=== PATIENT | male | born 1940 | race Caucasian/White ===

== ENCOUNTER → 2017-06-05 | Outpatient (CLI) | payer MEDICARE, BC ==
--- NOTE | 2017-06-05 08:18 | CT ---
EXAMINATION TYPE: CT brain wo con DATE OF EXAM: 06/05/2017 COMPARISON: 07/24/2010 INDICATION: Headache DLP: 1058 mGycm, Automated exposure control for dose reduction was used. CONTRAST: None CT of the brain is performed utilizing 3 mm thick sections through the posterior fossa and 3 mm thick sections through the remaining calvarium. Study is performed within 24 hours of arrival to the hosp ital. No abnormal hyperdensity is present to suggest an acute intracranial hemorrhage. No mass lesion is evident. No acute infarcts are evident. 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 This was present 2010. Ventricles and sulci are appropriate for the patient age. Paranasal sinuses and mastoid air cells within the [id number] are clear. IMPRESSIONS: 1. Old left occipital lobe infarct. 2. No acute intracranial process.
--- NOTE | 2017-06-05 10:16 | US ---
EXAMINATION TYPE: US carotid duplex BILAT DATE OF EXAM: 06/05/2017 COMPARISON: NONE CLINICAL HISTORY: I65.29 Occlusion And Stenosis, R51 Headache. EXAM MEASUREMENTS: RIGHT: Peak Systolic Velocity (PSV) cm/sec ----- Right CCA: 105.6 ----- Right ICA: 79.1 ----- Right ECA: 158.2 ICA/CCA ratio: 0.7 RIGHT: End Diastole cm/sec ----- Right CCA: 13.4 ----- Right ICA: 17.2 ----- Right ECA: 0.0 LEFT: Peak Systolic Velocity (PSV) cm/sec ----- Left CCA: 139.2 ----- Left BULB: 160.3 ----- Left ICA: 119.0 ----- Left ECA: 205.9 ICA/CCA ratio: 1.2 LEFT: End Diastole cm/sec ----- Left CCA: 17.0 ----- Left BULB: 13.1 ----- Left ICA: 23.6 ----- Left ECA: 0.0 VERTEBRALS (direction of flow): Right Vertebral: antegrade Left Vertebral: antegrade Rhythm: Arrhythmia Moderate plaque, bilateral ICA's show no velocity elevations, ECA's have mild velocity elevations and left Bulb shows mild velocity elevation. Right-sided Doppler waveforms appear normal. Atheromatous plaquing is present to the left carotid bul b and bifurcation. The Doppler waveforms appear normal. Only mild filling of the acoustic window is e vident suggestive for some mild turbulent flow. IMPRESSION: 1. Elevated velocity within the left carotid system on the left internal carotid artery is not suspic iously elevated to suggest stenosis. Due to the complex picture, consider CTA if additional workup is warranted. 2. Atheromatous plaquing without flow-limiting stenosis by velocity measurements. Criteria for Assigning % of Stenosis / Diameter reduction (Estimation based on the indirect measurements of the internal carotid artery velocities (ICA PSV). 1. Normal (no stenosis)=ICA PSV < 125 cm/s: ratio < 2.0: ICA EDV<40 cm/s. 2. Less than 50% stenosis=ICA PSV < 125 cm/s: ratio < 2.0: ICA EDV<40 cm/s. 3. 50 to 69% stenosis=ICA PSV of 125 to 230 cm/s: ration 2.0 ? 4.0: ICA EDV 40-100 cm/s. 4. Greater than 70% stenosis to near occlusion= ICA PSV > 230 cm/s: ratio > 4.0: ICA EDV > 100 cm/s. 5. Near occlusion= ICA PSV velocities may be low or undetectable: variable ratio and ICA EDV. 6. Total occlusion=unable to detect flow.
== END | disposition home or self-care (01) ==
LOC: RADCTMAIN 07:30
PROVIDERS: ATTEND Family Medicine
DX: I65.23 Occlusion and stenosis of bilateral carotid arteries (principal); R51 Headache; Z86.79 Personal history of other diseases of the circulatory system
CPT/HCPCS: 70450; 93880

== ENCOUNTER → 2017-12-14 | Outpatient (CLI) | payer MEDICARE, BC ==
--- NOTE | 2017-12-14 12:07 | US ---
EXAMINATION TYPE: US duplex aorta DATE OF EXAM: 12/14/2017 COMPARISON: NONE CLINICAL HISTORY: Z13.9 Encounter for screening, unspecified. Screening EXAM MEASUREMENTS: Abdominal Aorta: Proximal: 1.7 x 1.8cm Mid: 1.9 x 2.1cm Distal: 1.6 x 1.7cm Bifurcation: obscured by overlying bowel content Technical limitations due to patient's body habitus and large amount of overlying bowel content. Vi sualized portions show no evidence of AAA at this time. Bifurcation obscured by overlying bowel laureano nt Grayscale, color Doppler, spectral Doppler imaging performed of the abdominal aorta IMPRESSION: Limited exam. No evident abdominal aortic aneurysm.
== END | disposition home or self-care (01) ==
LOC: RADUSWWP 08:54
PROVIDERS: ATTEND Family Medicine
DX: Z13.6 Encounter for screening for cardiovascular disorders (principal)
CPT/HCPCS: 93979

== ENCOUNTER 2018-06-09 23:34 | Inpatient (IN) | payer MEDICARE, BC ==
--- NOTE | 2018-06-10 00:06 | XR ---
EXAMINATION TYPE: XR knee limited LT DATE OF EXAM: 06/09/2018 COMPARISON: NONE HISTORY: Knee pain TECHNIQUE: 2 views FINDINGS: There is oblique fracture of the proximal shaft of the tibia at the level of the tibial tub ercle. There is no displacement. The knee joint is anatomic. The proximal fibula appears intact. IMPRESSION: Nondisplaced fracture of the proximal tibial metaphysis.
--- NOTE | 2018-06-10 01:05 | CT ---
EXAMINATION TYPE: CT knee LT wo con DATE OF EXAM: 06/10/2018 COMPARISON: None HISTORY: left knee pain after fall CT DLP: 134.9 mGycm Automated exposure control for dose reduction was used. FINDINGS: Multiple axial sections were obtained from the distal femur into the mid shaft of the tibia with no c ontrast. There is oblique fracture of the proximal shaft of the tibia which extends anteriorly to the tibial t ubercle. There is no joint effusion. No fracture line appears to extend to the knee joint. The knee j oint spaces are fairly normal. The distal femur is intact. The proximal fibula appears intact. There is no evidence of a soft tissue mass. I see no focal bone destruction. IMPRESSION: NONDISPLACED OBLIQUE FRACTURE PROXIMAL SHAFT OF THE TIBIA AT THE TIBIAL TUBERCLE. NO DISLOCATION. NO KNEE JOINT SPACE INVOLVEMENT.
[2018-06-10] MEDS ORDERED: MORPHINE SULFATE 4 MG/ML SYRINGE IVP STA ×2 (01:10→02:22)
--- NOTE | 2018-06-10 03:10 | ED ---
Fall HPI - General Chief Complaint: Fall Stated Complaint: Knee pain Time Seen by Provider: 06/09/18 23:39 Source: patient, EMS Mode of arrival: EMS - History of Present Illness Initial Comments: Lang is a pleasant 78-year-old gentleman who is brought to the ED today via EMS for evaluation of left-sided knee pain. 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 Patient reports he was standing in his home when his legs gave out from under him he fell forward landing onto didn't knees. Patient's. Instead immediate pain in his left leg and was unable to stand. EMS was contacted. Patient was given 100 g of intranasal fentanyl with significant improvement in his pain and transported to the ED with his left leg in a knee immobilizer. Upon arrival patient complains only of pain in left knee. He denies any associated injuries. Patient is on aspirin daily but no other antiplatelet or anticoagulant medications. Patient reports when he fell he did not strike his head or neck, he had no loss of consciousness. He describes the fall as being resulted of muscle weakness in his legs, there is no mechanical trip and fall, there was no syncope or loss of consciousness. - Related Data Home Medications Medication Instructions Recorded Confirmed ALPRAZolam [Xanax] 0.25 mg PO HS PRN 12/10/13 05/13/18 Aspirin 81 mg PO BID 12/10/13 05/13/18 Atenolol [Tenormin] 25 mg PO HS 12/10/13 05/13/18 Atorvastatin [Lipitor] 20 mg PO HS 12/10/13 05/13/18 Quinapril HCl [Accupril] 10 mg PO HS 12/10/13 05/13/18 Sertraline [Zoloft] 50 mg PO HS 12/10/13 05/13/18 Multivitamin [Men's Multi-Vitamin] 1 each PO HS 12/31/13 05/13/18 Orencia (Unknown Dose) 1 dose IV. QMONTH 12/17/14 05/13/18 ALPRAZolam [Xanax] 0.25 mg PO BID PRN 06/01/15 05/13/18 Cholecalciferol (Vitamin D3) 5,000 unit PO DAILY 10/29/15 05/13/18 [Vitamin D3] Human Growth Hormone 5 mg PO BID 02/04/16 05/13/18 Previous Rx's Medication Instructions Recorded Cyclobenzaprine [Flexeril] 10 mg PO TID #14 tab 01/16/15 Ibuprofen [Motrin] 800 mg PO Q6HR PRN #20 tab 01/16/15 Allergies Allergy/AdvReac Type Severity Reaction Status Date / Time No Known Allergies Allergy Verified 06/09/18 23:40 Review of Systems ROS Statement: Those systems with pertinent positive or pertinent negative responses have been documented in the HPI. ROS Other: All systems not noted in ROS Statement are negative. Past Medical History Past Medical History: Coronary Artery Disease (CAD), Chest Pain / Angina, CVA/ TIA, Myocardial Infarction ([place]), Rheumatoid Arthritis ([place]) Additional Past Medical History / Comment(s): DIARRHEA,KIDNEYSTONE, CVA OCCIPITAL LOBE (AFFECTED EYES 2010),MEDIPORT FOR IV ORENCIA THERAPY Q 4 WEEKS . 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 Last Myocardial Infarction Date:: 2007 History of Any Multi-Drug Resistant Organisms: MRSA Date of last positivie culture/infection: 2009/IN LEFT ARM PICC MDRO Source:: LEFT ARM PICC Past Surgical History: Adenoidectomy, Appendectomy, Heart Catheterization With Stent, Orthopedic Surgery, Tonsillectomy Additional Past Surgical History / Comment(s): HX caratid ENDARTERECTOMY-2009, MEDIPORT PLACED IN 2009. R FEMUR FX WITH REPAIR. Past Anesthesia/Blood Transfusion Reactions: No Reported Reaction Date of Last Stent Placement:: 2007 Past Psychological History: Depression Smoking Status: Former smoker - Past Family History Father Family Medical History: Hyperlipidemia Additional Family Medical History / Comment(s): FATHER AT AGE 55 YRS IN MVA. Mother Family Medical History: Cancer, Diabetes Mellitus Additional Family Medical History / Comment(s): MOTHER AT AGE 72 OF [place] General Exam - General Exam Comments Initial Comments: Physical Exam GENERAL: Patient is well-developed and well-nourished. Patient is nontoxic and well- hydrated and is in no distress. HENT: Normocephalic, Atraumatic. EYES: PERRL, EOMI PULMONARY: Unlabored respirations. No audible rales rhonchi or wheezing was noted. CARDIOVASCULAR: There is a regular rate and rhythm without any murmurs gallops or rubs. ABDOMEN: Soft and nontender with normal bowel sounds. SKIN: Skin is clear with no lesions or rashes and otherwise unremarkable. : Deferred NEUROLOGIC: Patient is alert and oriented x3. Moving all extremities spontaneously MUSCULOSKELETAL: Decreased range of motion of left knee secondary to pain There is swelling over the left proximal tibia PSYCHIATRIC: Normal psychiatric evaluation. Limitations: no limitations Limitations: no limitations Course Vital Signs 06/09/18 23:37 Temperature 97.7 F Pulse Rate 82 Respiratory 18 Rate Blood Pressure 183/99 O2 Sat by Pulse 97 Oximetry Medical Decision Making - Medical Decision Making The patient was seen and evaluated history was obtained from the patient, patient with a mechanical fall onto his left knee with isolated left knee pain. Physical exam is concerning for acute left proximal tibial pain except x-ray was ordered next line x-ray reveals a nondisplaced tibial fracture however it does abut the joint line therefore computed tomography scan was ordered CT confirms a proximal tibial fracture at the joint Patient care was [facility] with [facility] on-call due to patient request as the patient has a history of orthopedic surgery by Dr. Brar in the past. On Dr. Zhou is unavailable this week and she recommended patient be evaluated by orthopedics complex care nurse practitioner. Patient care was discussed with Avins[facility]. Given the patient's medical history and concern that he will not be safe on crutches decision was made to admit him for possible tibial fracture. Next Patient was reevaluated and updated on findings. Patient with some pain in the proximal tibia, compartments are soft, extremity is warm and well-perfused. There is no signs of compartment syndrome. Admission orders were placed Disposition Clinical Impression: Fall, Inclusion body myositis, Generalized weakness, Closed left tibial fracture Disposition: ADMITTED IP TO THIS HOSP Referrals: Loi Ayala MD [Primary Care Provider] - 1-2 days
[2018-06-10] MEDS ORDERED: NALOXONE 0.4 MG/ML 1 ML VIAL IV PRN (03:11)
[2018-06-10] MEDS: MORPHINE SULFATE 4 MG/ML SYRINGE IV PRN ×3 (05:26→14:09)
[2018-06-10] MEDS: CYCLOBENZAPRINE 10 MG TAB PO SCH ×3 (08:54→20:49)
[2018-06-10] MEDS: ALPRAZolam 0.25 MG TAB PO PRN (08:54)
[2018-06-10] MEDS: HEPARIN SODIUM,PORCINE 5,000 UNIT/ML 1 ML VIAL SQ SCH ×2 (08:56→16:41)
[2018-06-10] MEDS ORDERED: ASPIRIN 81 MG PO SCH (09:00)
[2018-06-10] MEDS ORDERED: IBUPROFEN 400 MG TAB PO PRN (09:18)
[2018-06-10] MEDS ORDERED: HYDROcodone/APAP 7.5-325MG 1 EACH TAB PO PRN (09:18)
--- NOTE | 2018-06-10 09:18 | P.HPOR ---
History of Present Illness H&P Date: 06/10/18 Chief Complaint: Left tibia fracture Patient is a 78-year-old male who presented to [facility] on . Patient had a fall at his home, he landed on his left knee. Patient is a history of inclusion body myositis which causes frequent falls due to lower extremity weakness. Patient states that he had an episode of this tonight when he fell. Upon arrival to the emergency room, imaging lab tests were done. Images demonstrated a nondisplaced left proximal tibial fracture. I was contacted by the emergency room staff early this morning, patient was admitted under our care plan for further evaluation and management. Internal medicine was consulte for medical management. Patient is evaluated today in the emergency room. He is resting comfortably. There is a knee immobilizer present on the left lower extremity. Minimal discomfort in the left knee is noted, mainly with movement. Patient denies any severe pain involving the right lower extremity, bilateral upper extremities, new onset cervical, thoracic or lumbar pain. Patient is a history of a right femur fracture required a surgical procedure, this was done by Dr. Zhou from [facility] back in 2005. Review of Systems Constitutional: Reports as per HPI Past Medical History Past Medical History: Coronary Artery Disease (CAD), Chest Pain / Angina, CVA/ TIA, Myocardial Infarction ([place]), Rheumatoid Arthritis ([place]) Additional Past Medical History / Comment(s): DIARRHEA,KIDNEYSTONE, CVA OCCIPITAL LOBE (AFFECTED EYES 2010),MEDIPORT FOR IV ORENCIA THERAPY Q 4 WEEKS . 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 Last Myocardial Infarction Date:: 2007 History of Any Multi-Drug Resistant Organisms: MRSA Date of last positivie culture/infection: 2009/IN LEFT ARM PICC MDRO Source:: LEFT ARM PICC Past Surgical History: Adenoidectomy, Appendectomy, Heart Catheterization With Stent, Orthopedic Surgery, Tonsillectomy Additional Past Surgical History / Comment(s): HX caratid ENDARTERECTOMY-2009, MEDIPORT PLACED IN 2009. R FEMUR FX WITH REPAIR. Past Anesthesia/Blood Transfusion Reactions: No Reported Reaction Date of Last Stent Placement:: 2007 Past Psychological History: Depression Smoking Status: Former smoker - Past Family History Father Family Medical History: Hyperlipidemia Additional Family Medical History / Comment(s): FATHER AT AGE 55 YRS IN MVA. Mother Family Medical History: Cancer, Diabetes Mellitus Additional Family Medical History / Comment(s): MOTHER AT AGE 72 OF [place] Medications and Allergies Home Medications Medication Instructions Recorded Confirmed Type ALPRAZolam [Xanax] 0.25 mg PO HS PRN 12/10/13 06/10/18 History Aspirin 81 mg PO BID 12/10/13 06/10/18 History Atenolol [Tenormin] 25 mg PO HS 12/10/13 06/10/18 History Quinapril HCl [Accupril] 10 mg PO HS 12/10/13 06/10/18 History Sertraline [Zoloft] 50 mg PO HS 12/10/13 06/10/18 History Multivitamin [Men's Multi-Vitamin] 1 each PO HS 12/31/13 06/10/18 History Cholecalciferol (Vitamin D3) 5,000 unit PO HS 10/29/15 06/10/18 History [Vitamin D3] Allergies Allergy/AdvReac Type Severity Reaction Status Date / Time No Known Allergies Allergy Verified 06/09/18 23:40 Physical Examination Left lower extremity: Knee immobilizer is in good position and condition. Skin is warm to touch proximal distal to the splint, sensation to light touch. Proximal and distal to the immobilizer is intact. Plantar flexion, dorsiflexion, EHL, FHL are intact. Dorsal pedis pulses 2+. Logroll maneuver of the hip reproduces no pain. Range of motion of the lower extremity is limited due to immobilizer. Results - Diagnostic results Hip CT: report reviewed, image reviewed Knee x-ray: report reviewed, image reviewed Assessment and Plan Plan: Imaging: Multiple images were taken of the left knee, this including x-rays and CT. Images demonstrate a nondisplaced left proximal tibial fracture. No articular involvement of the left knee noted. Assessment: 1. Nondisplaced left proximal tibia fracture 2. Status post fall from standing 3. Inclusion body myositis 4. Other medical comorbidities Plan: I was able to discuss the case, including with physical exam findings and imaging studies my attending Dr. Rubalcava. We would like to proceed with conservative management at this time. Plan will be for closed reduction with long-leg cast, this will be performed in the operating room underlie fluoroscopy. We are planning to do this afternoon of 06/10/2018. Patient is remain nothing by mouth at this time Nonweightbearing left lower extremity, continue use knee immobilizer at this time Pain control GI and DVT prophylaxis Medical recommendations Further recommendations to follow Time with Patient: Less than 30
--- NOTE | 2018-06-10 12:52 | XR ---
EXAMINATION TYPE: XR chest 1V portable DATE OF EXAM: 06/10/2018 COMPARISON: 03/19/2010 INDICATION: Preop TECHNIQUE: Single frontal view of the chest is obtained. FINDINGS: The heart size is upper limits of normal. The pulmonary vasculature is normal. The lungs are clear. Port is present on the right with the tip in the distal superior vena cava region. IMPRESSION: 1. No acute pulmonary process.
[2018-06-10 13:04] LABS: Basophils # (A) 0.1 k/uL (0-0.2); Basophils % (A) 1 %; Eosinophils # (A) 0.3 k/uL (0-0.7); Eosinophils % (A) 4 %; HCT 43.8 % (39.0-53.0); HGB 13.9 gm/dL (13.0-17.5); Lymphocytes # (A) 2.4 k/uL (1.0-4.8); Lymphocytes % (A) 30 %; MCH 28.4 pg (25.0-35.0); MCHC 31.7 g/dL (31.0-37.0); MCV 89.3 fL (80.0-100.0); Monocytes # (A) 0.4 k/uL (0-1.0); Monocytes % (A) 5 %; Neutrophils # (A) 4.6 k/uL (1.3-7.7); Neutrophils % (A) 57 %; Platelet Count 229 k/uL (150-450); RDW 13.4 % (11.5-15.5)
[2018-06-10 13:08] LABS: INR 0.9 (<1.2); Prothrombin Time 10.1 sec (9.0-12.0)
[2018-06-10 13:20] LABS: ALT 61 U/L (21-72); AST 49 U/L (17-59); Albumin 3.8 g/dL (3.5-5.0); Alkaline Phosphatase 73 U/L (38-126); Anion Gap 7 mmol/L; Blood Urea Nitrogen 14 mg/dL (9-20); Calcium 9.7 mg/dL (8.4-10.2); Carbon Dioxide 26 mmol/L (22-30); Chloride 106 mmol/L (98-107); Glucose 100 mg/dL (74-99); Potassium 4.5 mmol/L (3.5-5.1); Sodium 139 mmol/L (137-145); Total Bilirubin 0.6 mg/dL (0.2-1.3)
[2018-06-10 13:45] LABS: Creatine Kinase MB 10.2 ng/mL (0.0-2.4); Troponin I 0.019 ng/mL (0.000-0.034)
[2018-06-10 13:57] LABS: Appearance,Urine Clear (Clear); Bilirubin,Urine Negative (Negative); Blood,Urine Negative (Negative); Color,Urine Yellow; Glucose,Urine (UA) Negative (Negative); Ketones,Urine Negative (Negative); Leukocyte Esterase,Urine Small (Negative); Mucus,Urine Rare /hpf; Nitrite,Urine Negative (Negative); Protein,Urine Negative (Negative); RBC,Urine 1 /hpf (0-5); Specific Gravity,Urine 1.013 (1.001-1.035); Urobilinogen,Urine <2.0 mg/dL (<2.0); WBC,Urine 4 /hpf (0-5)
[2018-06-10] MEDS ORDERED: LACTATED RINGERS 1,000 ML IV ONE (16:20)
[2018-06-10] MEDS ORDERED: ONDANSETRON 4 MG/2 ML VIAL IVP ONE (16:36)
[2018-06-10] MEDS ORDERED: DEXAMETHASONE SOD PHOSPHATE 10 MG/ML 1 ML VIAL IV ONE (16:37)
[2018-06-10] MEDS ORDERED: MIDAZOLAM 2 MG/2 ML VIAL ONE (17:01)
[2018-06-10] MEDS ORDERED: fentaNYL (PF) 50 MCG/ML 2 ML AMP ONE (17:01)
[2018-06-10] MEDS ORDERED: PROPOFOL 10 MG/ML 20 ML VIAL IV ONE (17:01)
--- NOTE | 2018-06-10 17:26 | P.OP ---
Date of Procedure: 06/10/18 Preoperative Diagnosis: Mildly displaced left proximal tibia fracture Postoperative Diagnosis: Same Procedure(s) Performed: Closed reduction and long-leg casting left proximal tibia fracture with fluoroscopy Anesthesia: MAC Surgeon: Anderson Rubalcava Estimated Blood Loss (ml): 0 Pathology: none sent Condition: stable Disposition: PACU Indications for Procedure: The patient's a 78-year-old male who presents after falling injuring his left leg. He was noted to close fracture involving the left proximal tibia in the metaphyseal region. A discussion of the risks and benefits of closed reduction and casting was made with the patient. He opted to proceed. Risks to include possible need for subsequent procedures was discussed. Operative Findings: As below Description of Procedure: The patient was brought to the operating room, and after induction of IV sedation a long leg cast was applied to the left leg. The knee was flexed 30. Gentle reduction was performed. The cast was molded appropriately. Fluoroscopy to include AP and lateral views of the left proximal tibia/knee showed adequate reduction of the fracture. The patient was awoken from sedation and transferred to recovery room in good condition. Blood loss was 0. No complications were incurred.
[2018-06-10] MEDS ORDERED: LABETALOL SYRINGE 5 MG/ML IVP ONE (18:03)
--- NOTE | 2018-06-10 18:24 | XR ---
EXAMINATION TYPE: XR tibia fibula LT, [place] guidance operating room DATE OF EXAM: 06/10/2018 COMPARISON: NONE HISTORY: 78-year-old male with left tibial fracture casting FINDINGS: Fluoroscopic images during intraoperative casting of the patient's proximal tibial fractures. FLUOROSCOPY Fluoroscopy time of 1 seconds was used during casting of left tibial fracture. 2 image/s document/s the procedure. IMPRESSION: Intraoperative fluoroscopy during tibial fracture casting as above.
--- NOTE | 2018-06-10 19:37 | CONS ---
CONSULTATION REASON FOR CONSULTATION: Advice regarding myositis and other medical issues requested by Dr. Rubalcava. HISTORY OF PRESENT ILLNESS: This 78-year-old gentleman with a past medical history of multiple medical problems including CAD, rheumatoid arthritis, CVA, TIA, myocardial infarction, history of kidney stones, history of severe occipital lobe, history of MRSA, history of Orencia treatment, history of CAD stent, history of inclusion body myositis being followed by Dr. Ayala in the outpatient setting also following up with [facility] neurologist. The patient also receiving Orencia infusion thru a port on the right chest. The patient has become slightly progressively weak according to him because of the myositis for which there is not much treatment at this time. The patient apparently fell because of weakness and suffered a nondisplaced left proximal tibial fracture. The patient admitted for further evaluation and treatment. Surgery is being planned at this time. There is no history of fever, rigors or chills. No history of headache, loss of consciousness, seizures. No chest pain, palpitations, hematochezia or melena. The previously the exercise tolerance appears to be excellent also at this time. PAST MEDICAL HISTORY: History of CAD, history of myocardial infarction, rheumatoid arthritis, history of kidney stones, history of CVI, history of MRSA, history of CAD stent. MEDICATIONS: Prior to admission include home medications are: 1. Pamelor 10 mg p.o. b.i.d. 2. Vitamin D3 5000 q.h.s. 3. Zoloft 50 mg q.h.s. 4. Accupril 10 mg q.h.s. 5. Multivitamins 1 p.o. daily. 6. Tenormin 25 mg q.h.s. 7. Aspirin 81 mg b.i.d. 8. Xanax 0.5 q.h.s. p.r.n. ALLERGIES: None. FAMILY HISTORY: History of hyperlipidemia. History of motor vehicle accident. SOCIAL HISTORY: History of alcohol on a daily basis, history of nicotine dependence. REVIEW OF SYSTEMS: ENT: No diminished hearing. No diminished vision. CARDIOVASCULAR: No angina or palpitations. RESPIRATORY: No cough or hemoptysis. GI: No nausea or vomiting. : No dysuria. NERVOUS SYSTEM: As mentioned earlier. ALLERGY/IMMUNOLOGY: No asthma or hayfever. MUSCULOSKELETAL: As mentioned earlier. HEMATOLOGY/ONCOLOGY: No history of anemia. ENDOCRINE: No history of diabetes or hypothyroidism. CONSTITUTIONAL: As mentioned earlier. Dermatology: Negative. Rheumatology: Negative. Psychiatry: As mentioned earlier. PHYSICAL EXAMINATION: GENERAL: The patient is alert and oriented times three. Pulse is 77, blood pressure 179/82, respiration 20, temperature 97.6, pulse ox 98% on 2 L. HEENT is conjunctivae normal. Oral mucosa moist. NECK: No jugular venous distention. No carotid bruit. No lymph node enlargement. CARDIOVASCULAR SYSTEM: S1, S2 muffled. RESPIRATORY: Breath sounds diminished in the bases. A few scattered rhonchi. No crackles. ABDOMEN: Soft, nontender. No mass palpable. LEGS: Status post left tibial fracture. NERVOUS SYSTEM: Higher functions as mentioned earlier. Moves all four extremities. No focal motor or sensory deficits. Lymphatics: No lymph nodes palpable in the neck, axillae or groin. SKIN: No ulcer, rashes or bleeding. JOINTS: No active deforming arthropathy. LABS: CBC within normal limits. Sodium 139, potassium 4.5. ASSESSMENT: 1. Nondisplaced left proximal tibial fracture. 2. Inclusion body myositis. 3. Rheumatoid arthritis on Orencia infusion. 4. Right chest Port-A-Cath. 5. History of coronary artery disease, myocardial infarction/ stent. 6. History of cerebrovascular accident, transient ischemic attack, occipital infarct. 7. History of nephrolithiasis. 8. History of Orencia infusion. 9. History of MRSA. 10.History of tonsillectomy. 11.History of degenerative joint disease. 12.History of depression. RECOMMENDATIONS AND DISCUSSION: This 78-year-old gentleman who presented with multiple medical issues, at this time, I recommend to continue current medications, management and symptomatic treatment. Otherwise, at this time I recommend to continue with antiplatelet agents and as well as beta blockers. The patient is medically stable for surgery. I would recommend DVT prophylaxis and continue with antiplatelet agents and closely follow up with the primary physician after discharge. We will follow the patient closely with you. Thank you Dr. Rubalcava for letting us take part in the care of this patient. Recommend close follow up with Dr. Ayala after discharge. Repeat labs also will be recommended. MMODL / IJN: [id number] /
[2018-06-10] MEDS: MULTIVITAMINS, THERA 1 EACH TAB PO SCH (20:48)
[2018-06-10] MEDS: NORTRIPTYLINE 10 MG CAP PO SCH (20:49)
[2018-06-10] MEDS: LISINOPRIL 10 MG TAB PO SCH (20:49)
[2018-06-10] MEDS: ATORVASTATIN 20 MG TAB PO SCH (20:49)
[2018-06-10] MEDS: ATENOLOL 25 MG TAB PO SCH (20:49)
[2018-06-10] MEDS: CHOLECALCIFEROL 1,000 UNIT TAB PO SCH (20:49)
[2018-06-10] MEDS: SERTRALINE 50 MG TAB PO SCH (21:13)
[2018-06-11 07:32] LABS: Basophils % (A) 0 %; Eosinophils % (A) 0 %; HGB 13.3 gm/dL (13.0-17.5); Lymphocytes # (A) 0.6 k/uL (1.0-4.8); Lymphocytes % (A) 9 %; MCH 29.2 pg (25.0-35.0); MCHC 32.4 g/dL (31.0-37.0); MCV 90.2 fL (80.0-100.0); Mean Platelet Volume 7.5; Monocytes # (A) 0.2 k/uL (0-1.0); Monocytes % (A) 3 %; Neutrophils # (A) 5.9 k/uL (1.3-7.7); Neutrophils % (A) 86 %; Platelet Count 232 k/uL (150-450); RBC 4.55 m/uL (4.30-5.90); RDW 13.2 % (11.5-15.5); WBC 6.8 k/uL (3.8-10.6)
[2018-06-11 08:02] LABS: Anion Gap 5 mmol/L; Blood Urea Nitrogen 15 mg/dL (9-20); Calcium 9.6 mg/dL (8.4-10.2); Carbon Dioxide 29 mmol/L (22-30); Chloride 103 mmol/L (98-107); Glucose 138 mg/dL (74-99); Sodium 137 mmol/L (137-145)
[2018-06-11] MEDS: ASPIRIN 325 MG TAB PO SCH (09:11)
[2018-06-11] MEDS: PANTOPRAZOLE 40 MG TABLET PO SCH (09:12)
[2018-06-11] MEDS: CYCLOBENZAPRINE 10 MG TAB PO SCH ×3 (09:13→20:36)
[2018-06-11] MEDS: NORTRIPTYLINE 10 MG CAP PO SCH ×2 (09:18→20:36)
[2018-06-11] MEDS: LISINOPRIL 10 MG TAB PO SCH ×2 (12:31→20:36)
[2018-06-11] MEDS: ATENOLOL 25 MG TAB PO SCH (12:31)
--- NOTE | 2018-06-11 13:31 | P.PN ---
Subjective Progress Note Date: 06/11/18 Principal diagnosis: Status post closed reduction with long-leg cast left proximal tibia fracture Patient is seen today resting in his hospital bed, he is comfortable. Pain is well-controlled at this time. He remains nonweightbearing. Objective - Vital Signs Vital signs: Vital Signs Temp 97.9 F 06/11/18 13:26 Pulse 79 06/11/18 13:26 Resp 20 06/11/18 13:26 BP 177/79 06/11/18 13:26 Pulse Ox 98 06/11/18 13:26 Intake & Output 06/10/18 06/11/18 06/11/18 18:59 06:59 18:59 Intake Total 550 1680 Output Total 420 Balance 550 1260 Intake: IV 550 Intake, IV Titration 240 Amount Lactated Ringers 1,000 ml 240 @ 0 mls/hr IV .[facility] Rx#:[id number] Oral 1440 Output: Urine 420 Other: Voiding Method Urinal Urinal Urinal # Voids 1 1 - Exam Left lower extremity: Long leg cast is in good position and condition. He is able to wiggle the toes no difficulty. The skin is warm to touch but distal and proximal to the splint. - Labs CBC & Chem 7: 06/11/18 06:55 06/11/18 06:55 Labs: Abnormal Lab Results - Last 24 Hours (Table) 06/10/18 06/10/18 06/11/18 Range/Units 12:50 13:30 06:55 Lymphocytes # 0.6 L (1.0-4.8) k/uL Creatinine (0.66-1.25) mg/dL Glucose (74-99) mg/dL CK-MB (CK-2) 10.2 H (0.0-2.4) ng/mL Ur Leukocyte Esterase Small H (Negative) Urine Mucus Rare H (None) /hpf 06/11/18 Range/Units 06:55 Lymphocytes # (1.0-4.8) k/uL Creatinine 0.56 L (0.66-1.25) mg/dL Glucose 138 H (74-99) mg/dL CK-MB (CK-2) (0.0-2.4) ng/mL Ur Leukocyte Esterase (Negative) Urine Mucus (None) /hpf Assessment and Plan Plan: Assessment: Status post closed reduction with long-leg casting left proximal tibia fracture Plan: Continue nonweightbearing left lower extremity Pain control GI and DVT prophylaxis Medical recommendations Likely discharge to rehab in the next day or 2 Time with Patient: Less than 30
[2018-06-11] MEDS: MORPHINE SULFATE 4 MG/ML SYRINGE IV PRN ×2 (14:25→23:19)
[2018-06-11] MEDS: ATORVASTATIN 20 MG TAB PO SCH (20:36)
[2018-06-11] MEDS: MULTIVITAMINS, THERA 1 EACH TAB PO SCH (20:36)
[2018-06-11] MEDS: CHOLECALCIFEROL 1,000 UNIT TAB PO SCH (20:36)
[2018-06-11] MEDS: SERTRALINE 50 MG TAB PO SCH (20:37)
[2018-06-11] MEDS: ALPRAZolam 0.25 MG TAB PO PRN (20:41)
[2018-06-12] MEDS: hydrALAZINE HCL 20 MG/ML 1 ML VIAL IVP PRN ×2 (06:05→22:22)
--- NOTE | 2018-06-12 07:29 | PN ---
PROGRESS NOTE DATE OF SERVICE: 06/11/2018 This 78-year-old gentleman admitted after nondisplaced left proximal tibial fracture, underwent closed reduction and long-leg casting of the left proximal tibial fracture with fluoroscopy. The patient also inclusion-body myositis. No chest pain or palpitation. No fever. PHYSICAL EXAMINATION: On exam, alert and oriented x3. Pulse is 75, blood pressure 175/74, respiration 20, temperature 97.5, pulse ox 95% on room air. HEENT: Conjunctivae normal. Neck: No jugular venous distention. CARDIOVASCULAR: S1, S2 muffled. RESPIRATORY: Breath sounds diminished at the bases. LEGS: Status post surgery. NERVOUS SYSTEM: No focal deficits. LABS: Labs are at this time shows CBC is WBC 6.8. Sodium is 137. ASSESSMENT: 1. Acute nondisplaced left proximal tibial fracture, status post closed reduction and long-leg casting. 2. Hypertension. 3. Inclusion-body myositis. 4. Rheumatoid arthritis on Orencia infusion. 5. Right chest Port-A-Cath. 6. History of coronary artery disease, myocardial infarction, stent. 7. History of cerebrovascular accident, transient ischemic attack, occipital infarct history. 8. History of nephrolithiasis. 9. History of Orencia infusion. 10.History of methicillin-resistant Staphylococcus aureus. 11.History of tonsillectomy. 12.History of degenerative joint disease. 13.History of depression. RECOMMENDATIONS AND DISCUSSION: Recommend to continue current medications. Recommend increase the dose of lisinopril, use p.r.n. hydralazine. Continue the rest of medications. DVT prophylaxis. Closely follow with Orthopedic Surgery. Pain medications per Orthopedic Surgery. Further recommendations to follow. MMODL / IJN: [id number] / [facility]
[2018-06-12] MEDS: LISINOPRIL 10 MG TAB PO SCH ×2 (08:38→21:47)
[2018-06-12] MEDS: CYCLOBENZAPRINE 10 MG TAB PO SCH ×3 (08:38→21:47)
[2018-06-12] MEDS: PANTOPRAZOLE 40 MG TABLET PO SCH (08:38)
[2018-06-12] MEDS: ASPIRIN 325 MG TAB PO SCH (08:39)
[2018-06-12] MEDS: NORTRIPTYLINE 10 MG CAP PO SCH ×2 (08:39→21:47)
--- NOTE | 2018-06-12 13:31 | P.PN ---
Subjective Progress Note Date: 06/12/18 Principal diagnosis: Status post closed reduction with long-leg cast left proximal tibia fracture Patient is seen today resting in his hospital bed, he is comfortable. Pain is well-controlled at this time. He remains nonweightbearing. Objective - Vital Signs Vital signs: Vital Signs Temp 97.5 F L 06/12/18 12:43 Pulse 75 06/12/18 12:43 Resp 16 06/12/18 12:43 BP 142/64 06/12/18 12:43 Pulse Ox 96 06/12/18 12:43 Intake & Output 06/11/18 06/12/18 06/12/18 18:59 06:59 18:59 Intake Total 320 Output Total 800 750 Balance -800 -430 Intake: Oral 320 Output: Urine 800 750 Other: Voiding Method Urinal Urinal - Exam Left lower extremity: Long leg cast is in good position and condition. He is able to wiggle the toes no difficulty. The skin is warm to touch but distal and proximal to the splint. - Labs CBC & Chem 7: 06/11/18 06:55 06/11/18 06:55 Assessment and Plan Plan: Assessment: Status post closed reduction with long-leg casting left proximal tibia fracture Plan: Continue nonweightbearing left lower extremity Pain control GI and DVT prophylaxis Medical recommendations Plan for discharge to rehab tomorrow Time with Patient: Less than 30
--- NOTE | 2018-06-12 20:45 | PN ---
PROGRESS NOTE DATE OF SERVICE: 06/12/2018 This 78-year-old gentleman who was admitted with acute nondisplaced left proximal tibia fracture had closed reduction and long-leg casting. The patient is still complaining of some pain. Patient has significant myopathy in the form of inclusion body myositis also. The patient being closely monitored. No chest pain. No palpitations. No shortness of breath. PHYSICAL EXAM: Alert and oriented x3. Pulse is 75. Blood pressure 124/60, respiratory rate 16, temperature 97.4, pulse ox 97% on room air. HEENT conjunctivae normal. NECK: No jugular venous distention. CARDIOVASCULAR: S1, S2 muffled. RESPIRATORY: Breath sound diminished in the bases. No rhonchi. No crackles. ABDOMEN: Soft, nontender. Legs status post surgery. Otherwise, nervous system : Mild diffuse weakness present. SKIN: No ulcer, rash, or bleeding. JOINTS: No active deforming arthropathy. LAB STUDIES: CBC within normal limits. Sodium 139, potassium 5. UA noted. ASSESSMENT: 1. Acute nondisplaced left proximal tibial fracture, status post fall and status post closed reduction and long-leg casting. 2. Hypertension. 3. Inclusion body myositis. 4. Rheumatoid arthritis 5. Right chest Port-A-Cath. 6. Coronary artery disease, myocardial infarction, stent history. 7. History of cerebrovascular accident, transient ischemic attack, occipital infarct history. 8. History of nephrolithiasis. 9. History of Orencia fusion. 10.History of Methicillin-resistant Staphylococcus aureus. 11.History of tonsillectomy. 12.History of degenerative joint disease. 13.History of depression. RECOMMENDATIONS AND DISCUSSION: Recommend to continue current medications, monitoring and symptomatic treatment, management and recommend PT/OT evaluation, possible ECF rehab because of the multiple complex medical issues including inclusion body myositis, for which there is not really any active treatment and which is likely to be progressive. We will follow the patient closely with Orthopedic surgery. Further recommendations to follow. DVT prophylaxis. Incentive spirometry. MMODL / IJN: [id number] / [facility]
[2018-06-12] MEDS: CHOLECALCIFEROL 1,000 UNIT TAB PO SCH (21:46)
[2018-06-12] MEDS: MULTIVITAMINS, THERA 1 EACH TAB PO SCH (21:47)
[2018-06-12] MEDS: ATORVASTATIN 20 MG TAB PO SCH (21:47)
[2018-06-12] MEDS: SERTRALINE 50 MG TAB PO SCH (21:47)
[2018-06-12] MEDS: ATENOLOL 25 MG TAB PO SCH (21:47)
[2018-06-12] MEDS: MORPHINE SULFATE 4 MG/ML SYRINGE IV PRN (22:22)
[2018-06-13] MEDS: CYCLOBENZAPRINE 10 MG TAB PO SCH ×2 (08:56→18:36)
[2018-06-13] MEDS: PANTOPRAZOLE 40 MG TABLET PO SCH (08:56)
[2018-06-13] MEDS: ASPIRIN 325 MG TAB PO SCH (08:56)
[2018-06-13] MEDS: LISINOPRIL 10 MG TAB PO SCH (08:56)
[2018-06-13] MEDS: NORTRIPTYLINE 10 MG CAP PO SCH (08:56)
[2018-06-13 11:59] VITALS: BP 106/67; RESP 15; TEMP 98
--- NOTE | 2018-06-13 12:58 | XR ---
EXAMINATION TYPE: XR chest 1V portable DATE OF EXAM: 06/13/2018 COMPARISON: 06/10/2018 HISTORY: Abnormal x-ray TECHNIQUE: Single frontal view of the chest is obtained. FINDINGS: Mediport catheter is seen and there are subsegmental changes at the right lung base with e levated hemidiaphragm. Heart is mildly enlarged. No pneumothorax. Calcification overlying the left lo wer chest is stable. IMPRESSION: 1. Right basilar atelectasis or infiltrate.
--- NOTE | 2018-06-13 13:13 | P.PN ---
Subjective Progress Note Date: 06/13/18 Principal diagnosis: Status post closed reduction with long-leg cast left proximal tibia fracture Patient is seen today resting in his hospital bed, he is comfortable. Pain is well-controlled at this time. He remains nonweightbearing. Objective - Vital Signs Vital signs: Vital Signs Temp 98 F 06/13/18 11:58 Pulse 75 06/13/18 11:58 Resp 15 06/13/18 11:58 BP 106/67 06/13/18 11:58 Pulse Ox 97 06/13/18 11:58 Intake & Output 06/12/18 06/13/18 06/13/18 18:59 06:59 18:59 Intake Total 1300 400 Output Total 1100 600 600 Balance -1100 700 -200 Intake: Oral 1300 400 Output: Urine 1100 600 600 Other: Voiding Method Urinal Urinal - Exam Left lower extremity: Long leg cast is in good position and condition. He is able to wiggle the toes no difficulty. The skin is warm to touch but distal and proximal to the splint. - Labs CBC & Chem 7: 06/11/18 06:55 06/11/18 06:55 Assessment and Plan Plan: Assessment: Status post closed reduction with long-leg casting left proximal tibia fracture Plan: Continue nonweightbearing left lower extremity Pain control, we'll discharge on [place] 5 mg/325 mg GI and DVT prophylaxis, utilizing aspirin 325 mg daily Medical recommendations Plan for discharge to rehab today Time with Patient: Less than 30
--- NOTE | 2018-06-13 13:21 | P.DS ---
Providers Date of admission: 06/10/18 03:11 Expected date of discharge: 06/13/18 Attending physician: Anderson Rubalcava Consults: 06/10/18 03:12 Consult Physician Routine Consulting Provider: Ashok Kc Consult Reason/Comments: medical management of trauma patient Do you want consulting provider notified?: Yes Primary care physician: [facility] Hospital Course: Date of admission: 06/10/2018 Date of discharge: 06/13/2018 Admission diagnosis: Nondisplaced left proximal tibia fracture Discharge diagnosis: Status post closed reduction with long-leg cast left proximal tibia fracture Attending physician: Dr. Rubalcava Surgical procedures: Closed reduction with long-leg cast left proximal tibia fracture Brief history: Patient is a 78-year-old male who presented to [facility] on 06/10/2018 after sustaining a fall at home. Patient has a history of inclusion body myositis which causes and frequent falls. Patient states he was walking through his home in his legs gave out and he fell on his left side. He was unable to weight-bear, EMS was contacted and brought patient to Hospital. Upon arrival, imaging test demonstrated a nondisplaced left proximal tibia fracture. I was contacted by the emergency room staff regarding the patient, I was able to review the images. Patient was admitted under our orthopedic care for further management, internal medicine was placed on consult for medical management. Hospital course: Details of patient's surgery can be found in operative report. Patient tolerated the procedure well and was subsequently transported to orthopedic floor. Patient's orthopeidc and medical care was provided daily. Patient had daily laboratory tests performed for evaluation of overall blood counts. Patient had daily physical therapy to include strengthening range of motion as well as education with walker ambulation. Patient was treated with aspirin for their postoperative DVT prophylaxis during their inpatient stay. Patient was noted to have a relatively uneventful postoperative course. Patient reported satisfactory pain control with oral pain medications by postoperative day 0. Patient showed satisfactory progress with physical therapy. Patient moved steadily through the program and had no difficulty meeting the goals by postoperative day 3. Given patient's otherwise satisfactory course and having met physical therapy goals, plan is to discharge patient rehab on postoperative day 3. Discharge condition/disposition: Patient will be discharged to rehab in stable condition. Discharge medications: Instructions are given on resumption of patient's normal daily medications per primary care recommendation, in addition patient will be prescribed aspirin 325 mg, [place] 5 mg/325 mg. Discharge instructions: 1. Keep cast clean and dry, keep covered while showering. Do not get wet 2. Nonweightbearing left lower extremity 3. Elevate the extremity often 4. Pain meds and anticoagulants per prescription. 5. Pain medication has potential to cause constipation. Increase oral fluid and fiber intake. Contact primary care provider if you have not had a bowel movement within 48 hours after discharge 6. Follow up in office at 2 weeks postop with Avinash Todd PA-C 7. Follow up with your primary care doctor 7-10 days after discharge. 8. Contact [facility] with any questions, . Procedures: Closed reduction with long-arm cast left proximal tibia fracture Patient Condition at Discharge: Good Plan - Discharge Summary Discharge Rx Participant: No New Discharge Prescriptions: New ALPRAZolam [Xanax] 0.25 mg PO HS PRN #30 tab PRN Reason: Anxiety Aspirin 325 mg PO DAILY #30 tab Hydrocodone/Acetaminophen [G[place]ner 5-325] 1 each PO Q6HR PRN #28 tab PRN Reason: Pain No Action Sertraline [Zoloft] 50 mg PO HS Quinapril HCl [Accupril] 10 mg PO HS Atenolol [Tenormin] 25 mg PO HS Multivitamin [Men's Multi-Vitamin] 1 each PO HS Cholecalciferol (Vitamin D3) [Vitamin D3] 5,000 unit PO HS Nortriptyline [Pamelor] 20 mg PO HS Discharge Medication List Atenolol [Tenormin] 25 mg PO HS 12/10/13 [History] Quinapril HCl [Accupril] 10 mg PO HS 12/10/13 [History] Sertraline [Zoloft] 50 mg PO HS 12/10/13 [History] Multivitamin [Men's Multi-Vitamin] 1 each PO HS 12/31/13 [History] Cholecalciferol (Vitamin D3) [Vitamin D3] 5,000 unit PO HS 10/29/15 [History] Nortriptyline [Pamelor] 20 mg PO HS 06/10/18 [History] ALPRAZolam [Xanax] 0.25 mg PO HS PRN #30 tab 06/13/18 [Rx] Aspirin 325 mg PO DAILY #30 tab 06/13/18 [Rx] Hydrocodone/Acetaminophen [Gardner 5-325] 1 each PO Q6HR PRN #28 tab 06/13/18 [Rx] Follow up Appointment(s)/Referral(s): Loi Ayala MD [Primary Care Provider] - 1-2 days Anderson Rubalcava MD [STAFF PHYSICIAN] - 2 Weeks Activity/Diet/Wound Care/Special Instructions: Orthopedic Discharge Instructions: 1. Resume home medications after discharge 2. Non weightbearing left lower extremity 3. Keep cast clean and dry 4. Elevate extremity often 5. Follow up at [facility] in 2 weeks Discharge Disposition: TRANSFER TO SNF/ECF
--- NOTE | 2018-06-13 17:15 | PN ---
PROGRESS NOTE DATE OF SERVICE: 06/13/2018 This 78-year-old gentleman who was admitted after nondisplaced proximal tibial fracture had underwent closed reduction and long-leg casting by Orthopedic surgery. The patient also inclusion body myositis which is being treated elsewhere. The patient complained of generalized weakness and rehab in [facility] is planned. No chest pain. No palpitations. No fever. EXAM: Alert and oriented x3. Pulse 90. Blood pressure 137/60, respirations 16, temperature 98 degrees, pulse ox 97% on room air. HEENT: Conjunctivae normal. NECK: No jugular venous distention. CARDIOVASCULAR: S1, S2 muffled. RESPIRATORY: Breath sounds diminished in the bases. A few rhonchi. No crackles. Abdomen is soft, nontender. Legs status post left leg fracture. NERVOUS SYSTEM: No focal deficits. LABS: CBC/BMP within normal limits. ASSESSMENT: 1. Status post acute nondisplaced left proximal tibial fracture, status post fall and closed reduction and long-leg casting. 2. Hypertension. 3. Inclusion body myositis. 4. Rheumatoid arthritis on Orencia infusion. 5. Right chest Port-A-Cath. 6. Coronary artery disease myocardial infarction stent history. 7. History of cerebrovascular accident/transient ischemic attack occipital infarct history. 8. History of nephrolithiasis. 9. History of Orencia infusion. 10.History of MRSA. 11.History of tonsillectomy. 12.History of degenerative joint disease. 13.History of depression. RECOMMENDATIONS AND DISCUSSION: Recommend to continue medications, current management and symptomatic treatment. Resume the home medications. DVT prophylaxis. The rest of the medications per Orthopedic Surgery. Follow closely with Dr. Vásquez in the outpatient setting and follow up with the primary physician after discharge. MMODL / IJN: [id number] /
[2018-06-13] MEDS ORDERED: HEPARIN SODIUM,PORCINE 5,000 UNIT/ML 1 ML VIAL IV STA (17:58)
[2018-06-13 19:27] VITALS: PULSE 90
== END 2018-06-13 20:00 | DRG 563 ==
LOC: EC 23:34 → 4SSUR 06-10 03:11 → 3NMEDONC 06-10 11:14
PROVIDERS: ADMIT Orthopaedic Surgery; ATTEND Orthopaedic Surgery
PROC: 0QSHXZZ Reposition Left Tibia, External Approach (ICD-10-PCS; principal; 2018-06-10 16:30)
DX: S82.102A Unspecified fracture of upper end of left tibia, initial encounter for closed fracture (principal); G72.41 Inclusion body myositis [IBM]; M06.9 Rheumatoid arthritis, unspecified; I10 Essential (primary) hypertension; F32.9 Major depressive disorder, single episode, unspecified; I25.10 Atherosclerotic heart disease of native coronary artery without angina pectoris; I25.2 Old myocardial infarction; M19.90 Unspecified osteoarthritis, unspecified site; R29.6 Repeated falls; Z79.82 Long term (current) use of aspirin; Z79.890 Hormone replacement therapy; Z79.899 Other long term (current) drug therapy; Z91.81 History of falling; Z87.891 Personal history of nicotine dependence; Z86.14 Personal history of Methicillin resistant Staphylococcus aureus infection; Z95.5 Presence of coronary angioplasty implant and graft; Z86.73 Personal history of transient ischemic attack (TIA), and cerebral infarction without residual deficits; Z87.442 Personal history of urinary calculi; Z86.79 Personal history of other diseases of the circulatory system; Z87.81 Personal history of (healed) traumatic fracture; W19.XXXA Unspecified fall, initial encounter; Y92.009 Unspecified place in unspecified non-institutional (private) residence as the place of occurrence of the external cause; Y93.01 Activity, walking, marching and hiking; Z83.3 Family history of diabetes mellitus; Z80.6 Family history of leukemia; Z83.49 Family history of other endocrine, nutritional and metabolic diseases
CPT/HCPCS: 71045; 80048; 80053; 81001; 82553; 84484; 85025; 85610; 93005; 96372; 96374; 96376; 99285

== ENCOUNTER → 2018-11-18 | Outpatient (CLI) | payer MEDICARE, BC ==
--- NOTE | 2018-11-18 10:30 | MR ---
EXAMINATION TYPE: MR cervical spine wo con DATE OF EXAM: 11/18/2018 COMPARISON: CT brain 06/05/2017 HISTORY: Cervical disc disorder with myelopathy TECHNIQUE: Multiplanar, multisequence images of the cervical spine were acquired. C2-C3: Degenerative disc disease and uncovertebral joint hypertrophy. No foraminal encroachment or ca nal stenosis. Mild facet arthropathy. C3-C4: Degenerative disc disease very mild central disc bulging. Facet arthropathy noted. Mild left f oraminal encroachment. C4-C5: Degenerative disc disease with posterior spondylosis. There is endplate spurring uncovertebral joint hypertrophy with facet arthropathy. Mild right-sided foraminal encroachment. No Canal stenosis . C5-C6: Severe degenerative disc disease with broad-based disc bulging. There is marked left-sided unc overtebral joint hypertrophy. There is moderate bilateral foraminal encroachment greater on the left. There is mild effacement of thecal sac and findings suggestive of borderline to mild canal stenosis. C6-C7: Severe degenerative disc disease. There is endplate spurring and uncovertebral joint hypertrop hy with facet arthropathy. There is mild bilateral foraminal encroachment greater on the left and the re is broad-based disc bulging with effacement of thecal sac and mild central stenosis. C7-T1: No evidence for degenerative disc disease. No disc bulge/herniation or protrusion. No Canal stenosis. Foramina are patent bilaterally. Cervical segments are intact. There is normal alignment. Cervical spinal cord is of normal signal. Craniovertebral junction relationships are within normal limits. There is a stable area of encephal omalacia involving the left occipital lobe compatible with previous fracture. IMPRESSION: 1. Multilevel significant degenerative disc disease and hypertrophic changes. Disc bulging in combina tion with hypertrophic changes at C5-C6 and C6-C7 resulting canal stenosis and foraminal encroachment . 2. Multilevel foraminal encroachment. 3. Remote infarction left occipital lobe stable from previous CT of the brain.
== END | disposition home or self-care (01) ==
LOC: RADMRIMAIN 09:35
PROVIDERS: ATTEND Psychiatry & Neurology Neurology
DX: M48.02 Spinal stenosis, cervical region (principal); M50.222 Other cervical disc displacement at C5-C6 level; M50.223 Other cervical disc displacement at C6-C7 level; M50.31 Other cervical disc degeneration, high cervical region; I63.89 Other cerebral infarction; R53.1 Weakness; R27.0 Ataxia, unspecified
CPT/HCPCS: 72141

== ENCOUNTER → 2019-02-17 | Outpatient (CLI) | payer MEDICARE, BC ==
--- NOTE | 2019-02-17 13:24 | US ---
EXAMINATION TYPE: US thyroid st tissue head/neck DATE OF EXAM: 02/17/2019 COMPARISON: NONE CLINICAL HISTORY: R59.0 ENLARGED LYMPH NODES. Left neck swelling. Scanned left neck. No abnormalities seen. IMPRESSION: Targeted ultrasound left neck shows no worrisome mass or fluid collection on images 8. No suspicious adenopathy noted.
== END | disposition home or self-care (01) ==
LOC: RADUSWWP 11:56
PROVIDERS: ATTEND Family Medicine
DX: R59.0 Localized enlarged lymph nodes (principal)
CPT/HCPCS: 76536

== ENCOUNTER 2019-04-05 14:04 | Emergency (ER) | payer MEDICARE, BC ==
[2019-04-05 14:16] VITALS: PULSE 56; RESP 18; TEMP 97.1
--- NOTE | 2019-04-05 14:39 | ED ---
Upper Extremity HPI - General Chief Complaint: Extremity Injury, Upper Stated Complaint: Fall Time Seen by Provider: 04/05/19 14:14 Source: patient, EMS Mode of arrival: EMS Limitations: no limitations - History of Present Illness Initial Comments: Patient is a 78-year-old male presenting to the emergency department via EMS after falling. 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 Patient states he landed mostly on his right shoulder however did hit the right side of his head. Patient is denying headache or neck pain at this time. Patient's only complaint is his right shoulder. Patient is unable to move his right shoulder secondary to pain. Patient denies being on blood thinners. Patient denies any other injuries from the fall. There are no other complaints at this time. Upon arrival to ER, vital signs are stable. - Related Data Home Medications Medication Instructions Recorded Confirmed Atenolol [Tenormin] 25 mg PO HS 12/10/13 03/28/19 Quinapril HCl [Accupril] 20 mg PO HS 12/10/13 03/28/19 Sertraline [Zoloft] 50 mg PO HS 12/10/13 03/28/19 Multivitamin [Men's Multi-Vitamin] 1 each PO HS 12/31/13 03/28/19 Cholecalciferol (Vitamin D3) 5,000 unit PO HS 10/29/15 03/28/19 [Vitamin D3] Nortriptyline [Pamelor] 20 mg PO HS 06/10/18 03/28/19 Previous Rx's Medication Instructions Recorded ALPRAZolam [Xanax] 0.25 mg PO HS PRN #30 tab 06/13/18 Aspirin 325 mg PO DAILY #30 tab 06/13/18 Atorvastatin [Lipitor] 20 mg PO HS tab 06/13/18 Cefuroxime Axetil [Ceftin] 500 mg PO BID 3 Days #6 tab 06/13/18 Hydrocodone/Acetaminophen [[place] 1 each PO Q6HR PRN #28 tab 06/13/18 5-325] Ipratropium-Albuterol Nebulize 3 ml INHALATION TID #3 neb 06/13/18 [Duoneb 0.5 mg-3 mg/3 ml Soln] Pantoprazole [Protonix] 40 mg PO AC-BRKFST tablet. 06/13/18 Allergies Allergy/AdvReac Type Severity Reaction Status Date / Time No Known Allergies Allergy Verified 04/05/19 14:09 Review of Systems ROS Statement: Those systems with pertinent positive or pertinent negative responses have been documented in the HPI. ROS Other: All systems not noted in ROS Statement are negative. Past Medical History Past Medical History: Coronary Artery Disease (CAD), Chest Pain / Angina, CVA/TIA, Myocardial Infarction ([place]), Rheumatoid Arthritis ([place]) Additional Past Medical History / Comment(s): DIARRHEA,KIDNEYSTONE, CVA OCCIPITAL LOBE (AFFECTED EYES 2010),MEDIPORT FOR IV ORENCIA THERAPY Q 4 WEEKS . 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 Last Myocardial Infarction Date:: 2007 History of Any Multi-Drug Resistant Organisms: MRSA Date of last positivie culture/infection: 2009/IN LEFT ARM PICC MDRO Source:: LEFT ARM PICC Past Surgical History: Adenoidectomy, Appendectomy, Heart Catheterization With Stent, Orthopedic Surgery, Tonsillectomy Additional Past Surgical History / Comment(s): HX caratid ENDARTERECTOMY-2009, MEDIPORT PLACED IN 2009. R FEMUR FX WITH REPAIR. Past Anesthesia/Blood Transfusion Reactions: No Reported Reaction Date of Last Stent Placement:: 2007 Past Psychological History: Depression Smoking Status: Former smoker Past Alcohol Use History: Daily Past Drug Use History: None Reported - Past Family History Father Family Medical History: Hyperlipidemia Additional Family Medical History / Comment(s): FATHER AT AGE 55 YRS IN MVA. Mother Family Medical History: Cancer, Diabetes Mellitus Additional Family Medical History / Comment(s): MOTHER AT AGE 72 OF [place]EM[place] General Exam - General Exam Comments Initial Comments: GENERAL: Well-appearing, well-nourished and in no acute distress. HEAD: Atraumatic, normocephalic. No hematomas present, no pain with palpation. EYES: Pupils equal round and reactive to light, extraocular movements intact, sclera anicteric, conjunctiva are normal. ENT: TMs normal, nares patent, oropharynx clear without exudates. Moist mucous membranes. NECK: Normal range of motion, supple without lymphadenopathy or JVD. LUNGS: Breath sounds clear to auscultation bilaterally and equal. No wheezes rales or rhonchi. HEART: Regular rate and rhythm without murmurs, rubs or gallops. ABDOMEN: Soft, nontender, normoactive bowel sounds. No guarding, no rebound. No masses appreciated. EXTREMITIES: Pain with palpation of the anterior and lateral aspect of the right shoulder. Patient is unable to move the right shoulder. Patient has no pain with palpation of the right lower humerus, right elbow, right forearm. Patient is neurovascular intact. NEUROLOGICAL: Cranial nerves II through XII grossly intact. Normal speech, normal gait. PSYCH: Normal mood, normal affect. SKIN: Warm, Dry, normal turgor, no rashes. There is a mild abrasion to the left anterior knee and left lower leg. Limitations: no limitations Course Vital Signs 04/05/19 04/05/19 14:09 16:14 Temperature 97.1 F L Pulse Rate 56 L 56 L Respiratory 18 18 Rate Blood Pressure 153/76 187/76 O2 Sat by Pulse 96 98 Oximetry Medical Decision Making - Medical Decision Making Patient is a 78-year-old male presenting after falling out of his wheelchair off of his ramp approximately 2-3 feet. Patient denies being on blood thinners. Patient's main complaint is right shoulder pain. Patient didn't hit his the right side of his head. No complaints of a headache, LOC, nausea, vomiting. X- rays of the right shoulder revealed no acute abnormalities. CT of the brain and C-spine showed no acute abnormalities. Patient does have an abrasion to the left anterior knee that was cleaned, topical antibiotic and bandage was applied. Patient will follow up with his PCP regarding his right shoulder pain. Patient was placed in a sling for comfort. Patient is stable for discharge at this time. Return parameters were discussed with the patient he verbalizes understanding. Case discussed with Dr. Kidd. Disposition Clinical Impression: Right shoulder pain, Fall, Abrasion, left knee, initial encounter Disposition: HOME SELF-CARE Condition: Stable Instructions (If sedation given, give patient instructions): Shoulder Sprain (ED) Additional Instructions: Please return to the Emergency Department if symptoms worsen or any other concerns. Take Tylenol or Motrin for pain relief. Use sling for comfort as needed. Follow-up with PCP if symptoms persist 1 to 2 weeks for repeat x-rays. Is patient prescribed a controlled substance at d/c from ED?: No Referrals: Loi Ayala MD [Primary Care Provider] - 1-2 days
[2019-04-05] MEDS ORDERED: KETOROLAC 30 MG/ML 1 ML VIAL IM STA (14:45)
--- NOTE | 2019-04-05 15:38 | CT ---
EXAMINATION TYPE: CT brain apurva wo con DATE OF EXAM: 04/05/2019 COMPARISON: 06/05/2017 HISTORY: Fall. CT DLP: 2003.5. mGycm, Automated exposure control for dose reduction was used. CONTRAST: None CT of the brain is performed utilizing 3 mm thick sections through the posterior fossa and 3 mm thick sections through the remaining calvarium. Study is performed within 24 hours of arrival to the hospital. No abnormal hyperdensity is present to suggest an acute intracranial hemorrhage. No mass lesion is evident. No acute infarcts are evident. Occipital lobe hypodensity extending through the medial portion is ag ain evident compatible with prior infarct. Ventricles and sulci are appropriate for the patient age. Paranasal sinuses within the [id number] are clear. Right mastoid air cells are clear. There may b e some fluid within the left mastoid air cells. Correlate for mild inferior left mastoiditis. IMPRESSIONS: 1. No acute intracranial process. 2. Old left occipital lobe infarct. 2. Minimal left mastoiditis may be present inferiorly CT cervical spine. COMPARISON: None CT of the cervical spine is performed in the axial plane at 2 mm thick sections. Reconstructed image s in the coronal, and sagittal plane are reviewed on the computer. No acute fractures are evident. Vertebral body alignment is normal. There is diffuse loss of disc height throughout the cervical spine Vertebral body heights are preserved. Some posterior endplate spurring is present C5-6 C6-7. No spinal canal stenosis is evident. No neural foraminal stenosis is evident. IMPRESSIONS: 1. Degenerative changes cervical spine. 2. No acute osseous abnormality.
--- NOTE | 2019-04-05 15:54 | XR ---
EXAMINATION TYPE: XR shoulder complete RT DATE OF EXAM: 04/05/2019 COMPARISON: NONE HISTORY: Pain TECHNIQUE: Shoulder examined in 3 views FINDINGS: The humeral head articulates with the glenoid. The acromio-clavicular junction is normal. No acute fractures or dislocations are evident. A follow up study can be performed 7-10 days from acute trauma for continued pain. IMPRESSION: 1. Normal Shoulder
[2019-04-05 16:15] VITALS: BP 187/76
== END 2019-04-05 16:14 | disposition home or self-care (01) ==
LOC: EC 14:04
DX: S80.212A Abrasion, left knee, initial encounter (principal); M25.511 Pain in right shoulder; S09.90XA Unspecified injury of head, initial encounter; F32.9 Major depressive disorder, single episode, unspecified; G72.41 Inclusion body myositis [IBM]; I25.119 Atherosclerotic heart disease of native coronary artery with unspecified angina pectoris; I25.2 Old myocardial infarction; M06.9 Rheumatoid arthritis, unspecified; Z79.899 Other long term (current) drug therapy; Z86.73 Personal history of transient ischemic attack (TIA), and cerebral infarction without residual deficits; Z95.5 Presence of coronary angioplasty implant and graft; Z86.14 Personal history of Methicillin resistant Staphylococcus aureus infection; Z87.891 Personal history of nicotine dependence; W05.0XXA Fall from non-moving wheelchair, initial encounter; Y93.89 Activity, other specified
CPT/HCPCS: 73030; 72125; 70450; 96372; 99284; 29105; J1885

== ENCOUNTER → 2019-06-20 | Outpatient (CLI) | payer MEDICARE, BC ==
[~2019-06-20] MED LIST: ABATACEPT IVPB NR; MALTOSE IVPB NR; SODIUM CHLORIDE 0.9% 500 ML 500 ML in EMPTY BAG 1 BAG IV PRN; SODIUM CHLORIDE 0.9% IVPB NR
[2019-06-20 13:43] VITALS: BP 165/61; PULSE 61; RESP 18; TEMP 98.3
[2019-06-20 14:05] LABS: Basophils # (A) 0.1 k/uL (0-0.2); Basophils % (A) 1 %; Eosinophils # (A) 0.2 k/uL (0-0.7); Eosinophils % (A) 3 %; HCT 44.4 % (39.0-53.0); HGB 14.3 gm/dL (13.0-17.5); Lymphocytes # (A) 2.3 k/uL (1.0-4.8); Lymphocytes % (A) 29 %; MCH 28.9 pg (25.0-35.0); MCHC 32.3 g/dL (31.0-37.0); MCV 89.5 fL (80.0-100.0); Mean Platelet Volume 8.3; Monocytes # (A) 0.4 k/uL (0-1.0); Monocytes % (A) 5 %; Neutrophils # (A) 4.7 k/uL (1.3-7.7); Neutrophils % (A) 60 %; Platelet Count 239 k/uL (150-450); RBC 4.96 m/uL (4.30-5.90); WBC 7.8 k/uL (3.8-10.6)
== END | disposition home or self-care (01) ==
LOC: PROCWHC3 12:14
PROVIDERS: ATTEND Family Medicine
DX: M06.89 Other specified rheumatoid arthritis, multiple sites (principal)
CPT/HCPCS: 85025; 96365; 36591; J1642; J0129

== ENCOUNTER → 2019-06-20 | Outpatient (CLI) | payer MEDICARE, BC ==
--- NOTE | 2019-06-20 17:56 | MR ---
EXAMINATION TYPE: MR shoulder RT wo con DATE OF EXAM: 06/20/2019 COMPARISON: X-ray 04/05/2019 HISTORY: R shoulder pain TECHNIQUE: Multiplanar, multisequence imaging of the right shoulder is performed without contrast. FINDINGS: There is diffuse atrophy of the visualized musculature. Exam is severely limited due to mot ion artifact. Suspect complete tears of the supraspinatus and infraspinatus tendons. Due to limitatio n exam degree of retraction is difficult to determine. Assessment of bony labrum markedly limited. Small joint effusion is seen. Glenohumeral ligament is gr ossly intact. No marrow edema or contusion. Arthropathy of the AC joint with spurring likely result in impingement. There is marked thickening along the distal margin subscapularis tendon with poor definition of its i nsertion tear is suspected. Bicipital tendon is situated within the bicipital groove. Intracapsular portion of the tendon and bic eps anchor believed to be intact. IMPRESSION: 1. Markedly Limited exam due to motion artifact demonstrates diffuse muscular atrophy. Findings are h ighly suspicious for complete through thickness tears of the supraspinatus and infraspinatus muscles and partial tear with tendinosis at the insertion of the subscapularis tendon.
== END | disposition home or self-care (01) ==
LOC: RADMRIMAIN 14:23
PROVIDERS: ATTEND Orthopaedic Surgery
DX: M62.511 Muscle wasting and atrophy, not elsewhere classified, right shoulder (principal)

== ENCOUNTER → 2019-07-08 | Outpatient (CLI) | payer MEDICARE, BC ==
[2019-07-08 13:14] VITALS: BP 156/71; PULSE 58; RESP 16; TEMP 98
[2019-07-08 14:48] LABS: ALT 35 U/L (4-49); AST 38 U/L (17-59); African American GFR (CKD) >90 (>60 ml/min/1.73 sqM); Basophils # (A) 0.1 k/uL (0-0.2); Basophils % (A) 1 %; Eosinophils # (A) 0.2 k/uL (0-0.7); Eosinophils % (A) 2 %; HCT 42.9 % (39.0-53.0); HGB 13.6 gm/dL (13.0-17.5); Lymphocytes % (A) 24 %; MCH 28.1 pg (25.0-35.0); MCHC 31.7 g/dL (31.0-37.0); MCV 88.7 fL (80.0-100.0); Monocytes # (A) 0.4 k/uL (0-1.0); Monocytes % (A) 5 %; Neutrophils # (A) 5.5 k/uL (1.3-7.7); Neutrophils % (A) 65 %; Non-African American GFR(CKD) >90 (>60 ml/min/1.73 sqM); Platelet Count 234 k/uL (150-450); RBC 4.84 m/uL (4.30-5.90); RDW 12.9 % (11.5-15.5); WBC 8.3 k/uL (3.8-10.6)
[2019-07-08 19:34] LABS: Hepatitis B Surface AB- Quant 3.5 mIU/mL; Hepatitis B Surface Antibody Non-Reactive (Non-Reactive); Hepatitis B Surface Antigen Non-Reactive (Non-Reactive)
== END ==
LOC: PROCWHC3 12:59
PROVIDERS: ATTEND Dermatology Procedural Dermatology
DX: L40.8 Other psoriasis (principal); M06.9 Rheumatoid arthritis, unspecified
CPT/HCPCS: 82565; 84450; 84460; 85025; 86706; 87340; 86704; 86480; 36591; J1642

== ENCOUNTER → 2020-12-10 | Outpatient (CLI) | payer MEDICARE, BC ==
--- NOTE | 2020-12-10 09:29 | US ---
EXAMINATION TYPE: US abdomen limited DATE OF EXAM: 12/10/2020 COMPARISON: CT & US 2013 CLINICAL HISTORY: N50.819 Testicular pain. Left flank pain EXAM MEASUREMENTS: Spleen: 10.2cm Left Kidney: 9.8 x 4.5 x 4.9cm left renal cortex is 1.475 cm. Left renal volume is 114.4 mL. 1. Spleen: wnl 2. Left Kidney: wnl IMPRESSION: 1. The spleen and left kidney appear unremarkable. No left renal calculi or hydronephrosis. The renal volume is 114 mL, at the lower limits of normal.
--- NOTE | 2020-12-10 10:30 | US ---
EXAMINATION TYPE: US scrotum with doppler. Grayscale and color Doppler Duplex imaging performed of lonny romano scrotum. DATE OF EXAM: 12/10/2020 COMPARISON: US 2010 CLINICAL HISTORY: N50.819 Testicular pain. Bilateral groin pain, palpable lump left testicle COMPARISON: 03/07/2010 EXAM MEASUREMENTS: TESTICLES: Right Testicle: 3.2 x 2.2 x 3.1cm, heterogeneous Left Testicle: 3.5 x 2.9 x 2.7cm, heterogeneous EPIDIDYMIS HEAD: Right Epididymis: 1.4cm Left Epididymis: 1.4cm Doppler performed to assess for testicular vascularity; good bilateral arterial waveforms are seen, u nable to obtain venous flow within bilateral testicles. Presence of hydroceles: right 3.0cm, left 4.6cm Presence of varicoceles: left prominent vessels that increase with valsalva seen superior to left te sticle Left: 0.9cm echogenic focus. This was also seen on prior exam. Right: multiple epididymal cysts or spermatoceles with largest measuring 0.8cm Left: 1.9cm non vascular complex area superior to left testicle Bilateral groin: appears wnl IMPRESSION: 1. No definite evidence of testicular torsion, orchitis, or epididymitis. 2. Moderate right and large left hydroceles. 3. Left varicocele. 4. 0.9 cm echogenic focus within the scrotal sac may represent a torsed testicular appendage. This wa s also seen on prior exam 03/07/2010. 5. 1.9 cm complex cystic area superior to the left testicle was also seen on prior exam 03/07/2010 6. Multiple right epididymal head cysts or spermatoceles measuring up to 6 mm.
== END | disposition home or self-care (01) ==
LOC: RADUSWWP 07:25
PROVIDERS: ATTEND Family Medicine
DX: N43.3 Hydrocele, unspecified (principal); I86.1 Scrotal varices; N50.3 Cyst of epididymis
CPT/HCPCS: 76705; 76870; 93975

== ENCOUNTER 2021-05-09 13:55 | Emergency (ER) | payer MEDICARE, BC ==
[2021-05-09 14:02] VITALS: RESP 18
[2021-05-09 14:04] VITALS: TEMP 97.7
[2021-05-09] MEDS ORDERED: DIAZEPAM 5 MG/ML 2 ML INJ IVP STA (14:19)
[2021-05-09] MEDS ORDERED: SODIUM CHLORIDE 0.9% 500 ML 500 ML IV STA (14:19)
[2021-05-09] MEDS ORDERED: ONDANSETRON 4 MG/2 ML VIAL IVP STA (14:20)
--- NOTE | 2021-05-09 14:22 | ED ---
Dizziness HPI - General Chief Complaint: Dizziness Stated Complaint: DIZZY Source: patient, EMS Mode of arrival: EMS Limitations: physical limitation - History of Present Illness Initial Comments: 81-year-old male with past nuchal history of SIBM, chronic ear infections, vertigo presents to the emergency department with reported vertiginous symptoms. He states the past 2 days he has been unable to sit up and move his head [id number] due to the room spinning sensation. It has made him feel so sick that he has thrown up. He is not taking any medications for her symptoms. Reports a history of similar in the past. States that he has had chronic ear infections which have sent him into vertiginous spells. Patient has had some fullness to the left ear. Denies decreased hearing. Eyes any headaches or visual changes. No fevers or chills. No recent head trauma. No other alleviating, precipitating or modifying factors - Related Data Home Medications Medication Instructions Recorded Confirmed Sertraline [Zoloft] 50 mg PO DAILY 12/10/13 05/09/21 atenoloL [Tenormin] 25 mg PO DAILY 12/10/13 05/09/21 Multivitamin [Men's Multi-Vitamin] 1 tab PO DAILY 12/31/13 05/09/21 amLODIPine [Norvasc] 5 mg PO DAILY 09/26/19 05/09/21 Aspirin EC [Ecotrin Low Dose] 81 mg PO DAILY 05/09/21 05/09/21 Atorvastatin [Lipitor] 20 mg PO DAILY 05/09/21 05/09/21 Cholecalciferol [Vitamin D3 (125 125 mcg PO DAILY 05/09/21 05/09/21 Mcg = 5000 Iu)] Finasteride [Proscar] 5 mg PO DAILY 05/09/21 05/09/21 Loratadine [Claritin] 10 mg PO DAILY 05/09/21 05/09/21 Quinapril HCl [Accupril] 20 mg PO HS 05/09/21 05/09/21 Previous Rx's Medication Instructions Recorded Amoxicillin/Potassium Clav 1 tab PO Q12HR #20 tab 05/09/21 [Augmentin 875-125 Tablet] Meclizine [Antivert] 25 mg PO TID #30 tab 05/09/21 Allergies Allergy/AdvReac Type Severity Reaction Status Date / Time No Known Allergies Allergy Verified 05/09/21 16:25 Review of Systems ROS Statement: Those systems with pertinent positive or pertinent negative responses have been documented in the HPI. ROS Other: All systems not noted in ROS Statement are negative. Past Medical History Past Medical History: Coronary Artery Disease (CAD), Chest Pain / Angina, CVA/TIA, Myocardial Infarction ([place]), Rheumatoid Arthritis ([place]) Additional Past Medical History / Comment(s): DIARRHEA,KIDNEYSTONE, CVA OCCIPITAL LOBE (AFFECTED EYES 2010),MEDIPORT FOR IV ORENCIA THERAPY Q 4 WEEKS . 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 R FEMUR FX WITH REPAIR. Past Anesthesia/Blood Transfusion Reactions: No Reported Reaction Date of Last Stent Placement:: 2007 Past Psychological History: Depression Smoking Status: Former smoker - Past Family History Father Family Medical History: Hyperlipidemia Additional Family Medical History / Comment(s): FATHER AT AGE 55 YRS IN MVA. Mother Family Medical History: Cancer, Diabetes Mellitus Additional Family Medical History / Comment(s): MOTHER AT AGE 72 OF [place] General Exam Limitations: physical limitation Course Vital Signs 05/09/21 05/09/21 05/09/21 13:57 14:02 15:00 Temperature 97.7 F Pulse Rate 52 L 54 L Respiratory 18 18 Rate Blood Pressure 176/71 154/72 O2 Sat by Pulse 96 96 Oximetry 05/09/21 05/09/21 05/09/21 16:00 17:00 18:00 Temperature Pulse Rate 52 L 54 L 56 L Respiratory 18 18 18 Rate Blood Pressure 165/72 156/68 152/72 O2 Sat by Pulse 96 97 97 Oximetry Medical Decision Making - Medical Decision Making On arrival patient is placed into trauma 3. His port is accessed. Patient given a 500 bolus of normal saline and 5 mg of Valium. Laboratory studies are conducted. I did discuss performing a CT the patient's brain however he reports that he has had multiple episodes similar in the past and is requesting to attempt medications to start. Patient is reevaluated after medication admi nistration to include 4 mg of Zofran he does have improvement in his symptoms. Patient states he feels comfortable going home at this time. I did provide the patient with a dose of Augmentin for his left ear infection. Additional prescription sent to the pharmacy. Patient is also given a prescription for meclizine to take if his vertiginous symptoms return. He is to return to the emergency room for any new or worsening symptoms. Follow up with primary care doctor in 2-4 days. Patient agreed to the treatment plan and was discharged home in stable condition - Lab Data Result diagrams: 05/09/21 15:35 05/09/21 15:35 Lab Results 05/09/21 05/09/21 05/09/21 Range/Units 15:35 15:35 15:35 WBC 9.1 (3.8-10.6) k/uL RBC 4.81 (4.30-5.90) m/uL Hgb 14.5 (13.0-17.5) gm/dL Hct 42.1 (39.0-53.0) % MCV 87.6 (80.0-100.0) fL MCH 30.2 (25.0-35.0) pg MCHC 34.5 (31.0-37.0) g/dL RDW 14.4 (11.5-15.5) % Plt Count 223 (150-450) k/uL MPV 8.0 Neutrophils % 81 % Lymphocytes % 13 % Monocytes % 4 % Eosinophils % 1 % Basophils % 0 % Neutrophils # 7.3 (1.3-7.7) k/uL Lymphocytes # 1.2 (1.0-4.8) k/uL Monocytes # 0.3 (0-1.0) k/uL Eosinophils # 0.1 (0-0.7) k/uL Basophils # 0.0 (0-0.2) k/uL Sodium 136 L (137-145) mmol/L Potassium 4.7 (3.5-5.1) mmol/L Chloride 104 (98-107) mmol/L Carbon Dioxide 24 (22-30) mmol/L Anion Gap 8 mmol/L BUN 18 (9-20) mg/dL Creatinine 0.47 L (0.66-1.25) mg/dL Est GFR (CKD-EPI)AfAm >90 (>60 ml/min/1.73 sqM) Est GFR (CKD-EPI)NonAf >90 (>60 ml/min/1.73 sqM) Glucose 112 H (74-99) mg/dL Calcium 9.4 (8.4-10.2) mg/dL Total Bilirubin 0.6 (0.2-1.3) mg/dL AST 53 (17-59) U/L ALT 50 H (4-49) U/L Alkaline Phosphatase 95 (38-126) U/L Troponin I 0.014 (0.000-0.034) ng/mL Total Protein 7.6 (6.3-8.2) g/dL Albumin 3.7 (3.5-5.0) g/dL Disposition Clinical Impression: Vertigo, Left otitis media Disposition: HOME SELF-CARE Condition: Stable Instructions (If sedation given, give patient instructions): Dizziness (ED) Additional Instructions: Please take the antibiotic as directed for your ear infection. Take the meclizine as needed for dizziness. Return to the emergency room for any new or worsening symptoms. Follow-up with your doctor in 2-4 days Prescriptions: Meclizine [Antivert] 25 mg PO TID #30 tab Amoxicillin/Potassium Clav [Augmentin 875-125 Tablet] 1 tab PO Q12HR #20 tab Is patient prescribed a controlled substance at d/c from ED?: No Referrals: None,Stated [Primary Care Provider] - 1-2 days Time of Disposition: 17:04
[2021-05-09 15:49] LABS: Basophils % (A) 0 %; Eosinophils # (A) 0.1 k/uL (0-0.7); Eosinophils % (A) 1 %; HCT 42.1 % (39.0-53.0); HGB 14.5 gm/dL (13.0-17.5); Lymphocytes # (A) 1.2 k/uL (1.0-4.8); Lymphocytes % (A) 13 %; MCH 30.2 pg (25.0-35.0); MCHC 34.5 g/dL (31.0-37.0); MCV 87.6 fL (80.0-100.0); Monocytes # (A) 0.3 k/uL (0-1.0); Monocytes % (A) 4 %; Neutrophils # (A) 7.3 k/uL (1.3-7.7); Neutrophils % (A) 81 %; Platelet Count 223 k/uL (150-450); RBC 4.81 m/uL (4.30-5.90); RDW 14.4 % (11.5-15.5); WBC 9.1 k/uL (3.8-10.6)
[2021-05-09 16:12] LABS: ALT 50 U/L (4-49); AST 53 U/L (17-59); African American GFR (CKD) >90 (>60 ml/min/1.73 sqM); Albumin 3.7 g/dL (3.5-5.0); Alkaline Phosphatase 95 U/L (38-126); Anion Gap 8 mmol/L; Blood Urea Nitrogen 18 mg/dL (9-20); Calcium 9.4 mg/dL (8.4-10.2); Carbon Dioxide 24 mmol/L (22-30); Chloride 104 mmol/L (98-107); Glucose 112 mg/dL (74-99); Non-African American GFR(CKD) >90 (>60 ml/min/1.73 sqM); Potassium 4.7 mmol/L (3.5-5.1); Sodium 136 mmol/L (137-145); Total Bilirubin 0.6 mg/dL (0.2-1.3); Total Protein 7.6 g/dL (6.3-8.2)
[2021-05-09] MEDS ORDERED: AMOXIC-POT CLAV 875-125MG 1 EACH TAB PO STA (17:02)
[2021-05-09 18:16] VITALS: BP 152/72; PULSE 56
== END 2021-05-09 18:45 | disposition home or self-care (01) ==
LOC: EC 13:55
DX: R42 Dizziness and giddiness (principal); H66.92 Otitis media, unspecified, left ear; I25.10 Atherosclerotic heart disease of native coronary artery without angina pectoris; Z86.73 Personal history of transient ischemic attack (TIA), and cerebral infarction without residual deficits; I25.2 Old myocardial infarction; M06.9 Rheumatoid arthritis, unspecified; F32.A Depression, unspecified; Z87.891 Personal history of nicotine dependence
CPT/HCPCS: 36415; 80053; 84484; 85025; 99283; 96374; 96375; J3360; J2405; J1642

== ENCOUNTER 2021-12-16 23:53 | Inpatient (IN) | payer MEDICARE, BC ==
[2021-12-17] MEDS ORDERED: SODIUM CHLORIDE 0.9% 1,000 ML IV STA (00:10)
[2021-12-17] MEDS ORDERED: SODIUM CHLORIDE 0.9% 500 ML 500 ML IV STA (00:10)
[2021-12-17] MEDS ORDERED: MORPHINE SULFATE 4 MG/ML SYRINGE IV STA (00:10)
--- NOTE | 2021-12-17 00:12 | ED ---
Fall HPI - General Chief Complaint: Fall Stated Complaint: Fall, right leg injury Time Seen by Provider: 12/16/21 23:57 Source: patient, EMS, RN notes reviewed, old records reviewed Mode of arrival: wheelchair Limitations: no limitations - History of Present Illness Initial Comments: This is an 81-year-old male to the emergency department for evaluation. Patient Dese for evaluation of fall with right knee pain patient presents today for knee pain, fall out of wheelchair with contracted or dislocation or pain in his right knee. History of knee surgery. Patient has no other pain aside from right knee pain. 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 Fall Witnessed: no Place Fall Occurred: home Loss of Consciousness: none Prolonged Down Time?: no Symptoms Prior to Fall: none Location - Extremities: Right: Knee Severity: severe Severity scale (1-10): 10 Quality: sharp Context: tripped/slipped Associated Symptoms: denies - Related Data Home Medications Medication Instructions Recorded Confirmed Sertraline [Zoloft] 50 mg PO DAILY 12/10/13 11/25/21 atenoloL [Tenormin] 25 mg PO DAILY 12/10/13 11/25/21 Multivitamin [Men's Multi-Vitamin] 1 tab PO DAILY 12/31/13 11/25/21 amLODIPine [Norvasc] 5 mg PO DAILY 09/26/19 11/25/21 Aspirin EC [Ecotrin Low Dose] 81 mg PO DAILY 05/09/21 11/25/21 Atorvastatin [Lipitor] 20 mg PO DAILY 05/09/21 11/25/21 Cholecalciferol [Vitamin D3 (125 125 mcg PO DAILY 05/09/21 11/25/21 Mcg = 5000 Iu)] Finasteride [Proscar] 5 mg PO DAILY 05/09/21 11/25/21 Loratadine [Claritin] 10 mg PO DAILY 05/09/21 11/25/21 Quinapril HCl [Accupril] 20 mg PO HS 05/09/21 11/25/21 ALPRAZolam [Xanax] 2 mg PO DIRECTED PRN 11/25/21 11/25/21 Previous Rx's Medication Instructions Recorded Meclizine [Antivert] 25 mg PO TID #30 tab 05/09/21 Allergies Allergy/AdvReac Type Severity Reaction Status Date / Time No Known Allergies Allergy Verified 12/16/21 23:57 Review of Systems ROS Statement: Those systems with pertinent positive or pertinent negative responses have been documented in the HPI. ROS Other: All systems not noted in ROS Statement are negative. Past Medical History Past Medical History: Coronary Artery Disease (CAD), Chest Pain / Angina, CVA/TIA, Myocardial Infarction ([place]), Rheumatoid Arthritis ([place]) Additional Past Medical History / Comment(s): DIARRHEA,KIDNEYSTONE, CVA OCCIPITAL LOBE (AFFECTED EYES 2010),MEDIPORT FOR IV ORENCIA THERAPY Q 4 WEEKS . 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 R FEMUR FX WITH REPAIR. Past Anesthesia/Blood Transfusion Reactions: No Reported Reaction Date of Last Stent Placement:: 2007 Past Psychological History: Depression Smoking Status: Former smoker - Past Family History Father Family Medical History: Hyperlipidemia Additional Family Medical History / Comment(s): FATHER AT AGE 55 YRS IN [place]. Mother Family Medical History: Cancer, Diabetes Mellitus Additional Family Medical History / Comment(s): MOTHER AT AGE 72 OF [place] General Exam Limitations: physical limitation General appearance: alert, in no apparent distress Head exam: Present: atraumatic, normocephalic, normal inspection Eye exam: Present: normal appearance, PERRL, EOMI. Absent: scleral icterus, conjunctival injection, periorbital swelling ENT exam: Present: normal exam, mucous membranes moist Neck exam: Present: normal inspection. Absent: tenderness, meningismus, lymphadenopathy Respiratory exam: Present: normal lung sounds bilaterally. Absent: respiratory distress, wheezes, rales, rhonchi, stridor Cardiovascular Exam: Present: regular rate, normal rhythm, normal heart sounds. Absent: systolic murmur, diastolic murmur, rubs, gallop, clicks GI/Abdominal exam: Present: soft, normal bowel sounds. Absent: distended, tenderness, guarding, rebound, rigid Extremities exam: Present: normal inspection, full ROM, normal capillary refill, other (Right knee does have deformity). Absent: tenderness, pedal edema, joint swelling, calf tenderness Back exam: Present: normal inspection Neurological exam: Present: alert, oriented X3, CN II-XII intact Psychiatric exam: Present: normal affect, normal mood Skin exam: Present: warm, dry, intact, normal color. Absent: rash Course Vital Signs 12/16/21 12/17/21 12/17/21 23:57 01:23 01:47 Temperature 98.1 F Pulse Rate 70 61 65 Respiratory 132 H 18 14 Rate Blood Pressure 107/49 101/48 O2 Sat by Pulse 93 L 95 93 L Oximetry 12/17/21 12/17/21 12/17/21 01:50 01:52 01:55 Temperature Pulse Rate 68 66 67 Respiratory 12 7 L 8 L Rate Blood Pressure 96/49 84/40 116/68 O2 Sat by Pulse 97 100 99 Oximetry 12/17/21 12/17/21 01:57 02:15 Temperature Pulse Rate 68 64 Respiratory 8 L 10 L Rate Blood Pressure 113/54 100/64 O2 Sat by Pulse 99 99 Oximetry - Reevaluation(s) Reevaluation #1: 12/17/21 00:12 Medical record is reviewed 12/17/21 00:12 Reevaluation #2: 12/17/21 00:12 Patient has pain control from EMS Reevaluation #3: 12/17/21 02:24 Patient has pain control currently - Consultations Consultation #1: Spoke with Dr. Le who is okay to take patient Medical Decision Making - Medical Decision Making 81 male to the emergency room for evaluation patient presents today regarding fall, follow with proximal tibia and fibular fracture. Patient is sedated placed in knee immobilizer and patient will be admitted for pain control surgical evaluation and likely placement - Lab Data Result diagrams: 12/17/21 00:57 12/17/21 00:57 Lab Results 12/17/21 12/17/21 12/17/21 Range/Units 00:57 00:57 00:57 WBC 11.8 H (3.8-10.6) k/uL RBC 4.28 L (4.30-5.90) m/uL Hgb 12.7 L (13.0-17.5) gm/dL Hct 38.4 L (39.0-53.0) % MCV 89.7 (80.0-100.0) fL MCH 29.8 (25.0-35.0) pg MCHC 33.2 (31.0-37.0) g/dL RDW 13.7 (11.5-15.5) % Plt Count 251 (150-450) k/uL MPV 8.2 Neutrophils % 75 % Lymphocytes % 13 % Monocytes % 5 % Eosinophils % 3 % Basophils % 1 % Neutrophils # 8.9 H (1.3-7.7) k/uL Lymphocytes # 1.6 (1.0-4.8) k/uL Monocytes # 0.6 (0-1.0) k/uL Eosinophils # 0.4 (0-0.7) k/uL Basophils # 0.1 (0-0.2) k/uL PT 11.2 (9.0-12.0) sec INR 1.0 (<1.2) APTT >200.0 H* (22.0-30.0) sec Sodium 140 (137-145) mmol/L Potassium 4.0 (3.5-5.1) mmol/L Chloride 107 (98-107) mmol/L Carbon Dioxide 26 (22-30) mmol/L Anion Gap 7 mmol/L BUN 32 H (9-20) mg/dL Creatinine 0.51 L (0.66-1.25) mg/dL Est GFR (CKD-EPI)AfAm >90 (>60 ml/min/1.73 sqM) Est GFR (CKD-EPI)NonAf >90 (>60 ml/min/1.73 sqM) Glucose 116 H (74-99) mg/dL Calcium 8.5 (8.4-10.2) mg/dL Phosphorus 4.0 (2.5-4.5) mg/dL Magnesium 2.1 (1.6-2.3) mg/dL Total Bilirubin 0.3 (0.2-1.3) mg/dL AST 38 (17-59) U/L ALT 34 (4-49) U/L Alkaline Phosphatase 95 (38-126) U/L Troponin I (0.000-0.034) ng/mL Total Protein 7.3 (6.3-8.2) g/dL Albumin 3.8 (3.5-5.0) g/dL 12/17/21 Range/Units 00:57 WBC (3.8-10.6) k/uL RBC (4.30-5.90) m/uL Hgb (13.0-17.5) gm/dL Hct (39.0-53.0) % MCV (80.0-100.0) fL MCH (25.0-35.0) pg MCHC (31.0-37.0) g/dL RDW (11.5-15.5) % Plt Count (150-450) k/uL MPV Neutrophils % % Lymphocytes % % Monocytes % % Eosinophils % % Basophils % % Neutrophils # (1.3-7.7) k/uL Lymphocytes # (1.0-4.8) k/uL Monocytes # (0-1.0) k/uL Eosinophils # (0-0.7) k/uL Basophils # (0-0.2) k/uL PT (9.0-12.0) sec INR (<1.2) APTT (22.0-30.0) sec Sodium (137-145) mmol/L Potassium (3.5-5.1) mmol/L Chloride (98-107) mmol/L Carbon Dioxide (22-30) mmol/L Anion Gap mmol/L BUN (9-20) mg/dL Creatinine (0.66-1.25) mg/dL Est GFR (CKD-EPI)AfAm (>60 ml/min/1.73 sqM) Est GFR (CKD-EPI)NonAf (>60 ml/min/1.73 sqM) Glucose (74-99) mg/dL Calcium (8.4-10.2) mg/dL Phosphorus (2.5-4.5) mg/dL Magnesium (1.6-2.3) mg/dL Total Bilirubin (0.2-1.3) mg/dL AST (17-59) U/L ALT (4-49) U/L Alkaline Phosphatase (38-126) U/L Troponin I 0.013 (0.000-0.034) ng/mL Total Protein (6.3-8.2) g/dL Albumin (3.5-5.0) g/dL - EKG Data -: EKG Interpreted by Me (EKG is sinus rhythm 66 CO 274 QRS 145 QTc 465) - Radiology Data Radiology results: report reviewed, image reviewed Disposition Clinical Impression: Fall, Generalized weakness, Closed fracture of right proximal tibia, Fracture of right proximal fibula, Right patella fracture Disposition: ADMITTED IP TO THIS HOSP Condition: Fair Is patient prescribed a controlled substance at d/c from ED?: No Time of Disposition: 02:30
[2021-12-17] MEDS ORDERED: PROPOFOL 10 MG/ML 20 ML VIAL IV ONE (00:43)
--- NOTE | 2021-12-17 01:09 | XR ---
EXAM: XR Right Knee, 3 Views CLINICAL HISTORY: Fall. TECHNIQUE: Three views of the right knee. COMPARISON: No previous studies. FINDINGS: Osteopenia. Acute/subacute transverse fracture of the proximal tibia and fibular head and neck region are noted. Acute/subacute comminuted fracture of the patella is also suggested. Valgus angulation of the right knee joint. Orthopedic screws noted in place of the distal femur. No significant joint effusion. IMPRESSION: 1. Acute/subacute comminuted nondisplaced fracture of the patella suggested. 2. Acute/subacute fractures of the proximal tibia and fibular head and neck region. 3. Valgus angulation of the right knee joint. 4. Postsurgical changes distal right femur.
[2021-12-17 01:18] LABS: Basophils # (A) 0.1 k/uL (0-0.2); Basophils % (A) 1 %; Eosinophils # (A) 0.4 k/uL (0-0.7); Eosinophils % (A) 3 %; HCT 38.4 % (39.0-53.0); HGB 12.7 gm/dL (13.0-17.5); Lymphocytes # (A) 1.6 k/uL (1.0-4.8); Lymphocytes % (A) 13 %; MCH 29.8 pg (25.0-35.0); MCHC 33.2 g/dL (31.0-37.0); MCV 89.7 fL (80.0-100.0); Mean Platelet Volume 8.2; Monocytes # (A) 0.6 k/uL (0-1.0); Monocytes % (A) 5 %; Neutrophils # (A) 8.9 k/uL (1.3-7.7); Neutrophils % (A) 75 %; Platelet Count 251 k/uL (150-450); RBC 4.28 m/uL (4.30-5.90); RDW 13.7 % (11.5-15.5); WBC 11.8 k/uL (3.8-10.6)
--- NOTE | 2021-12-17 01:34 | XR ---
EXAM: XR Chest, 1 View CLINICAL HISTORY: ITS.REASON XR Reason: fall TECHNIQUE: Frontal view of the chest. COMPARISON: 06/13/2018. FINDINGS: Lungs: Minimal subsegmental atelectasis at the left lung base. Pleural space: Unremarkable. No pneumothorax. Heart: Cardiomegaly. Mediastinum: Unremarkable. Bones/joints: Osteopenia. Tubes, lines and devices: Right subclavian Port-A-Cath is noted in place with its tip at the distal superior vena cava. Other findings: Mild hypoaeration. IMPRESSION: 1. Hypoaeration. 2. Cardiomegaly. 3. Subsegmental atelectasis at the left lung base. 4. No pneumothorax. 5. No pleural effusions.
[2021-12-17 01:36] LABS: Prothrombin Time 11.2 sec (9.0-12.0)
--- NOTE | 2021-12-17 01:36 | XR ---
EXAM: XR Right Hip With Pelvis When Performed, 2 or 3 Views CLINICAL HISTORY: ITS.REASON XR Reason: fall TECHNIQUE: Two or three views of the right hip with pelvis when performed. COMPARISON: 01/16/2015. FINDINGS: Bones/joints: No acute fracture or dislocation about the right hip joint. Bony pelvis is tilted right of midline. 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 Soft tissues: Soft tissues are unremarkable. IMPRESSION: 1. No acute fracture or dislocation about the right hip joint. 2. 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
[2021-12-17] MEDS ORDERED: fentaNYL (PF) 50 MCG/ML 2 ML AMP IVP STA (01:40)
[2021-12-17 01:42] LABS: Partial Thromboplastin Time >200.0 sec (22.0-30.0)
[2021-12-17] MEDS ORDERED: ONDANSETRON 4 MG/2 ML VIAL IVP PRN (02:21)
[2021-12-17] MEDS ORDERED: NALOXONE 0.4 MG/ML 1 ML VIAL IV PRN (02:21)
[2021-12-17 02:28] LABS: ALT 34 U/L (4-49); AST 38 U/L (17-59); African American GFR (CKD) >90 (>60 ml/min/1.73 sqM); Albumin 3.8 g/dL (3.5-5.0); Alkaline Phosphatase 95 U/L (38-126); Anion Gap 7 mmol/L; Blood Urea Nitrogen 32 mg/dL (9-20); Calcium 8.5 mg/dL (8.4-10.2); Carbon Dioxide 26 mmol/L (22-30); Chloride 107 mmol/L (98-107); Glucose 116 mg/dL (74-99); Magnesium 2.1 mg/dL (1.6-2.3); Non-African American GFR(CKD) >90 (>60 ml/min/1.73 sqM); Sodium 140 mmol/L (137-145); Total Bilirubin 0.3 mg/dL (0.2-1.3); Total Protein 7.3 g/dL (6.3-8.2)
--- NOTE | 2021-12-17 02:49 | XR ---
EXAM: XR Right Knee, 3 Views CLINICAL HISTORY: ITS.REASON XR Reason: fracture TECHNIQUE: Three views of the right knee. COMPARISON: Earlier plain film evaluation of the right knee joint. FINDINGS: Bones/joints: Orthopedic screws are noted in place at the distal femur. Comminuted nondisplaced acute/subacute fracture of the patella. Transverse acute/subacute fractures of the proximal tibia-fibula noted. Angulation of the right knee joint is improved. Small suprapatellar joint effusion. No dislocation. Soft tissues: Soft tissues are unremarkable. IMPRESSION: 1. Fractures of the patella and proximal tibia fibular are again noted, unchanged. 2. Angulation of the right knee joint has improved. 3. Small suprapatellar joint effusion.
[2021-12-17] MEDS: SODIUM CHLORIDE 0.9% 1,000 ML IV SCH ×3 (04:38→12:07)
[2021-12-17] MEDS: MORPHINE SULFATE 4 MG/ML SYRINGE IV PRN ×5 (04:49→20:03)
[2021-12-17 11:15] LABS: Basophils # (A) 0.1 k/uL (0-0.2); Basophils % (A) 1 %; Eosinophils # (A) 0.4 k/uL (0-0.7); Eosinophils % (A) 4 %; HCT 35.6 % (39.0-53.0); HGB 11.8 gm/dL (13.0-17.5); Lymphocytes # (A) 1.4 k/uL (1.0-4.8); Lymphocytes % (A) 16 %; MCH 29.8 pg (25.0-35.0); MCHC 33.1 g/dL (31.0-37.0); MCV 90.1 fL (80.0-100.0); Mean Platelet Volume 8.7; Monocytes # (A) 0.6 k/uL (0-1.0); Monocytes % (A) 6 %; Neutrophils # (A) 6.3 k/uL (1.3-7.7); Neutrophils % (A) 71 %; Platelet Count 230 k/uL (150-450); RBC 3.95 m/uL (4.30-5.90); RDW 13.8 % (11.5-15.5); WBC 8.9 k/uL (3.8-10.6)
[2021-12-17 11:26] LABS: African American GFR (CKD) >90 (>60 ml/min/1.73 sqM); Anion Gap 4 mmol/L; Blood Urea Nitrogen 28 mg/dL (9-20); Calcium 8.2 mg/dL (8.4-10.2); Carbon Dioxide 26 mmol/L (22-30); Chloride 110 mmol/L (98-107); Glucose 95 mg/dL (74-99); Non-African American GFR(CKD) >90 (>60 ml/min/1.73 sqM); Sodium 140 mmol/L (137-145)
[2021-12-17] MEDS ORDERED: CYCLOBENZAPRINE 10 MG TAB PO PRN (11:39)
[2021-12-17] MEDS ORDERED: bisacodyL 10 MG SUPP RECTAL PRN (11:52)
[2021-12-17] MEDS ORDERED: MAGNESIUM HYDROXIDE 2,400 MG/10 ML CUP PO PRN (11:52)
[2021-12-17] MEDS ORDERED: HYDROcodone/APAP 5-325MG 1 EACH TAB PO PRN (11:52)
[2021-12-17] MEDS ORDERED: NA PHOS,M-B/NA PHOS,DI-BA 133 ML ENEMA RECTAL PRN (11:52)
[2021-12-17] MEDS ORDERED: traMADol 50 MG TAB PO PRN (11:52)
[2021-12-17] MEDS ORDERED: ACETAMINOPHEN TAB 325 MG TAB PO PRN (11:52)
[2021-12-17] MEDS: atenoloL 25 MG TAB PO SCH (12:07)
--- NOTE | 2021-12-17 14:03 | P.CONS ---
History of Present Illness - Reason for Consult Consult date: 12/17/21 Medical Management - History of Present Illness This is an 81-year-old male who presents to the hospital after his right knee buckling at home. He did not fall or hit his head. He was found to have a right patella fracture and proximal tibial fracture on the right side. He is in a knee immobilizer. He is pending surgical evaluation. 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 Patient is a former smoker and reports daily alcohol use one drink daily. We are asked to see patient in medical consultation and for medical management. Chest x-ray showing no acute process, Hip/pelvis x- ray showing no acute fracture. EKG completed on admission showing sinus rhythm with first-degree AV block heart rate of 66, QT interval 465. He sees Dr EMIL Dan and states he was seen recently with no acute issues. Labs completed [place] a white count of 11.8, hemoglobin 12.7, PTT is greater than 200, BUN 32, creatinine 0.51, glucose 116. Troponin is 0.013, liver enzymes are negative. We will repeat a PTT, and resume appropriate home medications. REVIEW OF SYSTEMS: CONSTITUTIONAL: No fever, no malaise, no fatigue. HEENT: No recent visual problems or hearing problems. Denied any sore throat. CARDIOVASCULAR: No chest pain, orthopnea, PND, no palpitations, no syncope. PULMONARY: No shortness of breath, no cough, no hemoptysis. GASTROINTESTINAL: No diarrhea, no nausea, no vomiting, no abdominal pain. NEUROLOGICAL: No headaches, no weakness, no numbness. HEMATOLOGICAL: Denies any bleeding or petechiae. GENITOURINARY: Denies any burning micturition, frequency, or urgency. MUSCULOSKELETAL/RHEUMATOLOGICAL: Reports right knee pain 5/10 ENDOCRINE: Denies any polyuria or polydipsia. The rest of the 14-point review of systems is negative. PHYSICAL EXAMINATION: GENERAL: The patient is alert and oriented x3, not in any acute distress. Well developed, well nourished. HEENT: Pupils are round and equally reacting to light. EOMI. No scleral icterus. No conjunctival pallor. Normocephalic, atraumatic. No pharyngeal erythema. No thyromegaly. CARDIOVASCULAR: S1 and S2 present. No murmurs, rubs, or gallops. PULMONARY: Chest is clear to auscultation, no wheezing or crackles. ABDOMEN: Soft, nontender, nondistended, normoactive bowel sounds. No palpable organomegaly. MUSCULOSKELETAL: No joint swelling or deformity. Right knee immobilizer in place. EXTREMITIES: No cyanosis, clubbing, or pedal edema. +2 bilateral dorsalis pedis pulses NEUROLOGICAL: Gross neurological examination did not reveal any focal deficits. SKIN: No rashes. Assessment and plan Assessment Right patella and proximal tibial fracture Leukocytosis possibly reactive Anemia, normocytic, ongoing work up Mild hyperglycemia Coronary artery disease status post cardiac stenting History of carotid endarterectomy History stroke in 2010 with residual vision deficits History of rheumatoid arthritis History of psoriasis history of SIBM GI Prophylaxis DVT Prophylaxis as per primary Obesity Full Code Plan Pending orthopedic evaluation Decrease IV fluids Continue with knee immobilizer Resume appropriate home medications PT consultation The impression and plan of care has been dictated by Hayley Tovar Nurse Practitioner as directed. Dr. Desirae MD I have performed a history and physical examination and medical decision making of this patient, discussed the same with the dictator, and agree with the dictators assessment and plan as written, documented as a scribe. Based on total visit time, I have performed more than 50% of this visit. Past Medical History Past Medical History: Coronary Artery Disease (CAD), Chest Pain / Angina, CVA/TIA, Myocardial Infarction ([place]), Rheumatoid Arthritis ([place]) Additional Past Medical History / Comment(s): DIARRHEA,KIDNEYSTONE, CVA OCCIPITAL LOBE (AFFECTED EYES 2010[facility] W[facility] . 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 R FEMUR FX WITH REPAIR. Past Anesthesia/Blood Transfusion Reactions: No Reported Reaction Date of Last Stent Placement:: 2007 Past Psychological History: Depression Additional Psychological History / Comment(s): PT LIVES WITH "[employer]" FOR PAST 16 YRS. PT RETIRED IN 1992. 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 Smoking Status: Former smoker Past Alcohol Use History: Daily Past Drug Use History: None Reported - Past Family History Father Family Medical History: Hyperlipidemia Additional Family Medical History / Comment(s): FATHER AT AGE 55 YRS IN [facility]. Mother Family Medical History: Cancer, Diabetes Mellitus Additional Family Medical History / Comment(s): MOTHER AT AGE 72 OF [place] Medications and Allergies Home Medications Medication Instructions Recorded Confirmed Type Sertraline [Zoloft] 50 mg PO DAILY 12/10/13 12/17/21 History atenoloL [Tenormin] 25 mg PO DAILY 12/10/13 12/17/21 History amLODIPine [Norvasc] 5 mg PO DAILY 09/26/19 12/17/21 History Atorvastatin [Lipitor] 20 mg PO DAILY 05/09/21 12/17/21 History Finasteride [Proscar] 5 mg PO DAILY 05/09/21 12/17/21 History Quinapril HCl [Accupril] 20 mg PO HS 05/09/21 12/17/21 History Adalimumab [Humira(Cf) Pen] 40 mg SQ Q14D 12/17/21 12/17/21 History Cyclobenzaprine [Flexeril] 10 mg PO HS PRN 12/17/21 12/17/21 History Tamsulosin [Flomax] 0.4 mg PO DAILY 12/17/21 12/17/21 History diazePAM [Valium] 1 - 2 mg PO BID PRN 12/17/21 12/17/21 History Allergies Allergy/AdvReac Type Severity Reaction Status Date / Time No Known Allergies Allergy Verified 12/17/21 11:28 Physical Exam Vitals: Vital Signs Temp Pulse Pulse Resp BP BP Pulse Ox 12/17/21 08:00 97.9 F 61 17 138/71 99 12/17/21 04:54 97.7 F 16 116/72 95 12/17/21 04:00 97.9 F 68 14 114/61 98 12/17/21 03:42 97.6 F 68 14 114/61 98 12/17/21 03:00 74 14 101/51 98 12/17/21 02:45 72 12 102/66 97 12/17/21 02:30 70 10 L 111/53 96 12/17/21 02:15 64 10 L 100/64 99 12/17/21 01:57 68 8 L 113/54 99 12/17/21 01:55 67 8 L 116/68 99 12/17/21 01:52 66 7 L 84/40 100 12/17/21 01:50 68 12 96/49 97 12/17/21 01:47 65 14 101/48 93 L 12/17/21 01:23 61 18 107/49 95 12/16/21 23:57 98.1 F 70 132 H 93 L Intake and Output 12/16/21 12/17/21 12/17/21 22:59 06:59 14:59 Intake Total 260 Balance 260 Intake: Intake, IV Titration 260 Amount Sodium Chloride 0.9% 1, 260 000 ml @ 130 mls/hr IV . Q7H42M [facility] Rx#:[id number] Other: Weight 88.451 kg Results CBC & Chem 7: 12/17/21 09:47 12/17/21 10:15 Labs: Abnormal Lab Results - Last 24 Hours (Table) 12/17/21 12/17/21 12/17/21 Range/Units 00:57 00:57 00:57 WBC 11.8 H (3.8-10.6) k/uL RBC 4.28 L (4.30-5.90) m/uL Hgb 12.7 L (13.0-17.5) gm/dL Hct 38.4 L (39.0-53.0) % Neutrophils # 8.9 H (1.3-7.7) k/uL APTT >200.0 H* (22.0-30.0) sec BUN 32 H (9-20) mg/dL Creatinine 0.51 L (0.66-1.25) mg/dL Glucose 116 H (74-99) mg/dL
--- NOTE | 2021-12-17 17:06 | P.HPOR ---
History of Present Illness H&P Date: 12/17/21 Chief Complaint: Right knee pain status post fall Patient is an 81-year-old male seen at bedside this am. He presented to the ED last evening after his right knee buckled at home. He did not fall or hit his head. He was found to have a right patella fracture and proximal tibial fracture on the right side. He does not ambulate at home. He is in a knee immobilizer. He is pending surgical evaluation. 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 Patient is a former smoker and reports daily alcohol use one drink daily. We are asked to see patient in medical consultation and for medical management. He is known to Dr. Zhou who treated him in 2005 for distal femur fracture. He also had left proximal tibia fracture in [address] Rubalcava Review of Systems All systems: negative Constitutional: Denies chills, Denies fever Eyes: denies blurred vision, denies pain Ears, nose, mouth and throat: Denies headache, Denies sore throat Cardiovascular: Denies chest pain, Denies shortness of breath Respiratory: Denies cough Gastrointestinal: Denies abdominal pain, Denies diarrhea, Denies nausea, Denies vomiting Musculoskeletal: Denies myalgias Integumentary: Denies pruritus, Denies rash Neurological: Denies numbness, Denies weakness Psychiatric: Denies anxiety, Denies depression Endocrine: Denies fatigue, Denies weight change Past Medical History Past Medical History: Coronary Artery Disease (CAD), Chest Pain / Angina, CVA/TIA, Myocardial Infarction ([place]), Rheumatoid Arthritis (RA) Additional Past Medical History / Comment(s): DIARRHEA,KIDNEYSTONE, CVA OCCIPITAL LOBE (AFFECTED EYES 2010),MEDIPORT FOR IV ORENCIA THERAPY Q 4 WEEKS . 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 R FEMUR FX WITH REPAIR. Past Anesthesia/Blood Transfusion Reactions: No Reported Reaction Date of Last Stent Placement:: 2007 Past Psychological History: Depression Additional Psychological History / Comment(s): PT LIVES WITH "[facility]" FOR PAST 16 YRS. PT RETIRED IN 1992. HE RAN AN [employer]. Smoking Status: Former smoker Past Alcohol Use History: Daily Past Drug Use History: None Reported - Past Family History Father Family Medical History: Hyperlipidemia Additional Family Medical History / Comment(s): FATHER AT AGE 55 YRS IN MVA. Mother Family Medical History: Cancer, Diabetes Mellitus Additional Family Medical History / Comment(s): MOTHER AT AGE 72 OF LEUKEMIA Medications and Allergies Home Medications Medication Instructions Recorded Confirmed Type Sertraline [Zoloft] 50 mg PO DAILY 12/10/13 12/17/21 History atenoloL [Tenormin] 25 mg PO DAILY 12/10/13 12/17/21 History amLODIPine [Norvasc] 5 mg PO DAILY 09/26/19 12/17/21 History Atorvastatin [Lipitor] 20 mg PO DAILY 05/09/21 12/17/21 History Finasteride [Proscar] 5 mg PO DAILY 05/09/21 12/17/21 History Quinapril HCl [Accupril] 20 mg PO HS 05/09/21 12/17/21 History Cyclobenzaprine [Flexeril] 10 mg PO HS PRN 12/17/21 12/17/21 History Tamsulosin [Flomax] 0.4 mg PO DAILY 12/17/21 12/17/21 History Acetaminophen Tab [Tylenol] 650 mg PO Q4HR PRN tab 12/20/21 Rx Aspirin 81 mg PO BID tab 12/20/21 Rx HYDROcodone/APAP 10-325MG [Sanford 1 - 2 tab PO Q4-6H PRN #32 tab 12/20/21 Rx 10-325] Ipratropium-Albuterol Nebulize 3 ml INHALATION RT-QID PRN #20 each 12/20/21 Rx [Duoneb 0.5 mg-3 mg/3 ml Soln] Multivitamins, Thera [Multivitamin 1 each PO DAILY@1200 tab 12/20/21 Rx (formulary)] Nystatin 100,000 Unit/ml Susp 500,000 unit PO QID 5 Days #200 ml 12/20/21 Rx [Mycostatin Oral Susp] Sennosides-Docusate Sodium 2 each PO HS tab 12/20/21 Rx [Senokot-S] diazePAM [Valium] 1 - 2 mg PO BID PRN #4 tab 12/20/21 Rx cefUROXime axetiL [Ceftin] 500 mg PO BID 7 Days #14 tab 12/22/21 Rx Allergies Allergy/AdvReac Type Severity Reaction Status Date / Time No Known Allergies Allergy Verified 12/17/21 11:28 Physical Examination Osteopathic Statement: *. No significant issues noted on an osteopathic structural exam other than those noted in the History and Physical/Consult. Inspection reveals benign old surgical wounds. There are no new wounds, erythema, effusion or echymoses. Neurovascular status is intact throughout the lower extremity with motor and sensation fully intact. ROm not tested due to fracture. Calf is soft and nontender. 2+ dorsalis pedis pulse and less than 2 second cap refill is present. Results - Labs Labs: Abnormal Lab Results - Last 24 Hours (Table) 12/17/21 12/17/21 12/17/21 Range/Units 00:57 00:57 00:57 WBC 11.8 H (3.8-10.6) k/uL RBC 4.28 L (4.30-5.90) m/uL Hgb 12.7 L (13.0-17.5) gm/dL Hct 38.4 L (39.0-53.0) % Neutrophils # 8.9 H (1.3-7.7) k/uL APTT >200.0 H* (22.0-30.0) sec Chloride (98-107) mmol/L BUN 32 H (9-20) mg/dL Creatinine 0.51 L (0.66-1.25) mg/dL Glucose 116 H (74-99) mg/dL Calcium (8.4-10.2) mg/dL 12/17/21 12/17/21 Range/Units 09:47 10:15 WBC (3.8-10.6) k/uL RBC 3.95 L (4.30-5.90) m/uL Hgb 11.8 L (13.0-17.5) gm/dL Hct 35.6 L (39.0-53.0) % Neutrophils # (1.3-7.7) k/uL APTT (22.0-30.0) sec Chloride 110 H (98-107) mmol/L BUN 28 H (9-20) mg/dL Creatinine 0.46 L (0.66-1.25) mg/dL Glucose (74-99) mg/dL Calcium 8.2 L (8.4-10.2) mg/dL H & H 12/17/21 12/17/21 Range/Units 00:57 09:47 Hgb 12.7 L 11.8 L (13.0-17.5) gm/dL Hct 38.4 L 35.6 L (39.0-53.0) % Coagulation 12/17/21 Range/Units 00:57 INR 1.0 (<1.2) Result Diagrams: 12/23/21 06:37 12/23/21 06:37 - Diagnostic results Knee x-ray: report reviewed, image reviewed Assessment and Plan (1) Closed fracture of right proximal tibia Narrative/Plan: There are no plans for immediate surgical intervention. Recommend continued conservative care including immobilizer or locked hinged knee brace, Pain management, DVT prophylaxis, medical management. He may be TDWB as tolerated for balance and transfer. He may benefit from ECF placement Current Visit: Yes Status: Acute Priority: Medium Code(s): S82.101A - UNSP FRACTURE OF UPPER END OF RIGHT TIBIA, INIT FOR CLOS FX SNOMED Code(s): 73258545 Time with Patient: Greater than 30 (Patient seen and examine. Agree with above. The patient is nonambulatory and we will treat this nonoperatively by splinting in a position of comfort. Nonweightbearing.)
[2021-12-17] MEDS: SENNOSIDES-DOCUSATE SODIUM 1 EACH TAB PO SCH (22:02)
[2021-12-17] MEDS: ASPIRIN 81 MG PO SCH (22:02)
[2021-12-17] MEDS: lisinopriL 20 MG TAB PO SCH (22:03)
[2021-12-17] MEDS: diazePAM 5 MG TAB PO PRN (22:16)
[2021-12-18] MEDS: MORPHINE SULFATE 4 MG/ML SYRINGE IV PRN ×3 (00:23→08:56)
[2021-12-18] MEDS: SODIUM CHLORIDE 0.9% 1,000 ML IV SCH ×2 (02:37→11:34)
[2021-12-18] MEDS ORDERED: HYDROmorphone 1 MG/ML 1 ML SYRINGE IVP STA (05:07)
--- NOTE | 2021-12-18 06:20 | XR ---
EXAMINATION TYPE: XR foot limited RT DATE OF EXAM: 12/18/2021 CLINICAL HISTORY: Pain and swelling. TECHNIQUE: Frontal and lateral images of the right foot are obtained. COMPARISON: None FINDINGS: The osseous structures are demineralized which is noted to lower radiographic sensitivity. Hallux valgus positioning first metatarsophalangeal joint. No acute displaced fracture. No suspicious bony destruction. Mild to moderate narrowing talonavicular joint. The overlying soft tissue appears unremarkable. IMPRESSION: As above.
[2021-12-18] MEDS: ASPIRIN 81 MG PO SCH ×2 (08:56→20:40)
[2021-12-18] MEDS: MULTIVITAMINS, THERA 1 EACH TAB PO SCH (08:56)
[2021-12-18] MEDS: atenoloL 25 MG TAB PO SCH (08:56)
[2021-12-18] MEDS: SERTRALINE 50 MG TAB PO SCH (08:56)
[2021-12-18] MEDS: ATORVASTATIN 20 MG TAB PO SCH (08:56)
[2021-12-18] MEDS: FINASTERIDE 5 MG TAB PO SCH (08:56)
[2021-12-18] MEDS: TAMSULOSIN 0.4 MG CAP.ER.24H PO SCH (08:56)
[2021-12-18] MEDS ORDERED: HYDROmorphone 0.5 MG/0.5 ML SYRINGE IVP PRN ×2 (10:02)
--- NOTE | 2021-12-18 10:38 | P.PN ---
Subjective Progress Note Date: 12/18/21 Principal diagnosis: proximal right tibia and fibula fractures Patient is a 81-year-old male seen at bedside this morning. We are following him for proximal tibia and fibula fractures. He has been in a knee immobilizer. He's also complained of right foot pain. X-rays of the foot has been done. He has no new calf pain, numbness, fever, chills, chest pain or other. Objective - Vital Signs Vital signs: Vital Signs Temp 98.3 F 12/18/21 04:27 Pulse 64 12/18/21 04:27 Resp 18 12/18/21 04:27 BP 162/65 12/18/21 04:27 Pulse Ox 87 L 12/18/21 09:02 FiO2 Intake & Output 12/17/21 12/18/21 12/18/21 18:59 06:59 18:59 Intake Total 600 1325 Output Total 200 600 Balance 400 725 Intake: Intake, IV Titration 600 825 Amount Sodium Chloride 0.9% 1, 600 825 000 ml @ 75 mls/hr IV . [id number] [facility] Rx#:[id number] Oral 500 Output: Urine 200 600 Other: Voiding Method External Catheter External Catheter - Exam there is edema about the right foot. He is tender at the plantar surface of the foot. There is no deformity. Motor sensation is intact at the ankle and foot. Less than 2 second capillary refill is present. Calf is soft nontender. Range of motion of the knee is not tested due to the fractures. - Constitutional General appearance: Present: no acute distress - Labs CBC & Chem 7: 12/17/21 09:47 12/17/21 10:15 Labs: Abnormal Lab Results - Last 24 Hours (Table) 12/17/21 12/17/21 12/17/21 Range/Units 09:47 10:15 12:24 RBC 3.95 L (4.30-5.90) m/uL Hgb 11.8 L (13.0-17.5) gm/dL Hct 35.6 L (39.0-53.0) % APTT 21.5 L (22.0-30.0) sec Chloride 110 H (98-107) mmol/L BUN 28 H (9-20) mg/dL Creatinine 0.46 L (0.66-1.25) mg/dL Calcium 8.2 L (8.4-10.2) mg/dL Assessment and Plan (1) Closed fracture of right proximal tibia Narrative/Plan: There are no plans for immediate surgical intervention. Recommend continued conservative care including immobilizer or locked hinged knee brace, Pain management, DVT prophylaxis, medical management. recommended ice to the right lower extremity. We have also added Toradol and adjusted pain medication for b rome pain control. We'll continue to follow make further recommendations as appropriate. He may benefit from ECF placement Current Visit: Yes Status: Acute Priority: Medium Code(s): S82.101A - UNSP FRACTURE OF UPPER END OF RIGHT TIBIA, INIT FOR CLOS FX SNOMED Code(s): 06258180 Time with Patient: Less than 30
[2021-12-18] MEDS: HYDROcodone/APAP 10-325MG 1 EACH TAB PO PRN (10:47)
[2021-12-18 10:51] LABS: Basophils # (A) 0.07 X 10*3/uL (0.00-0.10); Basophils % (A) 0.6 %; Eosinophils # (A) 0.68 X 10*3/uL (0.04-0.35); Eosinophils % (A) 6.1 %; HCT 34.6 % (39.6-50.0); HGB 11.1 g/dL (13.0-17.0); Immature Grans, Automated 0.3 %; Lymphocytes # (A) 1.83 X 10*3/uL (0.90-5.00); Lymphocytes % (A) 16.4 %; MCH 28.5 pg (27.0-32.0); MCHC 32.1 g/dL (32.0-37.0); MCV 88.7 fL (80.0-97.0); Mean Platelet Volume 11.2 fL (9.5-12.2); Monocytes # (A) 1.17 X 10*3/uL (0.20-1.00); Monocytes % (A) 10.5 %; NRBC Per 100 WBC 0 /100 WBCS (0.0-0.0); Neutrophils # (A) 7.37 X 10*3/uL (1.80-7.70); Neutrophils % (A) 66.1 %; Platelet Count 217 X 10*3/uL (140-440); RDW 13.2 % (11.5-14.5); WBC 11.15 X 10*3/uL (4.50-10.00)
[2021-12-18] MEDS: KETOROLAC 15 MG/ML 1 ML VIAL IVP SCH ×3 (11:32→23:58)
--- NOTE | 2021-12-18 12:11 | P.GSCN ---
History of Present Illness Consult date: 12/18/21 History of present illness: Pleasant 81-year-old gentleman the hospital for tibial fracture area and we're asked to see for chronic dysuria. The patient has a history of spontaneous inclusion body myositis diagnosed at the [facility] in 2011. This leaves him immobilized now for the last 3 years. 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 The patient has had some urinary tract problems. He is been placed on tamsulosin and finasteride to help his voiding which he states it does but he has chronic discomfort. He has both testicle discomfort when he sits as well as voiding discomfort. He has been evaluated by urologist in the past but he does not remember exactly what was done. He states that he has been placed on antibiotics for the discomfort but no obvious infection was identified. The antibiotics did not help. Review of Systems All systems: negative Past Medical History Past Medical History: Coronary Artery Disease (CAD), Chest Pain / Angina, CVA/TIA, Myocardial Infarction ([place]), Rheumatoid Arthritis (RA) Additional Past Medical History / Comment(s): DIARRHEA,KIDNEYSTONE, CVA OCCIPITAL LOBE (AFFECTED EYES 2010),MEDIPORT FOR IV ORENCIA THERAPY Q 4 WEEKS . 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 R FEMUR FX WITH REPAIR. Past Anesthesia/Blood Transfusion Reactions: No Reported Reaction Date of Last Stent Placement:: 2007 Past Psychological History: Depression Additional Psychological History / Comment(s): PT LIVES WITH "[facility]" FOR PAST 16 YRS. 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 Smoking Status: Former smoker Past Alcohol Use History: Daily Past Drug Use History: None Reported - Past Family History Father Family Medical History: Hyperlipidemia Additional Family Medical History / Comment(s): FATHER AT AGE 55 YRS IN MVA. Mother Family Medical History: Cancer, Diabetes Mellitus Additional Family Medical History / Comment(s): MOTHER AT AGE 72 OF [place]UKEM[place] Medications and Allergies Home Medications Medication Instructions Recorded Confirmed Type Sertraline [Zoloft] 50 mg PO DAILY 12/10/13 12/17/21 History atenoloL [Tenormin] 25 mg PO DAILY 12/10/13 12/17/21 History amLODIPine [Norvasc] 5 mg PO DAILY 09/26/19 12/17/21 History Atorvastatin [Lipitor] 20 mg PO DAILY 05/09/21 12/17/21 History Finasteride [Proscar] 5 mg PO DAILY 05/09/21 12/17/21 History Quinapril HCl [Accupril] 20 mg PO HS 05/09/21 12/17/21 History Adalimumab [Humira(Cf) Pen] 40 mg SQ Q14D 12/17/21 12/17/21 History Cyclobenzaprine [Flexeril] 10 mg PO HS PRN 12/17/21 12/17/21 History Tamsulosin [Flomax] 0.4 mg PO DAILY 12/17/21 12/17/21 History diazePAM [Valium] 1 - 2 mg PO BID PRN 12/17/21 12/17/21 History Allergies Allergy/AdvReac Type Severity Reaction Status Date / Time No Known Allergies Allergy Verified 12/17/21 11:28 Surgical - Exam Vital Signs Temp Pulse Resp Pulse Ox 98.1 F 70 132 H 93 L 12/16/21 23:57 12/16/21 23:57 12/16/21 23:57 12/16/21 23:57 - General well developed, well nourished, no distress - Eyes PERRL - ENT no hearing loss - Respiratory normal expansion - Cardiovascular Rhythm: regular - Abdomen Abdomen: soft, non tender - Genitourinary Uncircumcised phallus with an external condom catheter. Descended and unremarkable. Rectal deferred at this point in time. PSA at 0.9. - Integumentary no growths - Neurologic Decrease muscular function. Wheelchair bound - Psychiatric oriented to time, oriented to person, oriented to place, speech is normal, memory intact Results - Labs 12/18/21 07:00 12/17/21 10:15 Abnormal Lab Results - Last 24 Hours (Table) 12/17/21 12/18/21 Range/Units 12:24 07:00 WBC 11.15 H (4.50-10.00) X 10*3/uL RBC 3.90 L (4.40-5.60) X 10*6/uL Hgb 11.1 L (13.0-17.0) g/dL Hct 34.6 L (39.6-50.0) % Monocytes # 1.17 H (0.20-1.00) X 10*3/uL Eosinophils # 0.68 H (0.04-0.35) X 10*3/uL APTT 21.5 L (22.0-30.0) sec Assessment and Plan Assessment: Impression: Tib-fib fracture. Chronic dysuria. Urinary outlet obstruction. Recommendation: Patient does have a known history of stones so the possibility of the stone causing the dysuria needs to be evaluated. I will obtain a KUB to see if there is any obvious stones. If there are none that he probably should have cystoscopy as an outpatient. It is possible that the smooth muscle disease contributing to the chronic discomfort when he voids. We will follow with you.
--- NOTE | 2021-12-18 12:46 | P.PN ---
Subjective Progress Note Date: 12/18/21 This is an 81-year-old male who presents to the hospital after his right knee buckling at home. He did not fall or hit his head. He was found to have a right patella fracture and proximal tibial fracture on the right side. He is in a knee immobilizer. He is pending surgical evaluation. 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 Patient is a former smoker and reports daily alcohol use one drink daily. We are asked to see patient in medical consultation and for medical management. Chest x-ray showing no acute process, Hip/pelvis x- ray showing no acute fracture. EKG completed on admission showing sinus rhythm with first-degree AV block heart rate of 66, QT interval 465. He sees Dr EMIL Dan and states he was seen recently with no acute issues. Labs completed showing a white count of 11.8, hemoglobin 12.7, PTT is greater than 200, BUN 32, creatinine 0.51, glucose 116. Troponin is 0.013, liver enzymes are negative. We will repeat a PTT, and resume appropriate home medications. 12/18/2021 Patient was evaluated by orthopedics with no plan for surgical intervention of the right knee at this time. Patient will continue in a right knee immobilizer recommended for locked hinged knee brace as an alternative. He will undergo PT OT evaluation will most likely need ECF placement. Patient is recommended for touchdown weightbearing as tolerated for balance and transfer. His main complaint is pain to the right foot mostly on the top of the foot and also along the pantar fascia he states he has had plantar fasciitis and this feels similar to that. He is frustrated that there is no surgical intervention planned. Steroids are contraindicated due to his underlying muscle disorder. He was also evaluated by urology for dysuria and will undrego KUB to evaluated for kidney stones. A urinalysis will also be ordered as well as bladder scan q6, post void residual. This morning patient's oxygen saturation is 87% on 3 L nasal cannula we will order a chest x-ray for evaluation, he has decreased aeration. He is able to achieve 1000 up to 6 times in a row, due to this chronic weakness he is unable to use the IS by himself and will require assistance. Repeat pulse ox is 97% although he does not use oxygen at home. He is non ambulatory at baseline and only stands to transfer. Consider conservative management for narcotics. Pending PT OT evaluation for discharge planning. PHYSICAL EXAMINATION: GENERAL: The patient is alert and oriented x3, not in any acute distress. Well developed, well nourished. HEENT: Pupils are round and equally reacting to light. EOMI. No scleral icterus. No conjunctival pallor. Normocephalic, atraumatic. No pharyngeal erythema. No thyromegaly. CARDIOVASCULAR: S1 and S2 present. No murmurs, rubs, or gallops. PULMONARY: Chest is clear to auscultation, no wheezing or crackles. There is decreased airflow as compared to yesterday. ABDOMEN: Soft, nontender, nondistended, normoactive bowel sounds. No palpable organomegaly. MUSCULOSKELETAL: No joint swelling or deformity. Right knee immobilizer in place. Right foot has increased edema from yesterday. EXTREMITIES: No cyanosis, clubbing, or pedal edema. +2 bilateral dorsalis pedis pulses NEUROLOGICAL: Gross neurological examination did not reveal any focal deficits. SKIN: No rashes. He has some bruising noted on top of foot. Assessment and plan Assessment Right patella and proximal tibial fracture no plans for surgical intervention at this time Right foot pain and swelling, tenderness along the plantar fascia. Leukocytosis possibly reactive Anemia, normocytic, ongoing work up History of spontaneous inclusion body myositis causing severe generalized weakness Dysuria Mild hyperglycemia Coronary artery disease status post cardiac stenting History of carotid endarterectomy History stroke in 2010 with residual vision deficits History of rheumatoid arthritis History of psoriasis History of Reynauds GI Prophylaxis DVT Prophylaxis as per primary Obesity Full Code Plan Chest xray ordered Wean oxygen as tolerated Decrease IV fluids Continue with knee immobilizer KUB pending, bladder scan and post void residuals Check urinalysis Resume appropriate home medications PT/OT consulation The impression and plan of care has been dictated by Hayley Tovar, Nurse Practitioner as directed. Dr. Desirae MD I have performed a history and physical examination and medical decision making of this patient, discussed the same with the dictator, and agree with the dictators assessment and plan as written, documented as a scribe. Based on total visit time, I have performed more than 50% of this visit. Objective - Vital Signs Vital signs: Vital Signs Temp 98.3 F 12/18/21 04:27 Pulse 64 12/18/21 04:27 Resp 18 12/18/21 04:27 BP 162/65 12/18/21 04:27 Pulse Ox 87 L 12/18/21 09:02 FiO2 Intake & Output 12/17/21 12/18/21 12/18/21 18:59 06:59 18:59 Intake Total 600 1325 Output Total 200 600 Balance 400 725 Intake: Intake, IV Titration 600 825 Amount Sodium Chloride 0.9% 1, 600 825 000 ml @ 75 mls/hr IV . [id number] [facility] Rx#:[id number] Oral 500 Output: Urine 200 600 Other: Voiding Method External Catheter External Catheter - Labs CBC & Chem 7: 12/18/21 07:00 12/17/21 10:15 Labs: Abnormal Lab Results - Last 24 Hours (Table) 12/17/21 12/17/21 12/17/21 Range/Units 09:47 10:15 12:24 RBC 3.95 L (4.30-5.90) m/uL Hgb 11.8 L (13.0-17.5) gm/dL Hct 35.6 L (39.0-53.0) % APTT 21.5 L (22.0-30.0) sec Chloride 110 H (98-107) mmol/L BUN 28 H (9-20) mg/dL Creatinine 0.46 L (0.66-1.25) mg/dL Calcium 8.2 L (8.4-10.2) mg/dL Assessment and Plan Time with Patient: Less than 30
--- NOTE | 2021-12-18 13:40 | XR ---
EXAMINATION TYPE: XR chest 1V portable DATE OF EXAM: 12/18/2021 1:08 PM COMPARISON: Chest radiographs from 12/17/2021 TECHNIQUE: XR chest 1V portable Portable AP radiograph of the chest. CLINICAL INDICATION:Male, 81 years old with history of hypoxia; FINDINGS: Lungs/Pleura: Low lung volumes are present. There is no evidence of pleural effusion, focal consolida tion, or pneumothorax. Pulmonary vascularity: Pulmonary vascular congestion. Heart/mediastinum: Cardiomediastinal silhouette is enlarged and stable. Musculoskeletal: No acute osseous pathology. Other findings: None Lines/Tubes:[id number] projecting over the right hemithorax with distal tip at the cavoatrial junc tion. IMPRESSION: Cardiomegaly and mild pulmonary vascular congestion suggested. Correlate with BNP for congestive hear t failure.
--- NOTE | 2021-12-18 13:43 | XR ---
EXAMINATION TYPE: XR KUB portable DATE OF EXAM: 12/18/2021 1:13 PM INDICATION: Patient age:Male; 81 years old; Reason for study: kidney or bladder stone, chronic dysuria; . COMPARISON: None. TECHNIQUE: One radiographic view of the abdomen was obtained. FINDINGS: The bowel gas pattern is nonspecific without dilated loops of small or large bowel. There i s no evidence for organomegaly or pneumoperitoneum. The osseous structures are intact. No abnormal calcifications are present. Fecal material and gas are demonstrated throughout the colon and rectum. Multilevel disc degeneration changes throughout the spine. Calcific density projecting over the left lower lung. IMPRESSION: 1. No definitive evidence for renal calculus. 2. Nonspecific bowel gas pattern without radiographic evidence for acute process.
[2021-12-18] MEDS: lisinopriL 20 MG TAB PO SCH (20:40)
[2021-12-18] MEDS: SENNOSIDES-DOCUSATE SODIUM 1 EACH TAB PO SCH (20:40)
[2021-12-18] MEDS: HYDROmorphone 0.5 MG/0.5 ML SYRINGE IVP PRN (21:35)
[2021-12-19] MEDS: HYDROmorphone 0.5 MG/0.5 ML SYRINGE IVP PRN ×3 (01:41→20:57)
[2021-12-19] MEDS: diazePAM 5 MG TAB PO PRN (03:24)
[2021-12-19] MEDS: SODIUM CHLORIDE 0.9% 1,000 ML IV SCH (05:00)
[2021-12-19] MEDS: ASPIRIN 81 MG PO SCH ×2 (07:33→20:40)
[2021-12-19] MEDS: TAMSULOSIN 0.4 MG CAP.ER.24H PO SCH (07:33)
[2021-12-19] MEDS: ATORVASTATIN 20 MG TAB PO SCH (07:33)
[2021-12-19] MEDS: FINASTERIDE 5 MG TAB PO SCH (07:34)
[2021-12-19] MEDS: atenoloL 25 MG TAB PO SCH (07:34)
[2021-12-19] MEDS: SERTRALINE 50 MG TAB PO SCH (07:34)
[2021-12-19] MEDS: MULTIVITAMINS, THERA 1 EACH TAB PO SCH (07:34)
[2021-12-19] MEDS ORDERED: FUROSEMIDE 10 MG/ML 4 ML VIAL IV STA (09:26)
[2021-12-19] MEDS: NYSTATIN 100,000 UNIT/ML SUSP 500,000 UNIT/5 ML CUP PO SCH ×3 (11:38→20:40)
--- NOTE | 2021-12-19 11:39 | P.PN ---
Subjective Progress Note Date: 12/19/21 The patient was seen for dysuria. A kub didnt identify a definite stone in either the kidneys or bladder. He will need to be seen as an op for a cystoscopy. Objective - Vital Signs Vital signs: Vital Signs Temp 98.4 F 12/19/21 08:00 Pulse 78 12/19/21 08:00 Resp 17 12/19/21 08:00 BP 142/78 12/19/21 08:00 Pulse Ox 92 L 12/19/21 08:00 FiO2 Intake & Output 12/18/21 12/19/21 12/19/21 18:59 06:59 18:59 Intake Total 600 1400 600 Output Total 800 Balance -200 1400 600 Intake: Intake, IV Titration 600 900 600 Amount Sodium Chloride 0.9% 1, 600 900 600 000 ml @ 75 mls/hr IV . [id number] [facility] Rx#:[id number] Oral 500 Output: Urine 800 Other: Voiding Method External Catheter External Catheter - Labs CBC & Chem 7: 12/18/21 07:00 12/17/21 10:15
--- NOTE | 2021-12-19 13:13 | P.PN ---
Subjective Progress Note Date: 12/19/21 Principal diagnosis: Right patella and proximal tib/fib fractures The patient is an 81 y/o male who we have been following for right patella and tib/fib fractures after his knee buckled. He states the leg is feeling ok this morning. The knee immobilizer is open and the ankle is resting on the metal bar, which is causing some discomfort. No new complaints today. Adele kellogg has been ordered to meet with the patient. Objective - Vital Signs Vital signs: Vital Signs Temp 98.4 F 12/19/21 08:00 Pulse 78 12/19/21 08:00 Resp 17 12/19/21 08:00 BP 142/78 12/19/21 08:00 Pulse Ox 92 L 12/19/21 08:00 FiO2 Intake & Output 12/18/21 12/19/21 12/19/21 18:59 06:59 18:59 Intake Total 600 1400 600 Output Total 800 Balance -200 1400 600 Intake: Intake, IV Titration 600 900 600 Amount Sodium Chloride 0.9% 1, 600 900 600 000 ml @ 75 mls/hr IV . [id number] [facility] Rx#:[id number] Oral 500 Output: Urine 800 Other: Voiding Method External Catheter External Catheter - Exam The patient is an 81 y/o male in no acute distress. He is alert and oriented x3. There is edema about the right foot. He is tender at the plantar surface of the foot. There is no deformity. Motor sensation is intact at the ankle and foot. Less than 2 second capillary refill is present. Calf is soft nontender. Range of motion of the knee is not tested due to the fractures. Knee immobilizer is open at this time. - Labs CBC & Chem 7: 12/18/21 07:00 12/17/21 10:15 Assessment and Plan (1) Closed fracture of right proximal tibia Current Visit: Yes Status: Acute Priority: Medium Code(s): S82.101A - UNSP FRACTURE OF UPPER END OF RIGHT TIBIA, INIT FOR CLOS FX SNOMED Code(s): 82679288 (2) Fall Current Visit: Yes Status: Acute Code(s): W19.XXXA - UNSPECIFIED FALL, INITIAL ENCOUNTER SNOMED Code(s): 3853376 (3) Fracture of right proximal fibula Current Visit: Yes Status: Acute Code(s): S82.831A - OTH FRACTURE OF UPPER AND LOWER END OF RIGHT FIBULA, INIT SNOMED Code(s): 58595307 (4) Right patella fracture Current Visit: Yes Status: Acute Code(s): S82.001A - UNSP FRACTURE OF RIGHT PATELLA, INIT FOR CLOS FX SNOMED Code(s): 19183900 Plan: 1. Continue pain control. 2. Obtain hinged knee brace, locked at full extension. Script in chart. 3. Toe touch weightbearing with a walker. 4. Continue input from internal medicine and urology. 5. Discharge home with hospice vs. skilled rehab.
--- NOTE | 2021-12-19 15:43 | P.PN ---
Subjective Progress Note Date: 12/19/21 This is an 81-year-old male who presents to the hospital after his right knee buckling at home. He did not fall or hit his head. He was found to have a right patella fracture and proximal tibial fracture on the right side. He is in a knee immobilizer. He is pending surgical evaluation. 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 Patient is a former smoker and reports daily alcohol use one drink daily. We are asked to see patient in medical consultation and for medical management. Chest x-ray showing no acute process, Hip/pelvis x- ray showing no acute fracture. EKG completed on admission showing sinus rhythm with first-degree AV block heart rate of 66, QT interval 465. He sees Dr EMIL Dan and states he was seen recently with no acute issues. Labs completed showing a white count of 11.8, hemoglobin 12.7, PTT is greater than 200, BUN 32, creatinine 0.51, glucose 116. Troponin is 0.013, liver enzymes are negative. We will repeat a PTT, and resume appropriate home medications. 12/18/2021 Patient was evaluated by orthopedics with no plan for surgical intervention of the right knee at this time. Patient will continue in a right knee immobilizer recommended for locked hinged knee brace as an alternative. He will undergo PT OT evaluation will most likely need ECF placement. Patient is recommended for touchdown weightbearing as tolerated for balance and transfer. His main complaint is pain to the right foot mostly on the top of the foot and also along the pantar fascia he states he has had plantar fasciitis and this feels similar to that. He is frustrated that there is no surgical intervention planned. Steroids are contraindicated due to his underlying muscle disorder. He was also evaluated by urology for dysuria and will undrego KUB to evaluated for kidney stones. A urinalysis will also be ordered as well as bladder scan q6, post void residual. This morning patient's oxygen saturation is 87% on 3 L nasal cannula we will order a chest x-ray for evaluation, he has decreased aeration. He is able to achieve 1000 up to 6 times in a row, due to this chronic weakness he is unable to use the IS by himself and will require assistance. Repeat pulse ox is 97% although he does not use oxygen at home. He is non ambulatory at baseline and only stands to transfer. Consider conservative management for narcotics. Pending PT OT evaluation for discharge planning. 12/19/2021 Patient evaluated today with his significant other at the bedside. Chest xray yesterday shows some vascular congestion. Labs unable to be drawn off port today and patient refused peripheral lab draw, unable to check BNP. We did give patient a dose of IV lasix and fluids are now KVO. He does have some issues with chronic dysphagia and speech therapy was requested for diet evaluation. We did also start patient on nystatin as he does have a coating on his tongue. Patient was evaluated by PT and patient is not felt to be a good candidate for rehab. He and his signficant are understanding, however patients goal is to be able to return to his baseline function prior to his fracture in order to assist with transfering. He had met with [facility] outpatient and has plans to open with hospice. Hospice has been consulted for discharge planning while inpatient at request of patient and hospice will meet with family tomorrow morning. Code status was discussed and he would like to remain full code at this time. PHYSICAL EXAMINATION: GENERAL: The patient is alert and oriented x3, not in any acute distress. Well developed, well nourished. HEENT: Pupils are round and equally reacting to light. EOMI. No scleral icterus. No conjunctival pallor. Normocephalic, atraumatic. No pharyngeal erythema. No thyromegaly. CARDIOVASCULAR: S1 and S2 present. No murmurs, rubs, or gallops. PULMONARY: Chest is clear to auscultation, no wheezing or crackles. There is decreased airflow as compared to yesterday. ABDOMEN: Soft, nontender, nondistended, normoactive bowel sounds. No palpable organomegaly. MUSCULOSKELETAL: No joint swelling or deformity. Right knee immobilizer in place. EXTREMITIES: No cyanosis, clubbing, or pedal edema. +2 bilateral dorsalis pedis pulses NEUROLOGICAL: Gross neurological examination did not reveal any focal deficits. SKIN: No rashes. He has some bruising noted on top of foot. Assessment and plan Assessment Right patella and proximal tibial fracture no plans for surgical intervention at this time Right foot pain and swelling, tenderness along the plantar fascia. 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 [facility] Thank you kindly for this consultation we will continue to follow along with patient this hospitalization. The impression and plan of care has been dictated by Hayley Tovar, Nurse Practitioner as directed. Dr. Desirae MD I have performed a history and physical examination and medical decision making of this patient, discussed the same with the dictator, and agree with the dictators assessment and plan as written, documented as a scribe. Based on total visit time, I have performed more than 50% of this visit. Objective - Vital Signs Vital signs: Vital Signs Temp 98.4 F 12/19/21 08:00 Pulse 78 12/19/21 08:00 Resp 17 12/19/21 08:00 BP 142/78 12/19/21 08:00 Pulse Ox 92 L 12/19/21 08:00 FiO2 Intake & Output 12/18/21 12/19/21 12/19/21 18:59 06:59 18:59 Intake Total 600 1400 600 Output Total 800 Balance -200 1400 600 Intake: Intake, IV Titration 600 900 600 Amount Sodium Chloride 0.9% 1, 600 900 600 000 ml @ 75 mls/hr IV . [id number] [facility] Rx#:[id number] Oral 500 Output: Urine 800 Other: Voiding Method External Catheter External Catheter - Labs CBC & Chem 7: 12/18/21 07:00 12/17/21 10:15 Assessment and Plan Time with Patient: Greater than 30
[2021-12-19] MEDS: lisinopriL 20 MG TAB PO SCH (20:40)
[2021-12-19] MEDS: SENNOSIDES-DOCUSATE SODIUM 1 EACH TAB PO SCH (20:40)
[2021-12-20] MEDS ORDERED: FUROSEMIDE 10 MG/ML 4 ML VIAL IV STA (00:08)
[2021-12-20] MEDS ORDERED: methylPREDNISolone SOD SUCCI 125 MG/2 ML VIAL IV STA (00:09)
[2021-12-20] MEDS: IPRATROPIUM-ALBUTEROL 3 ML NEB INHALATION SCH ×5 (01:38→20:42)
[2021-12-20 08:40] LABS: Basophils % (A) 0 %; Eosinophils % (A) 0 %; HGB 12.3 gm/dL (13.0-17.5); Lymphocytes # (A) 0.6 k/uL (1.0-4.8); Lymphocytes % (A) 6 %; MCH 30.4 pg (25.0-35.0); MCV 86.8 fL (80.0-100.0); Mean Platelet Volume 10.8; Monocytes # (A) 0.3 k/uL (0-1.0); Monocytes % (A) 3 %; Neutrophils # (A) 8.5 k/uL (1.3-7.7); Neutrophils % (A) 90 %; Platelet Count 201 k/uL (150-450); RBC 4.04 m/uL (4.30-5.90); RDW 13.2 % (11.5-15.5); WBC 9.5 k/uL (3.8-10.6)
[2021-12-20] MEDS: TAMSULOSIN 0.4 MG CAP.ER.24H PO SCH (09:23)
[2021-12-20] MEDS: SERTRALINE 50 MG TAB PO SCH (09:24)
[2021-12-20] MEDS: FINASTERIDE 5 MG TAB PO SCH (09:24)
[2021-12-20] MEDS: ATORVASTATIN 20 MG TAB PO SCH (09:24)
[2021-12-20] MEDS: atenoloL 25 MG TAB PO SCH (09:24)
[2021-12-20] MEDS: ASPIRIN 81 MG PO SCH ×2 (09:33→21:22)
[2021-12-20] MEDS: NYSTATIN 100,000 UNIT/ML SUSP 500,000 UNIT/5 ML CUP PO SCH ×4 (09:37→21:23)
--- NOTE | 2021-12-20 10:53 | P.PN ---
Subjective Progress Note Date: 12/20/21 Principal diagnosis: Right patella and proximal tib/fib fractures The patient is an 81 y/o male who we have been following for right patella and tib/fib fractures after his knee buckled. He states the leg is feeling ok this morning. He states they tried to fit him for the hinged knee brace yesterday but it is not currently in the room this morning. No new complaints today. [facility] has met with the patient this morning. Objective - Vital Signs Vital signs: Vital Signs Temp 97.8 F 12/20/21 07:30 Pulse 90 12/20/21 08:50 Resp 18 12/20/21 08:50 BP 148/69 12/20/21 07:30 Pulse Ox 95 12/20/21 08:37 FiO2 Intake & Output 12/19/21 12/20/21 12/20/21 18:59 06:59 18:59 Intake Total 600 Output Total 1350 Balance 600 -1350 Intake: Intake, IV Titration 600 Amount Sodium Chloride 0.9% 1, 600 000 ml @ 75 mls/hr IV . [id number] [facility] Rx#:[id number] Output: Urine 1350 Other: Voiding Method External Catheter External Catheter - Exam The patient is an 81 y/o male in no acute distress. He is alert and oriented x3. There is edema about the right foot. He is tender at the plantar surface of the foot. There is no deformity. Motor sensation is intact at the ankle and foot. Less than 2 second capillary refill is present. Calf is soft nontender. Range of motion of the knee is not tested due to the fractures. Knee immobilizer is in place. - Labs CBC & Chem 7: 12/20/21 06:14 12/17/21 10:15 Labs: Abnormal Lab Results - Last 24 Hours (Table) 12/20/21 Range/Units 06:14 RBC 4.04 L (4.30-5.90) m/uL Hgb 12.3 L (13.0-17.5) gm/dL Hct 35.0 L (39.0-53.0) % Neutrophils # 8.5 H (1.3-7.7) k/uL Lymphocytes # 0.6 L (1.0-4.8) k/uL Assessment and Plan (1) Closed fracture of right proximal tibia Current Visit: Yes Status: Acute Priority: Medium Code(s): S82.101A - UNSP FRACTURE OF UPPER END OF RIGHT TIBIA, INIT FOR CLOS FX SNOMED Code(s): 68594904 (2) Fall Current Visit: Yes Status: Acute Code(s): W19.XXXA - UNSPECIFIED FALL, INITIAL ENCOUNTER SNOMED Code(s): 1876583 (3) Fracture of right proximal fibula Current Visit: Yes Status: Acute Code(s): S82.831A - OTH FRACTURE OF UPPER AND LOWER END OF RIGHT FIBULA, INIT SNOMED Code(s): 52157887 (4) Right patella fracture Current Visit: Yes Status: Acute Code(s): S82.001A - UNSP FRACTURE OF RIGHT PATELLA, INIT FOR CLOS FX SNOMED Code(s): 38760470 Plan: 1. Continue pain control. 2. Obtain hinged knee brace, locked at full extension or knee immobilizer. 3. Toe touch weightbearing with a walker. 4. Continue input from internal medicine and urology. 5. Discharge home with hospice vs. skilled rehab.
[2021-12-20] MEDS: HYDROmorphone 0.5 MG/0.5 ML SYRINGE IVP PRN (12:10)
[2021-12-20] MEDS: MULTIVITAMINS, THERA 1 EACH TAB PO SCH (13:03)
--- NOTE | 2021-12-20 14:41 | P.DS ---
Providers Date of admission: 12/19/21 10:53 Attending physician: Ashok Kc Consults: 12/17/21 02:21 Consult Physician Routine Consulting Provider: Terri Le Consult Reason/Comments: TIB FIB FX Do you want consulting provider notified?: Yes 12/17/21 15:39 Consult Physician Routine Consulting Provider: Davon Car Consult Reason/Comments: chronic dysuria Do you want consulting provider notified?: Yes Primary care physician: Gilmer Leal Hospital Course: Diagnosis Right patella and proximal tibial fracture no plans for surgical intervention at this time Right foot pain and swelling, tenderness along the plantar fascia. 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 He is toe touch weightbearing with brace and walker. Hospital course This is a pleasant 81-year-old male with medical history significant for spontaneous inclusion body myositis, dysphasia, coronary artery disease status post stenting, carotid endarterectomy, stroke, rheumatoid arthritis, psoriasis, regards. He presents to the hospital with concern for right knee buckling during transfer attempts. He was admitted to orthopedics and imaging on admission reveals right patella fracture and proximal tibial fracture on the right side. He is in a knee immobilizer. After evaluation by orthopedics no surgical intervention is planned at this time and patient will continue with knee immobilizer and also has a locked knee hinged brace but has been provided. He is toe touch weightbearing with brace and walker. 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 He has been able to stay at home with his significant other who does provide most of his care. He was able to assist with transferring. Initial Diagnostics show; Chest x-ray showing no acute process, Hip/pelvis x-ray showing no acute fracture. EKG showing sinus rhythm with first-degree AV block heart rate of 66, QT interval 465. Labs showing a white count of 11.8, hemoglobin 12.7, PTT is greater than 200, BUN 32, creatinine 0.51, glucose 116. Troponin is 0.013, liver enzymes are negative. Patient was given IV hydration while inpatient as he was nothing by mouth for possible surgery patient did present with possible fluid overload and IV fluids were discontinued. He did receive a dose of IV Lasix. All home medications have been resumed. He was seen in consult by speech services who did recommend pureed Diet with thin liquids sitting upright 90 with small bites and sips the medication can be administered: Applesauce yogurt. He was evaluated physical therapy. Recommend physical therapy and discharge to allow patient to regain some function and assistance with healing. He hopes to return home eventually with the ultimate goal of hospice services in the future but needs to be able to assist his significant other with transferring as he was prior to his knee buckling. 12/20/2021 Patient is evaluated today with his significant other the bedside. He is breathing better today no shortness of breath. He is using oxygen via nasal cannula at 2-3 L. White count today is 9.5, hemoglobin 12.3. Most recent, chemistry panel showing sodium 140, potassium 4.0, chloride 110, BUN 20, creatinine 0.46, calcium 8.2. He is afebrile, heart rate 92, blood pressure 117/65, 95% oxygen saturation. His lungs are clear but diminished. S1 and S2 is auscultated. Abdomen is soft nontender he did have bowel movement. He is urinating without difficulty. He is alert and oriented focal neurological exam is negative. He does present with generalized weakness. Bruising to the right foot is improving as well as pain. Patient does report no pain at rest. He is discharged on [place] as prescribed orthopedics. He will also discharge on bowel regimine. Medically patient is stable for discharge to subacute rehab. Please see medication reconciliation for a list of current medication. Thank you for allowing us to participate in the care of this patient. The impression and plan of care has been dictated by Hayley Tovar, Nurse Practitioner as directed. Dr. Desirae MD I have performed a history and physical examination and medical decision making of this patient, discussed the same with the dictator, and agree with the dictators assessment and plan as written, documented as a scribe. Based on total visit time, I have performed more than 50% of this visit. Patient Condition at Discharge: Fair Plan - Discharge Summary Discharge Rx Participant: Yes New Discharge Prescriptions: New Ipratropium-Albuterol Nebulize [Duoneb 0.5 mg-3 mg/3 ml Soln] 3 ml INHALATION RT-QID PRN #20 each PRN Reason: Shortness Of Breath Or Wheezing Nystatin 100,000 Unit/ml Susp [Mycostatin Oral Susp] 500,000 unit PO QID 5 Days #200 ml Sennosides-Docusate Sodium [Senokot-S] 2 each PO HS tab HYDROcodone/APAP 10-325MG [[place] 10-325] 1 - 2 tab PO Q4-6H PRN #32 tab PRN Reason: Pain Aspirin 81 mg PO BID tab Multivitamins, Thera [Multivitamin (formulary)] 1 each PO DAILY@1200 tab Acetaminophen Tab [Tylenol] 650 mg PO Q4HR PRN tab PRN Reason: Pain Scale 1 To 5 Continue Sertraline [Zoloft] 50 mg PO DAILY atenoloL [Tenormin] 25 mg PO DAILY amLODIPine [Norvasc] 5 mg PO DAILY Finasteride [Proscar] 5 mg PO DAILY Tamsulosin [Flomax] 0.4 mg PO DAILY Cyclobenzaprine [Flexeril] 10 mg PO HS PRN PRN Reason: Muscle Spasm Quinapril HCl [Accupril] 20 mg PO HS Atorvastatin [Lipitor] 20 mg PO DAILY diazePAM [Valium] 1 - 2 mg PO BID PRN PRN Reason: Anxiety Adalimumab [Humira(Cf) Pen] 40 mg SQ Q14D Discharge Medication List Sertraline [Zoloft] 50 mg PO DAILY 12/10/13 [History] atenoloL [Tenormin] 25 mg PO DAILY 12/10/13 [History] amLODIPine [Norvasc] 5 mg PO DAILY 09/26/19 [History] Atorvastatin [Lipitor] 20 mg PO DAILY 05/09/21 [History] Finasteride [Proscar] 5 mg PO DAILY 05/09/21 [History] Quinapril HCl [Accupril] 20 mg PO HS 05/09/21 [History] Adalimumab [Humira(Cf) Pen] 40 mg SQ Q14D 12/17/21 [History] Cyclobenzaprine [Flexeril] 10 mg PO HS PRN 12/17/21 [History] Tamsulosin [Flomax] 0.4 mg PO DAILY 12/17/21 [History] diazePAM [Valium] 1 - 2 mg PO BID PRN 12/17/21 [History] Acetaminophen Tab [Tylenol] 650 mg PO Q4HR PRN tab 12/20/21 [Rx] Aspirin 81 mg PO BID tab 12/20/21 [Rx] HYDROcodone/APAP 10-325MG [[place] 10-325] 1 - 2 tab PO Q4-6H PRN #32 tab 12/20/21 [Rx] Ipratropium-Albuterol Nebulize [Duoneb 0.5 mg-3 mg/3 ml Soln] 3 ml INHALATION RT-QID PRN #20 each 12/20/21 [Rx] Multivitamins, Thera [Multivitamin (formulary)] 1 each PO DAILY@1200 tab 12/20/21 [Rx] Nystatin 100,000 Unit/ml Susp [Mycostatin Oral Susp] 500,000 unit PO QID 5 Days #200 ml 12/20/21 [Rx] Sennosides-Docusate Sodium [Senokot-S] 2 each PO HS tab 12/20/21 [Rx] Follow up Appointment(s)/Referral(s): Terri Le DO [Doctor of Osteopathic Medicine] - 2 Weeks Gilmer Leal III, MD [Primary Care Provider] - 1-2 days Chase Campos MD [STAFF PHYSICIAN] - 2 Weeks (cystoscopy) Activity/Diet/Wound Care/Special Instructions: Toe touch weightbearing with brace and walker Hinged knee brace locked in extension when out of bed. May loosen while in bed. Discharge to subacute rehab versus hospice Discharge Disposition: TRANSFER TO SNF/ECF
[2021-12-20 19:26] LABS: Appearance,Urine Cloudy (Clear); Bacteria,Urine Rare /hpf; Bilirubin,Urine Negative (Negative); Blood,Urine Moderate (Negative); Color,Urine Yellow; Glucose,Urine (UA) Negative (Negative); Hyaline Casts,Urine 1 /lpf (0-2); Ketones,Urine Negative (Negative); Leukocyte Esterase,Urine Large (Negative); Mucus,Urine Rare /hpf; Nitrite,Urine Negative (Negative); Protein,Urine Trace (Negative); RBC,Urine 24 /hpf (0-5); Specific Gravity,Urine 1.016 (1.001-1.035); Urobilinogen,Urine <2.0 mg/dL (<2.0); WBC,Urine 76 /hpf (0-5)
[2021-12-20] MEDS: lisinopriL 20 MG TAB PO SCH (21:22)
[2021-12-20] MEDS: SENNOSIDES-DOCUSATE SODIUM 1 EACH TAB PO SCH (21:22)
[2021-12-21] MEDS: IPRATROPIUM-ALBUTEROL 3 ML NEB INHALATION SCH ×4 (08:17→20:31)
[2021-12-21] MEDS: HYDROmorphone 0.5 MG/0.5 ML SYRINGE IVP PRN (09:33)
[2021-12-21] MEDS: ASPIRIN 81 MG PO SCH ×2 (09:58→21:30)
[2021-12-21] MEDS: NYSTATIN 100,000 UNIT/ML SUSP 500,000 UNIT/5 ML CUP PO SCH ×4 (09:58→21:29)
[2021-12-21] MEDS: SERTRALINE 50 MG TAB PO SCH (09:59)
[2021-12-21] MEDS: FINASTERIDE 5 MG TAB PO SCH (09:59)
[2021-12-21] MEDS: TAMSULOSIN 0.4 MG CAP.ER.24H PO SCH (09:59)
[2021-12-21] MEDS: ATORVASTATIN 20 MG TAB PO SCH (09:59)
[2021-12-21] MEDS: atenoloL 25 MG TAB PO SCH (09:59)
[2021-12-21] MEDS: HYDROcodone/APAP 10-325MG 1 EACH TAB PO PRN (10:02)
--- NOTE | 2021-12-21 12:20 | XR ---
EXAMINATION TYPE: XR chest 1V portable DATE OF EXAM: 12/21/2021 HISTORY: Shortness of breath. COMPARISON: 12/18/2021 TECHNIQUE: Single view of the chest is submitted. FINDINGS: Demonstrated are scattered senescent parenchymal change. Pulmonary venous congestion has resolved. Basilar linear atelectasis. No evidence for overt failure. The heart is stable. Hilar and mediastinal structures are within normal limits. Degenerative changes are seen of the dorsal spine. IMPRESSION: 1. Pulmonary venous congestion has resolved. Basilar linear atelectasis. No evidence for overt failu re.
[2021-12-21] MEDS: MULTIVITAMINS, THERA 1 EACH TAB PO SCH (12:30)
[2021-12-21] MEDS ORDERED: amLODIPine 5 MG TAB PO STA (13:39)
--- NOTE | 2021-12-21 15:30 | P.PN ---
Subjective Progress Note Date: 12/21/21 This is an 81-year-old male who presents to the hospital after his right knee buckling at home. He did not fall or hit his head. He was found to have a right patella fracture and proximal tibial fracture on the right side. He is in a knee immobilizer. He is pending surgical evaluation. 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 Patient is a former smoker and reports daily alcohol use one drink daily. We are asked to see patient in medical consultation and for medical management. Chest x-ray showing no acute process, Hip/pelvis x- ray showing no acute fracture. EKG completed on admission showing sinus rhythm with first-degree AV block heart rate of 66, QT interval 465. He sees Dr EMIL Dan and states he was seen recently with no acute issues. Labs completed showing a white count of 11.8, hemoglobin 12.7, PTT is greater than 200, BUN 32, creatinine 0.51, glucose 116. Troponin is 0.013, liver enzymes are negative. We will repeat a PTT, and resume appropriate home medications. 12/18/2021 Patient was evaluated by orthopedics with no plan for surgical intervention of the right knee at this time. Patient will continue in a right knee immobilizer recommended for locked hinged knee brace as an alternative. He will undergo PT OT evaluation will most likely need ECF placement. Patient is recommended for touchdown weightbearing as tolerated for balance and transfer. His main complaint is pain to the right foot mostly on the top of the foot and also along the pantar fascia he states he has had plantar fasciitis and this feels similar to that. He is frustrated that there is no surgical intervention planned. Steroids are contraindicated due to his underlying muscle disorder. He was also evaluated by urology for dysuria and will undrego KUB to evaluated for kidney stones. A urinalysis will also be ordered as well as bladder scan q6, post void residual. This morning patient's oxygen saturation is 87% on 3 L nasal cannula we will order a chest x-ray for evaluation, he has decreased aeration. He is able to achieve 1000 up to 6 times in a row, due to this chronic weakness he is unable to use the IS by himself and will require assistance. Repeat pulse ox is 97% although he does not use oxygen at home. He is non ambulatory at baseline and only stands to transfer. Consider conservative management for narcotics. Pending PT OT evaluation for discharge planning. 12/19/2021 Patient evaluated today with his significant other at the bedside. Chest xray yesterday shows some vascular congestion. Labs unable to be drawn off port today and patient refused peripheral lab draw, unable to check BNP. We did give patient a dose of IV lasix and fluids are now KVO. He does have some issues with chronic dysphagia and speech therapy was requested for diet evaluation. We did also start patient on nystatin as he does have a coating on his tongue. Patient was evaluated by PT and patient is not felt to be a good candidate for rehab. He and his signficant are understanding, however patients goal is to be able to return to his baseline function prior to his fracture in order to assist with transfering. He had met with [facility] outpatient and has plans to open with hospice. Hospice has been consulted for discharge planning while inpatient at request of patient and hospice will meet with family tomorrow morning. Code status was discussed and he would like to remain full code at this time. 12/21/2021 Patient repeat chest xray today shows clearing of vascular congestion. He is 97% on room air. Needs assistance with incentive spirometer and turning Q2hour. Plan is for discharge to [facility] tomorrow. Orthopedics continuing to follow patient, he continues with brace to right knee, reports pain improving. He is afebrile, blood pressure 97/56. Bowels are moving, urinating without difficulty. Review of Systems Constitutional: Denied any fatigue denied any fever. Cardio vascular: denied any chest pain, palpitations Gastrointestinal: denied any nausea, vomiting, diarrhea Pulmonary: Denied any shortness of breath cough Neurologic denied any new focal deficits All inpatient medications were reviewed and appropriate changes in these medications as dictated in the interval history and assessment and plan. PHYSICAL EXAMINATION: GENERAL: The patient is alert and oriented x3, not in any acute distress. Well developed, well nourished. HEENT: Pupils are round and equally reacting to light. EOMI. No scleral icterus. No conjunctival pallor. Normocephalic, atraumatic. No pharyngeal erythema. No thyromegaly. CARDIOVASCULAR: S1 and S2 present. No murmurs, rubs, or gallops. PULMONARY: Chest is clear to auscultation, no wheezing or crackles. There is decreased airflow as compared to yesterday. ABDOMEN: Soft, nontender, nondistended, normoactive bowel sounds. No palpable organomegaly. MUSCULOSKELETAL: No joint swelling or deformity. Right knee immobilizer in place. EXTREMITIES: No cyanosis, clubbing, or pedal edema. +2 bilateral dorsalis pedis pulses NEUROLOGICAL: Gross neurological examination did not reveal any focal deficits. SKIN: No rashes. He has some bruising noted on top of foot. 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 Discharge planning in place and he was not a candidate for subacute rehab. Patient and significant other agree that patient has needs greater than what can be provided at home even with home care and home PT. Patient has pursued hospice consultation outpatient prior to admission. Due to his multiple chronic comorbidities and progressive SIBM, patient has decided to discharge to [facility]. He has been accepted and facility will be able to accommodate discharge to [facility] tomorrow. The impression and plan of care has been dictated by Hayley Tovar, Nurse Practitioner as directed. Dr. Desirae MD I have performed a history and physical examination and medical decision making of this patient, discussed the same with the dictator, and agree with the dictators assessment and plan as written, documented as a scribe. Based on total visit time, I have performed more than 50% of this visit. Objective - Vital Signs Vital signs: Vital Signs Temp 97.5 F L 12/21/21 14:00 Pulse 57 L 12/21/21 14:00 Resp 16 12/21/21 14:00 BP 97/56 12/21/21 14:00 Pulse Ox 93 L 12/21/21 14:00 FiO2 Intake & Output 12/20/21 12/21/21 12/21/21 18:59 06:59 18:59 Intake Total 1080 480 Output Total 1200 600 400 Balance -120 -120 -400 Intake: Oral 1080 480 Output: Urine 1200 600 400 Other: Voiding Method External Catheter External Catheter - Labs CBC & Chem 7: 12/20/21 06:14 12/17/21 10:15 Labs: Abnormal Lab Results - Last 24 Hours (Table) 12/20/21 Range/Units 18:19 Urine Protein Trace H (Negative) Urine Blood Moderate H (Negative) Ur Leukocyte Esterase Large H (Negative) Urine RBC 24 H (0-5) /hpf Urine WBC 76 H (0-5) /hpf Urine Bacteria Rare H (None) /hpf Urine Mucus Rare H (None) /hpf Microbiology - Last 24 Hours (Table) 12/20/21 18:19 Urine Culture - Preliminary Urine,Voided Assessment and Plan Time with Patient: Less than 30
[2021-12-21] MEDS: lisinopriL 20 MG TAB PO SCH (21:29)
[2021-12-21] MEDS: HEPARIN SODIUM,PORCINE/PF 5,000 UNIT/0.5 ML SYRINGE SQ SCH (21:29)
[2021-12-21] MEDS: SENNOSIDES-DOCUSATE SODIUM 1 EACH TAB PO SCH (21:30)
[2021-12-21] MEDS: diazePAM 5 MG TAB PO PRN (21:30)
[2021-12-22] MEDS: ATORVASTATIN 20 MG TAB PO SCH (07:58)
[2021-12-22] MEDS: amLODIPine 5 MG TAB PO SCH (07:58)
[2021-12-22] MEDS: SERTRALINE 50 MG TAB PO SCH (07:58)
[2021-12-22] MEDS: atenoloL 25 MG TAB PO SCH (07:58)
[2021-12-22] MEDS: TAMSULOSIN 0.4 MG CAP.ER.24H PO SCH (07:59)
[2021-12-22] MEDS: HEPARIN SODIUM,PORCINE/PF 5,000 UNIT/0.5 ML SYRINGE SQ SCH ×2 (07:59→21:37)
[2021-12-22] MEDS: MULTIVITAMINS, THERA 1 EACH TAB PO SCH (07:59)
[2021-12-22] MEDS: NYSTATIN 100,000 UNIT/ML SUSP 500,000 UNIT/5 ML CUP PO SCH ×4 (07:59→21:38)
[2021-12-22] MEDS: FINASTERIDE 5 MG TAB PO SCH (07:59)
[2021-12-22] MEDS: ASPIRIN 81 MG PO SCH ×2 (07:59→21:37)
[2021-12-22] MEDS: IPRATROPIUM-ALBUTEROL 3 ML NEB INHALATION SCH ×5 (08:51→22:10)
[2021-12-22] MEDS: diazePAM 5 MG TAB PO PRN (10:25)
[2021-12-22] MEDS: HYDROcodone/APAP 10-325MG 1 EACH TAB PO PRN ×2 (13:26→21:37)
[2021-12-22] MEDS: CYCLOBENZAPRINE 10 MG TAB PO PRN ×2 (13:30→21:43)
--- NOTE | 2021-12-22 15:22 | P.DS ---
Providers Date of admission: 12/19/21 10:53 Attending physician: Ashok Kc Consults: 12/17/21 02:21 Consult Physician Routine Consulting Provider: Terri Le Consult Reason/Comments: TIB FIB FX Do you want consulting provider notified?: Yes 12/17/21 15:39 Consult Physician Routine Consulting Provider: Davon Car Consult Reason/Comments: chronic dysuria Do you want consulting provider notified?: Yes Primary care physician: Gilmer Leal Hospital Course: Diagnosis Right patella and proximal tibial fracture no plans for surgical intervention at this time Right foot pain and swelling, improved, xray showing no acute fracture Leukocytosis possibly reactive, normalized Anemia, normocytic, ongoing work up 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 He is toe touch weightbearing with brace and walker. Patient will require subacute rehab while his right knee heels and he is able to increase his mobility. Prior to acute injury patient was able to assist significant other with transfers in home setting. He has been educated that while undergoing rehab he will be unable to receive humira injections. He does follow with Dr Carlisle with dermatology and would recommend patient follow up outpatient. Patient also sees Dr EMIL Dan outpatient and can follow up as needed. Recommend follow up with primary care in 2 to 3 days. Patient will also follow up with orthopedics in 2 weeks. He is given scripts for labs in 2 to 3 days. Hospital course This is a pleasant 81-year-old male with medical history significant for spontaneous inclusion body myositis, dysphasia, coronary artery disease status post stenting, carotid endarterectomy, stroke, rheumatoid arthritis, psoriasis, reynauds. He presents to the hospital with concern for right knee buckling during transfer attempts. He was admitted to orthopedics and imaging on admission reveals right patella fracture and proximal tibial fracture on the right side. He is in a knee immobilizer. After evaluation by orthopedics no surgical intervention is planned at this time and patient will continue with knee immobilizer and also has a locked knee hinged brace but has been provided. He is toe touch weightbearing with brace and walker. 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 He has been able to stay at home with his significant other who does provide most of his care. He was able to assist with transferring. Initial Diagnostics show; Chest x-ray showing no acute process, Hip/pelvis x-ray showing no acute fracture. EKG showing sinus rhythm with first-degree AV block heart rate of 66, QT interval 465. Labs showing a white count of 11.8, hemoglobin 12.7, PTT is greater than 200, BUN 32, creatinine 0.51, glucose 116. Troponin is 0.013, liver enzymes are negative. Patient was given IV hydration while inpatient as he was nothing by mouth for possible surgery patient did present with possible fluid overload and IV fluids were discontinued. He did receive a dose of IV Lasix. Repeat ches xray does show clearing of vascular congestion and he is now on room air with oxygen saturation 97%. Patient was also evaluated by urology for chronic dysuria which he sates has been ongoing for the last year while outpatient. A urinalysis was ordered and shows trace protein, moderate blood, large leukocyte esterase, 76 WBC, 24 RBC, rare bacteria and rare mucus. Urine culture prelim is showing gram negative and patient is receiving IV rocephen while inpatient. Urology follow up outpatient. He was seen in consult by speech services who did recommend pureed Diet with thin liquids sitting upright 90 with small bites and sips the medication can be administered: Applesauce yogurt. He was evaluated physical therapy. Recommend physical therapy and discharge to allow patient to regain some function and assistance with healing. He hopes to return home eventually with the ultimate goal of hospice services in the future but needs to be able to assist his significant other with transferring as he was prior to his knee buckling. 12/22/2021 Patient is evaluated today. He does have a spasm in his right upper thigh which he does get at home he is on flexeril which was resumed for this. And he also received valium. He is breathing better today no shortness of breath. He is using oxygen via nasal cannula at 2-3 L. White count today is 9.5, hemoglobin 12.3. Most recent, chemistry panel showing sodium 140, potassium 4.0, chloride 110, BUN 20, creatinine 0.46, calcium 8.2. He is afebrile, heart rate 66, blood pressure 122/62, 95% oxygen saturation. His lungs are clear, he has improved aeration. S1 and S2 is auscultated. Abdomen is soft nontender he did have bowel movement. He is urinating without difficulty but does report some chronic burning with urination. He will see urology outpatient for this. He is alert and oriented focal neurological exam is negative. He does present with generalized weakness, which is at baseline, he does need assistance with eating. Bruising to the right foot is improving as well as pain. Patient does report no pain at rest. He is discharged on Tok as prescribed orthopedics. He will also discharge on bowel regimine. Medically patient is stable for discharge to subacute rehab. Please see medication reconciliation for a list of current medication. Thank you for allowing us to participate in the care of this patient. The impression and plan of care has been dictated by Hayley Tovar, Nurse Practitioner as directed. Dr. Desirae MD I have performed a history and physical examination and medical decision making of this patient, discussed the same with the dictator, and agree with the dictators assessment and plan as written, documented as a scribe. Based on total visit time, I have performed more than 50% of this visit. Patient Condition at Discharge: Fair Plan - Discharge Summary Discharge Rx Participant: Yes New Discharge Prescriptions: New Ipratropium-Albuterol Nebulize [Duoneb 0.5 mg-3 mg/3 ml Soln] 3 ml INHALATION RT-QID PRN #20 each PRN Reason: Shortness Of Breath Or Wheezing Nystatin 100,000 Unit/ml Susp [Mycostatin Oral Susp] 500,000 unit PO QID 5 Days #200 ml Sennosides-Docusate Sodium [Senokot-S] 2 each PO HS tab HYDROcodone/APAP 10-325MG [Tok 10-325] 1 - 2 tab PO Q4-6H PRN #32 tab PRN Reason: Pain Aspirin 81 mg PO BID tab Multivitamins, Thera [Multivitamin (formulary)] 1 each PO DAILY@1200 tab Acetaminophen Tab [Tylenol] 650 mg PO Q4HR PRN tab PRN Reason: Pain Scale 1 To 5 Continue Sertraline [Zoloft] 50 mg PO DAILY atenoloL [Tenormin] 25 mg PO DAILY amLODIPine [Norvasc] 5 mg PO DAILY Finasteride [Proscar] 5 mg PO DAILY Tamsulosin [Flomax] 0.4 mg PO DAILY Cyclobenzaprine [Flexeril] 10 mg PO HS PRN PRN Reason: Muscle Spasm Quinapril HCl [Accupril] 20 mg PO HS Atorvastatin [Lipitor] 20 mg PO DAILY diazePAM [Valium] 1 - 2 mg PO BID PRN #4 tab PRN Reason: Anxiety Discontinued Adalimumab [Humira(Cf) Pen] 40 mg SQ Q14D Discharge Medication List Sertraline [Zoloft] 50 mg PO DAILY 12/10/13 [History] atenoloL [Tenormin] 25 mg PO DAILY 12/10/13 [History] amLODIPine [Norvasc] 5 mg PO DAILY 09/26/19 [History] Atorvastatin [Lipitor] 20 mg PO DAILY 05/09/21 [History] Finasteride [Proscar] 5 mg PO DAILY 05/09/21 [History] Quinapril HCl [Accupril] 20 mg PO HS 05/09/21 [History] Cyclobenzaprine [Flexeril] 10 mg PO HS PRN 12/17/21 [History] Tamsulosin [Flomax] 0.4 mg PO DAILY 12/17/21 [History] Acetaminophen Tab [Tylenol] 650 mg PO Q4HR PRN tab 12/20/21 [Rx] Aspirin 81 mg PO BID tab 12/20/21 [Rx] HYDROcodone/APAP 10-325MG [Tok 10-325] 1 - 2 tab PO Q4-6H PRN #32 tab 12/20/21 [Rx] Ipratropium-Albuterol Nebulize [Duoneb 0.5 mg-3 mg/3 ml Soln] 3 ml INHALATION RT-QID PRN #20 each 12/20/21 [Rx] Multivitamins, Thera [Multivitamin (formulary)] 1 each PO DAILY@1200 tab 12/20/21 [Rx] Nystatin 100,000 Unit/ml Susp [Mycostatin Oral Susp] 500,000 unit PO QID 5 Days #200 ml 12/20/21 [Rx] Sennosides-Docusate Sodium [Senokot-S] 2 each PO HS tab 12/20/21 [Rx] diazePAM [Valium] 1 - 2 mg PO BID PRN #4 tab 12/20/21 [Rx] Follow up Appointment(s)/Referral(s): Terri Le DO [Doctor of Osteopathic Medicine] - 2 Weeks Gilmer Leal III, MD [Primary Care Provider] - 1-2 days Chase Campos MD [STAFF PHYSICIAN] - 2 Weeks (cystoscopy) Leobardo Carlisle MD [STAFF PHYSICIAN] - 1 Week Patient Instructions/Handouts: Ankle Fracture (DC) Activity/Diet/Wound Care/Special Instructions: Toe touch weightbearing with brace and walker Hinged knee brace locked in extension when out of bed. May loosen while in bed. Patient updated that while on subacute rehab he will not be covered for humira injection, he does follow with Dr Carlisle for his psoriasis Discharge Disposition: OTHER INSTITUTION NOT DEFINED
[2021-12-22] MEDS: SENNOSIDES-DOCUSATE SODIUM 1 EACH TAB PO SCH (21:37)
[2021-12-22] MEDS: lisinopriL 20 MG TAB PO SCH (21:37)
[2021-12-22] MEDS: FAMOTIDINE 20 MG/2 ML VIAL IV SCH (21:37)
[2021-12-22 22:23] LABS: Glucose,Whole Blood 126 mg/dL (70-110)
[2021-12-22] MEDS: BENZOCAINE/MENTHOL LOZENG 1 EACH LOZENGE MUCOUS MEM PRN (22:59)
--- NOTE | 2021-12-23 00:33 | XR ---
EXAMINATION TYPE: XR chest 1V portable DATE OF EXAM: 12/22/2021 COMPARISON: 12/21/2021 HISTORY: Short of breath TECHNIQUE: Single view FINDINGS: There is mild subsegmental atelectasis at the lung bases. No heart failure. There is right central ve nous catheter with tip in the right atrium. Thoracic aorta shows mild atheromatous change. Heart size is normal. IMPRESSION: Minimal subsegmental atelectasis at the lung bases without much change compared to yester day. No obvious heart failure.
[2021-12-23] MEDS: IPRATROPIUM-ALBUTEROL 3 ML NEB INHALATION SCH ×4 (07:23→19:10)
[2021-12-23 08:33] LABS: Basophils # (A) 0.07 X 10*3/uL (0.00-0.10); Basophils % (A) 0.9 %; Eosinophils # (A) 0.74 X 10*3/uL (0.04-0.35); Eosinophils % (A) 9.2 %; HCT 34.2 % (39.6-50.0); HGB 10.9 g/dL (13.0-17.0); Immature Grans, Automated 0.2 %; Lymphocytes # (A) 1.62 X 10*3/uL (0.90-5.00); MCH 28.2 pg (27.0-32.0); MCHC 31.9 g/dL (32.0-37.0); MCV 88.6 fL (80.0-97.0); Mean Platelet Volume 10.9 fL (9.5-12.2); Monocytes # (A) 0.79 X 10*3/uL (0.20-1.00); Monocytes % (A) 9.8 %; NRBC Per 100 WBC 0 /100 WBCS (0.0-0.0); Neutrophils # (A) 4.84 X 10*3/uL (1.80-7.70); Neutrophils % (A) 59.9 %; Platelet Count 285 X 10*3/uL (140-440); RBC 3.86 X 10*6/uL (4.40-5.60); RDW 13.2 % (11.5-14.5); WBC 8.08 X 10*3/uL (4.50-10.00)
[2021-12-23 09:06] LABS: Anion Gap 9.4 mmol/L (10.00-18.00); BUN/Creat Ratio 47.5 Ratio (12.00-20.00); Calcium 8.9 mg/dL (8.7-10.3); Carbon Dioxide 25.6 mmol/L (20.0-27.5); Non-African American GFR(CKD) 112.2 (60.0-200.0); Potassium 4.7 mmol/L (3.5-5.5)
[2021-12-23] MEDS: FAMOTIDINE 20 MG/2 ML VIAL IV SCH ×2 (10:30→20:40)
[2021-12-23] MEDS: HEPARIN SODIUM,PORCINE/PF 5,000 UNIT/0.5 ML SYRINGE SQ SCH ×2 (10:30→20:40)
[2021-12-23] MEDS: amLODIPine 5 MG TAB PO SCH (11:33)
[2021-12-23] MEDS: atenoloL 25 MG TAB PO SCH (11:33)
[2021-12-23] MEDS: ASPIRIN 81 MG PO SCH ×2 (11:33→20:40)
[2021-12-23] MEDS: FINASTERIDE 5 MG TAB PO SCH (11:33)
[2021-12-23] MEDS: ATORVASTATIN 20 MG TAB PO SCH (11:33)
[2021-12-23] MEDS: TAMSULOSIN 0.4 MG CAP.ER.24H PO SCH (11:33)
[2021-12-23] MEDS: SERTRALINE 50 MG TAB PO SCH (11:33)
[2021-12-23] MEDS: NYSTATIN 100,000 UNIT/ML SUSP 500,000 UNIT/5 ML CUP PO SCH ×4 (11:33→22:05)
[2021-12-23] MEDS: MORPHINE SULFATE 4 MG/ML SYRINGE IVP PRN ×2 (11:43→19:23)
[2021-12-23] MEDS: MULTIVITAMINS, THERA 1 EACH TAB PO SCH (12:22)
--- NOTE | 2021-12-23 13:52 | FL ---
EXAMINATION TYPE: FL barium swallow w video DATE OF EXAM: 12/23/2021 MODIFIED SWALLOW / DEGLUTITION STUDY CLINICAL HISTORY: Dysphagia. History of chronic muscular progressive disorder with symptoms for years diagnosed roughly 10 years ago. TECHNIQUE: Deglutition study is performed utilizing thin liquid barium, along with barium thick appl esauce, and wet barium coated cracker. One minute 52 seconds of fluoro time and 0 images obtained. COMPARISON: None. FINDINGS: The oral and pharyngeal phases show satisfactory initiation with poor epiglottis inversion and poor muscle contractility in the hypopharynx. Several episodes of penetration and aspiration whic h rapidly clears with thin liquid barium. Moderate to severe pharyngeal residue was appreciated. IMPRESSION: As above. Please refer to speech therapist notes for further details if necessary.
--- NOTE | 2021-12-23 20:29 | P.PN ---
Subjective This is an 81-year-old male who presents to the hospital after his right knee buckling at home. He did not fall or hit his head. He was found to have a right patella fracture and proximal tibial fracture on the right side. He is in a knee immobilizer. He is pending surgical evaluation. 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 Patient is a former smoker and reports daily alcohol use one drink daily. We are asked to see patient in medical consultation and for medical management. Chest x-ray showing no acute process, Hip/pelvis x- ray showing no acute fracture. EKG completed on admission showing sinus rhythm with first-degree AV block heart rate of 66, QT interval 465. He sees Dr EMIL Dan and states he was seen recently with no acute issues. Labs completed showing a white count of 11.8, hemoglobin 12.7, PTT is greater than 200, BUN 32, creatinine 0.51, glucose 116. Troponin is 0.013, liver enzymes are negative. We will repeat a PTT, and resume appropriate home medications. 12/18/2021 Patient was evaluated by orthopedics with no plan for surgical intervention of the right knee at this time. Patient will continue in a right knee immobilizer recommended for locked hinged knee brace as an alternative. He will undergo PT OT evaluation will most likely need ECF placement. Patient is recommended for touchdown weightbearing as tolerated for balance and transfer. His main complaint is pain to the right foot mostly on the top of the foot and also along the pantar fascia he states he has had plantar fasciitis and this feels similar to that. He is frustrated that there is no surgical intervention planned. Steroids are contraindicated due to his underlying muscle disorder. He was also evaluated by urology for dysuria and will undrego KUB to evaluated for kidney stones. A urinalysis will also be ordered as well as bladder scan q6, post void residual. This morning patient's oxygen saturation is 87% on 3 L nasal cannula we will order a chest x-ray for evaluation, he has decreased aeration. He is able to achieve 1000 up to 6 times in a row, due to this chronic weakness he is unable to use the IS by himself and will require assistance. Repeat pulse ox is 97% although he does not use oxygen at home. He is non ambulatory at baseline and only stands to transfer. Consider conservative management for narcotics. Pending PT OT evaluation for discharge planning. 12/19/2021 Patient evaluated today with his significant other at the bedside. Chest xray yesterday shows some vascular congestion. Labs unable to be drawn off port today and patient refused peripheral lab draw, unable to check BNP. We did give patient a dose of IV lasix and fluids are now KVO. He does have some issues with chronic dysphagia and speech therapy was requested for diet evaluation. We did also start patient on nystatin as he does have a coating on his tongue. Patient was evaluated by PT and patient is not felt to be a good candidate for rehab. He and his signficant are understanding, however patients goal is to be able to return to his baseline function prior to his fracture in order to assist with transfering. He had met with [facility] outpatient and has plans to open with hospice. Hospice has been consulted for discharge planning while inpatient at request of patient and hospice will meet with family tomorrow morning. Code status was discussed and he would like to remain full code at this time. 12/21/2021 Patient repeat chest xray today shows clearing of vascular congestion. He is 97% on room air. Needs assistance with incentive spirometer and turning Q2hour. Plan is for discharge to [facility] hospice tomorrow. Orthopedics continuing to follow patient, he continues with brace to right knee, reports pain improving. He is afebrile, blood pressure 97/56. Bowels are moving, urinating without difficulty. 12/23/2021, this is the first day I am taking care of the patient This is a pleasant 81 years old male who presents with a fall and right patellar and proximal tibial and fibula fracture evaluated by orthopedic team and recommended no surgical intervention but to continue with pain control, however patient today was still complaining of from significant pain in his right leg. 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 Patient is unable to swallow his pills this morning and swallow evaluation is ordered. Also patient with evidence of generalized weakness requiring rehab, his urine analysis is positive for sensitive Proteus, patient complaining of from dysuria and he was started on ceftriaxone, he has episodic hyperthermia. WBC 8.0, hemoglobin 10.9. Morphine is admitted today for better pain control also he is on Valium when necessary. Objective - Vital Signs Vital signs: Vital Signs Temp 97.6 F 12/23/21 08:00 Pulse 77 12/23/21 08:00 Resp 17 12/23/21 08:00 BP 134/57 12/23/21 08:00 Pulse Ox 92 L 12/23/21 08:00 FiO2 21 12/21/21 20:32 Intake & Output 12/22/21 12/23/21 12/23/21 18:59 06:59 18:59 Intake Total 50 400 Output Total 800 Balance 50 -400 Intake: Intake, IV Titration 50 Amount cefTRIAXone 2 gm In 50 Sodium Chloride 0.9% 50 ml @ 100 mls/hr IVPB ONCE STA Rx#:[id number] Oral 400 Output: Urine 800 Other: Voiding Method External Catheter - Exam -GENERAL: The patient is alert and oriented x3, not in any acute distress. Obese. Generalized weakness HEENT: Pupils are round and equally reacting to light. EOMI. No scleral icterus. No conjunctival pallor. Normocephalic, atraumatic. No pharyngeal erythema. No thyromegaly. CARDIOVASCULAR: S1 and S2 present. No murmurs, rubs, or gallops. PULMONARY: Chest is clear to auscultation, no wheezing or crackles. ABDOMEN: Soft, nontender, nondistended, normoactive bowel sounds. No palpable organomegaly. MUSCULOSKELETAL: No joint swelling or deformity. -EXTREMITIES: No cyanosis, clubbing, or pedal edema. Right lower extremity on immobilizer (S/p fracture of tibia and fibula) NEUROLOGICAL: Gross neurological examination did not reveal any focal deficits. SKIN: No rashes. no petechiae. - Labs CBC & Chem 7: 12/23/21 06:37 12/23/21 06:37 Labs: Abnormal Lab Results - Last 24 Hours (Table) 12/22/21 12/23/21 12/23/21 Range/Units 22:21 06:37 06:37 RBC 3.86 L (4.40-5.60) X 10*6/uL Hgb 10.9 L (13.0-17.0) g/dL Hct 34.2 L (39.6-50.0) % MCHC 31.9 L (32.0-37.0) g/dL Eosinophils # 0.74 H (0.04-0.35) X 10*3/uL Anion Gap 9.40 L (10.00-18.00) mmol/L Creatinine 0.4 L (0.6-1.5) mg/dL BUN/Creatinine Ratio 47.50 H (12.00-20.00) Ratio POC Glucose (mg/dL) 126 H (70-110) mg/dL Microbiology - Last 24 Hours (Table) 12/20/21 18:19 Urine Culture - Final Urine,Voided Proteus mirabilis Assessment and Plan Assessment: Right patella and proximal tibial fracture no plans for surgical intervention at this time Right foot pain and swelling, tenderness along the plantar fascia, improved Leukocytosis possibly reactive, resolved Anemia, normocytic, ongoing work up History of spontaneous inclusion body myositis causing severe generalized weakness Dysphagia secondary to above Dysuria Mild hyperglycemia Coronary artery disease status post cardiac stenting History of carotid endarterectomy History stroke in 2010 with residual vision deficits History of rheumatoid arthritis History of psoriasis History of Reynauds Plan: This is a pleasant 81 years old male who presents with right tibia and fibula fracture requiring conservative treatment, and UTI Orthopedic team on the case recommended no surgical intervention With the patient on IV morphine for better pain control Resume ceftriaxone for UTI, 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 Continue same treatment. Continue with symptomatic treatment. Resume home medication. Monitor lytes and vitals. DVT and GI prophylaxis. Further recommendations as per clinical course of the patient DVT prophylaxis: Subcutaneous heparin GI Prophylaxis: Pepcid PT/OT: JIGNESH Prognosis is guarded
[2021-12-23] MEDS: SENNOSIDES-DOCUSATE SODIUM 1 EACH TAB PO SCH (20:39)
[2021-12-23] MEDS: HYDROcodone/APAP 10-325MG 1 EACH TAB PO PRN (20:40)
[2021-12-23] MEDS: lisinopriL 20 MG TAB PO SCH (20:40)
[2021-12-23] MEDS: CYCLOBENZAPRINE 10 MG TAB PO PRN (23:34)
[2021-12-23] MEDS: diazePAM 5 MG TAB PO PRN (23:34)
[2021-12-24] MEDS: IPRATROPIUM-ALBUTEROL 3 ML NEB INHALATION SCH ×4 (08:08→19:22)
[2021-12-24] MEDS: atenoloL 25 MG TAB PO SCH (08:44)
[2021-12-24] MEDS: FAMOTIDINE 20 MG/2 ML VIAL IV SCH ×2 (08:44→19:45)
[2021-12-24] MEDS: NYSTATIN 100,000 UNIT/ML SUSP 500,000 UNIT/5 ML CUP PO SCH ×4 (08:44→23:14)
[2021-12-24] MEDS: ASPIRIN 81 MG PO SCH ×2 (08:44→19:46)
[2021-12-24] MEDS: TAMSULOSIN 0.4 MG CAP.ER.24H PO SCH (08:44)
[2021-12-24] MEDS: MULTIVITAMINS, THERA 1 EACH TAB PO SCH (08:44)
[2021-12-24] MEDS: amLODIPine 5 MG TAB PO SCH (08:44)
[2021-12-24] MEDS: ATORVASTATIN 20 MG TAB PO SCH (08:44)
[2021-12-24] MEDS: FINASTERIDE 5 MG TAB PO SCH (08:44)
[2021-12-24] MEDS: SERTRALINE 50 MG TAB PO SCH (08:44)
[2021-12-24] MEDS: HEPARIN SODIUM,PORCINE/PF 5,000 UNIT/0.5 ML SYRINGE SQ SCH ×2 (08:45→19:47)
[2021-12-24] MEDS: HYDROcodone/APAP 10-325MG 1 EACH TAB PO PRN ×2 (13:18→19:45)
--- NOTE | 2021-12-24 17:49 | P.PN ---
Subjective This is an 81-year-old male who presents to the hospital after his right knee buckling at home. He did not fall or hit his head. He was found to have a right patella fracture and proximal tibial fracture on the right side. He is in a knee immobilizer. He is pending surgical evaluation. 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 Patient is a former smoker and reports daily alcohol use one drink daily. We are asked to see patient in medical consultation and for medical management. Chest x-ray showing no acute process, Hip/pelvis x- ray showing no acute fracture. EKG completed on admission showing sinus rhythm with first-degree AV block heart rate of 66, QT interval 465. He sees Dr EMIL Dan and states he was seen recently with no acute issues. Labs completed showing a white count of 11.8, hemoglobin 12.7, PTT is greater than 200, BUN 32, creatinine 0.51, glucose 116. Troponin is 0.013, liver enzymes are negative. We will repeat a PTT, and resume appropriate home medications. 12/18/2021 Patient was evaluated by orthopedics with no plan for surgical intervention of the right knee at this time. Patient will continue in a right knee immobilizer recommended for locked hinged knee brace as an alternative. He will undergo PT OT evaluation will most likely need ECF placement. Patient is recommended for touchdown weightbearing as tolerated for balance and transfer. His main complaint is pain to the right foot mostly on the top of the foot and also along the pantar fascia he states he has had plantar fasciitis and this feels similar to that. He is frustrated that there is no surgical intervention planned. Steroids are contraindicated due to his underlying muscle disorder. He was also evaluated by urology for dysuria and will undrego KUB to evaluated for kidney stones. A urinalysis will also be ordered as well as bladder scan q6, post void residual. This morning patient's oxygen saturation is 87% on 3 L nasal cannula we will order a chest x-ray for evaluation, he has decreased aeration. He is able to achieve 1000 up to 6 times in a row, due to this chronic weakness he is unable to use the IS by himself and will require assistance. Repeat pulse ox is 97% although he does not use oxygen at home. He is non ambulatory at baseline and only stands to transfer. Consider conservative management for narcotics. Pending PT OT evaluation for discharge planning. 12/19/2021 Patient evaluated today with his significant other at the bedside. Chest xray yesterday shows some vascular congestion. Labs unable to be drawn off port today and patient refused peripheral lab draw, unable to check BNP. We did give patient a dose of IV lasix and fluids are now KVO. He does have some issues with chronic dysphagia and speech therapy was requested for diet evaluation. We did also start patient on nystatin as he does have a coating on his tongue. Patient was evaluated by PT and patient is not felt to be a good candidate for rehab. He and his signficant are understanding, however patients goal is to be able to return to his baseline function prior to his fracture in order to assist with transfering. He had met with [facility] outpatient and has plans to open with hospice. Hospice has been consulted for discharge planning while inpatient at request of patient and hospice will meet with family tomorrow morning. Code status was discussed and he would like to remain full code at this time. 12/21/2021 Patient repeat chest xray today shows clearing of vascular congestion. He is 97% on room air. Needs assistance with incentive spirometer and turning Q2hour. Plan is for discharge to [facility] hospice tomorrow. Orthopedics continuing to follow patient, he continues with brace to right knee, reports pain improving. He is afebrile, blood pressure 97/56. Bowels are moving, urinating without difficulty. 12/23/2021, this is the first day I am taking care of the patient This is a pleasant 81 years old male who presents with a fall and right patellar and proximal tibial and fibula fracture evaluated by orthopedic team and recommended no surgical intervention but to continue with pain control, however patient today was still complaining of from significant pain in his right leg. 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 Patient is unable to swallow his pills this morning and swallow evaluation is ordered. Also patient with evidence of generalized weakness requiring rehab, his urine analysis is positive for sensitive Proteus, patient complaining of from dysuria and he was started on ceftriaxone, he has episodic hyperthermia. WBC 8.0, hemoglobin 10.9. Morphine is admitted today for better pain control also he is on Valium when necessary. 12/24/2021 Patient states that clinically looks the same as yesterday, he feels very weak and tired. No specific symptoms. He has bilateral thigh muscle spasm which she thinks that Valium and Flexeril are helping him. Also he has some pain on his right leg from his fracture. He is able to tolerate his pills today. Swallow x-ray showing several episodes of aspiration and penetration however just x-ray showing minimal atelectasis with no CHF. Patient currently with no pneumonia and his breathing is quiet. These on ceftriaxone for Proteus UTI. Check labs in the morning Objective - Vital Signs Vital signs: Vital Signs Temp 97.9 F 12/24/21 07:52 Pulse 79 12/24/21 07:52 Resp 17 12/24/21 07:52 BP 150/75 12/24/21 07:52 Pulse Ox 97 12/24/21 07:52 FiO2 21 12/21/21 20:32 Intake & Output 12/23/21 12/24/21 12/24/21 18:59 06:59 18:59 Output Total 1000 900 Balance -1000 -900 Output: Urine 1000 900 Other: Voiding Method External Catheter External Catheter External Catheter - Exam -GENERAL: The patient is alert and oriented x3, not in any acute distress. Obese. Generalized weakness HEENT: Pupils are round and equally reacting to light. EOMI. No scleral icterus. No conjunctival pallor. Normocephalic, atraumatic. No pharyngeal erythema. No thyromegaly. CARDIOVASCULAR: S1 and S2 present. No murmurs, rubs, or gallops. PULMONARY: Chest is clear to auscultation, no wheezing or crackles. ABDOMEN: Soft, nontender, nondistended, normoactive bowel sounds. No palpable organomegaly. MUSCULOSKELETAL: No joint swelling or deformity. -EXTREMITIES: No cyanosis, clubbing, or pedal edema. Right lower extremity on immobilizer (S/p fracture of tibia and fibula) NEUROLOGICAL: Gross neurological examination did not reveal any focal deficits. SKIN: No rashes. no petechiae. 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 Dysphagia secondary to above Dysuria Mild hyperglycemia Coronary artery disease status post cardiac stenting History of carotid endarterectomy History stroke in 2010 with residual vision deficits History of rheumatoid arthritis History of psoriasis History of Reynauds Plan: This is a pleasant 81 years old male who presents with right tibia and fibula fracture requiring conservative treatment, and UTI Orthopedic team on the case recommended no surgical intervention With the patient on IV morphine for better pain control Resume ceftriaxone for UTI, 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 Continue same treatment. Continue with symptomatic treatment. Resume home medication. Monitor lytes and vitals. DVT and GI prophylaxis. Further recommendations as per clinical course of the patient DVT prophylaxis: Subcutaneous heparin GI Prophylaxis: Pepcid PT/OT: JIGNESH Prognosis is guarded
[2021-12-24] MEDS: SENNOSIDES-DOCUSATE SODIUM 1 EACH TAB PO SCH (19:44)
[2021-12-24] MEDS: BENZOCAINE/MENTHOL LOZENG 1 EACH LOZENGE MUCOUS MEM PRN (19:45)
[2021-12-24] MEDS: CYCLOBENZAPRINE 10 MG TAB PO PRN (19:45)
[2021-12-24] MEDS: diazePAM 5 MG TAB PO PRN (19:45)
[2021-12-24] MEDS: lisinopriL 20 MG TAB PO SCH (19:46)
[2021-12-25] MEDS: CYCLOBENZAPRINE 10 MG TAB PO PRN ×2 (04:24→20:46)
[2021-12-25] MEDS: IPRATROPIUM-ALBUTEROL 3 ML NEB INHALATION SCH ×4 (07:44→19:43)
[2021-12-25] MEDS: FAMOTIDINE 20 MG/2 ML VIAL IV SCH (08:27)
[2021-12-25] MEDS: atenoloL 25 MG TAB PO SCH (08:27)
[2021-12-25] MEDS: HEPARIN SODIUM,PORCINE/PF 5,000 UNIT/0.5 ML SYRINGE SQ SCH ×2 (08:27→20:45)
[2021-12-25] MEDS: amLODIPine 5 MG TAB PO SCH (08:27)
[2021-12-25] MEDS: ATORVASTATIN 20 MG TAB PO SCH (08:28)
[2021-12-25] MEDS: MULTIVITAMINS, THERA 1 EACH TAB PO SCH (08:28)
[2021-12-25] MEDS: NYSTATIN 100,000 UNIT/ML SUSP 500,000 UNIT/5 ML CUP PO SCH ×4 (08:28→20:48)
[2021-12-25] MEDS: SERTRALINE 50 MG TAB PO SCH (08:28)
[2021-12-25] MEDS: TAMSULOSIN 0.4 MG CAP.ER.24H PO SCH (08:28)
[2021-12-25] MEDS: FINASTERIDE 5 MG TAB PO SCH (08:28)
[2021-12-25] MEDS: ASPIRIN 81 MG PO SCH ×2 (08:28→20:46)
[2021-12-25 09:26] LABS: African American GFR (CKD) 118.6 (60.0-200.0); Anion Gap 9.5 mmol/L (10.00-18.00); Calcium 8.5 mg/dL (8.7-10.3); Carbon Dioxide 26.5 mmol/L (20.0-27.5); Magnesium 1.9 mg/dL (1.5-2.4); Non-African American GFR(CKD) 102.3 (60.0-200.0); Potassium 4.5 mmol/L (3.5-5.5)
[2021-12-25 10:30] LABS: Basophils # (A) 0.05 X 10*3/uL (0.00-0.10); Basophils % (A) 0.5 %; Eosinophils # (A) 0.73 X 10*3/uL (0.04-0.35); Eosinophils % (A) 7.9 %; HCT 31.5 % (39.6-50.0); Immature Grans, Automated 0.3 %; Lymphocytes # (A) 1.72 X 10*3/uL (0.90-5.00); Lymphocytes % (A) 18.7 %; MCH 28.1 pg (27.0-32.0); MCHC 31.7 g/dL (32.0-37.0); MCV 88.5 fL (80.0-97.0); Mean Platelet Volume 10.8 fL (9.5-12.2); Monocytes # (A) 0.81 X 10*3/uL (0.20-1.00); Monocytes % (A) 8.8 %; NRBC Per 100 WBC 0 /100 WBCS (0.0-0.0); Neutrophils # (A) 5.87 X 10*3/uL (1.80-7.70); Neutrophils % (A) 63.8 %; Platelet Count 264 X 10*3/uL (140-440); RBC 3.56 X 10*6/uL (4.40-5.60); RDW 13.2 % (11.5-14.5); WBC 9.21 X 10*3/uL (4.50-10.00)
[2021-12-25] MEDS: HYDROcodone/APAP 10-325MG 1 EACH TAB PO PRN ×2 (13:15→20:46)
--- NOTE | 2021-12-25 17:47 | P.PN ---
Subjective This is an 81-year-old male who presents to the hospital after his right knee buckling at home. He did not fall or hit his head. He was found to have a right patella fracture and proximal tibial fracture on the right side. He is in a knee immobilizer. He is pending surgical evaluation. 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 Patient is a former smoker and reports daily alcohol use one drink daily. We are asked to see patient in medical consultation and for medical management. Chest x-ray showing no acute process, Hip/pelvis x- ray showing no acute fracture. EKG completed on admission showing sinus rhythm with first-degree AV block heart rate of 66, QT interval 465. He sees Dr EMIL Dan and states he was seen recently with no acute issues. Labs completed showing a white count of 11.8, hemoglobin 12.7, PTT is greater than 200, BUN 32, creatinine 0.51, glucose 116. Troponin is 0.013, liver enzymes are negative. We will repeat a PTT, and resume appropriate home medications. 12/18/2021 Patient was evaluated by orthopedics with no plan for surgical intervention of the right knee at this time. Patient will continue in a right knee immobilizer recommended for locked hinged knee brace as an alternative. He will undergo PT OT evaluation will most likely need ECF placement. Patient is recommended for touchdown weightbearing as tolerated for balance and transfer. His main complaint is pain to the right foot mostly on the top of the foot and also along the pantar fascia he states he has had plantar fasciitis and this feels similar to that. He is frustrated that there is no surgical intervention planned. Steroids are contraindicated due to his underlying muscle disorder. He was also evaluated by urology for dysuria and will undrego KUB to evaluated for kidney stones. A urinalysis will also be ordered as well as bladder scan q6, post void residual. This morning patient's oxygen saturation is 87% on 3 L nasal cannula we will order a chest x-ray for evaluation, he has decreased aeration. He is able to achieve 1000 up to 6 times in a row, due to this chronic weakness he is unable to use the IS by himself and will require assistance. Repeat pulse ox is 97% although he does not use oxygen at home. He is non ambulatory at baseline and only stands to transfer. Consider conservative management for narcotics. Pending PT OT evaluation for discharge planning. 12/19/2021 Patient evaluated today with his significant other at the bedside. Chest xray yesterday shows some vascular congestion. Labs unable to be drawn off port today and patient refused peripheral lab draw, unable to check BNP. We did give patient a dose of IV lasix and fluids are now KVO. He does have some issues with chronic dysphagia and speech therapy was requested for diet evaluation. We did also start patient on nystatin as he does have a coating on his tongue. Patient was evaluated by PT and patient is not felt to be a good candidate for rehab. He and his signficant are understanding, however patients goal is to be able to return to his baseline function prior to his fracture in order to assist with transfering. He had met with [facility] outpatient and has plans to open with hospice. Hospice has been consulted for discharge planning while inpatient at request of patient and hospice will meet with family tomorrow morning. Code status was discussed and he would like to remain full code at this time. 12/21/2021 Patient repeat chest xray today shows clearing of vascular congestion. He is 97% on room air. Needs assistance with incentive spirometer and turning Q2hour. [facility] Orthopedics continuing to follow patient, he continues with brace to right knee, reports pain improving. He is afebrile, blood pressure 97/56. Bowels are moving, urinating without difficulty. 12/23/2021, this is the first day I am taking care of the patient This is a pleasant 81 years old male who presents with a fall and right patellar and proximal tibial and fibula fracture evaluated by orthopedic team and recommended no surgical intervention but to continue with pain control, however patient today was still complaining of from significant pain in his right leg. He is supposed to be discharged yesterday however as per staff 18 was called compensation expert although there was no clear documentation, chest x-ray was ordered at that time was unremarkable. Patient is unable to swallow his pills this morning and swallow evaluation is ordered. Also patient with evidence of generalized weakness requiring rehab, his urine analysis is positive for sensitive Proteus, patient complaining of from dysuria and he was started on ceftriaxone, he has episodic hyperthermia. WBC 8.0, hemoglobin 10.9. Morphine is admitted today for better pain control also he is on Valium when necessary. 12/24/2021 Patient states that clinically looks the same as yesterday, he feels very weak and tired. No specific symptoms. He has bilateral thigh muscle spasm which she thinks that Valium and Flexeril are helping him. Also he has some pain on his right leg from his fracture. He is able to tolerate his pills today. Swallow x-ray showing several episodes of aspiration and penetration however just x-ray showing minimal atelectasis with no CHF. Patient currently with no pneumonia and his breathing is quiet. These on ceftriaxone for Proteus UTI. Check labs in the morning 12/25/2021 Patient clinically the same or slightly improving on the gradually. He is managed to eat his dysphagia diet. Patient states he's does not remember if he has been evaluated by GI service before or had EGD before therefore he might benefit from GI referral inpatient or outpatient, we'll consult them for tomorrow morning. Also patient still have dysuria, he is on ceftriaxone 2 sensitive Proteus UTI. The risk and show no retention when checked earlier. His bilateral thigh cramps terrible last night but controlled now. Physical given pain medication for his right lower extremity fracture with orthopedic team. For discharge. Objective - Vital Signs Vital signs: Vital Signs Temp 98.2 F 12/25/21 08:00 Pulse 68 12/25/21 08:00 Resp 16 12/25/21 08:00 BP 144/64 12/25/21 08:00 Pulse Ox 92 L 12/25/21 08:00 FiO2 21 12/21/21 20:32 Intake & Output 12/24/21 12/25/21 12/25/21 18:59 06:59 18:59 Intake Total 1080 Output Total 900 400 Balance 180 -400 Intake: Oral 1080 Output: Urine 900 400 Other: Voiding Method External Catheter External Catheter External Catheter - Exam -GENERAL: The patient is alert and oriented x3, not in any acute distress. Obese. Generalized weakness HEENT: Pupils are round and equally reacting to light. EOMI. No scleral icterus. No conjunctival pallor. Normocephalic, atraumatic. No pharyngeal erythema. No thyromegaly. CARDIOVASCULAR: S1 and S2 present. No murmurs, rubs, or gallops. PULMONARY: Chest is clear to auscultation, no wheezing or crackles. ABDOMEN: Soft, nontender, nondistended, normoactive bowel sounds. No palpable organomegaly. MUSCULOSKELETAL: No joint swelling or deformity. -EXTREMITIES: No cyanosis, clubbing, or pedal edema. Right lower extremity on immobilizer (S/p fracture of tibia and fibula) NEUROLOGICAL: Gross neurological examination did not reveal any focal deficits. SKIN: No rashes. no petechiae. - Labs CBC & Chem 7: 12/25/21 05:51 12/25/21 05:56 Labs: Abnormal Lab Results - Last 24 Hours (Table) 12/25/21 12/25/21 Range/Units 05:51 05:56 RBC 3.56 L (4.40-5.60) X 10*6/uL Hgb 10.0 L (13.0-17.0) g/dL Hct 31.5 L (39.6-50.0) % MCHC 31.7 L (32.0-37.0) g/dL Eosinophils # 0.73 H (0.04-0.35) X 10*3/uL Anion Gap 9.50 L (10.00-18.00) mmol/L Creatinine 0.5 L (0.6-1.5) mg/dL BUN/Creatinine Ratio 32.00 H (12.00-20.00) Ratio Calcium 8.5 L (8.7-10.3) mg/dL Assessment and Plan Assessment: Right patella and proximal tibial fracture no plans for surgical intervention at this time Right foot pain and swelling, tenderness along the plantar fascia, improved Leukocytosis possibly reactive, resolved Anemia, normocytic, ongoing work up History of spontaneous inclusion body myositis causing severe generalized weakness Dysphagia secondary to above Dysuria Mild hyperglycemia Coronary artery disease status post cardiac stenting History of carotid endarterectomy History stroke in 2010 with residual vision deficits History of rheumatoid arthritis History of psoriasis History of Reynauds Plan: This is a pleasant 81 years old male who presents with right tibia and fibula fracture requiring conservative treatment, and UTI Orthopedic team on the case recommended no surgical intervention With the patient on IV morphine for better pain control Resume ceftriaxone for UTI, patient has symptoms Consults GI tomorrow morning this is a chronic problem and can be done as an outpatient as well quarry worker on the case for 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 Continue same treatment. Continue with symptomatic treatment. Resume home medication. Monitor lytes and vitals. DVT and GI prophylaxis. Further recommendations as per clinical course of the patient DVT prophylaxis: Subcutaneous heparin GI Prophylaxis: Pepcid PT/OT: JIGNESH Prognosis is guarded
[2021-12-25] MEDS: SENNOSIDES-DOCUSATE SODIUM 1 EACH TAB PO SCH (20:46)
[2021-12-25] MEDS: diazePAM 5 MG TAB PO PRN (20:46)
[2021-12-25] MEDS: lisinopriL 20 MG TAB PO SCH (20:46)
[2021-12-25] MEDS ORDERED: FAMOTIDINE 20 MG TAB PO SCH (21:00)
[2021-12-26] MEDS: IPRATROPIUM-ALBUTEROL 3 ML NEB INHALATION SCH ×4 (08:34→20:29)
[2021-12-26] MEDS: HEPARIN SODIUM,PORCINE/PF 5,000 UNIT/0.5 ML SYRINGE SQ SCH ×2 (08:53→20:42)
[2021-12-26] MEDS: HYDROcodone/APAP 10-325MG 1 EACH TAB PO PRN (08:53)
[2021-12-26] MEDS: atenoloL 25 MG TAB PO SCH (08:54)
[2021-12-26] MEDS: SERTRALINE 50 MG TAB PO SCH (08:54)
[2021-12-26] MEDS: TAMSULOSIN 0.4 MG CAP.ER.24H PO SCH (08:54)
[2021-12-26] MEDS: ASPIRIN 81 MG PO SCH ×2 (08:54→20:42)
[2021-12-26] MEDS: ATORVASTATIN 20 MG TAB PO SCH (08:55)
[2021-12-26] MEDS: amLODIPine 5 MG TAB PO SCH (08:55)
[2021-12-26] MEDS: NYSTATIN 100,000 UNIT/ML SUSP 500,000 UNIT/5 ML CUP PO SCH ×5 (08:55→20:44)
[2021-12-26] MEDS: FINASTERIDE 5 MG TAB PO SCH (08:55)
[2021-12-26] MEDS: CYCLOBENZAPRINE 10 MG TAB PO PRN ×2 (09:03→20:42)
[2021-12-26] MEDS: MORPHINE SULFATE 4 MG/ML SYRINGE IVP PRN (10:10)
[2021-12-26] MEDS: MULTIVITAMINS, THERA 1 EACH TAB PO SCH (12:43)
--- NOTE | 2021-12-26 12:56 | P.CONS ---
History of Present Illness - Reason for Consult Consult date: 12/26/21 Dysphagia Requesting physician: Rey E Sheet - Chief Complaint Fall, right leg injury - History of Present Illness This is a pleasant 63-year-old male with a history of coronary artery disease, TIA, [place], and sporadic inclusion body myositis who presented to the emergency department after sustaining a fall and a right leg injury. He has a right tibial-fibular fracture with a knee immobilizer in place. 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 He states that at home he is able to eat much more than while he is in the hospital as he is able to sit up straight in his chair in order to swallow. He states he eats most foods other than dry meat such as chicken and turkey. He denies feeling as though she is choking, he denies choking on his food. He drinks unsure daily. He denies any significant weight loss recently. States he has had a 30 pound weight loss over the last 1 year's duration since his last lower extremity fracture of his left leg. He is immobile and uses a wheelchair for moving around. He has both bilateral upper and lower extremity weakness. He did undergo a modified barium and evaluation by speech therapy that showed oral and pharyngeal phase was satisfactory initiation with poor epiglottis inversion and poor muscle contractility in the hypopharynx. Moderate to severe pharyngeal residue appreciated. Speech therapy recommended dysphasia 3 chopped diet with thin liquids. The patient seems somewhat aggravated and states that he has not been asking to be seen for his swallowing. States this is a long-term that has been going on for some time. He states he has not had an EGD done. He has seen Dr. Vaughn in the past. He feels that he is getting an adequate nutrition. He denies any abdominal pain, nausea or vomiting. Review of Systems REVIEW OF SYSTEMS: CARDIOPULMONARY: No chest pain or shortness of breath. Gastrointestinal: No abdominal pain. No epigastric pain. Denies any pain with swallowing, states he does have some difficulty with swallowing solid foods however sticks to more of a soft diet. States he he is able to eat much more at home due to being able to sit upright versus being in a bed trying to eat. No nausea or vomiting. No hematemesis, coffee-ground emesis. No rectal bleeding, or melena. GENITOURINARY: No dysuria or hematuria. MUSCULOSKELETAL: Reports normal range of motion.right tib-fib fracture, knee immobilizer in place. Muscle weakness and atrophy SKIN: No rashes. No jaundice. ENDOCRINE: No chills, fevers. No excessive weight gain or loss. No polydipsia or polyuria. PSYCHIATRIC: Unremarkable. NEUROLOGY: No change in mental status. Denies dizziness, headache. ENT: Vision unremarkable. CONSTITUTIONAL: No recent weight loss. No fever, chills, night sweats. Past Medical History Past Medical History: Coronary Artery Disease (CAD), Chest Pain / Angina, CVA/TIA, Myocardial Infarction ([place]), Rheumatoid Arthritis (RA) Additional Past Medical History / Comment(s): DIARRHEA,KIDNEYSTONE, CVA OCCIPITAL LOBE (AFFECTED EYES 2010),MEDIPORT FOR IV ORENCIA THERAPY Q 4 WEEKS . 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 R FEMUR FX WITH REPAIR. Past Anesthesia/Blood Transfusion Reactions: No Reported Reaction Date of Last Stent Placement:: 2007 Past Psychological History: Depression Additional Psychological History / Comment(s): PT LIVES WITH [facility]" FOR PAST 16 YRS. 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 Smoking Status: Former smoker Past Alcohol Use History: Daily Past Drug Use History: None Reported - Past Family History Father Family Medical History: Hyperlipidemia Additional Family Medical History / Comment(s): FATHER AT AGE 55 YRS IN MVA. Mother Family Medical History: Cancer, Diabetes Mellitus Additional Family Medical History / Comment(s): MOTHER AT AGE 72 OF LEUKEMIA Medications and Allergies Home Medications Medication Instructions Recorded Confirmed Type Sertraline [Zoloft] 50 mg PO DAILY 12/10/13 12/17/21 History atenoloL [Tenormin] 25 mg PO DAILY 12/10/13 12/17/21 History amLODIPine [Norvasc] 5 mg PO DAILY 09/26/19 12/17/21 History Atorvastatin [Lipitor] 20 mg PO DAILY 05/09/21 12/17/21 History Finasteride [Proscar] 5 mg PO DAILY 05/09/21 12/17/21 History Quinapril HCl [Accupril] 20 mg PO HS 05/09/21 12/17/21 History Cyclobenzaprine [Flexeril] 10 mg PO HS PRN 12/17/21 12/17/21 History Tamsulosin [Flomax] 0.4 mg PO DAILY 12/17/21 12/17/21 History Acetaminophen Tab [Tylenol] 650 mg PO Q4HR PRN tab 12/20/21 Rx Aspirin 81 mg PO BID tab 12/20/21 Rx HYDROcodone/APAP 10-325MG [Jessie 1 - 2 tab PO Q4-6H PRN #32 tab 12/20/21 Rx 10-325] Ipratropium-Albuterol Nebulize 3 ml INHALATION RT-QID PRN #20 each 12/20/21 Rx [Duoneb 0.5 mg-3 mg/3 ml Soln] Multivitamins, Thera [Multivitamin 1 each PO DAILY@1200 tab 12/20/21 Rx (formulary)] Nystatin 100,000 Unit/ml Susp 500,000 unit PO QID 5 Days #200 ml 12/20/21 Rx [Mycostatin Oral Susp] Sennosides-Docusate Sodium 2 each PO HS tab 12/20/21 Rx [Senokot-S] diazePAM [Valium] 1 - 2 mg PO BID PRN #4 tab 12/20/21 Rx cefUROXime axetiL [Ceftin] 500 mg PO BID 7 Days #14 tab 12/22/21 Rx Allergies Allergy/AdvReac Type Severity Reaction Status Date / Time No Known Allergies Allergy Verified 12/17/21 11:28 Physical Exam Vitals: Vital Signs Temp Pulse Pulse Resp BP Pulse Ox FiO2 12/26/21 08:47 70 12/26/21 08:34 74 91 L 21 12/26/21 07:22 98.2 F 76 16 153/71 92 L 12/26/21 02:05 98.0 F 71 17 128/66 90 L 12/25/21 19:52 68 12/25/21 19:43 66 12/25/21 18:11 98.5 F 66 16 103/57 93 L 12/25/21 14:00 97.9 F 63 14 101/55 96 12/25/21 11:51 72 12/25/21 11:39 70 Intake and Output 12/25/21 12/26/21 12/26/21 22:59 06:59 14:59 Intake Total 500 590 Output Total 1600 1200 Balance -1100 -610 Intake: Oral 500 590 Output: Urine 1600 1200 General appearance: The patient is alert, oriented, appears in no acute distress. HET: Head is normocephalic and atraumatic. Conjunctiva pink. Sclera anicteric. Neck: Supple without lymphadenopathy. Trachea midline. Heart: S1 S2. Regular rate and rhythm. Lungs: Clear to auscultation. Abdomen: Soft, nontender, nondistended with bowel sounds. No guarding or rigidity. Skin: No rashes. No jaundice. Extremities: Normal skin color and turgor. No pedal edema. Neurological: No focal deficits. Alert and oriented x3. Results CBC & Chem 7: 12/25/21 05:51 12/25/21 05:56 Labs: Abnormal Lab Results - Last 24 Hours (Table) 12/25/21 12/25/21 Range/Units 05:51 05:56 RBC 3.56 L (4.40-5.60) X 10*6/uL Hgb 10.0 L (13.0-17.0) g/dL Hct 31.5 L (39.6-50.0) % MCHC 31.7 L (32.0-37.0) g/dL Eosinophils # 0.73 H (0.04-0.35) X 10*3/uL Anion Gap 9.50 L (10.00-18.00) mmol/L Creatinine 0.5 L (0.6-1.5) mg/dL BUN/Creatinine Ratio 32.00 H (12.00-20.00) Ratio Calcium 8.5 L (8.7-10.3) mg/dL Comments: Barium swallow reviewed as stated in HPI Assessment and Plan (1) Dysphagia Narrative/Plan: 81-year-old male who presented to emergency department after sustaining a fall with a tib-fib fracture with a knee immobilizer in place. Patient has a history of sporadic inclusion myositis which was diagnosed in 2011. He has had progressive dysphasia related to his disease. He states he is mostly on a soft diet. He has no new complaints. He states feels that he has good caloric intake. He is able to eat foods such as spaghetti, salads, chopped beef, does drink ensure daily. Underwent a barium swallow with recommendations for dysphagia 3 chopped diet. Denies any previous history of EGD, denies any acid reflux. Continue with recommendations from speech therapy, ensure daily. No plans on EGD at this time as symptoms all likely related to sporadic inclusion myositis. If swallowing becomes worse in the future he may need to follow up outpatient to consider possible PEG tube placement for tube feedings. Apparently they are also looking at possible hospice care for the patient.. Current Visit: Yes Status: Acute Code(s): R13.10 - DYSPHAGIA, UNSPECIFIED SNOMED Code(s): 64025505 (2) Closed fracture of right proximal tibia Current Visit: Yes Status: Acute Priority: Medium Code(s): S82.101A - UNSP FRACTURE OF UPPER END OF RIGHT TIBIA, INIT FOR CLOS FX SNOMED Code(s): 88117120 (3) Fall Current Visit: Yes Status: Acute Code(s): W19.XXXA - UNSPECIFIED FALL, INITIAL ENCOUNTER SNOMED Code(s): 5346567 (4) Fracture of right proximal fibula Current Visit: Yes Status: Acute Code(s): S82.831A - OTH FRACTURE OF UPPER AND LOWER END OF RIGHT FIBULA, INIT SNOMED Code(s): 71943471 (5) Right patella fracture Current Visit: Yes Status: Acute Code(s): S82.001A - UNSP FRACTURE OF RIGHT PATELLA, INIT FOR CLOS FX SNOMED Code(s): 19215834 (6) Inclusion body myositis Current Visit: No Status: Acute Code(s): G72.41 - INCLUSION BODY MYOSITIS [IBM] SNOMED Code(s): 67759467 Plan: 1. Continue symptomatic and supportive care 2. Continue with dysphasia 3 chopped diet 3. No plans on endoscopic evaluation at this time 4. Recommend outpatient follow-up to continue to monitor for dysphagia, need for possible PEG tube placement in the future Thank you for this consultation, we will continue to follow. Dr. K Tumma I agree with the dictator's note, documented as a scribe by Candy King.
[2021-12-26] MEDS ORDERED: bisacodyL 10 MG SUPP RECTAL STA (13:18)
--- NOTE | 2021-12-26 13:23 | P.DS ---
Providers Date of admission: 12/19/21 10:53 Attending physician: Ashok Kc Consults: 12/17/21 02:21 Consult Physician Routine Consulting Provider: Terri Le Consult Reason/Comments: TIB FIB FX Do you want consulting provider notified?: Yes 12/17/21 15:39 Consult Physician Routine Consulting Provider: Davon Car Consult Reason/Comments: chronic dysuria Do you want consulting provider notified?: Yes 12/25/21 17:42 Consult Physician Urgent Consulting Provider: Audrey Vaughn Consult Reason/Comments: dysphagia Do you want consulting provider notified?: Yes, Notify in am Primary care physician: Gilmer Gold [facility] Course: Diagnosis Right patella and proximal tibial fracture no plans for surgical intervention at this time Right foot pain and swelling, improved, xray showing no acute fracture Leukocytosis possibly reactive, normalized Anemia, normocytic, ongoing work up 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 He is toe touch weightbearing with brace and walker. Patient will require subacute rehab while his right knee heels and he is able to increase his mobility. Prior to acute injury patient was able to assist significant other with transfers in home setting. He has been educated that while undergoing rehab he will be unable to receive humira injections. He does follow with Dr Carlisle with dermatology and would recommend patient follow up outpatient. Patient also sees Dr EMIL Dan outpatient and can follow up as needed. Recommend follow up with primary care in 2 to 3 days. Patient will also follow up with orthopedics in 2 weeks. He is given scripts for labs in 2 to 3 days. Hospital course This is a pleasant 81-year-old male with medical history significant for spontaneous inclusion body myositis, dysphasia, coronary artery disease status post stenting, carotid endarterectomy, stroke, rheumatoid arthritis, psoriasis, reynauds. He presents to the hospital with concern for right knee buckling during transfer attempts. He was admitted to orthopedics and imaging on admission reveals right patella fracture and proximal tibial fracture on the right side. He is in a knee immobilizer. After evaluation by orthopedics no surgical intervention is planned at this time and patient will continue with knee immobilizer and also has a locked knee hinged brace but has been provided. He is toe touch weightbearing with brace and walker. 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 He has been able to stay at home with his significant other who does provide most of his care. He was able to assist with transferring. Initial Diagnostics show; Chest x-ray showing no acute process, Hip/pelvis x-ray showing no acute fracture. EKG showing sinus rhythm with first-degree AV block heart rate of 66, QT interval 465. Labs showing a white count of 11.8, hemoglobin 12.7, PTT is greater than 200, BUN 32, creatinine 0.51, glucose 116. Troponin is 0.013, liver enzymes are negative. Patient was given IV hydration while inpatient as he was nothing by mouth for possible surgery patient did present with possible fluid overload and IV fluids were discontinued. He did receive a dose of IV Lasix. Repeat ches xray does show clearing of vascular congestion and he is now on room air with oxygen saturation 97%. Patient was also evaluated by urology for chronic dysuria which he sates has been ongoing for the last year while outpatient. A urinalysis was ordered and shows trace protein, moderate blood, large leukocyte esterase, 76 WBC, 24 RBC, rare bacteria and rare mucus. Urine culture prelim is showing gram negative and patient is receiving IV rocephen while inpatient. Urine culture was positive for Proteus mirabilis patient will complete a course of antibiotic therapy for 2 more days outpatient. He was seen in consult by speech services who did recommend pureed Diet with thin liquids sitting upright 90 with small bites and sips the medication can be administered: Applesauce yogurt. He was evaluated physical therapy. Recommend physical therapy and discharge to allow patient to regain some function and assistance with healing. He hopes to return home eventually with the ultimate goal of hospice services in the future but needs to be able to assist his significant other with transferring as he was prior to his knee buckling. Patient underwent modified barium which shows severe episodes of penetration and aspiration which rapidly clear with thin liquid barium with moderate to severe pharyngeal residue. Patient was evaluated by GI services who does recommend following up outpatient patient can continue with his current dysphagia 3 Diet. 12/26/2021 Patient is evaluated today resting in bed. Main complaint is upper thigh cramping which is being treated with pain medication as well as muscle relaxers. He will follow-up with orthopedics outpatient. Continues with knee brace. Otherwise he is not short of breath no chest pain reported. No nausea no vomiting or diarrhea. He had small bowel movement yesterday. We will give a suppository today as he states his stool was hard. Continue on bowel regimen daily. Otherwise his lungs are clear, S1-S2 auscultated, abdomen is soft and nontender, normoactive bowel sounds. Denies suprapubic tenderness, he does have some chronic dysuria and pain with urination which is improving per patient. He will see neurology outpatient. Patient was also evaluated by GI services and after reviewing speech therapy and modified barium swallow reports they're recommending to see patient outpatient. Continue with dysphagia level 3 chopped diet aspiration precautions and 1:1 supervision. Most recent labs showing white count 9.21, hgb 10.0, sodium 135, potassium 4.5, magnesium 1.9. Vital signs patient is afebrile, heart rate 76 blood pressure 128/66, 92% room air. He does have incentive spirometry at bedside but he does require assistance to utilize. Patient will be discharged to subacute rehab, psychologist social and case management following the patient closely. Please see medication reconciliation for a list of current medication. Thank you for allowing us to participate in the care of this patient. The impression and plan of care has been dictated by Hayley Tovar, Nurse Practitioner as directed. Dr. Desirae MD I have performed a history and physical examination and medical decision making of this patient, discussed the same with the dictator, and agree with the dictators assessment and plan as written, documented as a scribe. Based on total visit time, I have performed more than 50% of this visit. Patient Condition at Discharge: Fair Plan - Discharge Summary Discharge Rx Participant: Yes New Discharge Prescriptions: New Ipratropium-Albuterol Nebulize [Duoneb 0.5 mg-3 mg/3 ml Soln] 3 ml INHALATION RT-QID PRN #20 each PRN Reason: Shortness Of Breath Or Wheezing Sennosides-Docusate Sodium [Senokot-S] 2 each PO HS tab HYDROcodone/APAP 10-325MG [Liberty 10-325] 1 - 2 tab PO Q4-6H PRN #32 tab PRN Reason: Pain Aspirin 81 mg PO BID tab Multivitamins, Thera [Multivitamin (formulary)] 1 each PO DAILY@1200 tab Acetaminophen Tab [Tylenol] 650 mg PO Q4HR PRN tab PRN Reason: Pain Scale 1 To 5 cefUROXime axetiL [Ceftin] 500 mg PO BID 2 Days #4 tab Continue Sertraline [Zoloft] 50 mg PO DAILY atenoloL [Tenormin] 25 mg PO DAILY amLODIPine [Norvasc] 5 mg PO DAILY Finasteride [Proscar] 5 mg PO DAILY Tamsulosin [Flomax] 0.4 mg PO DAILY Cyclobenzaprine [Flexeril] 10 mg PO HS PRN PRN Reason: Muscle Spasm Quinapril HCl [Accupril] 20 mg PO HS Atorvastatin [Lipitor] 20 mg PO DAILY diazePAM [Valium] 1 - 2 mg PO BID PRN #4 tab PRN Reason: Anxiety Discontinued Adalimumab [Humira(Cf) Pen] 40 mg SQ Q14D Discharge Medication List Sertraline [Zoloft] 50 mg PO DAILY 12/10/13 [History] atenoloL [Tenormin] 25 mg PO DAILY 12/10/13 [History] amLODIPine [Norvasc] 5 mg PO DAILY 09/26/19 [History] Atorvastatin [Lipitor] 20 mg PO DAILY 05/09/21 [History] Finasteride [Proscar] 5 mg PO DAILY 05/09/21 [History] Quinapril HCl [Accupril] 20 mg PO HS 05/09/21 [History] Cyclobenzaprine [Flexeril] 10 mg PO HS PRN 12/17/21 [History] Tamsulosin [Flomax] 0.4 mg PO DAILY 12/17/21 [History] Acetaminophen Tab [Tylenol] 650 mg PO Q4HR PRN tab 12/20/21 [Rx] Aspirin 81 mg PO BID tab 12/20/21 [Rx] HYDROcodone/APAP 10-325MG [Liberty 10-325] 1 - 2 tab PO Q4-6H PRN #32 tab 12/20/21 [Rx] Ipratropium-Albuterol Nebulize [Duoneb 0.5 mg-3 mg/3 ml Soln] 3 ml INHALATION RT-QID PRN #20 each 12/20/21 [Rx] Multivitamins, Thera [Multivitamin (formulary)] 1 each PO DAILY@1200 tab 12/20/21 [Rx] Sennosides-Docusate Sodium [Senokot-S] 2 each PO HS tab 12/20/21 [Rx] diazePAM [Valium] 1 - 2 mg PO BID PRN #4 tab 12/20/21 [Rx] cefUROXime axetiL [Ceftin] 500 mg PO BID 2 Days #4 tab 12/26/21 [Rx] Follow up Appointment(s)/Referral(s): Alma Dan MD [STAFF PHYSICIAN] - As Needed Terri Le DO [Doctor of Osteopathic Medicine] - 2 Weeks Gilmer Leal III, MD [Primary Care Provider] - 1-2 days Leobardo Carlisle MD [STAFF PHYSICIAN] - 1 Week Audrey Vaughn MD [STAFF PHYSICIAN] - 2 Weeks Chase Campos MD [STAFF PHYSICIAN] - 2 Weeks (cystoscopy) Patient Instructions/Handouts: Ankle Fracture (DC) Activity/Diet/Wound Care/Special Instructions: Toe touch weightbearing with brace and walker Hinged knee brace locked in extension when out of bed. May loosen while in bed. Patient updated that while on subacute rehab he will not be covered for humira injection, he does follow with Dr Carlisle for his psoriasis Continue dysphagia level 3 chopped diet with aspiration precautions and 1:1 Supervision Patient can continue with oral protein supplementation drinks with Ensure compact three times a day Possible discharge to [facility] for Subacute rehab Patient is medically cleared for discharge Repeat CBC outpatient in 2-3 days. Discharge Disposition: OTHER INSTITUTION NOT DEFINED
[2021-12-26 13:32] VITALS: BMI 30.5
[2021-12-26] MEDS: PANTOPRAZOLE 40 MG TABLET PO SCH (17:05)
[2021-12-26] MEDS: SENNOSIDES-DOCUSATE SODIUM 1 EACH TAB PO SCH (20:42)
[2021-12-26] MEDS: lisinopriL 20 MG TAB PO SCH (20:43)
[2021-12-27] MEDS: HYDROcodone/APAP 10-325MG 1 EACH TAB PO PRN ×4 (02:30→22:33)
[2021-12-27] MEDS: CYCLOBENZAPRINE 10 MG TAB PO PRN ×3 (03:44→16:31)
[2021-12-27] MEDS: diazePAM 5 MG TAB PO PRN ×2 (03:44→13:11)
[2021-12-27] MEDS: IPRATROPIUM-ALBUTEROL 3 ML NEB INHALATION SCH ×4 (08:37→21:08)
[2021-12-27] MEDS: amLODIPine 5 MG TAB PO SCH (09:37)
[2021-12-27] MEDS: PANTOPRAZOLE 40 MG TABLET PO SCH ×2 (09:37→16:31)
[2021-12-27] MEDS: HEPARIN SODIUM,PORCINE/PF 5,000 UNIT/0.5 ML SYRINGE SQ SCH ×2 (09:37→20:43)
[2021-12-27] MEDS: ASPIRIN 81 MG PO SCH ×2 (09:38→20:43)
[2021-12-27] MEDS: NYSTATIN 100,000 UNIT/ML SUSP 500,000 UNIT/5 ML CUP PO SCH ×4 (09:38→20:39)
[2021-12-27] MEDS: ATORVASTATIN 20 MG TAB PO SCH (09:38)
[2021-12-27] MEDS: FINASTERIDE 5 MG TAB PO SCH (09:38)
[2021-12-27] MEDS: TAMSULOSIN 0.4 MG CAP.ER.24H PO SCH (09:38)
[2021-12-27] MEDS: SERTRALINE 50 MG TAB PO SCH (09:38)
[2021-12-27] MEDS: atenoloL 25 MG TAB PO SCH (09:38)
[2021-12-27] MEDS: MULTIVITAMINS, THERA 1 EACH TAB PO SCH (12:52)
--- NOTE | 2021-12-27 13:10 | P.PN ---
Subjective Progress Note Date: 12/27/21 Principal diagnosis: Dysphagia This is a pleasant 63-year-old male with a history of coronary artery disease, TIA, AR, and sporadic inclusion body myositis who presented to the emergency department after sustaining a fall and a right leg injury. He has a right tibial-fibular fracture with a knee immobilizer in place. 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 He states that at home he is able to eat much more than while he is in the hospital as he is able to sit up straight in his chair in order to swallow. He states he eats most foods other than dry meat such as chicken and turkey. He denies feeling as though she is choking, he denies choking on his food. He drinks unsure daily. He denies any significant weight loss recently. States he has had a 30 pound weight loss over the last 1 year's duration since his last lower extremity fracture of his left leg. He is immobile and uses a wheelchair for moving around. He has both bilateral upper and lower extremity weakness. He did undergo a modified barium and evaluation by speech therapy that showed oral and pharyngeal phase was satisfactory initiation with poor epiglottis inversion and poor muscle contractility in the hypopharynx. Moderate to severe pharyngeal residue appreciated. Speech therapy recommended dysphasia 3 chopped diet with thin liquids. The patient seems somewhat aggravated and states that he has not been asking to be seen for his swallowing. States this is a long-term that has been going on for some time. He states he has not had an EGD done. He has seen Dr. Vaughn in the past. He feels that he is getting an adequate nutrition. He denies any abdominal pain, nausea or vomiting. 12/27/2021: Patient is seen and examined is a follow-up for dysphagia. He states no change he is able to swallow and eat as long as he is sitting upright. He denies any overt choking or food getting stuck at this time. Objective - Vital Signs Vital signs: Vital Signs Temp 97.4 F L 12/27/21 07:41 Pulse 74 12/27/21 12:16 Resp 20 12/27/21 07:41 BP 133/69 12/27/21 07:41 Pulse Ox 98 12/27/21 07:41 FiO2 21 12/26/21 08:34 Intake & Output 12/26/21 12/27/21 12/27/21 18:59 06:59 18:59 Intake Total 480 50 Output Total 1000 750 Balance -1000 -270 50 Weight 88.451 kg Intake: Intake, IV Titration 50 Amount cefTRIAXone 2 gm In 50 Sodium Chloride 0.9% 50 ml @ 100 mls/hr IVPB Q24HR [facility] Rx#:[id number] Oral 480 Output: Urine 1000 750 Other: Voiding Method External Catheter - Exam General appearance: The patient is alert, oriented, appears in no acute distress. HET: Head is normocephalic and atraumatic. Conjunctiva pink. Sclera anicteric. Neck: Supple without lymphadenopathy. Abdomen: Soft, nontender, nondistended with bowel sounds. No guarding or rigidity. Extremities: Normal skin color and turgor. No pedal edema Skin: No rashes, no jaundice Neurological: No focal deficits. Alert and oriented -3. - Labs CBC & Chem 7: 12/25/21 05:51 12/25/21 05:56 Assessment and Plan (1) Dysphagia Narrative/Plan: 81-year-old male who presented to emergency department after sustaining a fall with a tib-fib fracture with a knee immobilizer in place. Patient has a history of sporadic inclusion myositis which was diagnosed in 2011. He has had progressive dysphasia related to his disease. He states he is mostly on a soft diet. He has no new complaints. He states feels that he has good caloric intake. He is able to eat foods such as spaghetti, salads, chopped beef, does drink ensure daily. Underwent a barium swallow with recommendations for dysphagia 3 chopped diet. Denies any previous history of EGD, denies any acid reflux. Continue with recommendations from speech therapy, ensure daily. No plans on EGD at this time as symptoms all likely related to sporadic inclusion myositis. If swallowing becomes worse in the future he may need to follow up outpatient to consider possible PEG tube placement for tube feedings. Apparently they are also looking at possible hospice care for the patient.. Current Visit: Yes Status: Acute Code(s): R13.10 - DYSPHAGIA, UNSPECIFIED SNOMED Code(s): 35616973 (2) Closed fracture of right proximal tibia Current Visit: Yes Status: Acute Priority: Medium Code(s): S82.101A - UNSP FRACTURE OF UPPER END OF RIGHT TIBIA, INIT FOR CLOS FX SNOMED Code(s): 85748558 (3) Fall Current Visit: Yes Status: Acute Code(s): W19.XXXA - UNSPECIFIED FALL, INITIAL ENCOUNTER SNOMED Code(s): 5680491 (4) Fracture of right proximal fibula Current Visit: Yes Status: Acute Code(s): S82.831A - OTH FRACTURE OF UPPER AND LOWER END OF RIGHT FIBULA, INIT SNOMED Code(s): 87965396 (5) Right patella fracture Current Visit: Yes Status: Acute Code(s): S82.001A - UNSP FRACTURE OF RIGHT PATELLA, INIT FOR CLOS FX SNOMED Code(s): 11461009 (6) Inclusion body myositis Current Visit: No Status: Acute Code(s): G72.41 - INCLUSION BODY MYOSITIS [IBM] SNOMED Code(s): 19399359 Plan: 1. Continue symptomatic and supportive care 2. Continue with dysphasia 3 chopped diet 3. No plans on endoscopic evaluation at this time 4. Recommend outpatient follow-up to continue to monitor for dysphagia, need for possible PEG tube placement in the future Thank you for this consultation, we will continue to follow. Dr. Alina Vaughn I agree with the dictator's note, documented as a scribe by Candy King.
--- NOTE | 2021-12-27 14:17 | P.PN ---
Subjective Progress Note Date: 12/27/21 This is an 81 year old male admitted to the hospital for acute right knee buckling with patellar fracture. Orthopedics recommended knee brace with TTWB. Patient has history of Inclusion body myositis leading to progressive muscle weakness and functional decline. He also was found to have chronic dysuria with proteus URI and treated with antibiotics, he will see urology outpatient, orthopedics outpatient. Patient is pending retirement placement at [facility], social work is following placement. Blood pressure today 133/69, heart rate 74, afebrile, 92% room air. He does have history of psoriasis and reynauds. No acute events overnight. Review of Systems Constitutional: Denied any fatigue denied any fever. Cardio vascular: denied any chest pain, palpitations Gastrointestinal: denied any nausea, vomiting, diarrhea Pulmonary: Denied any shortness of breath cough Neurologic denied any new focal deficits All inpatient medications were reviewed and appropriate changes in these medications as dictated in the interval history and assessment and plan. PHYSICAL EXAMINATION: GENERAL: The patient is alert and oriented x3, not in any acute distress. Well developed, well nourished. HEENT: Pupils are round and equally reacting to light. EOMI. No scleral icterus. No conjunctival pallor. Normocephalic, atraumatic. No pharyngeal erythema. No thyromegaly. CARDIOVASCULAR: S1 and S2 present. No murmurs, rubs, or gallops. PULMONARY: Chest is clear to auscultation, no wheezing or crackles. There is de creased airflow as compared to yesterday. ABDOMEN: Soft, nontender, nondistended, normoactive bowel sounds. No palpable organomegaly. MUSCULOSKELETAL: No joint swelling or deformity. Right knee immobilizer in place. EXTREMITIES: No cyanosis, clubbing, or pedal edema. +2 bilateral dorsalis pedis pulses NEUROLOGICAL: Gross neurological examination did not reveal any focal deficits. SKIN: No rashes. He has some bruising noted on top of foot. Assessment and plan Assessment Right patella and proximal tibial fracture no plans for surgical intervention at this time Right foot pain and swelling, tenderness along the plantar fascia, improved Leukocytosis possibly reactive, resolved Anemia, normocytic, ongoing work up History of spontaneous inclusion body myositis causing severe generalized weak ness Dysphagia secondary to above Dysuria with proteus UTI, POA, on antibiotics Mild hyperglycemia Coronary artery disease status post cardiac stenting History of carotid endarterectomy History stroke in 2011 with residual vision deficits History of rheumatoid arthritis History of psoriasis History of Reynauds GI Prophylaxis DVT Prophylaxis Obesity Full Code Plan Continue with knee immobilizer Orthopedics, urology, speech therapy consultations Patient has been weaned to room air, breathing better. Discharge planning in place and he was not a candidate for subacute rehab. Patient and significant other agree that patient has needs greater than what can be provided at home even with home care and home PT. Patient has pursued hospice consultation outpatient prior to admission, but felt too stable for admission to hospice house at this time. Due to his multiple chronic comorbidities and progressive SIBM, patient will need placement on discharge. Medicaid application is pending which is a condition of discharge to [facility]. Pending updates from social work. Continue current supportive care. He is on dysphagia level 3 chopped diet with aspiration precautions and 1:1 assistance. Also needs assistance with IS. The impression and plan of care has been dictated by Hayley Tovar, Nurse Practitioner as directed. Dr. Desirae MD I have performed a history and physical examination and medical decision making of this patient, discussed the same with the dictator, and agree with the dictators assessment and plan as written, documented as a scribe. Based on total visit time, I have performed more than 50% of this visit. Objective - Vital Signs Vital signs: Vital Signs Temp 97.6 F 12/27/21 13:57 Pulse 63 12/27/21 13:57 Resp 18 12/27/21 13:57 BP 96/55 12/27/21 13:57 Pulse Ox 91 L 12/27/21 13:57 FiO2 21 12/26/21 08:34 Intake & Output 12/26/21 12/27/21 12/27/21 18:59 06:59 18:59 Intake Total 480 50 Output Total 1000 750 Balance -1000 -270 50 Weight 88.451 kg Intake: Intake, IV Titration 50 Amount cefTRIAXone 2 gm In 50 Sodium Chloride 0.9% 50 ml @ 100 mls/hr IVPB Q24HR [facility] Rx#:[id number] Oral 480 Output: Urine 1000 750 Other: Voiding Method External Catheter - Labs CBC & Chem 7: 12/25/21 05:51 12/25/21 05:56 Assessment and Plan Time with Patient: Less than 30
[2021-12-27] MEDS: SENNOSIDES-DOCUSATE SODIUM 1 EACH TAB PO SCH (20:43)
[2021-12-27] MEDS: lisinopriL 20 MG TAB PO SCH (20:43)
[2021-12-28] MEDS: NYSTATIN 100,000 UNIT/ML SUSP 500,000 UNIT/5 ML CUP PO SCH (07:39)
[2021-12-28] MEDS: ATORVASTATIN 20 MG TAB PO SCH (07:44)
[2021-12-28] MEDS: FINASTERIDE 5 MG TAB PO SCH (07:44)
[2021-12-28] MEDS: MULTIVITAMINS, THERA 1 EACH TAB PO SCH (07:44)
[2021-12-28] MEDS: atenoloL 25 MG TAB PO SCH (07:44)
[2021-12-28] MEDS: HEPARIN SODIUM,PORCINE/PF 5,000 UNIT/0.5 ML SYRINGE SQ SCH (07:44)
[2021-12-28] MEDS: amLODIPine 5 MG TAB PO SCH (07:44)
[2021-12-28] MEDS: TAMSULOSIN 0.4 MG CAP.ER.24H PO SCH (07:44)
[2021-12-28] MEDS: PANTOPRAZOLE 40 MG TABLET PO SCH ×2 (07:44→15:51)
[2021-12-28] MEDS: ASPIRIN 81 MG PO SCH (07:44)
[2021-12-28] MEDS: SERTRALINE 50 MG TAB PO SCH (07:45)
[2021-12-28] MEDS: IPRATROPIUM-ALBUTEROL 3 ML NEB INHALATION SCH ×3 (08:14→15:15)
[2021-12-28] MEDS: CYCLOBENZAPRINE 10 MG TAB PO PRN ×2 (08:48→15:47)
[2021-12-28] MEDS ORDERED: DOCUSATE 100 MG CAP PO SCH (09:00)
[2021-12-28] MEDS: HYDROcodone/APAP 10-325MG 1 EACH TAB PO PRN ×2 (09:51→15:47)
[2021-12-28] MEDS: TRIAMCINOLONE ACET 0.1% OINTMENT 15 GM TUBE TOPICAL SCH ×2 (12:51→15:48)
[2021-12-28 14:45] VITALS: BP 115/61; PULSE 79; RESP 20; TEMP 97.6
--- NOTE | 2021-12-28 14:48 | P.DS ---
Providers Date of admission: 12/19/21 10:53 Expected date of discharge: 12/28/21 Attending physician: Ashok Kc Consults: 12/17/21 02:21 Consult Physician Routine Consulting Provider: Terri Le Consult Reason/Comments: TIB FIB FX Do you want consulting provider notified?: Yes 12/17/21 15:39 Consult Physician Routine Consulting Provider: Davon Car Consult Reason/Comments: chronic dysuria Do you want consulting provider notified?: Yes Primary care physician: Gilmer Gold Mel Hospital Course: Final diagnosis Right patella and proximal tibial fracture no plans for surgical intervention at this time Right foot pain and swelling, improved, xray showing no acute fracture Leukocytosis possibly reactive, normalized Anemia, normocytic, ongoing work up 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 Patient stable for discharge from a medical standpoint he has also been cleared by orthopedics for discharge with no surgical intervention planned at this time and will follow-up with patient in the office. He is toe touch weightbearing with brace and walker. Patient will require subacute rehab while his right knee heels and he is able to increase his mobility. Prior to acute injury patient was able to assist significant other with transfers in home setting. He has been educated that while undergoing rehab he will be unable to receive humira injections. He does follow with Dr Carlisle with dermatology and would recommend patient follow up outpatient. Patient also sees Dr EMIL Dan outpatient and can follow up as needed. Recommend follow up with primary care in 2 to 3 days. Patient will also follow up with orthopedics in 2 weeks. He is given scripts for labs in 2 to 3 days. Hospital course This is a pleasant 81-year-old male with medical history significant for spontaneous inclusion body myositis, dysphasia, coronary artery disease status post stenting, carotid endarterectomy, stroke, rheumatoid arthritis, psoriasis, reynauds. He presents to the hospital with concern for right knee buckling during transfer attempts. He was admitted to orthopedics and imaging on admission reveals right patella fracture and proximal tibial fracture on the right side. He is in a knee immobilizer. After evaluation by orthopedics no surgical intervention is planned at this time and patient will continue with knee immobilizer and also has a locked knee hinged brace but has been provided. He is toe touch weightbearing with brace and walker. 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 He has been able to stay at home with his significant other who does provide most of his care. He was able to assist with transferring. Initial Diagnostics show; Chest x-ray showing no acute process, Hip/pelvis x-ray showing no acute fracture. EKG showing sinus rhythm with first-degree AV block heart rate of 66, QT interval 465. Labs showing a white count of 11.8, hemoglobin 12.7, PTT is greater than 200, BUN 32, creatinine 0.51, glucose 116. Troponin is 0.013, liver enzymes are neg ative. Patient was given IV hydration while inpatient as he was nothing by mouth for possible surgery patient did present with possible fluid overload and IV fluids were discontinued. He did receive a dose of IV Lasix. Repeat ches xray does show clearing of vascular congestion and he is now on room air with oxygen saturation 97%. Patient was also evaluated by urology for chronic dysuria which he sates has been ongoing for the last year while outpatient. A urinalysis was ordered and shows trace protein, moderate blood, large leukocyte esterase, 76 WBC, 24 RBC, rare bacteria and rare mucus. Urine culture prelim is showing gram negative and patient is receiving IV rocephen while inpatient. Urine culture was positive for Proteus mirabilis patient will complete a course of antibiotic therapy for 2 more days outpatient. He was seen in consult by speech services who did recommend pureed Diet with thin liquids sitting upright 90 with small bites and sips the medication can be administered: Applesauce yogurt. He was evaluated physical therapy. Recommend physical therapy and discharge to allow patient to regain some function and assistance with healing. He hopes to return home eventually with the ultimate goal of hospice services in the future but needs to be able to assist his significant other with transferring as he was prior to his knee buckling. Patient underwent modified barium which shows severe episodes of penetration and aspiration which rapidly clear with thin liquid barium with moderate to severe pharyngeal residue. Patient was evaluated by GI services who does recommend following up outpatient patient can continue with his current dysphagia 3 Diet. Recommend continue with aspiration precautions and head of the bed elevated 30- 45 at all times. Physical exam: Gen: This is a 81-year-old male who is awake alert and oriented 3, well- developed, well-nourished obese. HEENT: Head is atraumatic, normocephalic. Pupils equal, round. Sclerae is anicteric. NECK: Supple. No JVD. No lymphadenopathy. No thyromegaly. LUNGS: Clear to auscultation. No wheezes or rhonchi. No intercostal retractions. HEART: Regular rate and rhythm. No murmur. ABDOMEN: Soft. Obese. Bowel sounds are present. No masses. No tenderness. EXTREMITIES: No pedal edema. No calf tenderness. NEUROLOGICAL: Patient is awake, alert and oriented x3. Cranial nerves 2 through 12 are grossly intact. Diffusely weak Please refer to medication reconciliation sheet for a list of medications. The impression and plan of care has been dictated by Amira Pacheco Nurse Pract itioner as directed. Dr. Yadiel MD I have performed a history and examination and MDM of this patient, discussed the same with the dictator, and agree with the dictator's assessment and plan as written ,documented as a scribe. Based on total visit time, I have performed more than 50% of the visit. Patient Condition at Discharge: Fair Plan - Discharge Summary Discharge Rx Participant: Yes New Discharge Prescriptions: New Ipratropium-Albuterol Nebulize [Duoneb 0.5 mg-3 mg/3 ml Soln] 3 ml INHALATION RT-QID PRN #20 each PRN Reason: Shortness Of Breath Or Wheezing Sennosides-Docusate Sodium [Senokot-S] 2 each PO HS tab Na Phos,M-B/Na Phos,Di-Ba [Fleet Adult] 133 ml RECTAL DAILY PRN each PRN Reason: Constipation Heparin Sodium,Porcine [Heparin Sodium] 5,000 unit SQ Q12HR 30 Days #60 each Triamcinolone 0.1% Ointment [Kenalog 0.1% Ointment] 1 applic TOPICAL TID each HYDROcodone/APAP 10-325MG [[place] 10-325] 1 - 2 tab PO Q4-6H PRN #32 tab PRN Reason: Pain Aspirin 81 mg PO BID tab Multivitamins, Thera [Multivitamin (formulary)] 1 each PO DAILY@1200 tab Acetaminophen Tab [Tylenol] 650 mg PO Q4HR PRN tab PRN Reason: Pain Scale 1 To 5 cefUROXime axetiL [Ceftin] 500 mg PO BID 2 Days #4 tab Benzocaine/Menthol Lozeng [Cepacol lozenge] 1 each MUCOUS MEM Q6HR PRN lozenge PRN Reason: Sore Throat Docusate [Colace] 100 mg PO BID cap Magnesium Hydroxide [Milk of Magnesia Concentrate] 2,400 mg PO DAILY PRN ml PRN Reason: Constipation Pantoprazole [Protonix] 40 mg PO AC-BID tab Continue Sertraline [Zoloft] 50 mg PO DAILY atenoloL [Tenormin] 25 mg PO DAILY amLODIPine [Norvasc] 5 mg PO DAILY Finasteride [Proscar] 5 mg PO DAILY Tamsulosin [Flomax] 0.4 mg PO DAILY Cyclobenzaprine [Flexeril] 10 mg PO HS PRN PRN Reason: Muscle Spasm Quinapril HCl [Accupril] 20 mg PO HS Atorvastatin [Lipitor] 20 mg PO DAILY diazePAM [Valium] 1 - 2 mg PO BID PRN #4 tab PRN Reason: Anxiety Discontinued Adalimumab [Humira(Cf) Pen] 40 mg SQ Q14D Discharge Medication List Sertraline [Zoloft] 50 mg PO DAILY 12/10/13 [History] atenoloL [Tenormin] 25 mg PO DAILY 12/10/13 [History] amLODIPine [Norvasc] 5 mg PO DAILY 09/26/19 [History] Atorvastatin [Lipitor] 20 mg PO DAILY 05/09/21 [History] Finasteride [Proscar] 5 mg PO DAILY 05/09/21 [History] Quinapril HCl [Accupril] 20 mg PO HS 05/09/21 [History] Cyclobenzaprine [Flexeril] 10 mg PO HS PRN 12/17/21 [History] Tamsulosin [Flomax] 0.4 mg PO DAILY 12/17/21 [History] Acetaminophen Tab [Tylenol] 650 mg PO Q4HR PRN tab 12/20/21 [Rx] Aspirin 81 mg PO BID tab 12/20/21 [Rx] HYDROcodone/APAP 10-325MG [[place] 10-325] 1 - 2 tab PO Q4-6H PRN #32 tab 12/20/21 [Rx] Ipratropium-Albuterol Nebulize [Duoneb 0.5 mg-3 mg/3 ml Soln] 3 ml INHALATION RT-QID PRN #20 each 12/20/21 [Rx] Multivitamins, Thera [Multivitamin (formulary)] 1 each PO DAILY@1200 tab 12/20/21 [Rx] Sennosides-Docusate Sodium [Senokot-S] 2 each PO HS tab 12/20/21 [Rx] diazePAM [Valium] 1 - 2 mg PO BID PRN #4 tab 12/20/21 [Rx] cefUROXime axetiL [Ceftin] 500 mg PO BID 2 Days #4 tab 12/26/21 [Rx] Benzocaine/Menthol Lozeng [Cepacol lozenge] 1 each MUCOUS MEM Q6HR PRN lozenge 12/28/21 [Rx] Docusate [Colace] 100 mg PO BID cap 12/28/21 [Rx] Heparin Sodium,Porcine [Heparin Sodium] 5,000 unit SQ Q12HR 30 Days #60 each 12/28/21 [Rx] Magnesium Hydroxide [Milk of Magnesia Concentrate] 2,400 mg PO DAILY PRN ml 12/28/21 [Rx] Na Phos,M-B/Na Phos,Di-Ba [Fleet Adult] 133 ml RECTAL DAILY PRN each 12/28/21 [Rx] Pantoprazole [Protonix] 40 mg PO AC-BID tab 12/28/21 [Rx] Triamcinolone 0.1% Ointment [Kenalog 0.1% Ointment] 1 applic TOPICAL TID each 12/28/21 [Rx] Follow up Appointment(s)/Referral(s): Alma Dan MD [STAFF PHYSICIAN] - As Needed Terri Le DO [Doctor of Osteopathic Medicine] - 2 Weeks Gilmer Leal III, MD [Primary Care Provider] - 1-2 days Leobardo Carlisle MD [STAFF PHYSICIAN] - 1 Week Audrey Vaughn MD [STAFF PHYSICIAN] - 2 Weeks Emily Everett, [NON-STAFF] - As Needed Chase Campos MD [STAFF PHYSICIAN] - 2 Weeks (cystoscopy) Patient Instructions/Handouts: Ankle Fracture (DC) Activity/Diet/Wound Care/Special Instructions: Toe touch weightbearing with brace and walker Hinged knee brace locked in extension when out of bed. May loosen while in bed. Patient updated that while on subacute rehab he will not be covered for humira injection, he does follow with Dr Carlisle for his psoriasis Continue dysphagia level 3 chopped diet with aspiration precautions and 1:1 Supervision Patient can continue with oral protein supplementation drinks with Ensure compact three times a day Patient is going to [facility] Activity as tolerated with restrictions per orthopedics Patient is medically cleared for discharge Repeat CBC outpatient in 2-3 days. Discharge Disposition: TRANSFER TO SNF/ECF
== END 2021-12-28 18:10 | DRG 563 ==
LOC: EC 23:53 → 4SSUR 12-17 02:21 → OBSVTOIN 12-19 10:53
PROVIDERS: ADMIT Hospitalist; ATTEND Hospitalist
DX: S82.101A Unspecified fracture of upper end of right tibia, initial encounter for closed fracture (principal); S82.001A Unspecified fracture of right patella, initial encounter for closed fracture; N39.0 Urinary tract infection, site not specified; S82.831A Other fracture of upper and lower end of right fibula, initial encounter for closed fracture; Z87.81 Personal history of (healed) traumatic fracture; R13.10 Dysphagia, unspecified; R63.4 Abnormal weight loss; B96.4 Proteus (mirabilis) (morganii) as the cause of diseases classified elsewhere; N13.9 Obstructive and reflux uropathy, unspecified; M06.9 Rheumatoid arthritis, unspecified; E66.9 Obesity, unspecified; Z68.30 Body mass index [BMI] 30.0-30.9, adult; I69.398 Other sequelae of cerebral infarction; G72.41 Inclusion body myositis [IBM]; F32.A Depression, unspecified; H53.8 Other visual disturbances; R73.9 Hyperglycemia, unspecified; I44.0 Atrioventricular block, first degree; I25.2 Old myocardial infarction; I73.00 Raynaud's syndrome without gangrene; I25.10 Atherosclerotic heart disease of native coronary artery without angina pectoris; Z20.822 Contact with and (suspected) exposure to COVID-19; D64.9 Anemia, unspecified; W05.0XXA Fall from non-moving wheelchair, initial encounter; Z79.82 Long term (current) use of aspirin; Z79.899 Other long term (current) drug therapy; Z80.6 Family history of leukemia; Z83.3 Family history of diabetes mellitus; Z87.891 Personal history of nicotine dependence; Z95.5 Presence of coronary angioplasty implant and graft; Z86.14 Personal history of Methicillin resistant Staphylococcus aureus infection
CPT/HCPCS: 36415; 71045; 73502; 74018; 74230; 80048; 80053; 81001; 83735; 84100; 84484; 85025; 85610; 85730; 87077; 87086; 87186; 87635; 93005; 94640; 94760; 96361; 96374; 96375; 99285

== ENCOUNTER 2022-03-04 08:04 | Emergency (ER) | payer MEDICARE, OTHER ==
[2022-03-04 08:22] VITALS: RESP 18
[2022-03-04] MEDS ORDERED: KETOROLAC 15 MG/ML 1 ML VIAL IVP STA (08:32)
--- NOTE | 2022-03-04 08:36 | ED ---
General Adult HPI - General Chief complaint: Abdominal Pain Stated complaint: Side pain,pancreatitis Time Seen by Provider: 03/04/22 08:25 Source: patient, RN notes reviewed, old records reviewed Mode of arrival: wheelchair Limitations: no limitations - History of Present Illness Initial comments: This is an 81-year-old male who presents emergency department with past medical history significant for a progressive muscle wasting disease. Patient also has a history of pancreatitis. Patient states starting on he started experiencing some left-sided abdominal pain and he believes the left side of his abdomen is somewhat swollen as well. Patient states she's lost his appetite and isn't drinking or eating as much. Patient denies any vomiting but was nauseous last night but currently is not nauseous. Patient denies any diarrhea. Patient denies any fever chills. Patient denies any back pain. Patient denies any chest pain or difficulty breathing. - Related Data Home Medications Medication Instructions Recorded Confirmed Sertraline [Zoloft] 50 mg PO DAILY 12/10/13 12/17/21 atenoloL [Tenormin] 25 mg PO DAILY 12/10/13 12/17/21 amLODIPine [Norvasc] 5 mg PO DAILY 09/26/19 12/17/21 Atorvastatin [Lipitor] 20 mg PO DAILY 05/09/21 12/17/21 Finasteride [Proscar] 5 mg PO DAILY 05/09/21 12/17/21 Quinapril HCl [Accupril] 20 mg PO HS 05/09/21 12/17/21 Cyclobenzaprine [Flexeril] 10 mg PO HS PRN 12/17/21 12/17/21 Tamsulosin [Flomax] 0.4 mg PO DAILY 12/17/21 12/17/21 Previous Rx's Medication Instructions Recorded Acetaminophen Tab [Tylenol] 650 mg PO Q4HR PRN tab 12/20/21 Aspirin 81 mg PO BID tab 12/20/21 HYDROcodone/APAP 10-325MG [[place] 1 - 2 tab PO Q4-6H PRN #32 tab 12/20/21 10-325] Ipratropium-Albuterol Nebulize 3 ml INHALATION RT-QID PRN #20 each 12/20/21 [Duoneb 0.5 mg-3 mg/3 ml Soln] Multivitamins, Thera [Multivitamin 1 each PO DAILY@1200 tab 12/20/21 (formulary)] Sennosides-Docusate Sodium 2 each PO HS tab 12/20/21 [Senokot-S] diazePAM [Valium] 1 - 2 mg PO BID PRN #4 tab 12/20/21 cefUROXime axetiL [Ceftin] 500 mg PO BID 2 Days #4 tab 12/26/21 Benzocaine/Menthol Lozeng [Cepacol 1 each MUCOUS MEM Q6HR PRN lozenge 12/28/21 lozenge] Docusate [Colace] 100 mg PO BID cap 12/28/21 Heparin Sodium,Porcine [Heparin 5,000 unit SQ Q12HR 30 Days #60 12/28/21 Sodium] each Magnesium Hydroxide [Milk of 2,400 mg PO DAILY PRN ml 12/28/21 Magnesia Concentrate] Na Phos,M-B/Na Phos,Di-Ba [Fleet 133 ml RECTAL DAILY PRN each 12/28/21 Adult] Pantoprazole [Protonix] 40 mg PO AC-BID tab 12/28/21 Triamcinolone 0.1% Ointment 1 applic TOPICAL TID each 12/28/21 [Kenalog 0.1% Ointment] Ketorolac [Toradol] 10 mg PO Q6HR #15 tab 03/04/22 Sulfamethox-Tmp 800-160Mg [Bactrim 1 each PO Q12HR #14 tab 03/04/22 DS 800-160 mg] Tamsulosin [Flomax] 0.4 mg PO DAILY #10 cap 03/04/22 Allergies Allergy/AdvReac Type Severity Reaction Status Date / Time No Known Allergies Allergy Verified 03/04/22 08:22 Review of Systems ROS Statement: Those systems with pertinent positive or pertinent negative responses have been documented in the HPI. ROS Other: All systems not noted in ROS Statement are negative. Past Medical History Past Medical History: Coronary Artery Disease (CAD), Chest Pain / Angina, CVA/TIA, Myocardial Infarction (CO), Rheumatoid Arthritis (RA) Additional Past Medical History / Comment(s): DIARRHEA,KIDNEYSTONE, CVA OCCIPITAL LOBE (AFFECTED EYES 2010),MEDIPORT FOR IV ORENCIA THERAPY Q 4 WEEKS . 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 R FEMUR FX WITH REPAIR. Past Anesthesia/Blood Transfusion Reactions: No Reported Reaction Date of Last Stent Placement:: 2007 Past Psychological History: Depression Smoking Status: Former smoker Past Alcohol Use History: Daily Past Drug Use History: None Reported - Past Family History Father Family Medical History: Hyperlipidemia Additional Family Medical History / Comment(s): FATHER AT AGE 55 YRS IN MVA. Mother Family Medical History: Cancer, Diabetes Mellitus Additional Family Medical History / Comment(s): MOTHER AT AGE 72 OF LE[place]EMIA General Exam - General Exam Comments Initial Comments: GENERAL: Patient is well-developed and well-nourished. Patient is nontoxic and well- hydrated and is in mild distress. ENT: Neck is soft and supple. No significant lymphadenopathy is noted. Oropharynx is clear. Moist mucous membranes. Neck has full range of motion without eliciting any pain. EYES: The sclera were anicteric and conjunctiva were pink and moist. Extraocular movements were intact and pupils were equal round and reactive to light. Eyelids were unremarkable. PULMONARY: Unlabored respirations. Good breath sounds bilaterally. No audible rales rhonchi or wheezing was noted. CARDIOVASCULAR: There is a regular rate and rhythm without any murmurs gallops or rubs. ABDOMEN: Soft and nontender with normal bowel sounds. SKIN: Skin is clear with no lesions or rashes and otherwise unremarkable. NEUROLOGIC: Patient is alert and oriented x3. Cranial nerves II through XII are grossly intact. Motor and sensory are also intact. Normal speech, volume and content. Symmetrical smile. MUSCULOSKELETAL: Normal extremities with adequate strength and full range of motion. LYMPHATICS: No significant lymphadenopathy is noted PSYCHIATRIC: Normal psychiatric evaluation. Limitations: no limitations Course Vital Signs 03/04/22 08:17 Temperature 98.2 F Pulse Rate 76 Respiratory 18 Rate Blood Pressure 124/61 O2 Sat by Pulse 92 L Oximetry Medical Decision Making - Medical Decision Making Computed tomography scan shows a small stone at the UVJ with some mild hydro-. This is on the left. Patient had 10 white cells I did give the patient a gram Rocephin and we'll send the patient on Anaprox. - Lab Data Result diagrams: 03/04/22 08:38 03/04/22 08:38 Lab Results 03/04/22 03/04/22 03/04/22 Range/Units 08:38 08:38 08:38 WBC 15.0 H (3.8-10.6) k/uL RBC 4.46 (4.30-5.90) m/uL Hgb 12.6 L (13.0-17.5) gm/dL Hct 38.8 L (39.0-53.0) % MCV 86.9 (80.0-100.0) fL MCH 28.1 (25.0-35.0) pg MCHC 32.4 (31.0-37.0) g/dL RDW 14.2 (11.5-15.5) % Plt Count 317 (150-450) k/uL MPV 8.1 Neutrophils % 82 % Lymphocytes % 10 % Monocytes % 5 % Eosinophils % 1 % Basophils % 0 % Neutrophils # 12.2 H (1.3-7.7) k/uL Lymphocytes # 1.6 (1.0-4.8) k/uL Monocytes # 0.8 (0-1.0) k/uL Eosinophils # 0.2 (0-0.7) k/uL Basophils # 0.0 (0-0.2) k/uL Sodium 133 L (137-145) mmol/L Potassium 4.4 (3.5-5.1) mmol/L Chloride 98 (98-107) mmol/L Carbon Dioxide 24 (22-30) mmol/L Anion Gap 11 mmol/L BUN 15 (9-20) mg/dL Creatinine 0.55 L (0.66-1.25) mg/dL Est GFR (CKD-EPI)AfAm >90 (>60 ml/min/1.73 sqM) Est GFR (CKD-EPI)NonAf >90 (>60 ml/min/1.73 sqM) Glucose 96 (74-99) mg/dL Plasma Lactic Acid Blaze 0.6 L (0.7-2.0) mmol/L Calcium 9.2 (8.4-10.2) mg/dL Total Bilirubin 0.5 (0.2-1.3) mg/dL AST 28 (17-59) U/L ALT 22 (4-49) U/L Alkaline Phosphatase 121 (38-126) U/L Total Protein 6.9 (6.3-8.2) g/dL Albumin 3.8 (3.5-5.0) g/dL Amylase 71 (30-110) U/L Lipase 229 (23-300) U/L Urine Color Urine Appearance (Clear) Urine pH (5.0-8.0) Ur Specific [place] (1.001-1.035) Urine Protein (Negative) Urine Glucose (UA) (Negative) Urine Ketones (Negative) Urine Blood (Negative) Urine Nitrite (Negative) Urine Bilirubin (Negative) Urine Urobilinogen (<2.0) mg/dL Ur Leukocyte Esterase (Negative) Urine RBC (0-5) /hpf Urine WBC (0-5) /hpf Hyaline Casts (0-2) /lpf Urine Mucus (None) /hpf 03/04/22 Range/Units 08:38 WBC (3.8-10.6) k/uL RBC (4.30-5.90) m/uL Hgb (13.0-17.5) gm/dL Hct (39.0-53.0) % MCV (80.0-100.0) fL MCH (25.0-35.0) pg MCHC (31.0-37.0) g/dL RDW (11.5-15.5) % Plt Count (150-450) k/uL MPV Neutrophils % % Lymphocytes % % Monocytes % % Eosinophils % % Basophils % % Neutrophils # (1.3-7.7) k/uL Lymphocytes # (1.0-4.8) k/uL Monocytes # (0-1.0) k/uL Eosinophils # (0-0.7) k/uL Basophils # (0-0.2) k/uL Sodium (137-145) mmol/L Potassium (3.5-5.1) mmol/L Chloride (98-107) mmol/L Carbon Dioxide (22-30) mmol/L Anion Gap mmol/L BUN (9-20) mg/dL Creatinine (0.66-1.25) mg/dL Est GFR (CKD-EPI)AfAm (>60 ml/min/1.73 sqM) Est GFR (CKD-EPI)NonAf (>60 ml/min/1.73 sqM) Glucose (74-99) mg/dL Plasma Lactic Acid Blaze (0.7-2.0) mmol/L Calcium (8.4-10.2) mg/dL Total Bilirubin (0.2-1.3) mg/dL AST (17-59) U/L ALT (4-49) U/L Alkaline Phosphatase (38-126) U/L Total Protein (6.3-8.2) g/dL Albumin (3.5-5.0) g/dL Amylase (30-110) U/L Lipase (23-300) U/L Urine Color Yellow Urine Appearance Clear (Clear) Urine pH 6.0 (5.0-8.0) Ur Specific [place] 1.016 (1.001-1.035) Urine Protein Trace H (Negative) Urine Glucose (UA) Negative (Negative) Urine Ketones 1+ H (Negative) Urine Blood Trace H (Negative) Urine Nitrite Negative (Negative) Urine Bilirubin Negative (Negative) Urine Urobilinogen <2.0 (<2.0) mg/dL Ur Leukocyte Esterase Small H (Negative) Urine RBC 6 H (0-5) /hpf Urine WBC 10 H (0-5) /hpf Hyaline Casts 1 (0-2) /lpf Urine Mucus Rare H (None) /hpf Disposition Clinical Impression: Kidney stone, Urinary tract infection Disposition: HOME SELF-CARE Condition: Good Instructions (If sedation given, give patient instructions): Kidney Stones (ED) Prescriptions: Sulfamethox-Tmp 800-160Mg [Bactrim DS 800-160 mg] 1 each PO Q12HR #14 tab Tamsulosin [Flomax] 0.4 mg PO DAILY #10 cap Ketorolac [Toradol] 10 mg PO Q6HR #15 tab Is patient prescribed a controlled substance at d/c from ED?: No Referrals: Gilmer Leal III, MD [Primary Care Provider] - 1-2 days Time of Disposition: 11:46
[2022-03-04 09:41] LABS: Basophils % (A) 0 %; Eosinophils # (A) 0.2 k/uL (0-0.7); Eosinophils % (A) 1 %; HCT 38.8 % (39.0-53.0); HGB 12.6 gm/dL (13.0-17.5); Lymphocytes # (A) 1.6 k/uL (1.0-4.8); Lymphocytes % (A) 10 %; MCH 28.1 pg (25.0-35.0); MCHC 32.4 g/dL (31.0-37.0); MCV 86.9 fL (80.0-100.0); Mean Platelet Volume 8.1; Monocytes # (A) 0.8 k/uL (0-1.0); Monocytes % (A) 5 %; Neutrophils # (A) 12.2 k/uL (1.3-7.7); Neutrophils % (A) 82 %; Platelet Count 317 k/uL (150-450); RBC 4.46 m/uL (4.30-5.90); RDW 14.2 % (11.5-15.5)
[2022-03-04 09:56] LABS: ALT 22 U/L (4-49); AST 28 U/L (17-59); African American GFR (CKD) >90 (>60 ml/min/1.73 sqM); Albumin 3.8 g/dL (3.5-5.0); Alkaline Phosphatase 121 U/L (38-126); Amylase 71 U/L (30-110); Anion Gap 11 mmol/L; Blood Urea Nitrogen 15 mg/dL (9-20); Calcium 9.2 mg/dL (8.4-10.2); Carbon Dioxide 24 mmol/L (22-30); Chloride 98 mmol/L (98-107); Glucose 96 mg/dL (74-99); Lipase 229 U/L (23-300); Non-African American GFR(CKD) >90 (>60 ml/min/1.73 sqM); Potassium 4.4 mmol/L (3.5-5.1); Sodium 133 mmol/L (137-145); Total Bilirubin 0.5 mg/dL (0.2-1.3); Total Protein 6.9 g/dL (6.3-8.2)
[2022-03-04 10:06] LABS: Appearance,Urine Clear (Clear); Bilirubin,Urine Negative (Negative); Blood,Urine Trace (Negative); Color,Urine Yellow; Glucose,Urine (UA) Negative (Negative); Hyaline Casts,Urine 1 /lpf (0-2); Ketones,Urine 1+ (Negative); Leukocyte Esterase,Urine Small (Negative); Mucus,Urine Rare /hpf; Nitrite,Urine Negative (Negative); Protein,Urine Trace (Negative); RBC,Urine 6 /hpf (0-5); Specific Gravity,Urine 1.016 (1.001-1.035); Urobilinogen,Urine <2.0 mg/dL (<2.0); WBC,Urine 10 /hpf (0-5)
[2022-03-04] MEDS ORDERED: HYDROmorphone 0.5 MG/0.5 ML SYRINGE IVP STA (10:50)
--- NOTE | 2022-03-04 11:04 | CT ---
EXAMINATION TYPE: CT abdomen pelvis w con DATE OF EXAM: 03/04/2022 COMPARISON: 04/20/2014 HISTORY: Abdominal pain, pancreatitis CT DLP: 1610.7 mGycm CONTRAST: CT scan of the abdomen and pelvis is performed without Oral Contrast and with IV Contrast, patient in jected with 100 ml mL of Isovue 300. FINDINGS: LUNG BASES-: No visible nodule. No infiltrate. LIVER/GB: Small layering gallstones noted. No space occupying hepatic lesion. Biliary tree is of n ormal caliber. PANCREAS: No inflammation. No distinct mass. SPLEEN: No splenic enlargement. No lesion seen. ADRENALS: No nodule. No thickening. KIDNEYS/BLADDER: 3 mm calculus at the left UVJ resulting in mild left-sided hydronephrosis. No eviden ce for right-sided hydronephrosis. No renal calculi seen. No evidence for renal mass. BOWEL: Normal appendix. Normal bowel caliber. No inflammation. GENITAL ORGANS: No gross abnormality. LYMPH NODES: No greater than 1cm abdominal or pelvic lymph nodes are appreciated. AORTA: No significant abnormality. OSSEOUS STRUCTURES: No significant abnormality is seen. OTHER: No significant additional abnormality is seen. IMPRESSION: 1. 3 mm calculus at the left UVJ resulting in mild left-sided hydronephrosis.
[2022-03-04] MEDS ORDERED: cefTRIAXone IN SWFI 1,000 MG/10 ML SYRINGE IVP STA (11:43)
[2022-03-04 13:24] VITALS: BP 132/78; PULSE 78; TEMP 98.6
== END 2022-03-04 12:20 | disposition home or self-care (01) ==
LOC: EC 08:04
DX: N39.0 Urinary tract infection, site not specified (principal); N20.0 Calculus of kidney; Z87.442 Personal history of urinary calculi; I25.10 Atherosclerotic heart disease of native coronary artery without angina pectoris; I25.2 Old myocardial infarction; Z87.891 Personal history of nicotine dependence
CPT/HCPCS: 36415; 80053; 82150; 83605; 83690; 85025; 81001; 74177; 99284; 96374; 96375; J0696; J1642; J1885; J1170; Q9967

== ENCOUNTER 2022-09-08 13:04 | Observation (INO) | payer MEDICARE, OTHER ==
[2022-09-08] MEDS ORDERED: SODIUM CHLORIDE 0.9% 1,000 ML IV STA (13:55)
--- NOTE | 2022-09-08 13:58 | ED ---
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 Patient denies any fever chills per patient states this has happened in the past and associated with it typically is low blood pressure and he does have a low blood pressure again today. Patient denies any abdominal pain patient denies any lightheadedness or dizziness. Patient does any headache patient denies numbness weakness - Related Data Home Medications Medication Instructions Recorded Confirmed Quinapril HCl [Accupril] 20 mg PO HS 05/09/21 09/08/22 Aspirin EC [Ecotrin Low Dose] 81 mg PO BID 08/09/22 09/08/22 Cyclobenzaprine [Flexeril] 10 mg PO HS 08/09/22 09/08/22 Adalimumab [Humira(Cf) Pen] 40 mg SQ Q14D 09/08/22 09/08/22 Boost High Protein 240 ml PO TID 09/08/22 09/08/22 atenoloL [Tenormin] 25 mg PO DAILY 09/08/22 09/08/22 diazePAM [Valium] 2 mg PO DAILY PRN 09/08/22 09/08/22 Allergies Allergy/AdvReac Type Severity Reaction Status Date / Time [facility] Allergy Unknown Verified 09/08/22 14:19 Review of Systems ROS Statement: Those systems with pertinent positive or pertinent negative responses have been documented in the HPI. ROS Other: All systems not noted in ROS Statement are negative. Past Medical History Past Medical History: Coronary Artery Disease (CAD), Chest Pain / Angina, CVA/TIA, Myocardial Infarction ([place]), Rheumatoid Arthritis (RA) Additional Past Medical History / Comment(s): DIARRHEA,KIDNEYSTONE, CVA OCCIPITAL LOBE (AFFECTED EYES 2010),MEDIPORT FOR IV ORENCIA THERAPY Q 4 WEEKS . 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 R FEMUR FX WITH REPAIR; L leg fracture Past Anesthesia/Blood Transfusion Reactions: No Reported Reaction Date of Last Stent Placement:: 2007 Past Psychological History: Depression Smoking Status: Former smoker Past Alcohol Use History: Daily Past Drug Use History: None Reported - Past Family History Father Family Medical History: Hyperlipidemia Additional Family Medical History / Comment(s): FATHER AT AGE 55 YRS IN MVA. Mother Family Medical History: Cancer, Diabetes Mellitus Additional Family Medical History / Comment(s): MOTHER AT AGE 72 OF [place] General Exam - General Exam Comments Initial Comments: GENERAL: Patient is well-developed and well-nourished. Patient is nontoxic and well-hydrated and is in mild distress. ENT: Neck is soft and supple. No significant lymphadenopathy is noted. Oropharynx is clear. Moist mucous membranes. Neck has full range of motion without eliciting any pain. EYES: The sclera were anicteric and conjunctiva were pink and moist. Extraocular movements were intact and pupils were equal round and reactive to light. Eyelids were unremarkable. PULMONARY: Unlabored respirations. Good breath sounds bilaterally. No audible rales rhonchi or wheezing was noted. CARDIOVASCULAR: There is a regular rate and rhythm without any murmurs gallops or rubs. ABDOMEN: Soft and nontender with normal bowel sounds. SKIN: Skin is clear with no lesions or rashes and otherwise unremarkable. NEUROLOGIC: Patient is alert and oriented x3. Cranial nerves II through XII are grossly intact. All 4 extremities are weak but patient states this is his baseline and they're weak equally. MUSCULOSKELETAL: Normal extremities with adequate strength and full range of motion. LYMPHATICS: No significant lymphadenopathy is noted PSYCHIATRIC: Normal psychiatric evaluation. Limitations: no limitations Course Vital Signs 09/08/22 09/08/22 09/08/22 13:15 13:53 14:31 Temperature 96.9 F L Pulse Rate 88 60 Respiratory 22 18 16 Rate Blood Pressure 87/43 93/45 O2 Sat by Pulse 98 Oximetry 09/08/22 09/08/22 18:00 18:32 Temperature Pulse Rate 87 61 Respiratory 18 Rate Blood Pressure 109/61 119/70 O2 Sat by Pulse 97 Oximetry Medical Decision Making - Medical Decision Making EKG was interpreted by myself shows a sinus bradycardia at 54 bpm OK interval is 231 QRS is 141 Q-T intervals 470 QTC is 458. Patient's EKG is of poor quality specimen leads V2 patient is a regular tach. There appears to be some minimal ST segment elevation in V2 only Was pt. sent in by a medical professional or institution (, PA, ALCOHOL STILL OPERATOR, urgent care, hospital, or penitentiary...) When possible be specific @ -No Did you speak to anyone other than the patient for history (EMS, parent, family, police, friend...)? What history was obtained from this source @ -No Did you review nursing and triage notes (agree or disagree)? Why? @ -I reviewed and agree with nursing and triage notes Were old charts reviewed (outside hosp., previous admission, EMS record, old EKG, old radiological studies, urgent care reports/EKG's, penitentiary records)? Report findings @ -I reviewed prior charts prior labs on this patient. Differential Diagnosis (chest pain, altered mental status, abdominal pain women, abdominal pain men, vaginal bleeding, weakness, fever, dyspnea, syncope, headache, dizziness, GI bleed, back pain, seizure, CVA, palpatations, mental health, musculoskeletal)? @ -Differential Dyspnea: Coronary syndrome, arrhythmia, tamponade, asthma, COPD, pulmonary embolism, pneumonia, pneumothorax, pulmonary effusion, anaphylaxis, diabetic ketoacidosis, flailed chest, pulmonary contusion, diaphragmatic rupture, anemia, neuromuscular, this is not meant to be an all-inclusive list. EKG interpreted by me (3pts min.). @ -As above X-rays interpreted by me (1pt min.). @ -Chest x-ray is interpreted by myself showed no acute abnormality. CT interpreted by me (1pt min.). @ -CT of the chest is distorted by myself I saw no pulmonary embolism U/S interpreted by me (1pt. min.). @ -None done What testing was considered but not performed or refused? (CT, X-rays, U/S, labs)? Why? @ -None What meds were considered but not given or refused? Why? @ -None Did you discuss the management of the patient with other professionals (professionals i.e. , PA, ALCOHOL STILL OPERATOR, lab, RT, psych nurse, sr. social media & mobile manager, grey stock recorder, teacher, lead security officer, catalytic case operator)? Give summary @ -Spoke with Dr. Parr he agreed to admit the patient I admitted the patient Was smoking cessation discussed for >3mins.? @ -No Was critical care preformed (if so, how long)? @ -No Were there social determinants of health that impacted care today? How? (Homelessness, low income, unemployed, alcoholism, drug addiction, transportation, low edu. Level, literacy, decrease access to med. care, long-term, rehab)? @ -No Was there de-escalation of care discussed even if they declined (Discuss DNR or withdrawal of care, Hospice)? DNR status @ -No What co-morbidities impacted this encounter? (DM, HTN, Smoking, COPD, CAD, Can cer, CVA, ARF, Chemo, Hep., AIDS, mental health diagnosis, sleep apnea, morbid obesity)? @ -None Was patient admitted / discharged? Hospital course, mention meds given and route, prescriptions, significant lab abnormalities, going to OR and other pertinent info. @ -She was complaining of dyspnea throughout his course. Even though he was ox ygenating very well he stated he felt like he couldn't get any air. Patient also states when this happens times his blood pressure was low and it went low today but also rebound denies Undiagnosed new problem with uncertain prognosis? @ -No Drug Therapy requiring intensive monitoring for toxicity (Heparin, Nitro, Insulin, Cardizem)? @ -No Were any procedures done? @ -No Diagnosis/symptom? @ -Dyspnea Acute, or Chronic, or Acute on Chronic? @ -Acute Uncomplicated (without systemic symptoms) or Complicated (systemic symptoms)? @ -Complicated Side effects of treatment? @ -No Exacerbation, Progression, or Severe Exacerbation? @ -No Poses a threat to life or bodily function? How? (Chest pain, USA, OR, pneumonia, PE, COPD, DKA, ARF, appy, cholecystitis, CVA, Diverticulitis, Homicidal, Suicidal, threat to staff... and all critical care pts) @ -No - Lab Data Result diagrams: 09/08/22 14:40 09/08/22 14:40 Lab Results 09/08/22 09/08/22 09/08/22 Range/Units 14:40 14:40 14:40 WBC 9.3 (3.8-10.6) k/uL RBC 3.93 L (4.30-5.90) m/uL Hgb 11.5 L (13.0-17.5) gm/dL Hct 34.4 L (39.0-53.0) % MCV 87.7 (80.0-100.0) fL MCH 29.2 (25.0-35.0) pg MCHC 33.3 (31.0-37.0) g/dL RDW 14.5 (11.5-15.5) % Plt Count 232 (150-450) k/uL MPV 8.7 Neutrophils % 86 % Lymphocytes % 8 % Monocytes % 3 % Eosinophils % 2 % Basophils % 0 % Neutrophils # 8.0 H (1.3-7.7) k/uL Lymphocytes # 0.7 L (1.0-4.8) k/uL Monocytes # 0.3 (0-1.0) k/uL Eosinophils # 0.2 (0-0.7) k/uL Basophils # 0.0 (0-0.2) k/uL PT 9.8 (9.0-12.0) sec INR 0.9 (<1.2) APTT 24.4 (22.0-30.0) sec D-Dimer 0.91 H (<0.60) mg/L FEU Sodium 140 (137-145) mmol/L Potassium 4.6 (3.5-5.1) mmol/L Chloride 101 (98-107) mmol/L Carbon Dioxide 36 H (22-30) mmol/L Anion Gap 3 mmol/L BUN 21 H (9-20) mg/dL Creatinine 0.56 L (0.66-1.25) mg/dL Est GFR (CKD-EPI)AfAm >90 (>60 ml/min/1.73 sqM) Est GFR (CKD-EPI)NonAf >90 (>60 ml/min/1.73 sqM) Glucose 106 H (74-99) mg/dL Plasma Lactic Acid Blzae (0.7-2.0) mmol/L Calcium 9.1 (8.4-10.2) mg/dL Magnesium 2.0 (1.6-2.3) mg/dL Total Bilirubin 0.4 (0.2-1.3) mg/dL AST 33 (17-59) U/L ALT 27 (4-49) U/L Alkaline Phosphatase 78 (38-126) U/L Troponin I (0.000-0.034) ng/mL NT-Pro-B Natriuret Pep pg/mL Total Protein 6.8 (6.3-8.2) g/dL Albumin 3.4 L (3.5-5.0) g/dL 09/08/22 09/08/22 09/08/22 Range/Units 14:40 14:40 14:40 WBC (3.8-10.6) k/uL RBC (4.30-5.90) m/uL Hgb (13.0-17.5) gm/dL Hct (39.0-53.0) % MCV (80.0-100.0) fL MCH (25.0-35.0) pg MCHC (31.0-37.0) g/dL RDW (11.5-15.5) % Plt Count (150-450) k/uL MPV Neutrophils % % Lymphocytes % % Monocytes % % Eosinophils % % Basophils % % Neutrophils # (1.3-7.7) k/uL Lymphocytes # (1.0-4.8) k/uL Monocytes # (0-1.0) k/uL Eosinophils # (0-0.7) k/uL Basophils # (0-0.2) k/uL PT (9.0-12.0) sec INR (<1.2) APTT (22.0-30.0) sec D-Dimer (<0.60) mg/L FEU Sodium (137-145) mmol/L Potassium (3.5-5.1) mmol/L Chloride (98-107) mmol/L Carbon Dioxide (22-30) mmol/L Anion Gap mmol/L BUN (9-20) mg/dL Creatinine (0.66-1.25) mg/dL Est GFR (CKD-EPI)AfAm (>60 ml/min/1.73 sqM) Est GFR (CKD-EPI)NonAf (>60 ml/min/1.73 sqM) Glucose (74-99) mg/dL Plasma Lactic Acid Blaze 0.8 (0.7-2.0) mmol/L Calcium (8.4-10.2) mg/dL Magnesium (1.6-2.3) mg/dL Total Bilirubin (0.2-1.3) mg/dL AST (17-59) U/L ALT (4-49) U/L Alkaline Phosphatase (38-126) U/L Troponin I 0.027 (0.000-0.034) ng/mL NT-Pro-B Natriuret Pep 490 pg/mL Total Protein (6.3-8.2) g/dL Albumin (3.5-5.0) g/dL Disposition Clinical Impression: Dyspnea Disposition: ADMITTED IP TO THIS HOSP Referrals: Austin Coker MD [Primary Care Provider] - 1-2 days Time of Disposition: 20:38
--- NOTE | 2022-09-08 14:58 | XR ---
EXAMINATION TYPE: XR chest 2V DATE OF EXAM: 09/08/2022 COMPARISON: CT chest August 09, 2022 HISTORY: Difficulty in breathing. TECHNIQUE: Frontal and lateral views of the chest are obtained. FINDINGS: Stable right subclavian Mediport catheter. There is mild underlying emphysematous change r edemonstrated. Patchy bibasilar opacities. No pleural effusion or pneumothorax seen bilaterally. Card iomegaly redemonstrated with atherosclerotic aorta. Multilevel spurring in the spine again seen. IMPRESSION: Chronic emphysematous change and cardiomegaly with low lung volumes and patchy bibasilar atelectasis.
[2022-09-08 15:00] LABS: Basophils % (A) 0 %; Eosinophils # (A) 0.2 k/uL (0-0.7); Eosinophils % (A) 2 %; HCT 34.4 % (39.0-53.0); HGB 11.5 gm/dL (13.0-17.5); Lymphocytes # (A) 0.7 k/uL (1.0-4.8); Lymphocytes % (A) 8 %; MCH 29.2 pg (25.0-35.0); MCHC 33.3 g/dL (31.0-37.0); MCV 87.7 fL (80.0-100.0); Mean Platelet Volume 8.7; Monocytes # (A) 0.3 k/uL (0-1.0); Monocytes % (A) 3 %; Neutrophils % (A) 86 %; Platelet Count 232 k/uL (150-450); RBC 3.93 m/uL (4.30-5.90); RDW 14.5 % (11.5-15.5); WBC 9.3 k/uL (3.8-10.6)
[2022-09-08 15:03] LABS: ALT 27 U/L (4-49); AST 33 U/L (17-59); African American GFR (CKD) >90 (>60 ml/min/1.73 sqM); Albumin 3.4 g/dL (3.5-5.0); Alkaline Phosphatase 78 U/L (38-126); Anion Gap 3 mmol/L; Blood Urea Nitrogen 21 mg/dL (9-20); Calcium 9.1 mg/dL (8.4-10.2); Carbon Dioxide 36 mmol/L (22-30); Chloride 101 mmol/L (98-107); Glucose 106 mg/dL (74-99); INR 0.9 (<1.2); Non-African American GFR(CKD) >90 (>60 ml/min/1.73 sqM); Partial Thromboplastin Time 24.4 sec (22.0-30.0); Potassium 4.6 mmol/L (3.5-5.1); Prothrombin Time 9.8 sec (9.0-12.0); Sodium 140 mmol/L (137-145); Total Bilirubin 0.4 mg/dL (0.2-1.3); Total Protein 6.8 g/dL (6.3-8.2)
--- NOTE | 2022-09-08 19:37 | CT ---
EXAMINATION TYPE: CT chest angio for PE DATE OF EXAM: 09/08/2022 COMPARISON: 08/09/2022 HISTORY: shortness of breath, elevated d-dimer CT DLP: 660.3 mGycm Automated exposure control for dose reduction was used. CONTRAST: Performed with IV Contrast, patient injected with 100 cc mL of Isovue 370. Images obtained from the thoracic inlet to the diaphragm with the IV contrast. There are Three-D post processed images. Thoracic aorta shows atheromatous changes and plaque formation. No mediastinal adenopathy. There are no hilar masses. There is normal contrast opacification of the pulmonary arteries. No filling defect Thoracic spine is intact. No compression fracture. Sternum is intact. There is some spurring in the t horacic spine. No focal bone destruction. There is some pleural thickening and atelectasis at the pos terior lung bases. IMPRESSION: No evidence of pulmonary embolism. Atherosclerotic vascular disease. Pleural thickening and atelectasis and scarring at the lung bases. No suspicious pulmonary mass.
[2022-09-08] MEDS ORDERED: SODIUM CHLORIDE 0.9% 1,000 ML IV ONE (20:40)
[2022-09-08] MEDS: ASPIRIN 81 MG PO SCH (23:36)
[2022-09-08] MEDS: HEPARIN SODIUM,PORCINE/PF 5,000 UNIT/0.5 ML SYRINGE SQ SCH (23:36)
[2022-09-08] MEDS: ALPRAZolam 0.5 MG TAB PO PRN (23:36)
--- NOTE | 2022-09-08 23:42 | P.HPIM ---
History of Present Illness H&P Date: 09/08/22 Chief Complaint: shortness of breath 82 year old male with autoimmune myositis , quadriplegia he is coming in today for evaluation due to progressive worsening difficulty marga athing over past few days, along with episodes of low blood pressure, to him , they seem to correlate, no recent changes in meds, he denies any recent illness or known sick contacts. he is bed ridden , and his family takes care of him. he depends on liquid diet majority of the time, due to difficulty swallowing , he denies any cough, fever, chills, chest pain , dizziness, light headedness, abd pain , changes in bowel or urinary habits. he denies tobacco smoking or illicit drugs , he admits to regular alcohol intake Review of Systems Pertinent positives as noted in HPI. All other systems were reviewed and are negative Past Medical History Past Medical History: Coronary Artery Disease (CAD), Chest Pain / Angina, CVA/TI A, Myocardial Infarction ([place]), Rheumatoid Arthritis (RA) Additional Past Medical History / Comment(s): DIARRHEA,KIDNEYSTONE, CVA OCCIPITAL LOBE (AFFECTED EYES 2010),MEDIPORT FOR IV ORENCIA THERAPY Q 4 WEEKS . 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 R FEMUR FX WITH REPAIR; L leg fracture Past Anesthesia/Blood Transfusion Reactions: No Reported Reaction Date of Last Stent Placement:: 2007 Past Psychological History: Depression Smoking Status: Former smoker Past Alcohol Use History: Daily Past Drug Use History: None Reported - Past Family History Father Family Medical History: Hyperlipidemia Additional Family Medical History / Comment(s): FATHER AT AGE 55 YRS IN MVA. Mother Family Medical History: Cancer, Diabetes Mellitus Additional Family Medical History / Comment(s): MOTHER AT AGE 72 OF [place] Medications and Allergies Home Medications Medication Instructions Recorded Confirmed Type Quinapril HCl [Accupril] 20 mg PO HS 05/09/21 09/08/22 History Aspirin EC [Ecotrin Low Dose] 81 mg PO BID 08/09/22 09/08/22 History Cyclobenzaprine [Flexeril] 10 mg PO HS 08/09/22 09/08/22 History Adalimumab [Humira(Cf) Pen] 40 mg SQ Q14D 09/08/22 09/08/22 History Boost High Protein 240 ml PO TID 09/08/22 09/08/22 History atenoloL [Tenormin] 25 mg PO DAILY 09/08/22 09/08/22 History diazePAM [Valium] 2 mg PO DAILY PRN 09/08/22 09/08/22 History Allergies Allergy/AdvReac Type Severity Reaction Status Date / Time amlodipine [From [facility]] Allergy Unknown Verified 09/08/22 14:19 Physical Exam Vitals: Vital Signs Temp Pulse Resp BP Pulse Ox 09/08/22 18:32 61 18 119/70 97 09/08/22 18:00 87 109/61 09/08/22 14:31 60 16 93/45 09/08/22 13:53 18 09/08/22 13:15 96.9 F L 88 22 87/43 98 Intake and Output 09/08/22 09/08/22 09/08/22 06:59 14:59 22:59 Other: Weight 80.739 kg Constitutional: No acute distress, conversant, pleasant Eyes: Anicteric sclerae, moist conjunctiva, Pupils equal round reactive to light ENMT: NC/AT Oropharynx clear, no erythema, or exudates Neck: Supple, no masses, or JVD No carotid bruits No thyromegaly Lungs: Clear to auscultation Clear to percussion Normal respiratory effort, no accessory muscle use Cardiovascular: Heart regular in rate and rhythm, No murmurs, gallops, or rubs No peripheral edema Abdominal: Soft Nontender, no guarding, rebound or rigidity Abdomen moving with respiration Normoactive bowel sounds No hepatomegaly, No splenomegaly No palpable mass No abdominal wall hernia noted Skin: Normal temperature, tone, texture, turgor Extremities: No digital cyanosis No clubbing Pedal pulses intact and symmetrical Radial pulses intact and symmetrical No calf tenderness Psychiatric: Alert and oriented to person, place and time Appropriate affect fair judgment Neuro Muscles Strength 2/5 in all 4 extremities Cranial nerves II-XII grossly intact Lymphatics: no palpable cervical or supraclavicular lymph nodes Results CBC & Chem 7: 09/08/22 14:40 09/08/22 14:40 Labs: Abnormal Lab Results - Last 24 Hours (Table) 09/08/22 09/08/22 09/08/22 Range/Units 14:40 14:40 14:40 RBC 3.93 L (4.30-5.90) m/uL Hgb 11.5 L (13.0-17.5) gm/dL Hct 34.4 L (39.0-53.0) % Neutrophils # 8.0 H (1.3-7.7) k/uL Lymphocytes # 0.7 L (1.0-4.8) k/uL D-Dimer 0.91 H (<0.60) mg/L FEU Carbon Dioxide 36 H (22-30) mmol/L BUN 21 H (9-20) mg/dL Creatinine 0.56 L (0.66-1.25) mg/dL Glucose 106 H (74-99) mg/dL Albumin 3.4 L (3.5-5.0) g/dL Assessment and Plan Assessment: 82 year old male with autoimmune myositis , coming in for difficulty breathing, I discussed the case with ED doc, patient had elevated d dimer and CTA Of the chest showed no acute PE, I accepted the admission for close monitoring and further workup of worsening SOB, and new bradycardia hypotension , resolved dehydration , ,BUN 21 cr 0.66 s/p 1 l normal saline continue with saline at 75 cc per hour monitor renal function and urine output difficulty breathing , patient with autoimmune myositis supplemental oxygen as needed, currently not requiring supplemental oxygen elevated d dimer , CTA Of the chest no acute PE pulmonary consult Sinus bradycardia 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
[2022-09-09 09:00] LABS: HCT 32.6 % (39.6-50.0); HGB 10.3 g/dL (13.0-17.0); MCH 28.8 pg (27.0-32.0); MCHC 31.6 g/dL (32.0-37.0); MCV 91.1 fL (80.0-97.0); Neutrophils % (A) 67.9 %; Platelet Count 207 X 10*3/uL (140-440); RBC 3.58 X 10*6/uL (4.40-5.60); RDW 14.5 % (11.5-14.5); WBC 6.61 X 10*3/uL (4.50-10.00)
[2022-09-09] MEDS ORDERED: PROTEIN SUPPLEMENT PO SCH (09:00)
[2022-09-09] MEDS ORDERED: atenoloL 25 MG TAB PO SCH (09:00)
[2022-09-09 09:01] LABS: Basophils # (A) 0.04 X 10*3/uL (0.00-0.10); Basophils % (A) 0.6 %; Eosinophils # (A) 0.17 X 10*3/uL (0.04-0.35); Eosinophils % (A) 2.6 %; Immature Grans, Automated 0.3 %; Lymphocytes # (A) 1.34 X 10*3/uL (0.90-5.00); Lymphocytes % (A) 20.3 %; Monocytes # (A) 0.55 X 10*3/uL (0.20-1.00); Monocytes % (A) 8.3 %; NRBC Per 100 WBC 0 /100 WBCS (0.0-0.0); Neutrophils # (A) 4.49 X 10*3/uL (1.80-7.70)
[2022-09-09 09:42] LABS: African American GFR (CKD) 129.1 (60.0-200.0); BUN/Creat Ratio 45.75 Ratio (12.00-20.00); Blood Urea Nitrogen 18.3 mg/dL (9.0-27.0); Calcium 9.4 mg/dL (8.7-10.3); Carbon Dioxide 32.2 mmol/L (20.0-27.5); Chloride 104 mmol/L (96-109); Glucose 98 mg/dL (70-110); Non-African American GFR(CKD) 111.4 (60.0-200.0); Potassium 4.1 mmol/L (3.5-5.5); Sodium 142 mmol/L (135-145)
[2022-09-09] MEDS: ASPIRIN 81 MG PO SCH ×2 (09:51→19:43)
[2022-09-09] MEDS: HEPARIN SODIUM,PORCINE/PF 5,000 UNIT/0.5 ML SYRINGE SQ SCH ×2 (09:51→16:08)
--- NOTE | 2022-09-09 10:41 | P.CRDCN ---
History of Present Illness Consult date: 09/09/22 Reason for Consult (text): bradycardia History of present illness: The patient is an 82-year-old male who presented to the hospital with increased shortness of breath. Cardiology was consulted for bradycardia as initial EKG showed heart rate of 54. The patient states his main complaint is increased shortness of breath, which did not improve after his last hospital admission. He reports generalized weakness and fatigue but has a history of autoimmune myositis. DIAGNOSTICS: EKG shows sinus rhythm with first-degree AV block and right bundle branch block Chest x-ray shows chronic emphysematous change and cardiomegaly with low lung volumes and bibasilar atelectasis Computed tomography scan of the chest shows no evidence of pulmonary embolism Echocardiogram from August 09 shows preserved LV function with mild valvular abnormalities. Suboptimal image quality. Lab data: WBC 6.61 and hemoglobin 10.3, hematocrit 32.6, platelet 207, d-dimer 0.91, sodium 142, potassium 4.1, BUN 18, creatinine 0.4, AST 33, ALT 27, troponin 0.02, BNP 498, TSH 1.02 REVIEW OF SYSTEMS: No fever or chills. No cough or expectoration. No diaphoresis. Patient denies headache, dizziness, blurred vision, double vision. Patient denies any stomach discomfort. No nausea, vomiting. No hematochezia. No hematemesis. Denies any black stools or blood in his stools. Denies dysuria or hematuria. No muscle weakness or numbness. Positive for shortness of breath. Positive for weakness and fatigue. PHYSICAL EXAMINATION: This is a 82-year-old male in no apparent distress at the time of my examination. HEENT: Head is atraumatic, normocephalic. Pupils are equal, round. Sclerae anicteric. Conjunctivae are clear. Mucous membranes of the mouth are moist. Neck is supple. There is no jugular venous distention. No carotid bruit is heard. CHEST EXAMINATION: Lungs are diminished to auscultation. No chest wall tenderness is noted on palpation or with deep breathing. HEART EXAMINATION: Heart regular rate and rhythm. S1, S2 heard. No murmurs, gallops or rub. ABDOMEN: Soft, nontender. Bowel sounds are heard. No organomegaly noted. EXTREMITIES: 2+ peripheral pulses with no evidence of peripheral edema and no calf tenderness noted. Positive muscle atrophy. NEUROLOGIC EXAMINATION: Patient is awake, alert and oriented x3. FINAL ASSESSMENT AND PLAN: Shortness of breath Elevated d-dimer Hypertension Hyperlipidemia History of coronary artery disease with previous stenting History of carotid disease with prior carotid endarterectomy History of autoimmune myositis with quadriplegia History of CVA PLAN: Start low-dose carvedilol Plan for dobutamine stress echocardiogram on Sunday Hold beta danial the morning of testing Check TSH Further recommendations based upon clinical course I am dictating on behalf of Dr Omkar Dior's history/physical and assessm ent/plan. Past Medical History Past Medical History: Coronary Artery Disease (CAD), Chest Pain / Angina, CVA/TIA, Myocardial Infarction (VT), Rheumatoid Arthritis (RA) Additional Past Medical History / Comment(s): DIARRHEA,KIDNEYSTONE, CVA OCCIPITAL LOBE (AFFECTED EYES 2010),MEDIPORT FOR IV ORENCIA THERAPY Q 4 WEEKS . 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 R FEMUR FX WITH REPAIR; L leg fracture Past Anesthesia/Blood Transfusion Reactions: No Reported Reaction Date of Last Stent Placement:: 2007 Past Psychological History: Depression Additional Psychological History / Comment(s): PT LIVES WITH "[facility]" FOR PAST 16 YRS. PT RETIRED IN 1992. HE RAN AN [employer]. Smoking Status: Former smoker Past Alcohol Use History: Daily Past Drug Use History: None Reported - Past Family History Father Family Medical History: Hyperlipidemia Additional Family Medical History / Comment(s): FATHER AT AGE 55 YRS IN MVA. Mother Family Medical History: Cancer, Diabetes Mellitus Additional Family Medical History / Comment(s): MOTHER AT AGE 72 OF LEUKEMIA Medications and Allergies Home Medications Medication Instructions Recorded Confirmed Type Quinapril HCl [Accupril] 20 mg PO HS 05/09/21 09/08/22 History Aspirin EC [Ecotrin Low Dose] 81 mg PO BID 08/09/22 09/08/22 History Cyclobenzaprine [Flexeril] 10 mg PO HS 08/09/22 09/08/22 History Adalimumab [Humira(Cf) Pen] 40 mg SQ Q14D 09/08/22 09/08/22 History Boost High Protein 240 ml PO TID 09/08/22 09/08/22 History atenoloL [Tenormin] 25 mg PO DAILY 09/08/22 09/08/22 History diazePAM [Valium] 2 mg PO DAILY PRN 09/08/22 09/08/22 History Allergies Allergy/AdvReac Type Severity Reaction Status Date / Time amlodipine [From [facility]] Allergy Unknown Verified 09/08/22 14:19 Physical Exam Vitals: Vital Signs Temp Pulse Pulse Resp BP BP BP 09/09/22 07:00 97.3 F L 65 16 145/65 09/08/22 22:08 97.6 F 78 19 162/84 09/08/22 18:32 61 18 119/70 09/08/22 18:00 87 109/61 09/08/22 14:31 60 16 93/45 09/08/22 13:53 18 09/08/22 13:15 96.9 F L 88 22 87/43 Pulse Ox 09/09/22 07:00 96 09/08/22 22:08 100 09/08/22 18:32 97 09/08/22 18:00 09/08/22 14:31 09/08/22 13:53 09/08/22 13:15 98 Intake and Output 09/08/22 09/09/22 09/09/22 22:59 06:59 14:59 Intake Total 118 Output Total 200 Balance -200 118 Intake: Oral 118 Output: Urine 200 Other: Voiding Method External Catheter External Catheter # Voids 1 Weight 80.739 kg Results 09/09/22 05:00 09/09/22 05:00 Cardiac Enzymes 09/08/22 09/08/22 Range/Units 14:40 14:40 AST 33 (17-59) U/L Troponin I 0.027 (0.000-0.034) ng/mL Coagulation 09/08/22 Range/Units 14:40 PT 9.8 (9.0-12.0) sec APTT 24.4 (22.0-30.0) sec CBC 09/08/22 09/09/22 Range/Units 14:40 05:00 WBC 9.3 6.61 (3.8-10.6) k/uL RBC 3.93 L 3.58 L (4.30-5.90) m/uL Hgb 11.5 L 10.3 L (13.0-17.5) gm/dL Hct 34.4 L 32.6 L (39.0-53.0) % Plt Count 232 207 (150-450) k/uL Comprehensive Metabolic Panel 09/08/22 09/09/22 Range/Units 14:40 05:00 Sodium 140 142 (137-145) mmol/L Potassium 4.6 4.1 (3.5-5.1) mmol/L Chloride 101 104 (98-107) mmol/L Carbon Dioxide 36 H 32.2 H (22-30) mmol/L BUN 21 H 18.3 (9-20) mg/dL Creatinine 0.56 L 0.4 L (0.66-1.25) mg/dL Glucose 106 H 98 (74-99) mg/dL Calcium 9.1 9.4 (8.4-10.2) mg/dL AST 33 (17-59) U/L ALT 27 (4-49) U/L Alkaline Phosphatase 78 (38-126) U/L Total Protein 6.8 (6.3-8.2) g/dL Albumin 3.4 L (3.5-5.0) g/dL Current Medications Generic Name Dose Route Start Last Admin Trade Name Freq PRN Reason Stop Dose Admin Alprazolam 0.5 mg 09/08/22 22:31 09/08/22 23:36 Alprazolam 0.5 Mg Tab PO 0.5 mg TID PRN Administration Anxiety Aspirin 81 mg 09/08/22 22:45 09/09/22 09:51 Aspirin 81 Mg PO 81 mg BID MARY Administration Heparin Sodium (Porcine) 5,000 unit 09/09/22 00:00 09/09/22 09:51 Heparin Sodium,Porcine/Pf 5,000 Unit/0.5 Ml Syringe SQ 5,000 unit Q8HR MARY Administration Dobutamine HCl/Dextrose 500 mg 250 mls @ 24.222 mls/hr 09/09/22 10:20 / IV Solution IV 09/09/22 14:21 .[id number] PRN Per Protocol Protocol 10 MCG/KG/MIN Intake and Output 09/08/22 09/09/22 09/09/22 22:59 06:59 14:59 Intake Total 118 Output Total 200 Balance -200 118 Intake: Oral 118 Output: Urine 200 Other: Voiding Method External Catheter External Catheter # Voids 1 Weight 80.739 kg 09/09/22 05:00 09/09/22 05:00
--- NOTE | 2022-09-09 11:45 | P.CNPUL ---
History of Present Illness Consult date: 09/09/22 Reason for consult: dyspnea History of present illness: 82-year-old male patient who was readmitted to the hospital because of of shortness of breath. The patient recently seen in the hospital because of shortness of breath. The patient is known to have coronary disease, previous coronary stenting, carotid artery disease, hypertension and hyperlipidemia and also neuromyositis the patient is having with mobility and gait. The patient has also previous history of CVA. Pattern Setter was consulted the patient was having bradycardia on admission EKG with a heart rate of 54. This was sinus bradycardia. No cough no sputum production. No aspiration. CT antigram of the chest showed negative abnormalities. The Lasix on a 6.6 with a hemoglobin of 10.3 and a platelet count of 207. Normal electrolytes and normal renal function. TSH is 1. ProBNP level is at 490. LFTs are normal. Coagulation profile is within normal limits patient's d-dimer is at 0.9. The patient is currently on 2 L of O2 nasal cannula. 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 He was diagnosed at [facility] in 2011 and he was told that there was no available theray for his condition. He has some difficulties with swallow and no aspiration Review of Systems Constitutional: Reports fatigue, Reports weakness Eyes: denies as per HPI, denies blurred vision, denies bulging eye, denies decreased vision, denies diplopia, denies discharge, denies dry eye, denies irritation, denies itching, denies pain, denies photophobia, denies loss of peripheral vision, denies loss of vision, denies tunnel vision/blind spots Ears: deny: decreased hearing, ear discharge, earache, tinnitus Ears, nose, mouth and throat: Reports as per HPI Breasts: absent: as per HPI, gynecomastia Cardiovascular: Reports decreased exercise tolerance Respiratory: Reports dyspnea Gastrointestinal: Reports as per HPI Genitourinary: Reports as per HPI Musculoskeletal: Reports gait dysfunction, Reports limitation of motion, Reports muscle weakness Musculoskeletal: absent: ankle pain, ankle stiffness, ankle swelling Integumentary: Reports as per HPI Neurological: Reports as per HPI, Reports gait dysfunction Psychiatric: Reports as per HPI Endocrine: Reports as per HPI Hematologic/Lymphatic: Reports as per HPI Allergic/Immunologic: Reports as per HPI Past Medical History Past Medical History: Coronary Artery Disease (CAD), Chest Pain / Angina, CVA/TIA, Myocardial Infarction (MD), Rheumatoid Arthritis (RA) Additional Past Medical History / Comment(s): DIARRHEA,KIDNEYSTONE, CVA OC CIPITAL LOBE (AFFECTED EYES 2010),MEDIPORT FOR IV ORENCIA THERAPY Q 4 WEEKS . 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 R FEMUR FX WITH REPAIR; L leg fracture Past Anesthesia/Blood Transfusion Reactions: No Reported Reaction Date of Last Stent Placement:: 2007 Past Psychological History: Depression Additional Psychological History / Comment(s): PT LIVES WITH "[facility]" FOR PAST 16 YRS. PT RETIRED IN 1992. HE RAN AN [employer]. Smoking Status: Former smoker Past Alcohol Use History: Daily Past Drug Use History: None Reported - Past Family History Father Family Medical History: Hyperlipidemia Additional Family Medical History / Comment(s): FATHER AT AGE 55 YRS IN MVA. Mother Family Medical History: Cancer, Diabetes Mellitus Additional Family Medical History / Comment(s): MOTHER AT AGE 72 OF LEUKEMIA Medications and Allergies Home Medications Medication Instructions Recorded Confirmed Type Quinapril HCl [Accupril] 20 mg PO HS 05/09/21 09/08/22 History Aspirin EC [Ecotrin Low Dose] 81 mg PO BID 08/09/22 09/08/22 History Cyclobenzaprine [Flexeril] 10 mg PO HS 08/09/22 09/08/22 History Adalimumab [Humira(Cf) Pen] 40 mg SQ Q14D 09/08/22 09/08/22 History Boost High Protein 240 ml PO TID 09/08/22 09/08/22 History atenoloL [Tenormin] 25 mg PO DAILY 09/08/22 09/08/22 History diazePAM [Valium] 2 mg PO DAILY PRN 09/08/22 09/08/22 History Allergies Allergy/AdvReac Type Severity Reaction Status Date / Time amlodipine [From [facility]] Allergy Unknown Verified 09/08/22 14:19 Physical Exam Vitals: Vital Signs Temp Pulse Pulse Resp BP BP BP 09/09/22 07:00 97.3 F L 65 16 145/65 09/08/22 22:08 97.6 F 78 19 162/84 09/08/22 18:32 61 18 119/70 09/08/22 18:00 87 109/61 09/08/22 14:31 60 16 93/45 09/08/22 13:53 18 09/08/22 13:15 96.9 F L 88 22 87/43 Pulse Ox 09/09/22 07:00 96 09/08/22 22:08 100 09/08/22 18:32 97 09/08/22 18:00 09/08/22 14:31 09/08/22 13:53 09/08/22 13:15 98 Intake and Output 09/08/22 09/09/22 09/09/22 22:59 06:59 14:59 Intake Total 118 Output Total 200 Balance -200 118 Intake: Oral 118 Output: Urine 200 Other: Voiding Method External Catheter External Catheter # Voids 1 Weight 80.739 kg GENERAL EXAM: Alert, pleasant 82-year-old gentleman, 3 L nasal cannula, comfortable in no apparent distress. HEAD: Normocephalic. EYES: Normal reaction of pupils, equal size. NOSE: Clear with pink turbinates. THROAT: No erythema or exudates. NECK: No masses, no JVD. CHEST: No chest wall deformity. LUNGS: Equal air entry with no crackles, wheeze, rhonchi or dullness. CVS: S1 and S2 normal with no audible murmur, regular rhythm. ABDOMEN: No hepatosplenomegaly, normal bowel sounds, no guarding or rigidity. SPINE: No scoliosis or deformity SKIN: No rashes CENTRAL NERVOUS SYSTEM: No focal deficits, tone is normal in all 4 extremities. EXTREMITIES: There is no peripheral edema. No clubbing, no cyanosis. Peripheral pulses are intact. Results - Laboratory Findings CBC and BMP: 09/09/22 05:00 09/09/22 05:00 PT/INR, D-dimer PT 9.8 sec (9.0-12.0) 09/08/22 14:40 INR 0.9 (<1.2) 09/08/22 14:40 D-Dimer 0.91 mg/L FEU (<0.60) H 09/08/22 14:40 Abnormal lab findings: Abnormal Labs 09/08/22 09/08/22 09/08/22 14:40 14:40 14:40 RBC 3.93 L Hgb 11.5 L Hct 34.4 L MCHC Neutrophils # 8.0 H Lymphocytes # 0.7 L D-Dimer 0.91 H Carbon Dioxide 36 H Anion Gap BUN 21 H Creatinine 0.56 L BUN/Creatinine Ratio Glucose 106 H Albumin 3.4 L 09/09/22 09/09/22 05:00 05:00 RBC 3.58 L Hgb 10.3 L Hct 32.6 L MCHC 31.6 L Neutrophils # Lymphocytes # D-Dimer Carbon Dioxide 32.2 H Anion Gap 5.80 L BUN Creatinine 0.4 L BUN/Creatinine Ratio 45.75 H Glucose Albumin Assessment and Plan Plan: Chronic respiratory insufficiency with ongoing worsening shortness in a setting of an inclusion body myositis/autoimmune disorder with extensive neuromuscular weakness and the patient has been essentially bedridden for the past 4 years. Original diagnosis was in 2011. The patient has no evidence of any pulmonary embolism. CT angiogram of the chest is negative. Currently on 2 L of Oxymizer nasal cannula. He has a weak cough. He has obvious neuromuscular weakness. The blood gas that was obtained during his last admission showed an acute on top of chronic hypercapnic respiratory failure. As such, I suspect that the patient is having significant neuromuscular weakness related to his myositis with seco ndary respiratory insufficiency and chronic respiratory failure and dyspnea. He may potentially benefit from a noninvasive positive pressure ventilator. History of CAD, with previous MD, and PCI with stent placement. 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 The patient is currently off Orencia and currently taking Humira Kidney stones. History of psoriasis. Remote history of tobacco use. Plan Obtain a bedside spirometry Obtain a blood gas on room air oxygen to assess for any carbon dioxide retention, Keep oxygen 2 L We will regulate the patient for a noninvasive positive pressure ventilator, possibly a AVAPS machine Provide this potentially may benefit from the ventilator the patient incentive spirometer Cardiology consultation We'll continue to follow
[2022-09-09] MEDS: carvediloL 3.125 MG TAB PO SCH ×2 (11:47→18:35)
[2022-09-09 12:33] LABS: ABG Base Excess 8.4 mmol/L; ABG HCO3 34 mmol/L (21-25); ABG Oxygen Saturation 93.6 % (94-97); ABG PCO2 57 mmHg (35-45); ABG PH 7.38 (7.35-7.45); ABG PO2 61 mmHg (83-108); ABG TCO2 35 mmol/L (19-24); Allen Test Performed? Yes
--- NOTE | 2022-09-09 13:43 | P.PN ---
Subjective Progress Note Date: 09/09/22 The patient is an 82-year-old male with extensive PMH including inclusion body myositis, CAD status post stenting, rheumatoid arthritis, psoriasis, status post carotid endarterectomy, history of CVA, and hypertension who presented to the emergency room with complaints of shortness of breath. In the ED, he was noted to be hypotensive with BP of 87/43. He required 2 L nasal cannula to maintain O2 saturation greater than 92%. CBC showed hemoglobin of 11.5. Coagulation panel within normal limits. D-dimer 0.91. CMP showed a bicarb of 36, BUN of 21, creatinine is 0.56, glucose 106. Troponin was 0.027. EKG shows sinus bradycardia with first-degree AV block, right bundle branch block and findings of left ventricular hypertrophy. BNP was 490. Chest x-ray showed chronic emphysematous changes and cardiomegaly with patchy bibasilar atelectasis. CTA chest showed no PE, pleural thickening and atelectasis. Patient was admitted for further management symptoms and workup. Patient was seen and examined this morning. No acute events overnight. Patient continues to report difficulty breathing and inability to take a deep inspiration. He denies any chest pain or palpitations. No nausea or vomiting. No fever or chills. General: non toxic, no distress, appears at stated age Derm: warm, dry Head: atraumatic, normocephalic, symmetric Eyes: EOMI, no lid lag, anicteric sclera Mouth: no lip lesion, mucus membranes moist Cardiovascular: S1S2 reg, no murmur Lungs: CTA bilateral, no rhonchi, no rales , no accessory muscle use Ext: no gross muscle atrophy, no edema, no contractures Neuro: no focal neuro deficits Psych: Alert, oriented, appropriate affect Hypotension Dyspnea at rest Bradycardia Normocytic anemia Elevated d-dimer Chronic respiratory acidosis with compensated metabolic alkalosis Chronic conditions: inclusion body myositis, CAD status post stenting, rheumatoid arthritis, psoriasis, status post carotid endarterectomy, history of CVA, and hypertension Based on my assessment of this patient, this patient meets a moderate complexity level of care. I have reviewed the following business analyst consultant notes: Cardiology note, 09/09, start low-dose Coreg, stress echocardiogram on Sunday. Pulmonology note, 09/09, bedside spirometry, ABG due to possible need for AVAPS I have reviewed the results of the following tests: CBC shows hemoglobin of 10.3. There are no active signs of bleeding and his hemoglobin appears to be stable. ABG shows pH of 7.38, pCO2 of 57 along the bicarb of 32.2. This is consistent with chronic respiratory acidosis with compensated metabolic alkalosis. BMP shows a bicarb of 32.2, BUN to creatinine ratio is 45.75. TSH is 1.02. I have ordered the following tests: None. I have discussed the care of this patient with the following independent historian: None. I have independently interpreted the following test below: None. I have discussed the management of this patient with the following physician: None. This patient has a moderate risk of morbidity due to the following reasons: Patient has a new diagnosis of dyspnea and hypotension in the setting of inclusion body myositis with uncertain prognosis. Pulmonology has evaluated the patient and recommends bedside spirometry, ABG due to possible need for AVAPS. Initially, his antihypertensive medication was held due to hypotension. His most recent BP is 119/63. Cardiology has evaluated the patient and recommends Coreg 3.125 mg by mouth twice a day. He is scheduled for stress echocardiogram on Sunday. Objective - Vital Signs Vital signs: Vital Signs Temp 97.4 F L 09/09/22 13:26 Pulse 76 09/09/22 13:26 Resp 16 09/09/22 13:26 BP 119/63 09/09/22 13:26 Pulse Ox 94 L 09/09/22 13:26 FiO2 Intake & Output 09/08/22 09/09/22 09/09/22 18:59 06:59 18:59 Intake Total 118 Output Total 200 200 Balance -200 -82 Weight 80.739 kg 80.739 kg Intake: Oral 118 Output: Urine 200 200 Other: Voiding Method External Catheter External Catheter # Voids 1 - Labs CBC & Chem 7: 09/09/22 05:00 09/09/22 05:00 Labs: Abnormal Lab Results - Last 24 Hours (Table) 09/08/22 09/08/22 09/08/22 Range/Units 14:40 14:40 14:40 RBC 3.93 L (4.30-5.90) m/uL Hgb 11.5 L (13.0-17.5) gm/dL Hct 34.4 L (39.0-53.0) % MCHC (32.0-37.0) g/dL Neutrophils # 8.0 H (1.3-7.7) k/uL Lymphocytes # 0.7 L (1.0-4.8) k/uL D-Dimer 0.91 H (<0.60) mg/L FEU ABG pCO2 (35-45) mmHg ABG pO2 (83-108) mmHg ABG HCO3 (21-25) mmol/L ABG Total CO2 (19-24) mmol/L ABG O2 Saturation (94-97) % Carbon Dioxide 36 H (22-30) mmol/L Anion Gap (10.00-18.00) mmol/L BUN 21 H (9-20) mg/dL Creatinine 0.56 L (0.66-1.25) mg/dL BUN/Creatinine Ratio (12.00-20.00) Ratio Glucose 106 H (74-99) mg/dL Albumin 3.4 L (3.5-5.0) g/dL 09/09/22 09/09/22 09/09/22 Range/Units 05:00 05:00 12:29 RBC 3.58 L (4.30-5.90) m/uL Hgb 10.3 L (13.0-17.5) gm/dL Hct 32.6 L (39.0-53.0) % MCHC 31.6 L (32.0-37.0) g/dL Neutrophils # (1.3-7.7) k/uL Lymphocytes # (1.0-4.8) k/uL D-Dimer (<0.60) mg/L FEU ABG pCO2 57 H (35-45) mmHg ABG pO2 61 L (83-108) mmHg ABG HCO3 34 H (21-25) mmol/L ABG Total CO2 35 H (19-24) mmol/L ABG O2 Saturation 93.6 L (94-97) % Carbon Dioxide 32.2 H (22-30) mmol/L Anion Gap 5.80 L (10.00-18.00) mmol/L BUN (9-20) mg/dL Creatinine 0.4 L (0.66-1.25) mg/dL BUN/Creatinine Ratio 45.75 H (12.00-20.00) Ratio Glucose (74-99) mg/dL Albumin (3.5-5.0) g/dL Microbiology - Last 24 Hours (Table) 09/08/22 14:20 Blood Culture - Final Blood 09/08/22 14:35 Blood Culture - Final Blood
[2022-09-09] MEDS: CYCLOBENZAPRINE 10 MG TAB PO SCH (19:43)
[2022-09-09] MEDS ORDERED: VANCOMYCIN IV PER PHARMACY 1 EACH MISC MISCELLANE PRN (21:53)
[2022-09-09] MEDS: ALPRAZolam 0.5 MG TAB PO PRN (22:15)
[2022-09-10] MEDS: HEPARIN SODIUM,PORCINE/PF 5,000 UNIT/0.5 ML SYRINGE SQ SCH ×3 (00:45→17:29)
[2022-09-10] MEDS ORDERED: VANCOMYCIN 1,750 MG in SODIUM CHLORIDE 0.9% 500 ML 500 ML IVPB ONE (06:00)
[2022-09-10] MEDS: carvediloL 3.125 MG TAB PO SCH ×2 (06:04→17:29)
[2022-09-10] MEDS: ASPIRIN 81 MG PO SCH ×2 (10:16→20:06)
[2022-09-10] MEDS: ACETAMINOPHEN TAB 325 MG TAB PO PRN (10:16)
--- NOTE | 2022-09-10 11:20 | P.PN ---
Subjective Progress Note Date: 09/10/22 The patient is an 82-year-old male with extensive PMH including inclusion body myositis, CAD status post stenting, rheumatoid arthritis, psoriasis, status post carotid endarterectomy, history of CVA, and hypertension who presented to the emergency room with complaints of shortness of breath. In the ED, he was noted to be hypotensive with BP of 87/43. He required 2 L nasal cannula to maintain O2 saturation greater than 92%. CBC showed hemoglobin of 11.5. Coagulation panel within normal limits. D-dimer 0.91. CMP showed a bicarb of 36, BUN of 21, creatinine is 0.56, glucose 106. Troponin was 0.027. EKG shows sinus bradycardia with first-degree AV block, right bundle branch block and findings of left ventricular hypertrophy. BNP was 490. Chest x-ray showed chronic emphysematous changes and cardiomegaly with patchy bibasilar atelectasis. CTA chest showed no PE, pleural thickening and atelectasis. Patient was admitted for further management symptoms and workup. Patient was seen and examined this morning. No acute events overnight. Patient continues to report difficulty breathing and inability to take a deep inspiration. He denies any chest pain or palpitations. No nausea or vomiting. No fever or chills. General: non toxic, no distress, appears at stated age Derm: warm, dry Head: atraumatic, normocephalic, symmetric Eyes: EOMI, no lid lag, anicteric sclera Mouth: no lip lesion, mucus membranes moist Cardiovascular: S1S2 reg, no murmur Lungs: CTA bilateral, no rhonchi, no rales , no accessory muscle use Ext: no gross muscle atrophy, no edema, no contractures Neuro: no focal neuro deficits Psych: Alert, oriented, appropriate affect Dyspnea at rest Gram positive bacteremia Normocytic anemia Elevated d-dimer Chronic respiratory acidosis with compensated metabolic alkalosis Resolved: Hypotension, Bradycardia Chronic conditions: inclusion body myositis, CAD status post stenting, rheumatoid arthritis, psoriasis, status post carotid endarterectomy, history of CVA, and hypertension Based on my assessment of this patient, this patient meets a moderate complexity level of care. I have reviewed the following new home sales consultant notes: None. I have reviewed the results of the following tests: Blood culture positive for staphylococcal species 2. I have ordered the following tests: Repeat blood culture ordered. I have discussed the care of this patient with the following independent historian: None. I have independently interpreted the following test below: None. I have discussed the management of this patient with the following physician: None. This patient has a moderate risk of morbidity due to the following reasons: Patient has a new diagnosis of dyspnea and hypotension in the setting of inclusion body myositis with uncertain prognosis. Pulmonology has evaluated the patient and recommends bedside spirometry, ABG due to possible need for AVAPS. Initially, his antihypertensive medication was held due to hypotension. His most recent BP is 165/82. Continue Coreg 3.125 mg by mouth twice a day. He is scheduled for stress echocardiogram on Sunday. Blood culture positive for staphylococcal species 2. Clinically, patient is doing well. This is likely a contaminant. However, he is started on vancomycin 1500 mg IV twice a day empirically. Repeat blood culture ordered. Objective - Vital Signs Vital signs: Vital Signs Temp 97.5 F L 09/10/22 06:03 Pulse 68 09/10/22 06:03 Resp 18 09/10/22 06:03 BP 165/82 09/10/22 06:03 Pulse Ox 98 09/10/22 09:01 FiO2 2 09/10/22 09:01 Intake & Output 09/09/22 09/10/22 09/10/22 18:59 06:59 18:59 Intake Total 118 118 Output Total 200 350 Balance -82 -350 118 Intake: Oral 118 118 Output: Urine 200 350 Other: Voiding Method External Catheter External Catheter External Catheter - Labs CBC & Chem 7: 09/09/22 05:00 09/09/22 05:00 Labs: Abnormal Lab Results - Last 24 Hours (Table) 09/09/22 Range/Units 12:29 ABG pCO2 57 H (35-45) mmHg ABG pO2 61 L (83-108) mmHg ABG HCO3 34 H (21-25) mmol/L ABG Total CO2 35 H (19-24) mmol/L ABG O2 Saturation 93.6 L (94-97) % Microbiology - Last 24 Hours (Table) 09/08/22 14:35 Blood Culture Gram Stain - Preliminary Blood Blood Culture - Preliminary Staphylococcus species 09/08/22 14:20 Blood Culture Gram Stain - Preliminary Blood 09/08/22 14:20 Blood Culture - Final Blood 09/08/22 14:35 Blood Culture - Final Blood
--- NOTE | 2022-09-10 12:43 | P.PN ---
Subjective Progress Note Date: 09/10/22 History of present illness: The patient is an 82-year-old male who presented to the hospital with increased shortness of breath. Cardiology was consulted for bradycardia as initial EKG showed heart rate of 54. The patient states his main complaint is increased shortness of breath, which did not improve after his last hospital admission. He reports generalized weakness and fatigue but has a history of autoimmune myositis. DIAGNOSTICS: EKG shows sinus rhythm with first-degree AV block and right bundle branch block Chest x-ray shows chronic emphysematous change and cardiomegaly with low lung volumes and bibasilar atelectasis Computed tomography scan of the chest shows no evidence of pulmonary embolism Echocardiogram from August 09 shows preserved LV function with mild valvular abnormalities. Suboptimal image quality. Lab data: WBC 6.61 and hemoglobin 10.3, hematocrit 32.6, platelet 207, d-dimer 0.91, sodium 142, potassium 4.1, BUN 18, creatinine 0.4, AST 33, ALT 27, troponin 0.02, BNP 498, TSH 1.02 09/10 Patient is seen today in follow-up. He denies any chest pain at this time but he is followed closely by pulmonary medicine and there is a note from yesterday stating that patient will regulate the patient for noninvasive positive pressure ventilator possible AVAPS machine and might benefit from ventilator. Blood pressure 165/82, heart rate in the 60s, pulse ox 100% on 2 L nasal cannula. No repeat blood work today. Repeat troponin was 0.031. PHYSICAL EXAMINATION: This is a 82-year-old male in no apparent distress at the time of my examination. HEENT: Head is atraumatic, normocephalic. Pupils are equal, round. Sclerae anicteric. Conjunctivae are clear. Mucous membranes of the mouth are moist. Neck is supple. There is no jugular venous distention. No carotid bruit is heard. CHEST EXAMINATION: Lungs are diminished to auscultation. No chest wall te nderness is noted on palpation or with deep breathing. HEART EXAMINATION: Heart regular rate and rhythm. S1, S2 heard. No murmurs, gallops or rub. ABDOMEN: Soft, nontender. Bowel sounds are heard. No organomegaly noted. EXTREMITIES: 2+ peripheral pulses with no evidence of peripheral edema and no calf tenderness noted. Positive muscle atrophy. NEUROLOGIC EXAMINATION: Patient is awake, alert and oriented x3. FINAL ASSESSMENT AND PLAN: Shortness of breath Elevated d-dimer with negative CTA for pulmonary embolism Hypertension Hyperlipidemia History of coronary artery disease with previous stenting History of carotid disease with prior carotid endarterectomy History of autoimmune myositis with quadriplegia History of CVA PLAN: Continue patient on low-dose carvedilol Plan for dobutamine stress echocardiogram on Sunday Hold beta danial the morning of testing Further recommendations based upon clinical course I am dictating on behalf of Dr Omkar Dior's history/physical and assess ment/plan. Objective - Vital Signs Vital signs: Vital Signs Temp 97.5 F L 09/10/22 06:03 Pulse 68 09/10/22 06:03 Resp 18 09/10/22 06:03 BP 165/82 09/10/22 06:03 Pulse Ox 100 09/10/22 06:03 FiO2 Intake & Output 09/09/22 09/10/22 09/10/22 18:59 06:59 18:59 Intake Total 118 Output Total 200 350 Balance -82 -350 Intake: Oral 118 Output: Urine 200 350 Other: Voiding Method External Catheter External Catheter External Catheter - Labs CBC & Chem 7: 09/09/22 05:00 09/09/22 05:00 Labs: Abnormal Lab Results - Last 24 Hours (Table) 09/09/22 09/09/22 09/09/22 Range/Units 05:00 05:00 12:29 RBC 3.58 L (4.40-5.60) X 10*6/uL Hgb 10.3 L (13.0-17.0) g/dL Hct 32.6 L (39.6-50.0) % MCHC 31.6 L (32.0-37.0) g/dL ABG pCO2 57 H (35-45) mmHg ABG pO2 61 L (83-108) mmHg ABG HCO3 34 H (21-25) mmol/L ABG Total CO2 35 H (19-24) mmol/L ABG O2 Saturation 93.6 L (94-97) % Carbon Dioxide 32.2 H (20.0-27.5) mmol/L Anion Gap 5.80 L (10.00-18.00) mmol/L Creatinine 0.4 L (0.6-1.5) mg/dL BUN/Creatinine Ratio 45.75 H (12.00-20.00) Ratio Microbiology - Last 24 Hours (Table) 09/08/22 14:35 Blood Culture Gram Stain - Preliminary Blood Blood Culture - Preliminary Staphylococcus species 09/08/22 14:20 Blood Culture Gram Stain - Preliminary Blood 09/08/22 14:20 Blood Culture - Final Blood 09/08/22 14:35 Blood Culture - Final Blood
--- NOTE | 2022-09-10 13:09 | P.PN ---
Subjective Progress Note Date: 09/10/22 82-year-old male patient who was readmitted to the hospital because of of shortness of breath. The patient recently seen in the hospital because of shortness of breath. The patient is known to have coronary disease, previous coronary stenting, carotid artery disease, hypertension and hyperlipidemia and also neuromyositis the patient is having with mobility and gait. The patient has also previous history of CVA. Meat And Seafood Clerk was consulted the patient was having bradycardia on admission EKG with a heart rate of 54. This was sinus bradycardia. No cough no sputum production. No aspiration. CT antigram of the chest showed negative abnormalities. The Lasix on a 6.6 with a hemoglobin of 10.3 and a platelet count of 207. Normal electrolytes and normal renal function. TSH is 1. ProBNP level is at 490. LFTs are normal. Coagulation profile is within normal limits patient's d-dimer is at 0.9. The patient is currently on 2 L of O2 nasal cannula. 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 He was diagnosed at [facility] in 2011 and he was told that there was no available theray for his condition. He has some difficulties with swallow and no aspiration On today's evaluation of 09/10/2022, the patient is resting comfortably in bed. Please refer to my detailed consultation note. The patient has obvious neuromuscular weakness in the blood gas confirmed presence of chronic hypercapnic respiratory failure which is well compensated for now and the patient's pH is at 7.38 with a pCO2 57 and pO2 of 61. He would benefit from a noninvasive positive pressure ventilator. A bedside spirometry was ordered and this has not been done. This can be also done an outpatient basis. For now, the patient is going to undergo a cardiac stress test tomorrow. D-dimer is low. Rest of the blood work is essentially within normal limits. Troponins are negative. Thyroid function tests are normal. He remains on oxygen 2 L/m nasal cannula with a pulse ox of 98%. Noted the above-mentioned blood. Was done on room air oxygen. Objective - Vital Signs Vital signs: Vital Signs Temp 97.5 F L 09/10/22 06:03 Pulse 68 09/10/22 06:03 Resp 18 09/10/22 06:03 BP 165/82 09/10/22 06:03 Pulse Ox 98 09/10/22 09:01 FiO2 2 09/10/22 09:01 Intake & Output 09/09/22 09/10/22 09/10/22 18:59 06:59 18:59 Intake Total 118 118 Output Total 200 350 Balance -82 -350 118 Intake: Oral 118 118 Output: Urine 200 350 Other: Voiding Method External Catheter External Catheter External Catheter - Exam GENERAL EXAM: Alert, pleasant 82-year-old gentleman, 2 L nasal cannula, comfortable in no apparent distress. HEAD: Normocephalic. EYES: Normal reaction of pupils, equal size. NOSE: Clear with pink turbinates. THROAT: No erythema or exudates. NECK: No masses, no JVD. CHEST: No chest wall deformity. LUNGS: Equal air entry with no crackles, wheeze, rhonchi or dullness. CVS: S1 and S2 normal with no audible murmur, regular rhythm. ABDOMEN: No hepatosplenomegaly, normal bowel sounds, no guarding or rigidity. SPINE: No scoliosis or deformity SKIN: No rashes CENTRAL NERVOUS SYSTEM: No focal deficits, tone is normal in all 4 extremities. EXTREMITIES: There is no peripheral edema. No clubbing, no cyanosis. Peripheral pulses are intact. - Labs CBC & Chem 7: 09/09/22 05:00 09/09/22 05:00 Labs: Microbiology - Last 24 Hours (Table) 09/08/22 14:35 Blood Culture Gram Stain - Preliminary Blood Blood Culture - Preliminary Staphylococcus species 09/08/22 14:20 Blood Culture Gram Stain - Preliminary Blood 09/08/22 14:20 Blood Culture - Final Blood 09/08/22 14:35 Blood Culture - Final Blood Assessment and Plan Plan: Chronic respiratory insufficiency with ongoing worsening shortness in a setting of an inclusion body myositis/autoimmune disorder with extensive neuromuscular weakness and the patient has been essentially bedridden for the past 4 years. Original diagnosis was in 2011. The patient has no evidence of any pulmonary embolism. CT angiogram of the chest is negative. Currently on 2 L of Oxymizer nasal cannula. He has a weak cough. He has obvious neuromuscular weakness. The blood gas that was obtained during his last admission showed an acute on top of chronic hypercapnic respiratory failure. As such, I suspect that the patient is having significant neuromuscular weakness related to his myositis with secondary respiratory insufficiency and chronic respiratory failure and dyspnea. He may potentially benefit from a noninvasive positive pressure ventilator. History of CAD, with previous IL, and PCI with stent placement. 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 The patient is currently off Orencia and cu rrently taking Humira Kidney stones. History of psoriasis. Remote history of tobacco use. Plan I checked the blood gases on room air oxygen and the patient has well compensated chronic hypercapnic respiratory failure Patient obviously has an underlying vesicular lung disease due to neuromuscular weakness Outpatient spirometry Date a cardiac evaluation The patient will be a candidate for a noninvasive positive pressure ventilator, possibly a AVAPS machine and I'll be glad to see him on outpatient basis, order his machine and make appropriate adjustments to achieve success. Provide this potentially may benefit from the ventilator the patient incentive spirometer Cardiology consultation is appreciated
[2022-09-10] MEDS: VANCOMYCIN 1,500 MG in SODIUM CHLORIDE 0.9% 500 ML 500 ML IVPB SCH (17:29)
[2022-09-10] MEDS: CYCLOBENZAPRINE 10 MG TAB PO SCH (20:06)
[2022-09-10] MEDS: ALPRAZolam 0.5 MG TAB PO PRN (21:41)
--- NOTE | 2022-09-10 23:11 | P.CONS ---
History of Present Illness - Reason for Consult Consult date: 09/10/22 - History of Present Illness Patient is 82-year male with a past medical history significant for coronary artery disease CVA TIA CO rheumatoid arthritis presenting to the hospital 2 days ago for evaluation of increasing shortness of breath currently has been getting worse for the last few days before presentation to the hospital and the patient apparently also have a low blood pressure patient denies any cough or sputum production denies any urinary symptoms no nausea no vomiting no abdominal pain or any diarrhea patient on presentation to the hospital was afebrile and no fever has been recorded subsequently patient was hypoxic and initially required supplemental oxygen however is currently on room air patient did have a normal white count liver enzymes are normal kidney function was normal patient did have blood cultures drawn x2 sent coming back positive with Staphylococcus species patient was started on vancomycin infectious disease was consulted for further management patient did have a chest x-ray chronic emphysematous changes cardiomegaly with low lung volumes patchy basilar infiltrate he also have a CT angiogram of the chest no evidence of PE pleural thickening atelectasis scarring at the lung bases no suspicious pulmonary most patient did have a right chest wall Mediport with the patient mention has it for more than 12 years and was recently used on his last admission to the hospital currently denies any symptoms related to the port site Past Medical History Past Medical History: Coronary Artery Disease (CAD), Chest Pain / Angina, CVA/TIA, Myocardial Infarction (CO), Rheumatoid Arthritis (RA) Additional Past Medical History / Comment(s): DIARRHEA,KIDNEYSTONE, CVA OCCIPITAL LOBE (AFFECTED EYES 2010),MEDIPORT FOR IV ORENCIA THERAPY Q 4 WEEKS . 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 R FEMUR FX WITH REPAIR; L leg fracture Past Anesthesia/Blood Transfusion Reactions: No Reported Reaction Date of Last Stent Placement:: 2007 Past Psychological History: Depression Additional Psychological History / Comment(s): PT LIVES WITH "[facility]" FOR PAST 16 YRS. PT RETIRED IN 1992. HE RAN AN [employer]. Smoking Status: Former smoker Past Alcohol Use History: Daily Past Drug Use History: None Reported - Past Family History Father Family Medical History: Hyperlipidemia Additional Family Medical History / Comment(s): FATHER AT AGE 55 YRS IN MVA. Mother Family Medical History: Cancer, Diabetes Mellitus Additional Family Medical History / Comment(s): MOTHER AT AGE 72 OF LEUKEMIA Medications and Allergies Home Medications Medication Instructions Recorded Confirmed Type Quinapril HCl [Accupril] 20 mg PO HS 05/09/21 09/08/22 History Aspirin EC [Ecotrin Low Dose] 81 mg PO BID 08/09/22 09/08/22 History Cyclobenzaprine [Flexeril] 10 mg PO HS 08/09/22 09/08/22 History Adalimumab [Humira(Cf) Pen] 40 mg SQ Q14D 09/08/22 09/08/22 History Boost High Protein 240 ml PO TID 09/08/22 09/08/22 History atenoloL [Tenormin] 25 mg PO DAILY 09/08/22 09/08/22 History diazePAM [Valium] 2 mg PO DAILY PRN 09/08/22 09/08/22 History Allergies Allergy/AdvReac Type Severity Reaction Status Date / Time amlodipine [From [facility]] Allergy Unknown Verified 09/08/22 14:19 Physical Exam Vitals: Vital Signs Temp Pulse Resp BP BP Pulse Ox FiO2 09/10/22 14:25 65 16 161/73 90 L 09/10/22 09:01 98 2 09/10/22 06:03 97.5 F L 68 18 165/82 100 09/09/22 19:38 71 18 151/84 93 L Intake and Output 09/09/22 09/10/22 09/10/22 22:59 06:59 14:59 Intake Total 118 Output Total 200 150 Balance -200 -150 118 Intake: Oral 118 Output: Urine 200 150 Other: Voiding Method External Catheter External Catheter External Catheter Results CBC & Chem 7: 09/09/22 05:00 09/09/22 05:00 Labs: Microbiology - Last 24 Hours (Table) 09/08/22 14:35 Blood Culture Gram Stain - Preliminary Blood Blood Culture - Preliminary Staphylococcus species 09/08/22 14:20 Blood Culture Gram Stain - Preliminary Blood 09/08/22 14:20 Blood Culture - Final Blood 09/08/22 14:35 Blood Culture - Final Blood Assessment and Plan Plan: 1patient with a positive blood culture with the Staphylococcus species in this patient presenting to the hospital with increasing shortness of breath CT angiogram was negative for PE or any pneumonia patient did not have any fever or elevated white count with a question of possible skin contamination however the patient does have a port and will need to rule out port related bacteremia. 2we will obtain blood cultures from the port and peripherally 3we will obtain inflammatory markers 4for now continue with the vancomycin pharmacy to dose with a target trough of 15 We will follow on clinical condition and cultures to further adjust medication if needed Thank you for this consultation we will follow the patient along with you Time with Patient: Greater than 30
[2022-09-11] MEDS: HEPARIN SODIUM,PORCINE/PF 5,000 UNIT/0.5 ML SYRINGE SQ SCH ×2 (01:14→08:53)
[2022-09-11] MEDS: ACETAMINOPHEN TAB 325 MG TAB PO PRN (02:36)
[2022-09-11 02:44] VITALS: TEMP 96.5
[2022-09-11] MEDS: carvediloL 3.125 MG TAB PO SCH (03:36)
[2022-09-11] MEDS: VANCOMYCIN 1,500 MG in SODIUM CHLORIDE 0.9% 500 ML 500 ML IVPB SCH (05:14)
[2022-09-11] MEDS ORDERED: DOBUTamine DRIP for NUC MED 500 MG in DEXTROSE/WATER 1 250ML.BAG IV PRN (06:00)
[2022-09-11] MEDS: ASPIRIN 81 MG PO SCH (08:54)
[2022-09-11 10:29] VITALS: BP 194/82; PULSE 80; RESP 16
[2022-09-11 10:54] LABS: African American GFR (CKD) 161.5 (60.0-200.0); C Reactive Protein 0.4 mg/dL (0.00-0.80); Non-African American GFR(CKD) 139.3 (60.0-200.0)
--- NOTE | 2022-09-11 13:40 | P.DS ---
Providers Date of admission: 09/08/22 20:41 Expected date of discharge: 09/11/22 Attending physician: Emily Parr MD Consults: 09/08/22 22:37 Consult Physician Routine Consulting Provider: Austen Saldaña Consult Reason/Comments: difficulty breathing Do you want consulting provider notified?: Yes, Notify in am 09/08/22 22:38 Consult Physician Routine Consulting Provider: Abel Burch Consult Reason/Comments: newbradycardia Do you want consulting provider notified?: Yes, Notify in am 09/09/22 21:53 Consult Physician Routine Consulting Provider: Marty Villatoro Consult Reason/Comments: bactremia Do you want consulting provider notified?: Yes, Notify in am Primary care physician: Austin Coker MD Hospital Course: The patient is an 82-year-old male with extensive PMH including inclusion body myositis, CAD status post stenting, rheumatoid arthritis, psoriasis, status post carotid endarterectomy, history of CVA, and hypertension who presented to the emergency room with complaints of shortness of breath. In the ED, he was noted to be hypotensive with BP of 87/43. He required 2 L nasal cannula to maintain O2 saturation greater than 92%. CBC showed hemoglobin of 11.5. Coagulation panel within normal limits. D-dimer 0.91. CMP showed a bicarb of 36, BUN of 21, creatinine is 0.56, glucose 106. Troponin was 0.027. EKG shows sinus bradycardia with first-degree AV block, right bundle branch block and findings of left ventricular hypertrophy. BNP was 490. Chest x-ray showed chronic emphysematous changes and cardiomegaly with patchy bibasilar atelectasis. CTA chest showed no PE, pleural thickening and atelectasis. Patient was admitted for further management symptoms and workup. Pulmonology and cardiology was consulted. ABG was obtained which showed chronic respiratory acidosis with compensated metabolic alkalosis. Pulmonology recommended outpatient spirometry as patient will be a candidate for noninvasive positive pressure ventilator possibly AVAPS which will need to be titrated on an outpatient basis. Cardiology initially recommended dobutamine stress test on Sunday. His atenolol was discontinued and patient was started on Coreg 3.125 mg by mouth twice a day. The patient was evaluated by Dr. Dan on Sunday and stress test was canceled since patient was reluctant and it would not roll changer anyways. His blood culture also came back positive for coagulase-negative staph 2. This was thought to be a contaminant. Patient was started on vancomycin and infectious disease was consulted. Infectious disease recommended obtaining repeat blood cultures from his port and peripherally. Blood cultures were prelim negative at 24 hours at the time of discharge. Patient was seen and examined this morning. No acute events overnight. Patient continues to report difficulty breathing and inability to take a deep inspiration. He denies any chest pain or palpitations. No nausea or vomiting. No fever or chills. The plan was discussed with his PCP Dr. Coker was agreeable to set up noninvasive positive pressure ventilator at home. He already has home oxygen. He is already having nursing tech come to the house twice a day as well as receiving assistance from his . His repeat blood cultures will also need to be followed up in the outpatient setting to be done by his PCP. He will be given an appointment with cardiology and pulmonology in the outpatient setting. Pertinent studies include chest x-ray, chest CTA. General: non toxic, no distress, appears at stated age Derm: warm, dry Head: atraumatic, normocephalic, symmetric Eyes: EOMI, no lid lag, anicteric sclera Mouth: no lip lesion, mucus membranes moist Cardiovascular: S1S2 reg, no murmur Lungs: CTA bilateral, no rhonchi, no rales , no accessory muscle use Ext: no gross muscle atrophy, no edema, no contractures Neuro: no focal neuro deficits Psych: Alert, oriented, appropriate affect Discharge diagnosis: Dyspnea at rest Gram positive bacteremia Normocytic anemia Elevated d-dimer Chronic respiratory acidosis with compensated metabolic alkalosis Resolved: Hypotension, Bradycardia Chronic conditions: inclusion body myositis, CAD status post stenting, rheumatoid arthritis, psoriasis, status post carotid endarterectomy, history of CVA, and hypertension This complex discharge took 35 minutes to complete. Patient Condition at Discharge: Stable Plan - Discharge Summary New Discharge Prescriptions: New Quinapril HCl [Accupril] 20 mg PO DAILY #30 tab carvediloL [Coreg] 3.125 mg PO BID #30 tablet Continue Cyclobenzaprine [Flexeril] 10 mg PO HS Aspirin EC [Ecotrin Low Dose] 81 mg PO BID Adalimumab [Humira(Cf) Pen] 40 mg SQ Q14D diazePAM [Valium] 2 mg PO DAILY PRN PRN Reason: Anxiety Boost High Protein 240 ml PO TID Discontinued atenoloL [Tenormin] 25 mg PO DAILY Quinapril HCl [Accupril] 20 mg PO HS Discharge Medication List Aspirin EC [Ecotrin Low Dose] 81 mg PO BID 08/09/22 [History] Cyclobenzaprine [Flexeril] 10 mg PO HS 08/09/22 [History] Adalimumab [Humira(Cf) Pen] 40 mg SQ Q14D 09/08/22 [History] Boost High Protein 240 ml PO TID 09/08/22 [History] diazePAM [Valium] 2 mg PO DAILY PRN 09/08/22 [History] Quinapril HCl [Accupril] 20 mg PO DAILY #30 tab 09/11/22 [Rx] carvediloL [Coreg] 3.125 mg PO BID #30 tablet 09/11/22 [Rx] Follow up Appointment(s)/Referral(s): Austin Coker MD [Primary Care Provider] - 1-2 days RYDER Rob [NON-STAFF] - 1 Week Patient Instructions/Handouts: Dyspnea (DC) Activity/Diet/Wound Care/Special Instructions: Diet: Low salt Discharge Disposition: HOME SELF-CARE
[2022-09-11] MEDS ORDERED: METOPROLOL TARTRATE 25 MG TAB PO SCH ×2 (16:00)
--- NOTE | 2022-09-11 22:44 | PN ---
PROGRESS NOTE SUBJECTIVE: Mr. Ziegler is a gentleman with an autoimmune muscular disorder, has been under the care of neurologist at [facility], has received antibody infusions over time, now takes Humira. He is here with difficulty in breathing and unable to take a deep breath and unable to expand his lungs. He has weakness of both upper and lower extremities, and the patient is almost confined to the bed. He has history of CAD and remote history of LAD PCI. The patient was scheduled for dobutamine stress test, but he is very reluctant to have any stress testing performed. I explained to the patient that stress test is probably not going to give us any additional information. If any, we should do cardiac catheterization or manage him conservatively. The patient wishes conservative management at this time. I will request Dr. Saldaña or Dr. Maurer to see him from a pulmonary standpoint to see if he has any other thoughts or suggestions with regard to his breathing and obstructive sleep apnea issue. From a cardiac standpoint, no further intervention other than conservative management is advised. I am recommending we switch him to 25 mg t.i.d. of Lopressor and continue other medications. OBJECTIVE: VITAL SIGNS: Stable. NECK: JVD 1 cm. HEART: S1 and S2 heard normally. Short systolic murmur. LUNGS: Reveal diminished air entry. ABDOMEN: Soft. EXTREMITIES: Lower extremities reveal diminished pulses. CENTRAL NERVOUS SYSTEM: Assessment was not performed in detail. ASSESSMENT AND PLAN: We would recommend that we add a beta-danial in the form of Lopressor instead of Coreg, cancel stress test, and seek further input from Pulmonary. MMODL / IJN: [id number] /
== END 2022-09-11 14:23 | disposition home or self-care (01) ==
LOC: EC 13:04 → 6NMEDSUR 20:41
PROVIDERS: ADMIT Internal Medicine; ATTEND Internal Medicine
DX: J96.12 Chronic respiratory failure with hypercapnia (principal); E87.4 Mixed disorder of acid-base balance; R78.81 Bacteremia; B96.89 Other specified bacterial agents as the cause of diseases classified elsewhere; R77.8 Other specified abnormalities of plasma proteins; I10 Essential (primary) hypertension; E78.5 Hyperlipidemia, unspecified; I95.9 Hypotension, unspecified; E86.0 Dehydration; R00.1 Bradycardia, unspecified; D64.9 Anemia, unspecified; I73.00 Raynaud's syndrome without gangrene; H81.09 Meniere's disease, unspecified ear; I25.10 Atherosclerotic heart disease of native coronary artery without angina pectoris; M06.9 Rheumatoid arthritis, unspecified; F32.A Depression, unspecified; G82.50 Quadriplegia, unspecified; M60.9 Myositis, unspecified; L40.9 Psoriasis, unspecified; I25.2 Old myocardial infarction; Z86.73 Personal history of transient ischemic attack (TIA), and cerebral infarction without residual deficits; Z87.442 Personal history of urinary calculi; Z87.891 Personal history of nicotine dependence; Z95.5 Presence of coronary angioplasty implant and graft; Z79.82 Long term (current) use of aspirin; Z79.899 Other long term (current) drug therapy
CPT/HCPCS: 96361 ×3; 96365; 96366 ×2; 96372 ×4; 96375; 99285; 36415; 36600; 94760 ×2; 85379; 83880; 80053; 80048; 84443; 82565; 82805; 83605; 83735; 84484 ×2; 85025 ×2; 85610; 85730; 86140; 87040 ×3; 84145; 71046; 71275; G0378 ×4; J3370 ×2; J1642; Q9967; J1644 ×4; 87077; 87186

== ENCOUNTER 2022-10-04 21:57 | Observation (INO) | payer OTHER ==
[2022-10-05 00:12] LABS: Basophils % (A) 0 %; Eosinophils # (A) 0.4 k/uL (0-0.7); Eosinophils % (A) 5 %; HCT 34.7 % (39.0-53.0); HGB 11.4 gm/dL (13.0-17.5); Lymphocytes # (A) 1.2 k/uL (1.0-4.8); Lymphocytes % (A) 15 %; MCH 29.1 pg (25.0-35.0); MCHC 32.7 g/dL (31.0-37.0); MCV 88.8 fL (80.0-100.0); Mean Platelet Volume 8.4; Monocytes # (A) 0.4 k/uL (0-1.0); Monocytes % (A) 5 %; Neutrophils # (A) 5.7 k/uL (1.3-7.7); Neutrophils % (A) 74 %; Platelet Count 225 k/uL (150-450); RBC 3.91 m/uL (4.30-5.90); WBC 7.7 k/uL (3.8-10.6)
[2022-10-05 00:16] LABS: VBG PH 7.4 (7.31-7.41)
[2022-10-05 00:22] LABS: INR 0.9 (<1.2); Partial Thromboplastin Time 26.3 sec (22.0-30.0); Prothrombin Time 9.6 sec (9.0-12.0)
[2022-10-05 00:31] LABS: ALT 25 U/L (4-49); AST 29 U/L (17-59); African American GFR (CKD) >90 (>60 ml/min/1.73 sqM); Albumin 3.5 g/dL (3.5-5.0); Alkaline Phosphatase 85 U/L (38-126); Anion Gap 4 mmol/L; Blood Urea Nitrogen 20 mg/dL (9-20); Calcium 9.4 mg/dL (8.4-10.2); Carbon Dioxide 38 mmol/L (22-30); Chloride 94 mmol/L (98-107); Glucose 104 mg/dL (74-99); Non-African American GFR(CKD) >90 (>60 ml/min/1.73 sqM); Potassium 4.8 mmol/L (3.5-5.1); Sodium 136 mmol/L (137-145); Total Bilirubin 0.3 mg/dL (0.2-1.3)
--- NOTE | 2022-10-05 00:57 | XR ---
EXAM: XR Chest, 1 View CLINICAL HISTORY: ITS.REASON XR Reason: difficulty breathing TECHNIQUE: Frontal view of the chest. COMPARISON: 09/08/22 FINDINGS: Lungs: Hypoventilatory lungs. Streaky retrocardiac opacity. Pleural space: Probable small bilateral pleural effusions. No pneumothorax. Heart: Stable cardiomediastinal silhouette. Mediastinum: As above. Bones/joints: No acute abnormality. Tubes, lines and devices: Stable right anterior chest wall Port-A-Cath. IMPRESSION: Probable small bilateral pleural effusions. Retrocardiac opacity is favored to represent atelectasis.
[2022-10-05] MEDS ORDERED: NALOXONE 0.4 MG/ML 1 ML VIAL IV PRN (04:47)
[2022-10-05] MEDS ORDERED: ACETAMINOPHEN TAB 325 MG TAB PO PRN (04:53)
[2022-10-05] MEDS: SODIUM CHLORIDE 0.9% 1,000 ML IV SCH (05:28)
--- NOTE | 2022-10-05 07:26 | P.CNPUL ---
History of Present Illness Consult date: 10/05/22 Requesting physician: Lavelle Jones Reason for consult: dyspnea Chief complaint: Chronic shortness of breath History of present illness: I'm seeing this patient in new consultation today 10/05/2022 in regard to chronic progressive shortness of breath. Patient is a 82-year-old male with past medical history of inclusion body myositis/autoimmune myositis, coronary artery disease with previous TN and stenting, CVA, rheumatoid arthritis, kidney stones, psoriasis, and remote history of tobacco use. Patient was readmitted to the hospital because of his chronic respiratory insufficiency. The patient was originally diagnosed in 2011 with inclusion body myositis/autoimmune disorder by muscle biopsy. The patient's disease has been progressive and refractory to multiple treatments including steroids and IVIG. He has been bed bound for the last 4 years. Patient normally follows with the [facility], and has a follow-up appointment at the end of October. After the patient's previous discharge, the patient was set up for an a AVAPS machine. The patient reportedly could not tolerate the machine, and it was returned to the hardware supplies sales representative. He has been wearing his normal 3 L/m nasal cannula. The patient came to the emergency room yesterday evening reporting his usual shortness of breath. He does state that he is now more short of breath when laying flat, and has to have the head of his bed elevated at home. Patient denies any concerning symptoms of infection such as cough, fever, chest pain. He denies sick contacts. He is currently in the emergency room waiting for a be d on the general medical floor. He is sitting up on the stretcher, on 3 L nasal cannula, in no acute distress. He does state that he is breathing a little better. Patient's chest x-ray on arrival showed small bilateral pleural effusions and a retrocardiac opacity thought to represent atelectasis. CBC on arrival was unremarkable. BMP shows sodium 136, potassium 4.8, chloride 94, serum CO2 chronically elevated at 38, BUN 20, creatinine 0.58, glucose 104. VBG showed a pH of 7.4 and pCO2 of 58. Troponins are negative 1. NT proBNP was nonelevated. He did reportedly have a cardiac evaluation in the office last week. Patient is negative for influenza, RSV, COVID-19. Vital signs are stable. Review of Systems REVIEW OF SYSTEMS: CONSTITUTIONAL: Denies any recent significant weight loss or weight gain. He does report chronic fatigue and weakness EYES: Denies any acute changes in vision. EARS, NOSE, MOUTH, THROAT: Denies headaches, denies sore throat. CARDIOVASCULAR: Denies chest pain, palpitations or syncopal episodes. RESPIRATORY: Denies cough, congestion or hemoptysis. Admits chronic shortness of breath and orthopnea GASTROINTESTINAL: Denies change in appetite, abdominal pain, nausea and vomiting, or diarrhea GENITOURINARY: Denies hematuria, denies infections. MUSKULOSKELETAL: Denies pain, denies swelling. Reports gait dysfunction and limited range of motion especially in the lower extremities INTEGUMENTARY: Denies rash, denies eczema. Admits pressure injuries of the lateral ankles NEUROLOGICAL: Denies recent memory loss, no recent seizure activity. See HPI PSYCHIATRIC: Denies anxiety, denies depression. HEMATOLOGIC/LYMPHATIC: Denies anemia, denies enlarged lymph node Past Medical History Past Medical History: Coronary Artery Disease (CAD), Chest Pain / Angina, CVA/TIA, Myocardial Infarction (TN), Rheumatoid Arthritis (RA) Additional Past Medical History / Comment(s): DIARRHEA,KIDNEYSTONE, CVA OCCIPITAL LOBE (AFFECTED EYES 2010),MEDIPORT FOR IV ORENCIA in the past. 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 R FEMUR FX WITH REPAIR; L leg fracture Past Anesthesia/Blood Transfusion Reactions: No Reported Reaction Date of Last Stent Placement:: 2007 Past Psychological History: Depression Smoking Status: Former smoker Past Alcohol Use History: Daily Past Drug Use History: None Reported - Past Family History Father Family Medical History: Hyperlipidemia Additional Family Medical History / Comment(s): FATHER AT AGE 55 YRS IN MVA. Mother Family Medical History: Cancer, Diabetes Mellitus Additional Family Medical History / Comment(s): MOTHER AT AGE 72 OF LEUKEMIA Medications and Allergies Home Medications Medication Instructions Recorded Confirmed Type Aspirin EC [Ecotrin Low Dose] 81 mg PO BID 08/09/22 09/08/22 History Cyclobenzaprine [Flexeril] 10 mg PO HS 08/09/22 09/08/22 History Adalimumab [Humira(Cf) Pen] 40 mg SQ Q14D 09/08/22 09/08/22 History Boost High Protein 240 ml PO TID 09/08/22 09/08/22 History diazePAM [Valium] 2 mg PO DAILY PRN 09/08/22 09/08/22 History Quinapril HCl [Accupril] 20 mg PO DAILY #30 tab 09/11/22 Rx carvediloL [Coreg] 3.125 mg PO BID #30 tablet 09/11/22 Rx Allergies Allergy/AdvReac Type Severity Reaction Status Date / Time amlodipine [From [facility]] Allergy Unknown Verified 10/04/22 22:11 Physical Exam Vitals: Vital Signs Temp Pulse Resp BP Pulse Ox 10/05/22 06:00 94 19 136/53 98 10/05/22 03:02 97.9 F 84 16 155/71 99 10/05/22 02:00 77 18 135/58 98 10/05/22 00:00 85 19 161/59 99 10/04/22 23:30 84 18 147/63 99 10/04/22 23:00 82 17 166/67 99 10/04/22 22:30 79 20 165/68 100 10/04/22 21:58 97.7 F 84 22 191/85 99 Intake and Output 10/04/22 10/04/22 10/05/22 14:59 22:59 06:59 Other: Weight 78.925 kg GENERAL EXAM: Alert, 82-year-old male, comfortable in no apparent distress. HEAD: Normocephalic and atraumatic EYES: Normal reaction of pupils, equal size. NOSE: Clear with pink turbinates. THROAT: No erythema or exudates. NECK: No masses, no JVD. CHEST: No chest wall deformity. Right chest Mediport LUNGS: Markedly diminished bilateral lung sounds with no crackles, wheeze, or rhonchi. On 3 L nasal cannula. No conversational dyspnea or accessory muscle use.. CVS: S1 and S2 normal with no audible murmur, regular rhythm. No extra heart sounds ABDOMEN: No hepatosplenomegaly, active bowel sounds, no guarding or rigidity. SPINE: No scoliosis or deformity SKIN: No rashes. Blanching redness of bilateral lateral malleolus CENTRAL NERVOUS SYSTEM: Limited active range of motion of bilateral lower extremities with atrophy. EXTREMITIES: There is no peripheral edema, clubbing, or cyanosis. Peripheral pulses are intact. Results - Laboratory Findings CBC and BMP: 10/04/22 23:46 10/04/22 23:46 PT/INR, D-dimer PT 9.6 sec (9.0-12.0) 10/04/22 23:46 INR 0.9 (<1.2) 10/04/22 23:46 Abnormal lab findings: Abnormal Labs 10/04/22 10/04/22 04 23:46 23:46 23:46 RBC 3.91 L Hgb 11.4 L Hct 34.7 L VBG pCO2 VBG HCO3 Sodium 136 L Chloride 94 L Carbon Dioxide 38 H Creatinine 0.58 L Glucose 104 H Plasma Lactic Acid Blaze <0.5 L 10/04/22 23:46 RBC Hgb Hct VBG pCO2 58 H VBG HCO3 36 H Sodium Chloride Carbon Dioxide Creatinine Glucose Plasma Lactic Acid Blaze - Diagnostic Findings Chest x-ray: image reviewed Assessment and Plan Assessment: Acute on chronic hypoxemic and hypercapnic respiratory failure secondary to i nclusion body myositis/autoimmune disorder with extensive neuromuscular weakness. The patient has been essentially bedridden for the past 4 years. Original diagnosis was in 2011. After the patient's previous discharge, the patient was set up for an a AVAPS machine. The patient reportedly could not tolerate the machine, and it was returned to the hardware supplies sales representative. Currently on his usual 3 L/min nasal cannula. No obvious signs of focal consolidation or pneumonia seen on chest x-ray. There was a retrocardiac opacity felt to reflect atelectasis. Negative for influenza, COVID-19, RSV. Coronary artery disease with previous [place], and PCI with stent placement. History of CVA. 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 Currently on Humira Kidney stones. History of psoriasis. Remote history of tobacco use. Plan: Patient's medications, labs, chest x-ray reviewed Continue supportive therapy Order incentive spirometer Continue supplemental oxygen at 3 L/m nasal cannula Patient reportedly could not tolerate AVAPs machine Reportedly has a follow-up appointment with his specialist at the [facility] at the end of October Patient is currently a full code, however, he does not want intubated and placed on mechanical ventilator. We will continue to follow I have personally seen and examined the patient, performed the documentation and the assessment and plan as written. Number of minutes spent on the visit:20 Time with Patient: Greater than 30
--- NOTE | 2022-10-05 07:29 | ED ---
SOB HPI - General Chief Complaint: Shortness of Breath Stated Complaint: DHRUV Time Seen by Provider: 10/04/22 22:31 Source: patient, EMS Mode of arrival: EMS Limitations: no limitations - History of Present Illness Initial Comments: This patient has an 82-year-old man who presents to have evaluation of his respiratory status. He states that he does have underlying myositis, but does not know the specific diagnosis. He says that this affects his pulmonary muscles and that he is becoming too weak to catch his breath at home. He does note that speaking makes him short of breath. He is short of breath if he lies flat. He feels better when he sits up. He is on oxygen concentrator at 3 L. He has not noted development of fever or chills. He denies productive cough. He has not noted change in urination or bowel movements. He has not had leg p ain or swelling. I did also receive a call from the patient's physician, Dr. Coker, who relates that after the patient's prior admission they attempted to set the patient up with home BiPAP, but he was not able to tolerate that at home. The patient has follow-up appointment with the [facility] pulmonology clinic on October 23, but he does not believe he will be able to wait that long without being seen. MD Complaint: shortness of breath -: days(s) Severity scale (1-10): 0 Consistency: constant Improves With: upright position Worsens With: lying flat Known History Of: other Treatments Prior to Arrival: oxygen - Related Data Home Oxygen Therapy: Yes Home Oxygen Amount: 3 Liters Home Medications Medication Instructions Recorded Confirmed Aspirin EC [Ecotrin Low Dose] 81 mg PO BID 08/09/22 10/05/22 Cyclobenzaprine [Flexeril] 10 mg PO HS 08/09/22 10/05/22 Adalimumab [Humira(Cf) Pen] 40 mg SQ Q14D 09/08/22 10/05/22 Boost High Protein 240 ml PO TID 09/08/22 10/05/22 diazePAM [Valium] 2 mg PO DAILY PRN 09/08/22 10/05/22 Finasteride [Proscar] 5 mg PO DAILY 10/05/22 10/05/22 Lactobacillus Rhamnosus GG 1 cap PO DAILY 10/05/22 10/05/22 [Culturelle] Sertraline [Zoloft] 50 mg PO DAILY 10/05/22 10/05/22 Tamsulosin [Flomax] 0.4 mg PO DAILY 10/05/22 10/05/22 Previous Rx's Medication Instructions Recorded Quinapril HCl [Accupril] 20 mg PO DAILY #30 tab 09/11/22 carvediloL [Coreg] 3.125 mg PO BID #30 tablet 09/11/22 Allergies Allergy/AdvReac Type Severity Reaction Status Date / Time amlodipine [From [facility]] Allergy Unknown Verified 10/05/22 06:59 Review of Systems ROS Statement: Those systems with pertinent positive or pertinent negative responses have been documented in the HPI. ROS Other: All systems not noted in ROS Statement are negative. Constitutional: Denies: fever, chills Respiratory: Reports: dyspnea. Denies: cough, wheezes, hemoptysis Cardiovascular: Denies: chest pain, palpitations, orthopnea, edema, syncope Gastrointestinal: Denies: abdominal pain, vomiting, diarrhea Genitourinary: Denies: dysuria, hematuria Musculoskeletal: Denies: back pain Skin: Denies: rash Neurological: Reports: weakness. Denies: headache Past Medical History Past Medical History: Coronary Artery Disease (CAD), Chest Pain / Angina, CVA/TIA, Myocardial Infarction ([place]), Rheumatoid Arthritis ([place]) Additional Past Medical History / Comment(s): DIARRHEA,KIDNEYSTONE, CVA OCCIPITAL LOBE (AFFECTED EYES 2010),MEDIPORT FOR IV ORENCIA in the past. 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 R FEMUR FX WITH REPAIR; L leg fracture Past Anesthesia/Blood Transfusion Reactions: No Reported Reaction Date of Last Stent Placement:: 2007 Past Psychological History: Depression Smoking Status: Former smoker Past Alcohol Use History: Daily Past Drug Use History: None Reported - Past Family History Father Family Medical History: Hyperlipidemia Additional Family Medical History / Comment(s): FATHER AT AGE 55 YRS IN MVA. Mother Family Medical History: Cancer, Diabetes Mellitus Additional Family Medical History / Comment(s): MOTHER AT AGE 72 OF LEUKEMIA General Exam Limitations: no limitations General appearance: alert, in no apparent distress Head exam: Present: atraumatic, normocephalic Eye exam: Present: normal appearance. Absent: scleral icterus, conjunctival injection ENT exam: Present: normal oropharynx Neck exam: Present: normal inspection Respiratory exam: Present: normal lung sounds bilaterally. Absent: respiratory distress, wheezes, rales, rhonchi, stridor Cardiovascular Exam: Present: regular rate, normal rhythm, normal heart sounds. Absent: systolic murmur, diastolic murmur, rubs, gallop GI/Abdominal exam: Present: soft. Absent: distended, tenderness, guarding, rebound, rigid, mass Extremities exam: Present: normal inspection, normal capillary refill. Absent: pedal edema, calf tenderness Back exam: Present: normal inspection. Absent: CVA tenderness (R), CVA tenderness (L) Neurological exam: Present: alert Skin exam: Present: warm, dry, intact, normal color. Absent: rash Course Vital Signs 10/04/22 10/04/22 10/04/22 21:58 22:30 23:00 Temperature 97.7 F Pulse Rate 84 79 82 Pulse Rate [ Pulse Oximetery ] Respiratory 22 20 17 Rate Blood Pressure 191/85 165/68 166/67 Blood Pressure [Left Arm] O2 Sat by Pulse 99 100 99 Oximetry 10/04/22 10/05/22 10/05/22 23:30 00:00 02:00 Temperature Pulse Rate 84 85 77 Pulse Rate [ Pulse Oximetery ] Respiratory 18 19 18 Rate Blood Pressure 147/63 161/59 135/58 Blood Pressure [Left Arm] O2 Sat by Pulse 99 99 98 Oximetry 10/05/22 10/05/22 10/05/22 03:02 06:00 08:45 Temperature 97.9 F 97.8 F Pulse Rate 84 94 Pulse Rate [ 93 Pulse Oximetery ] Respiratory 16 19 18 Rate Blood Pressure 155/71 136/53 Blood Pressure 150/57 [Left Arm] O2 Sat by Pulse 99 98 96 Oximetry 10/05/22 12:48 Temperature Pulse Rate 92 Pulse Rate [ Pulse Oximetery ] Respiratory 16 Rate Blood Pressure 159/77 Blood Pressure [Left Arm] O2 Sat by Pulse 95 Oximetry Medical Decision Making - Medical Decision Making Patient is an 82-year-old man with some form of myositis affecting his respiratory musculature. He is experiencing dyspnea at home and during exam here he is conversationally dyspneic. Will admit patient to see pulmonology to see if there is anything that can be done to relieve his symptoms until he is able to follow with his previous established appointment. His workup here not revealing any additional cause of dyspnea Chest x-ray was obtained which I interpreted as not showing acute infiltrate, congestive heart failure, or pneumothorax. Was pt. sent in by a medical professional or institution (, PA, LIME SPREADER, urgent care, hospital, or halfway...) When possible be specific @ -[No] Did you speak to anyone other than the patient for history (EMS, parent, family, police, friend...)? What history was obtained from this source @ -[No] Did you review nursing and triage notes (agree or disagree)? Why? @ -[I reviewed and agree with nursing and triage notes] Were old charts reviewed (outside hosp., previous admission, EMS record, old EKG, old radiological studies, urgent care reports/EKG's, halfway records)? Report findings @ -[ old charts were reviewed] Differential Diagnosis (chest pain, altered mental status, abdominal pain women, abdominal pain men, vaginal bleeding, weakness, fever, dyspnea, syncope, headache, dizziness, GI bleed, back pain, seizure, CVA, palpatations, mental health, musculoskeletal)? @ -[Differential Dyspnea: Coronary syndrome, arrhythmia, tamponade, asthma, COPD, pulmonary embolism, pneumonia, pneumothorax, pulmonary effusion, anaphylaxis, diabetic ketoacidosis, flailed chest, pulmonary contusion, diaphragmatic rupture, anemia, neuromuscular, this is not meant to be an all-inclusive list. EKG interpreted by me (3pts min.). @ -[As above] X-rays interpreted by me (1pt min.). @ -[As above CT interpreted by me (1pt min.). @ -[None done] U/S interpreted by me (1pt. min.). @ -[None done] What testing was considered but not performed or refused? (CT, X-rays, U/S, labs)? Why? @ -[None] What meds were considered but not given or refused? Why? @ -[None] Did you discuss the management of the patient with other professionals (professionals i.e. , PA, LIME SPREADER, lab, RT, psych nurse, transition social worker, retail wireless sales consultant, teacher, special police officer, child welfare caseworker)? Give summary @ -[The patient is admitted and case discussed with admitting physician Was smoking cessation discussed for >3mins.? @ -[No] Was critical care preformed (if so, how long)? @ -[No] Were there social determinants of health that impacted care today? How? (Homelessness, low income, unemployed, alcoholism, drug addiction, transportation, low edu. Level, literacy, decrease access to med. care, long-term, rehab)? @ -[No] Was there de-escalation of care discussed even if they declined (Discuss DNR or withdrawal of care, Hospice)? DNR status @ -[No] What co-morbidities impacted this encounter? (DM, HTN, Smoking, COPD, CAD, Cancer, CVA, ARF, Chemo, Hep., AIDS, mental health diagnosis, sleep apnea, morbid obesity)? @ -[None] Was patient admitted / discharged? Hospital course, mention meds given and route, prescriptions, significant lab abnormalities, going to OR and other pertinent info. @ -[Admitted Undiagnosed new problem with uncertain prognosis? @ -[No] Drug Therapy requiring intensive monitoring for toxicity (Heparin, Nitro, Insulin, Cardizem)? @ -[No] Were any procedures done? @ -[No] Diagnosis/symptom? @ -[1. Acute dyspnea 2. Chronic hypercapnic respiratory failure Acute, or Chronic, or Acute on Chronic? @ -[default] Uncomplicated (without systemic symptoms) or Complicated (systemic symptoms)? @ -[Complicated Side effects of treatment? @ -[No] Exacerbation, Progression, or Severe Exacerbation? @ -[No] Poses a threat to life or bodily function? How? (Chest pain, USA, MA, pneumonia, PE, COPD, DKA, ARF, appy, cholecystitis, CVA, Diverticulitis, Homicidal, Suicidal, threat to staff... and all critical care pts) @ -[Yes - Lab Data Result diagrams: 10/04/22 23:46 10/04/22 23:46 Lab Results 0410/04/22 10/04/22 Range/Units 23:46 23:46 23:46 WBC 7.7 (3.8-10.6) k/uL RBC 3.91 L (4.30-5.90) m/uL Hgb 11.4 L (13.0-17.5) gm/dL Hct 34.7 L (39.0-53.0) % MCV 88.8 (80.0-100.0) fL MCH 29.1 (25.0-35.0) pg MCHC 32.7 (31.0-37.0) g/dL RDW 15.0 (11.5-15.5) % Plt Count 225 (150-450) k/uL MPV 8.4 Neutrophils % 74 % Lymphocytes % 15 % Monocytes % 5 % Eosinophils % 5 % Basophils % 0 % Neutrophils # 5.7 (1.3-7.7) k/uL Lymphocytes # 1.2 (1.0-4.8) k/uL Monocytes # 0.4 (0-1.0) k/uL Eosinophils # 0.4 (0-0.7) k/uL Basophils # 0.0 (0-0.2) k/uL PT 9.6 (9.0-12.0) sec INR 0.9 (<1.2) APTT 26.3 (22.0-30.0) sec VBG pH (7.31-7.41) VBG pCO2 (37-51) mmHg VBG HCO3 (24-28) mmol/L Sodium 136 L (137-145) mmol/L Potassium 4.8 (3.5-5.1) mmol/L Chloride 94 L (98-107) mmol/L Carbon Dioxide 38 H (22-30) mmol/L Anion Gap 4 mmol/L BUN 20 (9-20) mg/dL Creatinine 0.58 L (0.66-1.25) mg/dL Est GFR (CKD-EPI)AfAm >90 (>60 ml/min/1.73 sqM) Est GFR (CKD-EPI)NonAf >90 (>60 ml/min/1.73 sqM) Glucose 104 H (74-99) mg/dL Plasma Lactic Acid Blaze (0.7-2.0) mmol/L Calcium 9.4 (8.4-10.2) mg/dL Total Bilirubin 0.3 (0.2-1.3) mg/dL AST 29 (17-59) U/L ALT 25 (4-49) U/L Alkaline Phosphatase 85 (38-126) U/L Troponin I (0.000-0.034) ng/mL NT-Pro-B Natriuret Pep pg/mL Total Protein 7.0 (6.3-8.2) g/dL Albumin 3.5 (3.5-5.0) g/dL Influenza Type A (PCR) (Not Detectd) Influenza Type B (PCR) (Not Detectd) RSV (PCR) (Not Detectd) SARS-CoV-2 (PCR) (Not Detectd) 10/04/22 10/04/22 10/04/22 Range/Units 23:46 23:46 23:46 WBC (3.8-10.6) k/uL RBC (4.30-5.90) m/uL Hgb (13.0-17.5) gm/dL Hct (39.0-53.0) % MCV (80.0-100.0) fL MCH (25.0-35.0) pg MCHC (31.0-37.0) g/dL RDW (11.5-15.5) % Plt Count (150-450) k/uL MPV Neutrophils % % Lymphocytes % % Monocytes % % Eosinophils % % Basophils % % Neutrophils # (1.3-7.7) k/uL Lymphocytes # (1.0-4.8) k/uL Monocytes # (0-1.0) k/uL Eosinophils # (0-0.7) k/uL Basophils # (0-0.2) k/uL PT (9.0-12.0) sec INR (<1.2) APTT (22.0-30.0) sec VBG pH (7.31-7.41) VBG pCO2 (37-51) mmHg VBG HCO3 (24-28) mmol/L Sodium (137-145) mmol/L Potassium (3.5-5.1) mmol/L Chloride (98-107) mmol/L Carbon Dioxide (22-30) mmol/L Anion Gap mmol/L BUN (9-20) mg/dL Creatinine (0.66-1.25) mg/dL Est GFR (CKD-EPI)AfAm (>60 ml/min/1.73 sqM) Est GFR (CKD-EPI)NonAf (>60 ml/min/1.73 sqM) Glucose (74-99) mg/dL Plasma Lactic Acid Blaze <0.5 L (0.7-2.0) mmol/L Calcium (8.4-10.2) mg/dL Total Bilirubin (0.2-1.3) mg/dL AST (17-59) U/L ALT (4-49) U/L Alkaline Phosphatase (38-126) U/L Troponin I 0.032 (0.000-0.034) ng/mL NT-Pro-B Natriuret Pep 265 pg/mL Total Protein (6.3-8.2) g/dL Albumin (3.5-5.0) g/dL Influenza Type A (PCR) (Not Detectd) Influenza Type B (PCR) (Not Detectd) RSV (PCR) (Not Detectd) SARS-CoV-2 (PCR) (Not Detectd) 10/04/22 10/05/22 Range/Units 23:46 01:53 WBC (3.8-10.6) k/uL RBC (4.30-5.90) m/uL Hgb (13.0-17.5) gm/dL Hct (39.0-53.0) % MCV (80.0-100.0) fL MCH (25.0-35.0) pg MCHC (31.0-37.0) g/dL RDW (11.5-15.5) % Plt Count (150-450) k/uL MPV Neutrophils % % Lymphocytes % % Monocytes % % Eosinophils % % Basophils % % Neutrophils # (1.3-7.7) k/uL Lymphocytes # (1.0-4.8) k/uL Monocytes # (0-1.0) k/uL Eosinophils # (0-0.7) k/uL Basophils # (0-0.2) k/uL PT (9.0-12.0) sec INR (<1.2) APTT (22.0-30.0) sec VBG pH 7.40 (7.31-7.41) VBG pCO2 58 H (37-51) mmHg VBG HCO3 36 H (24-28) mmol/L Sodium (137-145) mmol/L Potassium (3.5-5.1) mmol/L Chloride (98-107) mmol/L Carbon Dioxide (22-30) mmol/L Anion Gap mmol/L BUN (9-20) mg/dL Creatinine (0.66-1.25) mg/dL Est GFR (CKD-EPI)AfAm (>60 ml/min/1.73 sqM) Est GFR (CKD-EPI)NonAf (>60 ml/min/1.73 sqM) Glucose (74-99) mg/dL Plasma Lactic Acid Blaze (0.7-2.0) mmol/L Calcium (8.4-10.2) mg/dL Total Bilirubin (0.2-1.3) mg/dL AST (17-59) U/L ALT (4-49) U/L Alkaline Phosphatase (38-126) U/L Troponin I (0.000-0.034) ng/mL NT-Pro-B Natriuret Pep pg/mL Total Protein (6.3-8.2) g/dL Albumin (3.5-5.0) g/dL Influenza Type A (PCR) Not Detected (Not Detectd) Influenza Type B (PCR) Not Detected (Not Detectd) RSV (PCR) Not Detected (Not Detectd) SARS-CoV-2 (PCR) Not Detected (Not Detectd) Disposition Clinical Impression: Dyspnea, Hypercapnic respiratory failure, chronic Disposition: ADMITTED IP TO THIS [facility] Condition: Stable Is patient prescribed a controlled substance at d/c from ED?: No
[2022-10-05] MEDS: HEPARIN SODIUM,PORCINE/PF 5,000 UNIT/0.5 ML SYRINGE SQ SCH ×2 (08:54→21:19)
[2022-10-05] MEDS ORDERED: diazePAM 2 MG TAB PO PRN (09:20)
[2022-10-05] MEDS: carvediloL 3.125 MG TAB PO SCH (17:27)
--- NOTE | 2022-10-05 18:10 | P.HPIM ---
History of Present Illness H&P Date: 10/05/22 This patient was initially endorsed to [facility] overnight when they accepted the patient. The care of this patient was later switched to [facility]. The patient is an 82-year-old male with extensive PMH including inclusion body myositis, CAD status post stenting, rheumatoid arthritis, psoriasis, status post carotid endarterectomy, history of CVA, and hypertension who presented to the e mergency room with complaints of shortness of breath. Symptoms are worsened with eating, speaking, and moving too quickly. Previous admission he was given a BiPAP but is unable to use it due to his neuromuscular weakness. Currently on 2-3 L of home oxygen. He denies any chest pain or cough. He denies any headache, lower extremity edema, nausea vomiting, fever or chills, palpitations, changes in urination or bowel habits. No changes in appetite or weight. He denies any dizziness, numbness/weakness/tingling of the extremities. In the emergency room his vital signs are stable on 3 L nasal cannula. CBC shows hemoglobin of 11.4. Coagulation panel within normal limits. ABG shows pH is 7.4 and pCO2 of 58. CMP shows sodium of 136, chloride of 94, bicarb of 38, creatinine of 0.58, glucose 104. Lactic acid negative. Troponin 0.032. BNP 265. Influenza, RSV COVID-19 negative. CXR shows small bilateral pleural effusions. Patient is admitted for further management of his symtoms. General: non toxic, no distress, appears at stated age Derm: warm, dry Head: atraumatic, normocephalic, symmetric Eyes: EOMI, no lid lag, anicteric sclera Mouth: no lip lesion, mucus membranes moist Cardiovascular: S1S2 reg, no murmur Lungs: Decreased breath sounds bilateral, no rhonchi, no rales , no accessory muscle use Abdominal: soft, nontender to palpation, no guarding, no appreciable organomeg madhav Ext: no gross muscle atrophy, no edema, no contractures Neuro: no focal neuro deficits Psych: Alert, oriented, appropriate affect #Acute hypoxic respiratory failure with hypercarbia #Chronic respiratory acidosis #Dyspnea #Normocytic anemia Chronic conditions: Inclusion body myositis, CAD status post stenting, rheumatoid arthritis, psoriasis, status post carotid endarterectomy, history of CVA, and hypertension Based on my assessment of this patient, this patient meets a high complexity l evel of care. Patient has a history of inclusion body myositis with severe exacerbation or progression of disease which poses a threat to life or bodily function. ABG shows chronic respiratory acidosis. 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 I have reviewed the following accounting policy consultant notes: None. I have reviewed the results of the following tests: CBC shows hemoglobin of 11.4. Coagulation panel within normal limits. ABG shows pH is 7.4 and pCO2 of 58. CMP shows sodium of 136, chloride of 94, bicarb of 38, creatinine of 0.58, glucose 104. Lactic acid negative. Troponin 0.032. BNP 265. Influenza, RSV COVID-19 negative. I have ordered the following tests: None. I have discussed the care of this patient with the following independent historian: None. I have independently interpreted the following test below: CXR shows small bilateral pleural effusions I have discussed the management of this patient with the following physician: The case was discussed with the ED physician in detail. This patient has a high risk of morbidity due to the following reasons: Patient has a history of inclusion body myositis with severe exacerbation or progression of disease which poses a threat to life or bodily function. ABG shows chronic respiratory acidosis. 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 He currently requires 2 L nasal cannula to maintain O2 saturation greater than 92%. We will attempt to call his Neurologist at [facility] for further recommendations. Continue aspirin 81 mg by mouth daily, Coreg 3.125 mg by mouth BID. Past Medical History Past Medical History: Coronary Artery Disease (CAD), Chest Pain / Angina, CVA/TIA, Myocardial Infarction ([place]), Rheumatoid Arthritis (RA) Additional Past Medical History / Comment(s): DIARRHEA,KIDNEYSTONE, CVA OCCIPITAL LOBE (AFFECTED EYES 2010),MEDIPORT FOR IV ORENCIA in the past. 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 R FEMUR FX WITH REPAIR; L leg fracture Past Anesthesia/Blood Transfusion Reactions: No Reported Reaction Date of Last Stent Placement:: 2007 Past Psychological History: Depression Smoking Status: Former smoker Past Alcohol Use History: Daily Past Drug Use History: None Reported - Past Family History Father Family Medical History: Hyperlipidemia Additional Family Medical History / Comment(s): FATHER AT AGE 55 YRS IN MVA. Mother Family Medical History: Cancer, Diabetes Mellitus Additional Family Medical History / Comment(s): MOTHER AT AGE 72 OF LEUKEMIA Medications and Allergies Home Medications Medication Instructions Recorded Confirmed Type Aspirin EC [Ecotrin Low Dose] 81 mg PO BID 08/09/22 10/05/22 History Cyclobenzaprine [Flexeril] 10 mg PO HS 08/09/22 10/05/22 History Adalimumab [Humira(Cf) Pen] 40 mg SQ Q14D 09/08/22 10/05/22 History Boost High Protein 240 ml PO TID 09/08/22 10/05/22 History diazePAM [Valium] 2 mg PO DAILY PRN 09/08/22 10/05/22 History Quinapril HCl [Accupril] 20 mg PO DAILY #30 tab 09/11/22 10/05/22 Rx carvediloL [Coreg] 3.125 mg PO BID #30 tablet 09/11/22 10/05/22 Rx Finasteride [Proscar] 5 mg PO DAILY 10/05/22 10/05/22 History Lactobacillus Rhamnosus GG 1 cap PO DAILY 10/05/22 10/05/22 History [Culturelle] Sertraline [Zoloft] 50 mg PO DAILY 10/05/22 10/05/22 History Tamsulosin [Flomax] 0.4 mg PO DAILY 10/05/22 10/05/22 History Allergies Allergy/AdvReac Type Severity Reaction Status Date / Time amlodipine [From [facility]] Allergy Unknown Verified 10/05/22 06:59 Physical Exam Vitals: Vital Signs Temp Pulse Pulse Resp BP BP BP 10/05/22 13:56 97.4 F L 86 18 141/87 10/05/22 12:48 92 16 159/77 10/05/22 08:45 97.8 F 93 18 150/57 10/05/22 06:00 94 19 136/53 10/05/22 03:02 97.9 F 84 16 155/71 10/05/22 02:00 77 18 135/58 10/05/22 00:00 85 19 161/59 10/04/22 23:30 84 18 147/63 10/04/22 23:00 82 17 166/67 10/04/22 22:30 79 20 165/68 10/04/22 21:58 97.7 F 84 22 191/85 Pulse Ox 10/05/22 13:56 98 10/05/22 12:48 95 10/05/22 08:45 96 10/05/22 06:00 98 10/05/22 03:02 99 10/05/22 02:00 98 10/05/22 00:00 99 10/04/22 23:30 99 10/04/22 23:00 99 10/04/22 22:30 100 10/04/22 21:58 99 Intake and Output 10/05/22 10/05/22 10/05/22 06:59 14:59 22:59 Intake Total 240 Balance 240 Intake: Oral 240 Other: Voiding Method External Catheter Weight 78.925 kg Results CBC & Chem 7: 10/04/22 23:46 10/04/22 23:46 Labs: Abnormal Lab Results - Last 24 Hours (Table) 10/04/22 10/04/22 10/04/22 Range/Units 23:46 23:46 23:46 RBC 3.91 L (4.30-5.90) m/uL Hgb 11.4 L (13.0-17.5) gm/dL Hct 34.7 L (39.0-53.0) % VBG pCO2 (37-51) mmHg VBG HCO3 (24-28) mmol/L Sodium 136 L (137-145) mmol/L Chloride 94 L (98-107) mmol/L Carbon Dioxide 38 H (22-30) mmol/L Creatinine 0.58 L (0.66-1.25) mg/dL Glucose 104 H (74-99) mg/dL Plasma Lactic Acid Blaze <0.5 L (0.7-2.0) mmol/L 10/04/22 Range/Units 23:46 RBC (4.30-5.90) m/uL Hgb (13.0-17.5) gm/dL Hct (39.0-53.0) % VBG pCO2 58 H (37-51) mmHg VBG HCO3 36 H (24-28) mmol/L Sodium (137-145) mmol/L Chloride (98-107) mmol/L Carbon Dioxide (22-30) mmol/L Creatinine (0.66-1.25) mg/dL Glucose (74-99) mg/dL Plasma Lactic Acid Blaze (0.7-2.0) mmol/L Thrombosis Risk Factor Assmnt - Choose All That Apply Each Risk Factor Represents 3 Points: Age 75 years or older Thrombosis Risk Factor Assessment Total Risk Factor Score: 3 Thrombosis Risk Factor Assessment Level: Moderate Risk
[2022-10-05] MEDS ORDERED: CYCLOBENZAPRINE 10 MG TAB PO SCH (21:00)
[2022-10-05] MEDS: ASPIRIN 81 MG PO SCH (21:20)
[2022-10-06] MEDS: SODIUM CHLORIDE 0.9% 1,000 ML IV SCH (01:33)
[2022-10-06] MEDS: carvediloL 3.125 MG TAB PO SCH (06:29)
[2022-10-06 07:53] VITALS: BP 179/78; PULSE 70; RESP 16; TEMP 97.8
[2022-10-06] MEDS: ASPIRIN 81 MG PO SCH (08:57)
[2022-10-06] MEDS: HEPARIN SODIUM,PORCINE/PF 5,000 UNIT/0.5 ML SYRINGE SQ SCH (08:57)
[2022-10-06] MEDS ORDERED: FINASTERIDE 5 MG TAB PO SCH (09:00)
[2022-10-06] MEDS ORDERED: SERTRALINE 50 MG TAB PO SCH (09:00)
[2022-10-06] MEDS ORDERED: lisinopriL 20 MG TAB PO SCH (09:00)
[2022-10-06] MEDS ORDERED: TAMSULOSIN 0.4 MG CAP.ER.24H PO SCH (09:00)
--- NOTE | 2022-10-06 11:46 | P.PN ---
Subjective Progress Note Date: 10/06/22 I'm seeing this patient in new consultation today 10/05/2022 in regard to chronic progressive shortness of breath. Patient is a 82-year-old male with past medical history of inclusion body myositis/autoimmune myositis, coronary artery disease with previous [place] and stenting, CVA, rheumatoid arthritis, kidney stones, psoriasis, and remote history of tobacco use. Patient was readmitted to the hospital because of his chronic respiratory insufficiency. The patient was originally diagnosed in 2011 with inclusion body myositis/autoimmune disorder by muscle biopsy. The patient's disease has been progressive and refractory to multiple treatments including steroids and IVIG. He has been bed bound for the last 4 years. Patient normally follows with the [facility], and has a follow-up appointment at the end of October. After the patient's previous discharge, the patient was set up for an a AVAPS machine. The patient reportedly could not tolerate the machine, and it was returned to the [facility]. He has been wearing his normal 3 L/m nasal cannula. The patient came to the emergency room yesterday evening reporting his usual shortness of breath. He does state that he is now more short of breath when laying flat, and has to have the head of his bed elevated at home. Patient denies any concerning symptoms of infection such as cough, fever, chest pain. He denies sick contacts. He is currently in the emergency room waiting for a bed on the general medical floor. He is sitting up on the stretcher, on 3 L nasal cannula, in no acute distress. He does state that he is breathing a little better. Patient's chest x-ray on arrival showed small bilateral pleural effusions and a retrocardiac opacity thought to represent atelectasis. CBC on arrival was unremarkable. BMP shows sodium 136, potassium 4.8, chloride 94, serum CO2 chronically elevated at 38, BUN 20, creatinine 0.58, glucose 104. VBG showed a pH of 7.4 and pCO2 of 58. Troponins are negative 1. NT proBNP was nonelevated. He did reportedly have a cardiac evaluation in the office last week. Patient is negative for influenza, RSV, COVID-19. Vital signs are stable. The patient is seen today 10/06/2022 in follow-up on the regular medical floor. He is currently resting in bed. Awake and alert in no acute distress. Continues to maintain O2 saturations in the 90s on 3 L/m per nasal cannula. No new labs today. Continued on his current medications. Chest x-ray revealed hypoventilatory lungs. There is some streaky atelectasis. Small effusions. He has a right chest wall Port-A-Cath in place. Objective - Vital Signs Vital signs: Vital Signs Temp 97.8 F 10/06/22 07:00 Pulse 70 10/06/22 07:00 Resp 16 10/06/22 07:00 BP 179/78 10/06/22 07:00 Pulse Ox 90 L 10/06/22 07:00 FiO2 Intake & Output 10/05/22 10/06/22 10/06/22 18:59 06:59 18:59 Intake Total 240 118 Output Total 550 Balance 240 -550 118 Intake: Oral 240 118 Output: Urine 550 Other: Voiding Method External Catheter External Catheter External Catheter # Bowel Movements 0 - Exam GENERAL EXAM: Alert, 82-year-old male, resting in bed, on 3 L nasal cannula, comfortable in no apparent distress. HEAD: Normocephalic and atraumatic EYES: Normal reaction of pupils, equal size. NOSE: Clear with pink turbinates. THROAT: No erythema or exudates. NECK: No masses, no JVD. CHEST: No chest wall deformity. Right chest Mediport LUNGS: Markedly diminished bilateral lung sounds with no crackles, wheeze, or rhonchi. No conversational dyspnea or accessory muscle use.. CVS: S1 and S2 normal with no audible murmur, regular rhythm. No extra heart sounds ABDOMEN: No hepatosplenomegaly, active bowel sounds, no guarding or rigidity. SPINE: No scoliosis or deformity SKIN: No rashes. Blanching redness of bilateral lateral malleolus CENTRAL NERVOUS SYSTEM: Limited active range of motion of bilateral lower extremities with atrophy. EXTREMITIES: There is no peripheral edema, clubbing, or cyanosis. Peripheral pulses are intact. - Labs CBC & Chem 7: 10/04/22 23:46 10/04/22 23:46 Assessment and Plan Assessment: Acute on chronic hypoxemic and hypercapnic respiratory failure secondary to inclusion body myositis/autoimmune disorder with extensive neuromuscular weakness. The patient has been essentially bedridden for the past 4 years. Original diagnosis was in 2011. After the patient's previous discharge, the patient was set up for an a AVAPS machine. The patient reportedly could not tolerate the machine, and it was returned to the [employer]. Currently on his usual 3 L/min nasal cannula. No obvious signs of focal consolidation or pneumonia seen on chest x-ray. There was a retrocardiac opacity felt to reflect atelectasis. Negative for influenza, COVID-19, RSV. Coronary artery disease with previous [place], and PCI with stent placement. History of CVA. 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 Currently on Humira Kidney stones. History of psoriasis. Remote history of tobacco use. Plan: The patient was seen and evaluated Medications reviewed Remains stable on 3 L nasal cannula No further recommendations from the pulmonary standpoint Palliative care consult placed DO NOT INTUBATE CODE STATUS per patient request He is encouraged to continue his care at the [facility] I have personally seen and examined the patient, performed the documentation and the assessment and plan as written. Number of minutes spent on the visit: 10.
--- NOTE | 2022-10-06 16:26 | P.DS ---
Providers Date of admission: 10/05/22 04:54 Expected date of discharge: 10/06/22 Attending physician: Jennifer Villagomez MD Consults: 10/05/22 04:47 Consult Physician Routine Consulting Provider: Eleanor Maurer Consult Reason/Comments: dyspnea Do you want consulting provider notified?: Yes 10/06/22 08:18 Consult to Palliative Care Routine Consulting Provider: Charu Candelario Consult Reason/Comments: Goals of care Do you want consulting provider notified?: Yes Primary care physician: Austin Coker MD Hospital Course: The patient is an 82-year-old male with extensive PMH including inclusion body myositis, CAD status post stenting, rheumatoid arthritis, psoriasis, status post carotid endarterectomy, history of CVA, and hypertension who presented to the emergency room with complaints of shortness of breath. Symptoms are worsened with eating, speaking, and moving too quickly. Previous admission he was given a BiPAP but is unable to use it due to his neuromuscular weakness. Currently on 2-3 L of home oxygen. He denies any chest pain or cough. He denies any headache, lower extremity edema, nausea vomiting, fever or chills, palpitations, changes in urination or bowel habits. No changes in appetite or weight. He denies any dizziness, numbness/weakness/tingling of the extremities. In the emergency room his vital signs are stable on 3 L nasal cannula. CBC shows hemoglobin of 11.4. Coagulation panel within normal limits. ABG shows pH is 7.4 and pCO2 of 58. CMP shows sodium of 136, chloride of 94, bicarb of 38, creatinine of 0.58, glucose 104. Lactic acid negative. Troponin 0.032. BNP 265. Influenza, RSV COVID-19 negative. CXR shows small bilateral pleural effusions. Patient is admitted for further management of his symtoms. Case was discussed with his neurologist from [facility] Dr. Ray who recommended continuing positive pressure ventilation with no need to transfer as there is nothing much further that they would do. The case was discussed with Delia HUTCHINS with plans for patient to follow-up in the outpatient setting to obtain a Trilogy ventilator as previously recommended by pulmonology. The case was discussed with Dr. Coker who will attempt to get the patient the Trilogy ventilator. Patient was seen and examined this morning. No acute events overnight. Patient reports feeling back to baseline. Currently on 3 L nasal cannula. Comfortable being discharged home. Pertinent studies include chest x-ray. General: non toxic, no distress, appears at stated age Derm: warm, dry Head: atraumatic, normocephalic, symmetric Eyes: EOMI, no lid lag, anicteric sclera Cardiovascular: S1S2 reg, no murmur Lungs: Decreased breath sounds bilateral, no rhonchi, no rales , no accessory muscle use Ext: no gross muscle atrophy, no edema, no contractures Neuro: no focal neuro deficits Psych: Alert, oriented, appropriate affect Discharge diagnosis: #Acute hypoxic respiratory failure with hypercarbia #Chronic respiratory acidosis #Dyspnea #Normocytic anemia Chronic conditions: Inclusion body myositis, CAD status post stenting, rheumatoid arthritis, psoriasis, status post carotid endarterectomy, history of CVA, and hypertension This complex discharge took 45 minutes to complete. Patient Condition at Discharge: Stable Plan - Discharge Summary Discharge Rx Participant: No New Discharge Prescriptions: Continue Cyclobenzaprine [Flexeril] 10 mg PO HS Aspirin EC [Ecotrin Low Dose] 81 mg PO BID Adalimumab [Humira(Cf) Pen] 40 mg SQ Q14D Quinapril HCl [Accupril] 20 mg PO DAILY #30 tab Tamsulosin [Flomax] 0.4 mg PO DAILY Sertraline [Zoloft] 50 mg PO DAILY diazePAM [Valium] 2 mg PO DAILY PRN PRN Reason: Anxiety Boost High Protein 240 ml PO TID carvediloL [Coreg] 3.125 mg PO BID #30 tablet Finasteride [Proscar] 5 mg PO DAILY Lactobacillus Rhamnosus GG [Culturelle] 1 cap PO DAILY Discharge Medication List Aspirin EC [Ecotrin Low Dose] 81 mg PO BID 08/09/22 [History] Cyclobenzaprine [Flexeril] 10 mg PO HS 08/09/22 [History] Adalimumab [Humira(Cf) Pen] 40 mg SQ Q14D 09/08/22 [History] Boost High Protein 240 ml PO TID 09/08/22 [History] diazePAM [Valium] 2 mg PO DAILY PRN 09/08/22 [History] Quinapril HCl [Accupril] 20 mg PO DAILY #30 tab 09/11/22 [Rx] carvediloL [Coreg] 3.125 mg PO BID #30 tablet 09/11/22 [Rx] Finasteride [Proscar] 5 mg PO DAILY 10/05/22 [History] Lactobacillus Rhamnosus GG [Culturelle] 1 cap PO DAILY 10/05/22 [History] Sertraline [Zoloft] 50 mg PO DAILY 10/05/22 [History] Tamsulosin [Flomax] 0.4 mg PO DAILY 10/05/22 [History] Follow up Appointment(s)/Referral(s): Austin Coker MD [Primary Care Provider] - 1 Week Austen Saldaña MD [STAFF PHYSICIAN] - 1 Week Patient Instructions/Handouts: Dyspnea (DC) Discharge Disposition: HOME SELF-CARE
== END 2022-10-06 15:05 | disposition home or self-care (01) ==
LOC: EC 21:57 → 6NMEDSUR 10-05 04:54
PROVIDERS: ADMIT Family Medicine; ATTEND Family Medicine
DX: J96.22 Acute and chronic respiratory failure with hypercapnia (principal); J96.21 Acute and chronic respiratory failure with hypoxia; G72.41 Inclusion body myositis [IBM]; I25.10 Atherosclerotic heart disease of native coronary artery without angina pectoris; I25.2 Old myocardial infarction; M06.9 Rheumatoid arthritis, unspecified; F32.A Depression, unspecified; Z66 Do not resuscitate; Z74.01 Bed confinement status; Z86.73 Personal history of transient ischemic attack (TIA), and cerebral infarction without residual deficits; Z87.442 Personal history of urinary calculi; Z87.891 Personal history of nicotine dependence; Z95.5 Presence of coronary angioplasty implant and graft; Z20.822 Contact with and (suspected) exposure to COVID-19; Z79.82 Long term (current) use of aspirin; Z79.899 Other long term (current) drug therapy
CPT/HCPCS: 96372; 99285; 36415; 93005; 83880; 80053; 82803; 83605; 84484; 85025; 85610; 85730; 87636; 71045; G0378 ×3; S0138; J1644